=== PATIENT | male | born 1975 | race Caucasian/White ===

== ENCOUNTER 2023-03-09 08:29 | Outpatient (OUT) | payer BC, SELFPAY ==
[2023-03-09 10:01] LABS: Estimated Average Glucose 123 mg/dL; Glycohemoglobin A1C 5.9 % (4.5-6.2)
== END 2023-03-09 08:30 | disposition home or self-care (01) ==
PROVIDERS: PCP Family Medicine; Visit Provider Family Medicine
DX: E11.65 Type 2 diabetes mellitus with hyperglycemia (principal)
CPT/HCPCS: 36415; 83036

== ENCOUNTER 2023-03-30 08:55 | Outpatient (OUT) | payer BC, SELFPAY ==
--- NOTE | 2023-03-30 08:58 | US_ITS ---
The [address] [address] Patient Name: SHAGUFTA RUIZ MRN: [id number] date: 1975 Sex: M Assigned Patient Location: [place] Current Patient Location: [place] Accession/Order Number: [id number] Exam Date: 03/30/2023 09:00 Report Date: 03/30/2023 09:48 At the request of: LOLITA EUGENE Procedure: US abdomen limited EXAM: US abdomen limited HISTORY: . Left upper quadrant pain R10.12 . COMPARISON: None. TECHNIQUE: Nogueira scale and color imaging was performed FINDINGS: The spleen appears normal in size measuring 10.5 x 9.8 x 4 cm. Color-flow is noted. No masses are noted. No subcapsular fluid collection is noted. The left kidney is grossly unremarkable. Scanning of the left upper quadrant soft tissues regional to the scar from the patient's previous chest 2V chest under the skin there is a 2 x 2 mm hypoechoic area. No color-flow is noted. There is a linear hypoechoic tract, also noted extending from the skin into the soft tissues. US/US abdomen limited IMPRESSION: 1. Normal-appearing spleen spleen and left kidney. 2. Within the soft tissues a left upper quadrant just under the skin in the region of the patient's previous chest tube there is a 2 x 2 mm hypoechoic area. There is a linear hypoechoic area extending into the soft tissues. Findings most likely represent a scar from the chest tube track. Clinical correlation is suggested. Electronically authenticated by: TEO AVELAR Date: 03/30/2023 09:48
== END 2023-03-30 08:56 | disposition home or self-care (01) ==
LOC: US 08:55
PROVIDERS: PCP Family Medicine; Visit Provider Family Medicine
DX: R10.12 Left upper quadrant pain (principal)
CPT/HCPCS: 76705

== ENCOUNTER 2024-08-07 11:03 | Outpatient (OUT) | payer BC, SELFPAY ==
[2024-08-07 11:30] LABS: Basophils Absolute Auto 0.1 10^3/uL (0.0-0.1); Basophils Percent Auto 1.1 % (0.2-2.0); Eosinophils Absolute Auto 0.8 10^3/uL (0.0-0.7); Eosinophils Percent Auto 11.1 % (0.9-7.0); Hematocrit 44.9 % (42.0-54.0); Hemoglobin 15.7 g/dL (14.0-18.0); Immature Granulocytes Abs Auto 0.01 10^3/uL (0.00-0.03); Immature Granulocytes Pct Auto 0.1 % (0.0-0.5); Lymphocytes Absolute Auto 2.6 10^3/uL (1.2-3.8); Lymphocytes Percent Auto 35.1 % (20.5-60.0); Mean Corpuscular Hemoglobin 29.6 pg (25.9-34.0); Mean Corpuscular Volume 84.7 fL (80.0-94.0); Mean Platelet Volume 8.7 fL (9.5-13.5); Monocytes Absolute Auto 0.7 10^3/uL (0.3-0.8); Monocytes Percent Auto 9.9 % (1.7-12.0); Neutrophils Absolute Auto 3.2 10^3/uL (1.4-6.5); Neutrophils Percent Auto 42.7 % (43.0-75.0); Platelet Count 272 10^3/uL (150-450); Red Cell Distribution Width 12.4 % (11.0-15.0); White Blood Count 7.4 10^3/uL (4.0-11.0)
[2024-08-07 11:46] LABS: Estimated Average Glucose 123 mg/dL; Glycohemoglobin A1C 5.9 % (4.5-6.2)
[2024-08-07 11:54] LABS: Alanine Aminotransferase 21 U/L (16-63); Albumin Level 3.8 g/dL (3.4-5.0); Alkaline Phosphatase 88 U/L (46-116); Aspartate Amino Transferase 12 U/L (15-37); BUN Creatinine Ratio 28.6; Calcium 9.2 mg/dL (8.5-10.1); Carbon Dioxide 28.1 mmol/L (21.0-32.0); Chloride 106 mmol/L (98-107); Chol HDL Ratio 3.1; Cholesterol 184 mg/dL (<=200); Estimated GFR (African America >60 (>=60 mL/min/1.73m^2); Estimated GFR (Non-African Ame >60 (>=60 mL/min/1.73m^2); Globulin 3.8 g/dL; Glucose 106 mg/dL (74-106); HDL Cholesterol 59 mg/dL (40-60); LDL Cholesterol Calculated 117.4 mg/dL; Potassium 4.1 mmol/L (3.5-5.1); Sodium 144 mmol/L (136-145); Total Protein 7.6 g/dL (6.4-8.2); Triglycerides 38 mg/dL (<=150); VLDL CHOLESTEROL 7.6 mg/dL
[2024-08-07 13:34] LABS: Microalbumin Urine Random 3.3 mg/dL (<=30.0)
== END 2024-08-07 11:04 | disposition home or self-care (01) ==
LOC: LAB 11:04
PROVIDERS: PCP Family Medicine; Visit Provider Family Medicine
DX: Z00.00 Encounter for general adult medical examination without abnormal findings (principal); E11.9 Type 2 diabetes mellitus without complications
CPT/HCPCS: 36415; 80053; 80061; 82043; 83036; 85025

== ENCOUNTER 2025-01-04 18:27 | Emergency (ER) | payer BC, SELFPAY ==
[2025-01-04] VITALS (12 sets, daily range): BP systolic 123–153; BP diastolic 77–86; PULSE 68–86; TEMP 37.1; O2SAT 92–98; BMI 36.9
--- OUTSIDE RECORDS SUMMARY | 2025-01-04 18:38 | XMS_ITS | CCD ---
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 that I do wonder if these may be seizure events. I would suggest that we cover him with an antiepileptic drug-Keppra. Discussed that people generally tolerate this well. Is taking twice per day. Does not require routine lab monitoring. He does note that he continues to have some pressure headaches as well. Having intermittent nausea and vomiting few times per week. Diplopia is marginally improved, though still present with far lateral gaze. Denies difficulty with his balance or falls. Not really having much dizziness as he was prior to the shunt revision. He would like a refill on his oxycodone as well. Reminded of appointment next week and then at end of month with CT same day to follow-up resolution of subdural hematoma. [facility] 36 Pt's PCP, Dr. Eugene, called reporting that pt was seen today and has left sided facial numbness/tingling, no drooping, and left arm numbness/tingling. Dr. Eugene wanted to make you aware. [facility] Telephoneon 12-31-2024 Telephone [phone] DarianMartinez cortez 1975 M Date Provider Department Center 12/31/2024 MELY ARRIAZA [facility] SURG Second Fl Family History Problem Relation Age of Onset COPD Mother Parkinsonism Father Hypertension Father Hypertension Brother Cancer Mother's Brother Cancer Maternal Grandmother Diabetes Maternal Grandmother Stroke Paternal Grandfather Family Status - Relation Status Age at Mother Alive Father Alive Brother Mother's Brother Maternal Grandmother Paternal Grandfather [facility] DSon 12-24-2024 DS Admission Admitted 12/22/2024 for Subdural hematoma, nontraumatic (C* Discharge Diagnosis Subdural hematoma, nontraumatic (CMS/HCC) Principal procedure: Evacuation of right side subdural hematoma (gabriela holes aborted for) craniotomy - frontal/parietal Discharge Disposition Home or Self Care () Discharge Medications Your medication list START taking these medications Instructions Last Dose Given Next Dose Due oxyCODONE 5 mg immediate release tablet Commonly known as: Roxicodone Take 1 tablet (5 mg) by mouth every 6 (six) hours if needed for moderate pain (4-7 pain score) (for post-op pain - can use tylenol or ibuprofen first and use this second if still having pain) for up to 5 days. CONTINUE taking these medications Instructions Last Dose Given Next Dose Due albuterol 90 mcg/actuation inhaler alcohol swabs pads, medicated amLODIPine 5 mg tablet Commonly known as: Norvasc Take 1 tablet (5 mg) by mouth in the morning. atorvastatin 20 mg tablet Commonly known as: Lipitor Dexcom G6 Sensor device Generic drug: blood-glucose sensor Dexcom G6 Transmitter device Generic drug: Dexcom G4 [place] transmitter losartan 50 mg tablet Commonly known as: Cozaar metFORMIN 500 mg tablet Commonly known as: Glucophage metoprolol succinate XL 50 mg 24 hr tablet Commonly known as: Toprol-XL ondansetron 4 mg tablet Commonly known as: Zofran pantoprazole 40 mg EC tablet Commonly known as: ProtoNix Prodigy Twist Top Lancet 28 gauge Generic drug: FreeStyle lancets SELECT IF UNABLE TO FIND MEDICATION WITH +ADD semaglutide 0.25 mg or 0.5 mg (2 mg/3 mL) pen injector Commonly known as: Ozempic sildenafil 100 mg tablet Commonly known as: Viagra tiZANidine 2 mg tablet Commonly known as: Zanaflex TAKE 1 TABLET BY MOUTH EVERY 8 HOURS NEEDED FOR MUSCLE SPASM UltiCare Pen Needle 31 gauge x 5/16 needle Generic drug: pen needle, diabetic STOP taking these medications aspirin 325 mg EC tablet chlorhexidine 4 % external liquid Commonly known as: Hibiclens Where to Get Your Medications These medications were sent to [facility]/pharmacy #[id number] [place] [address] oxyCODONE 5 mg immediate release tablet Activity You should be up and walking as tolerated, Avoid lifting more than about 10 pounds for 2-3 weeks, Walking is good, Showers are OK and you can wash your hair, Louann are usually removed at your next appointment - which is typically about 2-3 weeks post-op Diet Continue on the same type of diet and foods as you were eating before your admission. Drink plenty of water. Allergies Dilaudid [hydromorphone] Hospital Course Patient had gabriela holes - which was converted to craniotomy. He went to recovery and then ICU. His post-op CT looked good. His pain was controlled. His HV drain had high output the first day which slowed considerably. The drain was removed and he was deemed appropriate for discharge to home. Pertinent Physical Exam At Time of Discharge Physical Exam Sitting up in bed Awake, alert, oriented Drain removed Motor/sensory intact Wound c/d/i Lab Results Labs Reviewed POCT GLUCOSE METER UNSOLICITED RESULTS - Abnormal Result Value Glucose POC 137 (*) Narrative: Waived Testing in the ED is performed under the ED CLIA certificate #[id number]. POCT GLUCOSE METER UNSOLICITED RESULTS - Abnormal Glucose POC 159 (*) Narrative: Waived Testing in the ED is performed under the ED CLIA certificate #[id number]. CBC - Abnormal Auto WBC 13.49 (*) RBC 4.86 Hemoglobin 13.9 Hematocrit 41.4 MCV 85.2 MCH 28.6 MCHC 33.6 RDW 13.2 Platelets 293 BASIC METABOLIC PANEL - Abnormal Sodium 135 (*) Potassium 3.9 Chloride 104 CO2 25 BUN 17 Creatinine 0.70 Glucose 186 (*) Calcium 9.0 Anion Gap 10 eGFR 114.4 BUN/Creatinine Ratio 24.3 VENOUS BLOOD GAS WITH IONIZED CALCIUM - Abnormal pH, Guillermo 7.40 pCO2, Guillermo 41 pO2, Guillermo 70 (*) HCO3, Venous 25.4 Calcium, Ion 1.21 O2 Sat, Guillermo 95.3 (*) Base Excess, Guillermo 0.5 MAGNESIUM - Abnormal Magnesium 1.8 (*) POCT GLUCOSE METER UNSOLICITED RESULTS - Abnormal Glucose POC 177 (*) Narrative: Waived Testing in the ED is performed under the ED CLIA certificate #[id number]. POCT GLUCOSE METER UNSOLICITED RESULTS - Abnormal Glucose POC 209 (*) Narrative: Waived Testing in the ED is performed under the ED CLIA certificate #[id number]. BASIC METABOLIC PANEL - Abnormal Sodium 134 (*) Potassium 3.9 Chloride 101 CO2 26 BUN 17 Creatinine 0.66 (*) Glucose 152 (*) Calcium 8.7 Anion Gap 11 eGFR 116.4 BUN/Creatinine Ratio 25.8 CBC - Abnormal Auto WBC 14.35 (*) RBC 4.77 Hemoglobin 13.7 Hematocrit 40.0 MCV 83.9 MCH 28.7 MCHC 34.3 RDW 13.0 Platelets 315 MAGNESIUM - Abnormal Magnesium 1.8 (*) POCT GLUCOSE METER UNSOLICITED RESULTS - Abnorm (more content not included)... Normal [facility] MAGNESIUMon 12-24-2024 Magnesium [Mass/Vol] 1.8 mg/dL Low 1.9-2.7 [facility] Comment on above: Performed By: #### L [id number] #### [facility] ([facility]) [address] [place] [address] NURSNOTEon 12-24-2024 NURSNOTE Patient Name: Sadie Ruiz : 1975 Primary Care Physician: Lolita Eugene MD Admission Date: 12/22/2024 RAPID RESPONSE TEAM ICU TRANSFER FOLLOW-UP NOTE SUBJECTIVE / OBJECTIVE: Follow-up for previous transfer out of the ICU notification for 12/23 at 1147. ASSESSMENT / INTERVENTIONS: Recent Vital Signs: Vitals: 12/24/24 0303 12/24/24 0455 12/24/24 0904 12/24/24 0939 BP: 149/82 (!) 152/97 (!) 146/91 BP Location: Left arm Left arm Patient Position: Lying Lying Pulse: 79 78 75 Resp: 23 (!) 30 Temp: 36.7 ???C (98.1 ???F) 36.8 ???C (98.2 ???F) TempSrc: Oral Oral SpO2: 98% 97% Weight: 120 kg (263 lb 14.3 oz) Height: Latest Labs: Lab Results Component Value Date WBC 14.35 (H) 12/23/2024 WBC 13.49 (H) 12/22/2024 HGB 13.7 12/23/2024 HGB 13.9 12/22/2024 HCT 40.0 12/23/2024 HCT 41.4 12/22/2024 MCV 83.9 12/23/2024 MCV 85.2 12/22/2024 PLT 315 12/23/2024 PLT 293 12/22/2024 NEUTROABS 3.85 12/17/2024 NEUTROABS 8.33 (H) 09/29/2024 Lab Results Component Value Date GLUCOSE 152 (H) 12/23/2024 GLUCOSE 186 (H) 12/22/2024 CALCIUM 8.7 12/23/2024 CALCIUM 9.0 12/22/2024 NA 134 (L) 12/23/2024 NA 135 (L) 12/22/2024 K 3.9 12/23/2024 K 3.9 12/22/2024 CO2 26 12/23/2024 CO2 25 12/22/2024 CL 101 12/23/2024 CL 104 12/22/2024 BUN 17 12/23/2024 BUN 17 12/22/2024 CREATININE 0.66 (L) 12/23/2024 CREATININE 0.70 12/22/2024 EGFR 116.4 12/23/2024 EGFR 114.4 12/22/2024 BCR 25.8 12/23/2024 BCR 24.3 12/22/2024 Lab Results Component Value Date MG 1.8 (L) 12/24/2024 MG 1.8 (L) 12/23/2024 Lab Results Component Value Date PHOS 3.0 12/22/2024 No results found for: ALT , AST , GGT , ALKPHOS , BILITOT Lab Results Component Value Date INR 0.99 12/17/2024 INR 1.03 09/16/2024 Follow-up: Patient is doing well at this time. Sitting up in bed talking with family. Vitals are stable. If emergent concerns arise call rapid response team. Janel Guadalupe RN Rapid Response Team Nurse [phone] 12/24/2024 11:10 AM Normal [facility] NURSNOTE Patient Name: Sadie Ruiz : 1975 Primary Care Physician: Lolita Eugene MD Admission Date: 12/22/2024 RAPID RESPONSE TEAM ICU TRANSFER FOLLOW-UP NOTE SUBJECTIVE / OBJECTIVE: Follow-up for previous transfer out of the ICU notification for 12/23 at 1147. ASSESSMENT / INTERVENTIONS: Recent Vital Signs: Vitals: 12/23/24 1700 12/23/24 1800 12/23/24 2000 12/24/24 0303 BP: 130/82 144/82 127/74 BP Location: Left arm Left arm Patient Position: Sitting Lying Pulse: 63 70 70 Resp: 14 10 19 Temp: 36 ???C (96.8 ???F) 36.7 ???C (98.1 ???F) TempSrc: Oral Oral SpO2: 100% 100% Weight: 120 kg (263 lb 14.3 oz) Height: Latest Labs: Lab Results Component Value Date WBC 14.35 (H) 12/23/2024 WBC 13.49 (H) 12/22/2024 HGB 13.7 12/23/2024 HGB 13.9 12/22/2024 HCT 40.0 12/23/2024 HCT 41.4 12/22/2024 MCV 83.9 12/23/2024 MCV 85.2 12/22/2024 PLT 315 12/23/2024 PLT 293 12/22/2024 NEUTROABS 3.85 12/17/2024 NEUTROABS 8.33 (H) 09/29/2024 Lab Results Component Value Date GLUCOSE 152 (H) 12/23/2024 GLUCOSE 186 (H) 12/22/2024 CALCIUM 8.7 12/23/2024 CALCIUM 9.0 12/22/2024 NA 134 (L) 12/23/2024 NA 135 (L) 12/22/2024 K 3.9 12/23/2024 K 3.9 12/22/2024 CO2 26 12/23/2024 CO2 25 12/22/2024 CL 101 12/23/2024 CL 104 12/22/2024 BUN 17 12/23/2024 BUN 17 12/22/2024 CREATININE 0.66 (L) 12/23/2024 CREATININE 0.70 12/22/2024 EGFR 116.4 12/23/2024 EGFR 114.4 12/22/2024 BCR 25.8 12/23/2024 BCR 24.3 12/22/2024 Lab Results Component Value Date MG 1.8 (L) 12/23/2024 MG 1.8 (L) 12/22/2024 Lab Results Component Value Date PHOS 3.0 12/22/2024 No results found for: ALT , AST , GGT , ALKPHOS , BILITOT Lab Results Component Value Date INR 0.99 12/17/2024 INR 1.03 09/16/2024 Follow-up: Vital signs have remained stable since transfer out of ICU yesterday morning. Most recent lab work is largely unchanged. Bedside nurse reported that he is alert and oriented, and has no questions or concerns at this time. Encouraged to reach out to [facility] if anything changes. Sarath Blount, RN Rapid Response Team Nurse [phone] 12/24/2024 3:32 AM Normal [facility] POCT GLUCOSE METER UNSOLICIT ED RESULTSon 12-24-2024 Glucose [Mass/Vol] 211 mg/dL High 70-105 [facility] Comment on above: Order Comment: Waive d Testing in the ED is performed under the ED CLIA certificate #[id number]. Result Comment: [email or web address] Performed By: #### L [id number] ####[facility] ([facility])[address] [place] [address] Glucose [Mass/Vol] 174 mg/dL High 70-105 [facility] Comment on above: Order Comment: Waive d Testing in the ED is performed under the ED CLIA certificate #[id number]. Result Comment: [email or web address] Performed By: #### L [id number] #### [facility] ([facility]) [address] [place] [address] Glucose [Mass/Vol] 136 mg/dL High 70-105 [facility] Comment on above: Order Comment: Waive d Testing in the ED is performed under the ED CLIA certificate #[id number]. Result Comment: [email or web address] Performed By: #### L [id number] ####[facility] ([facility])[address] [place] [address] BASIC METABOLIC PANELon 04-3 Anion gap [Moles/Vol] 11 mmol/L Normal 7-20 [facility] Comment on above: Performed By: #### L [id number] ####[facility] ([facility])[address] [place] [address] Calcium [Mass/Vol] 8.7 mg/dL Normal 8.6-10.3 [facility] Comment on above: Performed By: #### L [id number] ####[facility] ([facility])[address] [place] [address] Chloride [Moles/Vol] 101 mmol/L Normal 98-107 [facility] Comment on above: Performed By: #### L [id number] ####[facility] ([facility])[address] [place] [address] CO2 [Moles/Vol] 26 mmol/L Normal 21-31 [facility] Comment on above: Performed By: #### L [id number] ####[facility] ([facility])[address] [place] [address] Creatinine [Mass/Vol] 0.66 mg/dL Low 0.70-1.30 [facility] Comment on above: Performed By: #### L [id number] ####[facility] ([facility])[address] [place] [address] GLOMERULAR FILTRATION RATE ML/MIN/1.73 SQ M.PREDICTED 116.4 mL/min/1.73m*2 Normal >60.0 [facility] Comment on above: Result Comment: The [facility]???s estimated glomerular filtration rate (eGFR) will no longer include consideration of race in its calculation. The National Kidney Foundation???s eGFR Task Force developed new recommendations for the estimation of the glomerular filtration rate in the [place] They recommend immediate implementation of the new equation refit without the race variable in all laboratories because the calculation does not include race. In addition to not including race in the calculation and reporting, it included diversity in its development, and has acceptable performance characteristics and potential consequences that do not disproportionately affect any one group of individuals. Performed By: #### L [id number] ####[facility] ([facility])[address] [place] [address] Glucose [Mass/Vol] 152 mg/dL High 70-100 [facility] Comment on above: Performed By: #### L [id number] ####[facility] ([facility])[address] [place] [address] Potassium [Moles/Vol] 3.9 mmol/L Normal 3.5-5.1 [facility] Comment on above: Performed By: #### L [id number] ####[facility] ([facility])[address] [place] [address] Sodium [Moles/Vol] 134 mmol/L Low 136-145 [facility] Comment on above: Performed By: #### L [id number] ####[facility] ([facility])[address] [place] [address] Urea nitrogen [Mass/Vol] 17 mg/dL Normal 7-25 [facility] Comment on above: Performed By: #### L [id number] ####[facility] ([facility])[address] [facility] [address] UREA NITROGEN/CREATININE (MASS RATIO) IN SER/PLAS 25.8 Normal [facility] Comment on above: Performed By: #### L [id number] ####[facility] ([facility])[address] [place] [address] CBCon 12-23-2024 Erythrocyte distribution width (RBC) [Ratio] 13.0 % Normal 11.5-15.0 [facility] Comment on above: Performed By: #### L [id number] ####[facility] ([facility])[address] [place] [address] ERYTHROCYTE MEAN CORPUSCULAR HEMOGLOBIN CONCENTRATION (G/DL) BY AUTOMATED 34.3 g/dL Normal 32.0-35.0 [facility] Comment on above: Performed By: #### L [id number] ####[facility] ([facility])[address] [place] [address] Hematocrit (Bld) [Volume fraction] 40.0 % Normal 39.0-50.0 [facility] Comment on above: Performed By: #### L [id number] ####[facility] ([facility])[address] [place] [address] Hemoglobin (Bld) [Mass/Vol] 13.7 g/dL Normal 13.0-17.0 [facility] Comment on above: Performed By: #### L [id number] ####[facility] ([facility])[address] [place] [address] MCH (RBC) [Entitic mass] 28.7 pg Normal 27.0-33.0 [facility] Comment on above: Performed By: #### L [id number] ####[facility] ([facility])[address] [place] [address] MCV (RBC) [Entitic vol] 83.9 fL Normal 82.0-98.0 [facility] Comment on above: Performed By: #### L [id number] ####[facility] ([facility])[address] [place] [address] PLATELETS (10*3/UL) IN BLOOD AUTOMATED COUNT 315 10*3/uL Normal 150-400 [facility] Comment on above: Performed By: #### L [id number] ####[facility] ([facility])[address] [place] [address] RBC (Bld) [#/Vol] 4.77 10*6/uL Normal 4.20-5.70 [facility] Comment on above: Performed By: #### L [id number] ####[facility] ([facility])[address] [place] [address] WBC (Bld) [#/Vol] 14.35 10*3/uL High 4.00-10.60 [facility] Comment on above: Performed By: #### L [id number] ####[facility] ([facility])[address] [place] [address] CT HEAD WO IV CONTRASTon CT HEAD WO IV CONTRAST CT HEAD WO IV CON TRAST: 12/23/2024 PROVIDED HISTORY: * 49 years old Male * Craniotomy, post-op * Postprocedure COMPARISON: CT head 12/03/2024 TECHNIQUE: 1. CT of the Head without intravenous contrast. Sagittal and coronal reformats created and reviewed in brain, bone, and soft tissue windows. 2. All CT scans at this facility use dose modulation, iterative reconstruction, and/or weight based dosing when appropriate to reduce radiation dose to as low as reasonably achievable. ? FINDINGS: Right-sided craniotomy changes for evacuation of subdural collection with mixed attenuation debris measuring up to 6 mm in maximal thickness (previous measuring up to 17 mm) overlying the right lateral convexity as well as small volume pneumocephalus, without evidence of tension morphology. Collection exerts mild mass effect on the subjacent brain parenchyma, though no evidence of significant shift of midline structures. Right parietal approach ventriculostomy catheters with tips in similar position to prior. Asymmetric dilation of the left greater than right supratentorial ventricular system with bifrontal diameter measuring up to 4.2 cm, previously 4.1 cm. Third ventricular caliber, sylvian aqueduct aqueduct and fourth ventricular caliber are relatively well-maintained. Near-complete resolution of left cerebral convexity extra-axial collection. No territorial loss of nogueira-white differentiation. Basal cisterns remain patent. Post surgical changes overlying the craniotomy site with subcutaneous changes emphysematous and surgical staple line as well as mild soft tissue swelling. No acute process of the orbits, paranasal sinuses, or mastoid air cells. IMPRESSION: 1. Right lateral convexity subdural evacuation changes with residual small volume mixed attenuation debris measuring up to 6 mm in thickness and trace pneumocephalus (no tension morphology). Minimal mass effect. No significant midline shift. 2. Asymmetric dilation of the left greater than right supratentorial ventricular system, which is similar to minimally increased in caliber from prior. Indwelling ventriculostomy catheters, in similar position. 3. Near-complete resolution of left cerebral convexity extra-axial collection. Electronically signed: Zac Diaz. Not Jessy Invalid Interpretation Code [facility] Comment on above: Order Comment: Waive d Testing in the ED is performed under the ED CLIA certificate #[id number]. MAGNESIUMon 12-23-2024 Magnesium [Mass/Vol] 1.8 mg/dL Low 1.9-2.7 [facility] Comment on above: Performed By: #### L [id number] #### [facility] ([employer]) [address] [place] [address] POCT GLUCOSE METER UNSOLICIT ED RESULTSon 12-23-2024 Glucose [Mass/Vol] 155 mg/dL High 70-105 [facility] Comment on above: Order Comment: Waive d Testing in the ED is performed under the ED CLIA certificate #[id number]. Result Comment: [email or web address] [email or web address] Performed By: #### L [id number] ####[facility] ([employer])[address] [place] [address] Glucose [Mass/Vol] 167 mg/dL High 70-105 [facility] Comment on above: Order Comment: Waive d Testing in the ED is performed under the ED CLIA certificate #[id number]. Result Comment: [email or web address] Performed By: #### L [id number] ####[facility] ([facility])[address] [place] [address] Glucose [Mass/Vol] 244 mg/dL High 70-105 [facility] Comment on above: Order Comment: Waive d Testing in the ED is performed under the ED CLIA certificate #[id number]. Result Comment: [email or web address] [email or web address] Performed By: #### L [id number] ####[facility] ([facility])[address] [place] [address] Glucose [Mass/Vol] 141 mg/dL High 70-105 [facility] Comment on above: Order Comment: Waive d Testing in the ED is performed under the ED CLIA certificate #[id number]. Result Comment: [email or web address] Performed By: #### L [id number] #### [facility] ([facility]) [address] [place] [address] BASIC METABOLIC PANELon - Anion gap [Moles/Vol] 10 mmol/L Normal 7-20 [facility] Comment on above: Performed By: #### L [id number] ####[facility] ([facility])[address] [place] [address] Calcium [Mass/Vol] 9.0 mg/dL Normal 8.6-10.3 [facility] Comment on above: Performed By: #### L [id number] ####[facility] ([facility])[address] [place] [address] Chloride [Moles/Vol] 104 mmol/L Normal 98-107 [facility] Comment on above: Performed By: #### L [id number] ####[facility] ([facility])[address] [place] [address] CO2 [Moles/Vol] 25 mmol/L Normal 21-31 [facility] Comment on above: Performed By: #### L [id number] ####[facility] ([facility])[address] [place] [address] Creatinine [Mass/Vol] 0.70 mg/dL Normal 0.70-1.30 [facility] Comment on above: Performed By: #### L [id number] ####[facility] ([facility])[address] [place] [address] GLOMERULAR FILTRATION RATE ML/MIN/1.73 SQ M.PREDICTED 114.4 mL/min/1.73m*2 Normal >60.0 [facility] Comment on above: Result Comment: The [facility]???s estimated glomerular filtration rate (eGFR) will no longer include consideration of race in its calculation. The National Kidney Foundation???s eGFR Task Force developed new recommendations for the estimation of the glomerular filtration rate in the [place] They recommend immediate implementation of the new equation refit without the race variable in all laboratories because the calculation does not include race. In addition to not including race in the calculation and reporting, it included diversity in its development, and has acceptable performance characteristics and potential consequences that do not disproportionately affect any one group of individuals. Performed By: #### L [id number] ####[facility] ([facility])[address] [place] [address] Glucose [Mass/Vol] 186 mg/dL High 70-100 [facility] Comment on above: Performed By: #### L [id number] ####[facility] ([facility])[address] [place] [address] Potassium [Moles/Vol] 3.9 mmol/L Normal 3.5-5.[address] [facility] Comment on above: Performed By: #### L [id number] ####[facility] ([facility])[address] [place] [address] Sodium [Moles/Vol] 135 mmol/L Low 136-145 [facility] Comment on above: Performed By: #### L [id number] ####[facility] ([facility])[address] [place] [address] Urea nitrogen [Mass/Vol] 17 mg/dL Normal 7-25 [facility] Comment on above: Performed By: #### L [id number] ####[facility] ([facility])[address] [place] [address] UREA NITROGEN/CREATININE (MASS RATIO) IN SER/PLAS 24.3 Normal [facility] [facility] Comment on above: Performed By: #### L [id number] ####[facility] ([facility])[address] [place] [address] CBCon 12-22-2024 Erythrocyte distribution width (RBC) [Ratio] 13.2 % Normal 11.5-15.0 [facility] Comment on above: Performed By: #### L [id number] ####[facility] ([facility])[address] [place] [address] ERYTHROCYTE MEAN CORPUSCULAR HEMOGLOBIN CONCENTRATION (G/DL) BY AUTOMATED 33.6 g/dL Normal 32.0-35.0 [facility] Comment on above: Performed By: #### L [id number] ####[facility] ([facility])[address] [place] [address] Hematocrit (Bld) [Volume fraction] 41.4 % Normal 39.0-50.0 [facility] Comment on above: Performed By: #### L [id number] ####[facility] ([facility])[address] [place] [address] Hemoglobin (Bld) [Mass/Vol] 13.9 g/dL Normal 13.0-17.0 [facility] Comment on above: Performed By: #### L [id number] ####[facility] ([facility])[address] [place] [address] MCH (RBC) [Entitic mass] 28.6 pg Normal 27.0-33.0 [facility] Comment on above: Performed By: #### L [id number] ####[facility] ([facility])[address] [place] [address] MCV (RBC) [Entitic vol] 85.2 fL Normal 82.0-98.0 [facility] Comment on above: Performed By: #### L [id number] ####[facility] ([facility])[address] [place] [address] PLATELETS (10*3/UL) IN BLOOD AUTOMATED COUNT 293 10*3/uL Normal 150-400 [facility] Comment on above: Performed By: #### L [id number] ####[facility] (BEAKER)[address] [place] [address] RBC (Bld) [#/Vol] 4.86 10*6/uL Normal 4.20-5.70 [facility] Comment on above: Performed By: #### L [id number] ####[facility] ([facility])[address] [place] [address] WBC (Bld) [#/Vol] 13.49 10*3/uL High 4.00-10.60 [facility] Comment on above: Performed By: #### L [id number] ####[facility] ([facility])[address] [place] [address] CONSULTon 12-22-2024 CONSULT ------- Attestation signed by Yared Ventura MD at 12/22/2024 5:05 PM I personally saw and examined the patient on the same date of service as resident Dr. Jiménez. I discussed the findings and therapeutic plan with the resident. Yared Ventura MD [facility] Surgical Intensive Care Unit Consult Note Reason For Consult Post-Operative Critical Care Management Referring Physician: Dr. Tal Linares Chief Complaint: Critical Care Management HPI: 49 y.o. year old male who presented for a planned neurosurgical procedure and underwent a right side gabriela hole craniotomy for a chronic non-traumatic subdural hematoma evacuation. Post-operatively the patient was recovered in the PACU and transported to the Surgical ICU for a planned admission on 12/22/24 for further post-operative Critical Care management. Review of Systems: Review of Systems Constitutional: Negative. Eyes: Diplopia, described to be at baseline Respiratory: Negative. Cardiovascular: Negative. Gastrointestinal: Negative. Last BM this morning Endocrine: Negative. Genitourinary: Negative. Musculoskeletal: Negative. Allergic/Immunologic: Negative. Neurological: Positive for headaches (R sided, described as mild-moderate in intensity). Negative for tremors, speech difficulty and weakness. Psychiatric/Behavioral: Negative. All other systems reviewed and are negative. History: The following information was obtained through chart review as the patient was unable to provide information due to emergency nature and/or medical condition Past Medical History: has a past medical history of Diabetes mellitus (CMS/HCC), Erectile dysfunction, Hydrocephalus (CMS/HCC), Hyperlipidemia, Obesity, Pleural effusion, Pneumonia, Sleep apnea, Subdural hematoma (CMS/HCC), and Tachycardia. Past Surgical History: has a past surgical history that includes Ventriculoperitoneal shunt (Right); Chest tube insertion (10/2022); Shunt revision (09/22/2024); and Craniotomy (12/22/2024). Allergies: is allergic to dilaudid [hydromorphone]. Home Medications: Medications Prior to Admission Medication Sig Dispense Refill Last Dose amLODIPine (Norvasc) 5 mg tablet Take 1 tablet (5 mg) by mouth in the morning. 30 tablet 0 12/21/2024 aspirin 325 mg EC tablet Take 325 mg by mouth if needed. Past Week atorvastatin (Lipitor) 20 mg tablet 12/21/2024 chlorhexidine (Hibiclens) 4 % external liquid Use wash daily starting 5 days prior to surgery as directed. 473 mL 1 12/21/2024 losartan (Cozaar) 50 mg tablet Take 1 tablet by mouth in the morning. 12/21/2024 metFORMIN (Glucophage) 500 mg tablet Take 500 mg by mouth with breakfast and with evening meal. 12/21/2024 at 0800 metoprolol succinate XL (Toprol-XL) 50 mg 24 hr tablet 12/22/2024 ondansetron (Zofran) 4 mg tablet Take 4 mg by mouth every 8 (eight) hours if needed for nausea or vomiting. 12/22/2024 pantoprazole (ProtoNix) 40 mg EC tablet Take 40 mg by mouth in the morning. 12/22/2024 Prodigy Twist Top Lancet 28 gauge USE DIRECTED TO TEST SUGARS TWICE DAILY 12/21/2024 semaglutide (Ozempic) 0.25 mg or 0.5 mg (2 mg/3 mL) pen injector Inject 0.5 mg under the skin every 7 (seven) days. Saturday Past Month sildenafil (Viagra) 100 mg tablet Take 100 mg by mouth if needed for erectile dysfunction. Past Month tiZANidine (Zanaflex) 2 mg tablet TAKE 1 TABLET BY MOUTH EVERY 8 HOURS NEEDED FOR MUSCLE SPASM 270 tablet 1 Past Week albuterol 90 mcg/actuation inhaler INHALE 1 PUFF BY MOUTH EVERY 6 HOURS NEEDED FOR SHORTNESS OF BREATH/ WHEEZING More than a month alcohol swabs pads, medicated in the morning and at bedtime. as directed Dexcom G6 Sensor device APPLY NEW SENSOR EVERY 10 DAYS Dexcom G6 Transmitter device USE DIRECTED TO TEST BLOOD SUGAR SELECT IF UNABLE TO FIND MEDICATION WITH +ADD Take 1 tablet by mouth in the morning. Med Name: testosterone pill--OTC from [facility] UltiCare Pen Needle 31 gauge x 5/16 needle USE DIRECTED TO TEST SUGARS TWICE DAILY Social History: reports that he has never smoked. He has never used smokeless tobacco. He reports current alcohol use. He reports that he does not use drugs. Family History: family history includes COPD in his mother; Cancer in his maternal grandmother and mother's brother; Diabetes in his maternal grandmother; Hypertension in his brother and father; Parkinsonism in his father; Stroke in his paternal grandfather. Objective Vitals: BP: (137-172)/(79-96) 144/91 (12/22 1442) Systolic BP Percentile: -- Diastolic BP Percentile: -- Temp: [36.1 ???C (97 ???F)-36.4 ???C (97.5 ???F)] 36.1 ???C (97 ???F) (12/22 1358) Temp Source: Temporal (12/22 1358) Heart Rate: [69-82] 71 (12/22 1442) Resp: [15-24] 17 (12/22 1442) SpO2: [91 %-99 %] 93 % (04/29 1442) Height: (more content not included)... Normal [facility] HISTOLOGY - TISSUE EXAMon LAB AP CASE REPORT Normal [facility] Comment on above: Order Comment: Pre-o p diagnosis:Subdural hematoma, nontraumatic (CMS/HCC) [I62.00] Result Comment: Surg ical Pathology Case: [id number] Authorizing Provider: Tal Linares MD Collected: 12/22/2024 1236 Ordering Location: [facility] Main Operating Room Received: 12/22/2024 1328 Pathologist: Noy White MD Specimen: Hematoma, HEMATOMA Performed By: #### L [id number] ####[facility] ([facility])[address] [place] [address] LAB AP CLINICAL INFORMATION Normal [facility] Comment on above: Order Comment: Pre-o p diagnosis:Subdural hematoma, nontraumatic (CMS/HCC) [I62.00] Result Comment: Post -Op Diagnoses I62.00 - Subdural hematoma, nontraumatic (CMS/HCC) [ICD-10-CM] Performed By: #### L [id number] ####[facility] ([facility])[address] [place] [address] LAB AP GROSS DESCRIPTION A. Hematoma. Normal [facility] Comment on above: Order Comment: Pre-o p diagnosis:Subdural hematoma, nontraumatic (CMS/HCC) [I62.00] Result Comment: Rece ived in formalin labeled Aba Ruiz, HEMATOMA is a 8 x 4.5 x 1.3 cm aggregate of red-brown, friable, hemorrhagic material. Sectioning reveals homogenous red-brown friable cut surfaces. Protective Signal Superintendent sections are submitted in 2 cassettes. Yajaira Esparza M.D., PGY-1 Performed By: #### L [id number] ####[facility] ([facility])[address] [place] [address] LAB AP MICROSCOPIC DESCRIPTION Microscopic examination performed. [facility] Comment on above: Order Comment: Pre-o p diagnosis:Subdural hematoma, nontraumatic (CMS/HCC) [I62.00] Performed By: #### L [id number] ####[facility] ([facility])[address] [place] [address] LAB AP REPORT FINAL DIAGNOSIS NARRATIVE [facility] Comment on above: Order Comment: Pre-o p diagnosis:Subdural hematoma, nontraumatic (CMS/HCC) [I62.00] Result Comment: A. S oft tissue, hematoma , evacuation: - Organizing hematoma. Performed By: #### L [id number] ####[facility] ([facility])[address] [place] [address] HPon 12-22-2024 HP H&P reviewed. The pa tient was examined and there are no changes to the H&P. Plan for right side gabriela holes for chronic subdural hematoma - this is the same side as his shunt. I completed the consent process and form with him this morning. He voiced understanding of the proposed surgery and wishes to proceed. Questions answered. Tal Linares MD [facility] MAGNESIUMon 12-22-2024 Magnesium [Mass/Vol] 1.8 mg/dL Low 1.9-2.7 [facility] Comment on above: Performed By: #### L [id number] ####[facility] ([facility])[address] [place] [address] NURSNOTEon 12-22-2024 NURSNOTE Patient transferred to SICU via hospital bed with all personal belongings. [facility] NURSNOTE Call Center Support Representative gave report t o Nasir VEGA at [phone]. Patient updated r/t pending transfer to SICU. [facility] OPNOTEon 12-22-2024 OPNOTE RIGHT SIDED CRANIOTO MY FOR SUBDURAL HEMATOMA EVACUATION (R) Operative Note Date: 12/22/2024 Location: [facility] OR Name: Aba Ruiz, : 1975, Diagnosis Pre-op Diagnosis * Subdural hematoma, nontraumatic (CMS/HCC) [I62.00] Post-op Diagnosis * Subdural hematoma, nontraumatic (CMS/HCC) [I62.00] Procedures RIGHT SIDED CRANIOTOMY FOR SUBDURAL HEMATOMA EVACUATION 88345 - NM GABRIELA HOLE W/EVAC&/DRG HEMATOMA EXTRADURAL/SDRL Right side gabriela holes for subdural hematoma - gabriela holes aborted and converted to (frontal-parietal) craniotomy for evacuation of subdural hematoma - due to the blood still being clotted Surgeons Primary: Tal Linares MD Procedure Summary Anesthesia: General ASA: III Estimated Blood Loss: 100 mL Total IV Fluids: 1000 mL Drains: [REMOVED] Closed/Suction Drain Accordion 10 Fr. (Removed) Site Description Unable to view 12/24/24 0502 Dressing Status Clean;Dry;Intact 12/24/24 0502 Drainage Appearance Bloody 12/23/24 141 Status To bulb suction 12/23/24 1417 Output (mL) 40 mL 12/23/24 1417 Specimens ID Source Type Tests Collected By Collected At Frozen? Priority Lab ID A Hematoma Other HISTOLOGY - TISSUE EXAM Tal Linraes MD 12/22/24 1236 No [id number] Description: HEMATOMA Comment: IN FORMALIN @ 1237 Implants Type Name Action Serial No. Plate HOLE COVER,TI M-N,GABRIELA,15MM - [id number] Implanted Plate PLATE,TI M-N,STRAIGHT,2-H/9MM - [id number] Implanted Plate PLATE,TI M-N,STRAIGHT,4-H - [id number] Implanted Screw SCREW,TI M-N,SELF-DRILL,4MM - [id number] Implanted Staff: Aquacultural Worker Supervisor: Delonte Frey RN; Rafael Buckner RN Scrub Person: Brunilda Brown CST; Reanna Alegria CST Manager Of Customer Billing: Loli Nguyen RN; Yong Vega CSA Indications: Aba Ruiz is an 49 y.o. male who is having surgery for Subdural hematoma, nontraumatic (CMS/HCC) [I62.00]. Procedure Details: The patient was seen in the preoperative area. The risks, benefits, complications, treatment options, non-operative alternatives, expected recovery and outcomes were discussed with the patient. The possibilities of reaction to medication, pulmonary aspiration, injury to surrounding structures, bleeding, recurrent infection, the need for additional procedures, failure to diagnose a condition, and creating a complication requiring transfusion or operation were discussed with the patient. The patient concurred with the proposed plan, giving informed consent. The site of surgery was properly noted/marked if necessary per policy. The patient has been actively warmed in preoperative area. Preoperative antibiotics have been ordered and given within 1 hours of incision. Venous thrombosis prophylaxis are not indicated. Findings: the subdural blood was still clotted and could not be effectively evacuated via gabriela holes which necessitated the need to convert to frontal-parietal craniotomy for evacuation. Complications: None; patient tolerated the procedure well. Disposition: PACU - hemodynamically stable. Condition: stable Tal Linares Service: Neurosurgery Attending: Tal Linares Date: 12/22/2024 Pre-op Diagnosis: Right subdural hematoma, chronic Post-op Diagnosis: Right side subdural hematoma - acute to subacute (still clotted) Procedure: Right side gabriela holes for subdural hematoma - gabriela holes aborted and converted to (frontal-parietal) craniotomy for evacuation of subdural hematoma - due to the blood still being clotted Anesthesia: GET EBL: 50 ml Complications: none Post-op disposition: Recovery Room Condition: good Indication for procedure: Patient presents with symptomatic subdural hematoma - which appeared on the pre-op CT to be appropriate for drainage with gabriela holes. I reviewed the potential risks and benefits of surgery and the patient wishes to proceed. Operative report in detail: After obtaining written informed consent for the procedure the patient was brought to the operating room and kept on their bed for induction of anesthesia. After induction of anesthesia and intubation SCDs were placed onto their legs for DVT prophylaxis. The patient's head was placed on a gel donut to expose the right side. All bone prominences were padded and there was no pressure on the eyes/face or chin. Hair was shaved as needed and the frontal and parietal incisions were marked out. The operative site was prepped and draped in the usual sterile fashion and the pre-op time out was completed. Local anesthetic was instilled at the proposed operative site. Perioperative IV antibiotic prophylaxis was given. The skin incisions were created with a 10 blade scalpel. The subcutaneous tissues were dissected to the muscle fascia with bovie cautery. Weitlaner retractors were placed to maintain retraction at each of the planned gabriela hole sites. The bone was drilled with the high speed drill with a 5-fluted cutting bit to create (more content not included)... Normal [facility] OPNOTE Date: 12/22/2024 Loca tion: [facility] OR Name: Aba Ruiz : 1975, Diagnosis Pre-op Diagnosis * Subdural hematoma, nontraumatic (CMS/HCC) [I62.00] Post-op Diagnosis * Subdural hematoma, nontraumatic (CMS/HCC) [I62.00] Procedures RIGHT SIDED CRANIOTOMY FOR SUBDURAL HEMATOMA EVACUATION 54824 - NM GABRIELA HOLE W/EVAC&/DRG HEMATOMA EXTRADURAL/SDRL Right side gabriela holes for subdural hematoma - gabriela holes aborted and converted to (frontal-parietal) craniotomy for evacuation of subdural hematoma - due to the blood still being clotted Surgeons Primary: Tal Linares MD Procedure Summary Anesthesia: General ASA: III Estimated Blood Loss: 100 mL Total IV Fluids: 1000 mL Drains: [REMOVED] Closed/Suction Drain Accordion 10 Fr. (Removed) Site Description Unable to view 12/24/24 0502 Dressing Status Clean;Dry;Intact 12/24/24 0502 Drainage Appearance Bloody 12/23/24 1417 Status To bulb suction 12/23/24 1417 Output (mL) 40 mL 12/23/24 1417 Specimens ID Source Type Tests Collected By Collected At Frozen? Priority Lab ID A Hematoma Other HISTOLOGY - TISSUE EXAM Tal Linares MD 12/22/24 1236 No [id number] Description: HEMATOMA Comment: IN FORMALIN @ 1237 Implants Type Name Action Serial No. Plate HOLE COVER,TI M-N,GABRIELA,15MM - [id number] Implanted Plate PLATE,TI M-N,STRAIGHT,2-H/9MM - [id number] Implanted Plate PLATE,TI M-N,STRAIGHT,4-H - [id number] Implanted Screw SCREW,TI M-N,SELF-DRILL,4MM - [id number] Implanted Staff: Aquacultural Worker Supervisor: Delonte Frey RN; Rafael Buckner RN Scrub Person: Brunilda Brown CST; Reanna Alegria CST Manager Of Customer Billing: Loli Nguyen RN; Yong Vega CSA Indications: Aba Ruiz is an 49 y.o. male who is having surgery for Subdural hematoma, nontraumatic (CMS/HCC) [I62.00]. Findings: blood in the subdural space was still clotted - necessitating craniotomy instead of gabriela holes for removal Complications: None; patient tolerated the procedure well. Disposition: PACU - hemodynamically stable. Condition: stable Specimens Collected: Order Name Source Comment Collection Info Order Time BASIC METABOLIC PANEL Blood, Venous Collected By: Clau Dumont 12/23/2024 3:00 AM Release to Patient Immediately CBC Blood, Venous Collected By: Clau Dumont 12/23/2024 3:00 AM Release to Patient Immediately HISTOLOGY - TISSUE EXAM Hematoma Pre-op diagnosis: Subdural hematoma, nontraumatic (CMS/HCC) [I62.00] Collected By: Tal Linares MD 12/22/2024 12:37 PM Release to Patient Immediately Attending Attestation: I was present and scrubbed for the entire procedure. Tal Linares [facility] PHOSPHORUSon 12-22-2024 Magnesium [Mass/Vol] 3.0 mg/dL Normal 2.5-5.0 [facility] Comment on above: Performed By: #### L [id number] ####[facility] ([employer])[address] [place] [address] POCT GLUCOSE METER UNSOLICIT ED RESULTSon 12-22-2024 Glucose [Mass/Vol] 209 mg/dL High 70-105 [facility] Comment on above: Order Comment: Waive d Testing in the ED is performed under the ED CLIA certificate #[id number]. Result Comment: tlin [email or web address] Performed By: #### L [id number] ####[facility] ([employer])[address] [place] [address] Glucose [Mass/Vol] 177 mg/dL High 70-105 [facility] Comment on above: Order Comment: Waive d Testing in the ED is performed under the ED CLIA certificate #[id number]. Result Comment: ebol tz Performed By: #### L [id number] ####[facility] ([employer])[address] [place] [address] Glucose [Mass/Vol] 159 mg/dL High 70-105 [facility] Comment on above: Order Comment: Waive d Testing in the ED is performed under the ED CLIA certificate #[id number]. Result Comment: cgif [email or web address] Performed By: #### L [id number] #### [facility] (BEAKER) [address] [place] [address] Glucose [Mass/Vol] 137 mg/dL High 70-105 [facility] Comment on above: Order Comment: Waive d Testing in the ED is performed under the ED CLIA certificate #[id number]. Result Comment: [facility] [place] Performed By: #### L [id number] #### [facility] ([facility]ER) [address] [place] [address] VENOUS BLOOD GAS WITH IONIZE D CALCIUMon 12-22-2024 Base excess Calc (BldV) [Moles/Vol] 0.5 mmol/L Normal [facility] Comment on above: Performed By: #### L [id number] ####[facility] RESPIRAT[facility] [id number] [place] [address] [place] CALCIUM IONIZED (MMOL/L) IN BLOOD 1.21 mmol/L Normal 1.15-1.33 [facility] Comment on above: Performed By: #### L [id number] ####[facility] [id number] [place] [address] [place] CO2 (BldV) [Partial pressure] 41 mm[Hg] Normal 40-50 [facility] Comment on above: Performed By: #### L [id number] ####[facility] RESPIRAT[facility] [id number] [place] [address] [place] HCO3 (Bld) [Moles/Vol] 25.4 mmol/L Normal [facility] Comment on above: Performed By: #### L [id number] ####[facility] RESPIRAT[facility] [id number] [place] [address] [place] Oxygen (BldV) [Partial pressure] 70 mm[Hg] High 35-45 [facility] Comment on above: Performed By: #### L [id number] ####[facility] RESPIRAT[facility] [id number] [place] [address] [facility] OXYGEN SATURATION (%) IN VENOUS BLOOD 95.3 % High 65.0-75.0 [facility] Comment on above: Performed By: #### L [id number] ####[facility] RESPIRATORY [id number] [place] [address] [facility] PH OF VENOUS BLOOD 7.40 Normal 7.31-7.41 [facility] Comment on above: Performed By: #### L [id number] ####[facility] RESPIRAT[facility] [id number] [place] [address] [place] APTTon 12-17-2024 ACTIVATED PARTIAL THROMBOPLASTIN TIME IN PPP BY COAGULATION ASSAY 29.9 Seconds Normal 25.0-35.0 [facility] Comment on above: Result Comment: Clin ical significance of the APTT is questionable in the presence of heparin. Performed By: #### L [id number] #### [facility] (BEAKER) [address] [place] [address] BASIC METABOLIC PANELon 11-25 Anion gap [Moles/Vol] 11 mmol/L Normal 7-20 [facility] Comment on above: Performed By: #### L [id number] ####[facility] ([facility]ER)[address] [place] [address] Calcium [Mass/Vol] 9.1 mg/dL Normal 8.6-10.3 [facility] Comment on above: Performed By: #### L [id number] ####[facility] (BEAKER)[address] [place] [address] Chloride [Moles/Vol] 102 mmol/L Normal 98-107 [facility] Comment on above: Performed By: #### L [id number] ####[facility] (BEAKER)[address] [place] [address] CO2 [Moles/Vol] 28 mmol/L Normal 21-31 [facility] Comment on above: Performed By: #### L [id number] ####[facility] (BEAKER)[address] [place] [address] Creatinine [Mass/Vol] 0.65 mg/dL Low 0.70-1.30 [facility] Comment on above: Performed By: #### L [id number] ####[facility] ([facility])[address] [place] [address] GLOMERULAR FILTRATION RATE ML/MIN/1.73 SQ M.PREDICTED 117.0 mL/min/1.73m*2 Normal >60.0 [facility] Comment on above: Result Comment: The [facility]???s estimated glomerular filtration rate (eGFR) will no longer include consideration of race in its calculation. The National Kid[employer] Foundation???s eGFR Task Force developed new recommendations for the estimation of the glomerular filtration rate in the [place] They recommend immediate implementation of the new equation refit without the race variable in all laboratories because the calculation does not include race. In addition to not including race in the calculation and reporting, it included diversity in its development, and has acceptable performance characteristics and potential consequences that do not disproportionately affect any one group of individuals. Performed By: #### L [id number] ####[facility] ([facility])[address] [place] [address] Glucose [Mass/Vol] 187 mg/dL High 70-100 [facility] Comment on above: Performed By: #### L [id number] ####[facility] ([facility])[address] [place] [address] Potassium [Moles/Vol] 3.8 mmol/L Normal 3.5-5.1 [facility] Comment on above: Performed By: #### L [id number] ####[facility] ([facility])[address] [facility] [place] [address] Sodium [Moles/Vol] 137 mmol/L Normal 136-145 [facility] Comment on above: Performed By: #### L [id number] ####[facility] ([facility])[address] [place] [address] Urea nitrogen [Mass/Vol] 16 mg/dL Normal 7-25 [facility] Comment on above: Performed By: #### L [id number] ####[facility] ([facility])[address] [place] [address] UREA NITROGEN/CREATININE (MASS RATIO) IN SER/PLAS 24.6 Normal [facility] Comment on above: Performed By: #### L [id number] ####[facility] ([facility])[address] [place] [address] CBC WITH AUTO DIFFERENTIALon 12-17-2024 Basophils (Bld) [#/Vol] 0.06 10*3/uL Normal 0.00-0.20 [facility] Comment on above: Performed By: #### L [id number] ####[facility] ([facility])[address] [place] [address] Basophils/100 WBC (Bld) 0.8 % Normal 0.0-1.0 [facility] Comment on above: Performed By: #### L [id number] ####[facility] ([facility])[address] [place] [address] Eosinophils (Bld) [#/Vol] 0.44 10*3/uL Normal 0.00-0.50 [facility] Comment on above: Performed By: #### L [id number] ####[facility] ([facility])[address] [place] [address] Eosinophils/100 WBC (Bld) 6.2 % High 0.0-6.0 [facility] Comment on above: Performed By: #### L [id number] ####[facility] ([facility])[address] [place] [address] Erythrocyte distribution width (RBC) [Ratio] 13.2 % Normal 11.5-15.0 [facility] Comment on above: Performed By: #### L [id number] ####[facility] ([facility])[address] [place] [address] ERYTHROCYTE MEAN CORPUSCULAR HEMOGLOBIN CONCENTRATION (G/DL) BY AUTOMATED 33.5 g/dL Normal 32.0-35.0 [facility] Comment on above: Performed By: #### L [id number] ####[facility] ([facility])[address] [place] [address] Hematocrit (Bld) [Volume fraction] 41.8 % Normal 39.0-50.0 [facility] Comment on above: Performed By: #### L [id number] ####[facility] ([facility])[address] [place] [address] Hemoglobin (Bld) [Mass/Vol] 14.0 g/dL Normal 13.0-17.0 [facility] Comment on above: Performed By: #### L [id number] ####[facility] ([facility])[address] [place] [address] Immature granulocytes (Bld) [#/Vol] 0.01 10*3/uL Normal 0.00-0.20 [facility] Comment on above: Performed By: #### L [id number] ####[facility] ([facility])[address] [place] [address] Immature granulocytes/100 WBC (Bld) 0.1 % Normal 0.0-1.0 [facility] Comment on above: Performed By: #### L [id number] ####[facility] ([facility])[address] [place] [address] Lymphocytes (Bld) [#/Vol] 2.07 10*3/uL Normal 1.20-4.00 [facility] Comment on above: Performed By: #### L [id number] ####[facility] ([facility])[address] [place] [address] Lymphocytes/100 WBC (Bld) 29.1 % Normal 20.0-45.0 [facility] Comment on above: Performed By: #### L [id number] ####[facility] ([facility])[address] [place] [address] MCH (RBC) [Entitic mass] 28.7 pg Normal 27.0-33.0 [facility] Comment on above: Performed By: #### L [id number] ####[facility] ([facility])[address] [place] [address] MCV (RBC) [Entitic vol] 85.8 fL Normal 82.0-98.0 [facility] Comment on above: Performed By: #### L [id number] ####[facility] ([facility])[address] [place] [address] Monocytes (Bld) [#/Vol] 0.69 10*3/uL Normal 0.10-1.00 [facility] Comment on above: Performed By: #### L [id number] ####[facility] ([facility])[address] [place] [address] Monocytes/100 WBC (Bld) 9.7 % Normal 5.0-12.0 [facility] Comment on above: Performed By: #### L [id number] ####[facility] ([facility])[address] [place] [address] Neutrophils (Bld) [#/Vol] 3.85 10*3/uL Normal 1.60-7.60 [facility] Comment on above: Performed By: #### L [id number] ####[facility] ([facility])[address] [place] [address] Neutrophils/100 WBC (Bld) 54.1 % Normal 40.0-72.0 [facility] Comment on above: Performed By: #### L [id number] ####[facility] ([facility])[address] [place] [address] NRBC (PER 100 WBCS) BY AUTOMATED COUNT 0.0 % Normal 0 [facility] Comment on above: Performed By: #### L [id number] ####[facility] ([facility])[address] [place] [address] PLATELETS (10*3/UL) IN BLOOD AUTOMATED COUNT 318 10*3/uL Normal 150-400 [facility] Comment on above: Performed By: #### L [id number] ####[facility] ([facility])[address] [place] [address] RBC (Bld) [#/Vol] 4.87 10*6/uL Normal 4.20-5.70 [facility] Comment on above: Performed By: #### L [id number] ####[facility] ([facility])[address] [place] [address] WBC (Bld) [#/Vol] 7.12 10*3/uL Normal 4.00-10.60 [facility] Comment on above: Performed By: #### L [id number] ####[facility] ([facility])[address] [place] [address] Labon 12-17-2024 Lab [id number] Martinez Ruiz 1975 M Date Provider Department Center 12/17/2024 2245-[facility] OPD LAB RESOURCE [facility] OPD [facility] Family History Problem Relation Age of Onset COPD Mother Parkinsonism Father Hypertension Father Hypertension Brother Cancer Mother's Brother Cancer Maternal Grandmother Diabetes Maternal Grandmother Stroke Paternal Grandfather Family Status - Relation Status Age at Mother Alive Father Alive Brother Mother's Brother Maternal Grandmother Paternal Grandfather Normal [facility] MRSA/MSSA DNA NASALon 2024 MRSA DNA Negative Normal Negative [facility] Comment on above: Order Comment: Testi ng methodology is an automated qualitative in vitro diagnostic test for the directdetection and differentiation of Staphylococcus aureus (SA) DNA and methicillin-resistant Staphylococcus aureus (MRSA) DNA from nasal swabs in patients at risk for nasal colonization. The test utilizes real-time polymerase chain reaction (PCR) for the amplification of MRSA/SA DNA and fluorogenic target-specific hybridization probes for the detection of the amplified DNA. A negative result does not preclude nasal colonization. Performed By: #### L [id number] ####[facility] ([facility])[address] [place] [address] MSSA DNA Negative Normal Negative [facility] Comment on above: Order Comment: Testi ng methodology is an automated qualitative in vitro diagnostic test for the directdetection and differentiation of Staphylococcus aureus (SA) DNA and methicillin-resistant Staphylococcus aureus (MRSA) DNA from nasal swabs in patients at risk for nasal colonization. The test utilizes real-time polymerase chain reaction (PCR) for the amplification of MRSA/SA DNA and fluorogenic target-specific hybridization probes for the detection of the amplified DNA. A negative result does not preclude nasal colonization. Performed By: #### L [id number] ####[facility] ([facility])[address] [place] [address] PROTIME-INRon 12-17-2024 INR IN PPP BY COAGULATION ASSAY 0.99 Normal 0.90-1.10 [facility] Comment on above: Result Comment: ACCC P RECOMMENDED INR FOR WARFARIN THERAPY CONDITION INR PROPHYLAXIS OF VENOUS THROMBOSIS 2-3 (HIGH-RISK SURGERY) TREATMENT OF VENOUS THROMBOSIS 2-3 TREATMENT OF PULMONARY EMBOLISM 2-3 PREVENTION OF SYSTEMIC EMBOLISM: 2-3 ACUTE MYOCARDIAL INFARCTION TISSUE HEART VALVES VALVULAR HEART DISEASE ATRIAL FIBRILLATION RECURRENT SYSTEMIC EMBOLISM MECHANICAL HEART VALVE 2.5-3.5 FROM: ORAL ANTICOAGULANTS. MECHANISM OF ACTION, CLINICAL EFFECTIVENESS, AND OPTIMAL THERAPEUTIC RANGE. CHEST 1995;108:231S-246S. Performed By: #### L [id number] ####[facility] ([employer])[address] [place] [address] PROTHROMBIN TIME (PT) IN PPP BY COAGULATION ASSAY 13.1 Seconds Normal 12.3-14.8 [facility] Comment on above: Performed By: #### L [id number] ####[facility] ([employer])[address] [place] [address] TYPE AND SCREENon 12-17-2024 AB SCREEN Negative Normal [facility] Comment on above: Performed By: #### L [id number] ####[facility], ABO group Nom (Bld) A Normal [facility] Comment on above: Performed By: #### L [id number] ####[facility], RH TYPE IN BLOOD Negative Normal [facility] Comment on above: Performed By: #### L [id number] ####[facility], Abstracton 12-15-2024 Abstract [id number] Martinez Ruiz 1975 M Date Provider Department Center 12/15/2024 Navi-TAL LINARES [facility] Family History Problem Relation Age of Onset COPD Mother Parkinsonism Father Hypertension Father Hypertension Brother Cancer Mother's Brother Cancer Maternal Grandmother Diabetes Maternal Grandmother Stroke Paternal Grandfather Family Status - Relation Status Age at Mother Alive Father Alive Brother Mother's Brother Maternal Grandmother Paternal Grandfather [facility] 36on 12-10-2024 36 Please fax labs to [facility]. Please send in [facility]. Will do consent day of surgery. Looks like he was maybe on aspirin in the past--please make sure he stops this if still taking. Thank you. [facility] 36 Discussed risks and benefits of surgery with patient. Explained that Dr. Linares does not have any availability first week in December. Options are 12/22 or end of December. He would like 12/22. Will send labs to [facility]. Will do consent day of surgery. [facility] 36 Patient called back and would like to proceed with surgical intervention as recommended. Patient asks about any openings for the first week of December? Advised currently in clinic but would ask that you call back later today when you are available. Reports he will be available all evening. Please call patient back to confirm/schedule at [phone]. [facility] 36 Patient called lashawn chambers called back. Advised him that I have reviewed his imaging again with Dr. Linares. Dr. Linares suggested may benefit from right sided bur holes to drain subdural fluid collection. This would be surgery with general anesthesia, about 1 hour, 2 small incisions on the right side of the head, likely 1-2 night hospital stay. Briefly discussed risks and benefits. He will discuss with his and will let us know if he would like to proceed. Advised that the soonest we could potentially do this would be 12/22/2024, though I would need to know soon to allow time for insurance approval. Verbalizes understanding. Normal [facility] 36 Left message for fartun chowdhury on identified voice mail asking that he call back regarding possibly draining fluid collection. Asked that he call back to clinic to discuss. Normal [facility] Prep for Procedureon 025 Prep for Procedure [id number] Martinez Ruiz 1975 M [facility] Provider Department [place] 12/10/2024 148-[facility], [facility] None Family History Problem Relation Age of Onset COPD Mother Parkinsonism Father Hypertension Father Hypertension Brother Cancer Mother's Brother Cancer Maternal Grandmother Diabetes Maternal Grandmother Stroke Paternal Grandfather Family Status - Relation Status Age at Mother Alive Father Alive Brother Mother's Brother Maternal Grandmother Paternal Grandfather [facility] Telephoneon 12-10-2024 Telephone [id number] Martinez Ruiz 1975 [facility] Care Department [place] 12/10/2024 148-[facility]ITT, [facility] NEURO SURG None Family History Problem Relation Age of Onset COPD Mother Parkinsonism Father Hypertension Father Hypertension Brother Cancer Mother's Brother Cancer Maternal Grandmother Diabetes Maternal Grandmother Stroke Paternal Grandfather Family Status - Relation Status Age at Mother Alive Father Alive Brother Mother's Brother Maternal Grandmother Paternal Grandfather Reason for Visit and Comments: SURGERY SCHEDULING [Other] [facility] Telephone [id number] Martinez Ruiz 1975 [facility] [place] 12/10/2024 148-[facility] None Family History Problem Relation Age of Onset COPD Mother Parkinsonism Father Hypertension Father Hypertension Brother Cancer Mother's Brother Cancer Maternal Grandmother Diabetes Maternal Grandmother Stroke Paternal Grandfather Family Status - Relation Status Age at Mother Alive Father Alive Brother Mother's Brother Maternal Grandmother Paternal Grandfather [facility] 12-08-2024 36 Patient notified. Normal [facility] 3612-07-2024 36 Patient called in [facility] that Renny is asking for updated paperwork on when he is expected to work. Call Center Support Representative voiced we haven't received any new paperwork to fill out and asked for them to fax a new copy to our office. Normal [facility] Telephoneon 12-07-2024 Telephone [id number] Martinez Ruiz [place] 1975 M Date Provider Department Center 12/07/2024 VIANNEY BRUCE [facility] SURG [address] Family History Problem Relation Age of Onset COPD Mother Parkinsonism Father Hypertension Father Hypertension Brother Cancer Mother's Brother Cancer Maternal Grandmother Diabetes Maternal Grandmother Stroke Paternal Grandfather Family Status - Relation Status Age at Mother Alive Father Alive Brother Mother's Brother Maternal Grandmother Paternal Grandfather Normal [facility] Refillon 12-06-2024 Refill [id number] Martinez Ruiz [place] 1975 M Date Provider Department Center 12/06/2024 CHANTALE ROBISON [facility] SURG [address] Family History Problem Relation Age of Onset COPD Mother Parkinsonism Father Hypertension Father Hypertension Brother Cancer Mother's Brother Cancer Maternal Grandmother Diabetes Maternal Grandmother Stroke Paternal Grandfather Family Status - Relation Status Age at Mother Alive Father Alive Brother Mother's Brother Maternal Grandmother Paternal Grandfather Reason for Visit and Comments: Med Refill [[id number]] Normal [facility] CT HEAD WO IV CONTRASTon CT HEAD WO IV CONTRAST EXAM:CT HEAD WO I V CONTRAST INDICATION: Hydrocephalus. Subdural hematomas COMPARISON: 10/27/2024 TECHNIQUE: Standard noncontrast axial CT sections through the head. All CT scans at this facility use dose modulation, iterative reconstruction, and/or weight based dosing when appropriate to reduce radiation dose to as low as reasonably achievable. FINDINGS: Redemonstration of right holohemispheric subdural hematoma has a maximal thickness of approximately 1.7 cm previously, not significantly changed when compared to prior from 10/27/2024. The left-sided subdural hematoma along the left parietal convexity nearly resolved previously measuring 1 cm. Persistent mass effect on the right hemisphere without significant midline shift. Redemonstration of right parietal approach ventriculostomy catheters in similar position to prior centered along the foramina Sunshine. The caliber of ventricular system is increased compared to prior. For example the short axis dimension of the bodies of the lateral ventricles is approximately 4.1 cm, previously 3.2 cm. No evidence of acute parenchymal hemorrhage. Orbits, paranasal sinuses, midface structures, mastoid air cells: No acute abnormalities Cranium and extracranial soft tissues: No acute abnormalities IMPRESSION: Near resolution of left parietal convexity subdural with trace residual subdural blood products visualized (maximal thickness of approximately 2 to 3 mm). Stable appearance of right holohemispheric subdural collection with a maximal thickness of approximately 1.7 cm. There is likely some degree of redistribution as portions appear increased in thickness while others are decreased. Persistent mild mass effect without significant midline shift. Ventricular caliber is increased compared to prior. Electronically signed: Zeus Gonzales MD. Not Vlpippa Invalid Interpretation Code [facility] Comment on above: Order Comment: In ab out a month, follow up bilateral subdural fluid collections, clinic appt same day. HPon 12-03-2024 HP Need to extend time off work, currently off through 12/04/24, cannot RTW yet, still with diplopia. Right eye does not adduct completely 2mm Squints left eye shunt 12/28 NEUROSURGERY NOTE SUBJECTIVE: Chief complaint: Return visit for placement of ventriculoperitoneal shunt on 09/22/[address] Linares. History of present illness: Reports has been feeling a little bit better over time. Headaches are improving, though still intermittent, mainly right side of head. Taking less Fioricet. Still with some nausea, mainly in the morning, though also improving. Occurs a few times per week. Continues to have diplopia, though the eyepatch helps. Diplopia is no better. He did see optometry at [facility] recently. States they instructed him to wear his glasses more often. He has appointment with neuro-ophthalmology on 02/10/2025 in [place]. Has been voiding and having bowel movements. Balance has been stable, though notes that he stumbles at times. Denies issues with the incision. Notes that he will not be able to go back to work in a few weeks as scheduled due to ongoing symptoms. 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 His blood pressure medications have been adjusted by his primary care provider. Had CT brain completed today. Review of systems: As in HPI. Past Medical History: Diagnosis Date Diabetes mellitus (CMS/HCC) Erectile dysfunction Hydrocephalus (CMS/HCC) Hyperlipidemia Obesity Pleural effusion empyema Pneumonia Sleep apnea Tachycardia Past Surgical History: Procedure Laterality Date CHEST TUBE INSERTION 10/2022 SHUNT REVISION 09/22/2024 Dr. Linares. VENTRICULOPERITONEAL SHUNT Right Social History Tobacco Use Smoking status: Never Smokeless tobacco: Never Vaping Use Vaping status: Never Used Substance Use Topics Alcohol use: Yes Comment: rarely Drug use: Never Family History Problem Relation Name Age of Onset COPD Mother Parkinsonism Father Hypertension Father Hypertension Brother Cancer Mother's Brother Cancer Maternal Grandmother Diabetes Maternal Grandmother Stroke Paternal Grandfather OBJECTIVE: Medications: albuterol alcohol swabs pads, medicated aspirin atorvastatin hninqvvoni-smerqoe-[id number] Dexcom G6 Sensor device Dexcom G6 Transmitter device losartan metFORMIN metoprolol succinate XL pantoprazole Prodigy Twist Top Lancet [facility] SELECT IF UNABLE TO FIND MEDICATION WITH +ADD semaglutide pen injector sildenafil tiZANidine UltiCare Pen Needle needle Current Outpatient Medications: albuterol 90 mcg/actuation inhaler, INHALE 1 PUFF BY MOUTH EVERY 6 HOURS NEEDED FOR SHORTNESS OF BREATH/ WHEEZING, Disp: , Rfl: alcohol swabs pads, medicated, in the morning and at bedtime. as directed, Disp: , Rfl: aspirin 325 mg EC tablet, Take 325 mg by mouth if needed., Disp: , Rfl: atorvastatin (Lipitor) 20 mg tablet, , Disp: , Rfl: Dexcom G6 Sensor device, APPLY NEW SENSOR EVERY 10 DAYS, Disp: , Rfl: Dexcom G6 Transmitter device, USE DIRECTED TO TEST BLOOD SUGAR, Disp: , Rfl: losartan (Cozaar) 50 mg tablet, Take 1 tablet by mouth in the morning., Disp: , Rfl: metFORMIN (Glucophage) 500 mg tablet, Take 500 mg by mouth with breakfast and with evening meal., Disp: , Rfl: metoprolol succinate XL (Toprol-XL) 50 mg 24 hr tablet, , Disp: , Rfl: pantoprazole (ProtoNix) 40 mg EC tablet, Take 40 mg by mouth in the morning., Disp: , Rfl: Prodigy Twist Top Lancet 28 gauge, USE DIRECTED TO TEST SUGARS TWICE DAILY, Disp: , Rfl: SELECT IF UNABLE TO FIND MEDICATION WITH +ADD, Take 1 tablet by mouth in the morning. Med Name: testosterone pill--[facility] from [facility], Disp: , Rfl: semaglutide (Ozempic) 0.25 mg or 0.5 mg (2 mg/3 mL) pen injector, Inject 0.5 mg under the skin every 7 (seven) days. Saturday, Disp: , Rfl: sildenafil (Viagra) 100 mg tablet, Take 100 mg by mouth if needed for erectile dysfunction., Disp: , Rfl: tiZANidine (Zanaflex) 2 mg tablet, TAKE 1 TABLET BY MOUTH EVERY 8 HOURS NEEDED FOR MUSCLE SPASM, Disp: 270 tablet, Rfl: 1 UltiCare Pen Needle 31 gauge x 5/16 needle, USE DIRECTED TO TEST SUGARS TWICE DAILY, Disp: , Rfl: xjminlgoxf-drjfopq-jnkjuqht (Fiorinal) 50-325-40 mg tablet, Take 1 tablet by mouth every 6 (six) hours if needed for migraine for up to 7 days., Disp: 28 tablet, Rfl: 0 Allergies: Allergies Allergen Reactions Dilaudid [Hydromorphone] Other When combined with fentanyl, becomes violent Fentanyl Other When combined with Dilaudid, becomes violent Exam: Exam performed and reviewed, changes as below. Vitals reviewed: No intake/output data recorded. No intake/output data recorded. Exam reviewed and updated. Accompanied by today. Constitutional: In no apparent distress. Chest: Chest expansion symmetrical. Respirations regular and nonlabored. Right scalp incision well-approximated without edema, erythema, drainage. Distal right scalp incision well- (more content not included)... Normal [facility] Office Visiton 12-03-2024 Follow-up visit [id number] Martinez Ruiz 1975 M Date Provider Department Center 12/03/2024 CHANTALE ROBISON [facility] SURG [place] Family History Problem Relation Age of Onset COPD Mother Parkinsonism Father Hypertension Father Hypertension Brother Cancer Mother's Brother Cancer Maternal Grandmother Diabetes Maternal Grandmother Stroke Paternal Grandfather Family Status - Relation Status Age at Mother Alive Father Alive Brother Mother's Brother Maternal Grandmother Paternal Grandfather Level of Service:94468 NM POSTOP FOLLOW UP VISIT RELATED TO ORIGINAL PX Reason for Visit and Comments: Post-op [483] Normal [facility] FUNDUS PHOTOS OU (BOTH EYES) on 11-25-2024 [facility] Radiology Study observation (narrative) [facility] VISUAL FIELD 24-2 OU (BOTH E YES)on 11-25-2024 [facility] Radiology Study observation (narrative) [facility] Refillon 03-18-2025 Refill [id number] DarianMartinez cortez 1975 M Date Provider Department Center 11/10/2024 CHANTALE ROBISON [facility] SURG [address] Family History Problem Relation Age of Onset COPD Mother Parkinsonism Father Hypertension Father Hypertension Brother Cancer Mother's Brother Cancer Maternal Grandmother Diabetes Maternal Grandmother Stroke Paternal Grandfather Family Status - Relation Status Age at Mother Alive Father Alive Brother Mother's Brother Maternal Grandmother Paternal Grandfather Reason for Visit and Comments: Med Change Request [411] Normal [facility] Telephoneon 11-10-2024 Telephone [id number] BobkellyMartinez 1975 M Date Provider Department Center 11/10/2024 DAVID FRAIRE [facility] SURG [address] Family History Problem Relation Age of Onset COPD Mother Parkinsonism Father Hypertension Father Hypertension Brother Cancer Mother's Brother Cancer Maternal Grandmother Diabetes Maternal Grandmother Stroke Paternal Grandfather Family Status - Relation Status Age at Mother Alive Father Alive Brother Mother's Brother Maternal Grandmother Paternal Grandfather Reason for Visit and Comments: REFERRAL [Other] Normal [facility] CT HEAD WO IV CONTRASTon CT HEAD WO IV CONTRAST CT HEAD WO IV CON TRAST 10/27/2024 8:54 AM INDICATION: Hydrocephalus COMPARISON: 09/29/2024 TECHNIQUE: Noncontrast CT images of the head were obtained. All CT scans at this facility use dose modulation, iterative reconstruction, and/or weight based dosing when appropriate to reduce radiation dose to as low as reasonably achievable. FINDINGS: Redemonstration of subdural collections over the cerebral convexities, increased in size compared to prior, with heterogeneous increased density of the right collection likely indicative of hemorrhage. Right-sided subdural collection measures approximately 17 mm in thickness, left-sided subdural collection measures approximately 11 mm in thickness. Left-sided collection is also slightly more dense compared to prior. There is associated mass effect on adjacent parenchyma, greater on the right, with likely mild leftward midline shift. Illustration of intraventricular catheters traversing from right parietal region to the region of the septum pellucidum, positioning similar compared to prior. The ventricular size is slightly increased compared to prior. Soft tissue thickening along the ventricular catheter within right upper neck. Suggestion of ill-defined edema of posterior upper neck and cutaneous thickening, similar in appearance compared to prior. Orbits are grossly unremarkable. There is moderate paranasal sinus post thickening, with polypoid lesions, largest within left sphenoid sinus. Nonspecific sclerotic focus of left lateral calvarium, similar appearance compared to prior. IMPRESSION: 1. Interval worsening of bilateral subdural collections, with likely hemorrhagic components, and worsening mass effect, as described. 2. Interval slight enlargement of ventricular system, similar position of ventricular catheters. Critical results were discussed with Chantale Garcia CNP by Nhan Hernandez DO 10/28/2024 at 1:12 PM Electronically signed: Nhan Hernandez MD. Not Vldtd Invalid Interpretation Code [facility] Comment on above: Order Comment: Waive d Testing in the ED is performed under the ED CLIA certificate #[id number]. Office Visiton 10-27-2024 Follow-up visit [id number] Martinez Ruiz 1975 M Date Provider Department Center 10/27/2024 CHANTALE ROBISON [facility] [place] Family History Problem Relation Age of Onset COPD Mother Parkinsonism Father Hypertension Father Hypertension Brother Cancer Mother's Brother Cancer Maternal Grandmother Diabetes Maternal Grandmother Stroke Paternal Grandfather Family Status - Relation Status Age at Mother Alive Father Alive Brother Mother's Brother Maternal Grandmother Paternal Grandfather Level of Service:79493 NM POSTOP FOLLOW UP VISIT RELATED TO ORIGINAL PX Reason for Visit and Comments: Post-op [483] - Patient is here today for a 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 *CT 9:10 Normal [facility] Office Visiton 10-16-2024 Follow-up visit [id number] Martinez Ruiz 1975 M Date Provider Department Center 10/16/2024 CHANTALE ROBISON [facility] [place] Family History Problem Relation Age of Onset COPD Mother Parkinsonism Father Hypertension Father Hypertension Brother Cancer Mother's Brother Cancer Maternal Grandmother Diabetes Maternal Grandmother Stroke Paternal Grandfather Family Status - Relation Status Age at Mother Alive Father Alive Brother Mother's Brother Maternal Grandmother Paternal Grandfather Level of Service:40433 NM POSTOP FOLLOW UP VISIT RELATED TO ORIGINAL PX Reason for Visit and Comments: Follow-up [414221] - Patient is here today for pump adjustment [facility] Refillon 10-13-2024 Refill [id number] Martinez Ruiz 1975 Date Provider Department Center 10/13/2024 CHANTALE ROBISON [facility] [place] Family History Problem Relation Age of Onset COPD Mother Parkinsonism Father Hypertension Father Hypertension Brother Cancer Mother's Brother Cancer Maternal Grandmother Diabetes Maternal Grandmother Stroke Paternal Grandfather Family Status - Relation Status Age at Mother Alive Father Alive Brother Mother's Brother Maternal Grandmother Paternal Grandfather Reason for Visit and Comments: Med Change Request [411] [facility] 36on 10-08-2024 36 Called and spoke angelo h for update on patient. She thinks that he is about the same since our last visit. Did not have any nausea or vomiting yesterday, though a few episodes today. Headache and vision are about the same. He did start taking the amlodipine. His blood pressures have been mildly better with systolic blood pressures in the 150s to 160s and diastolic blood pressures in the 90s. Offered appointment tomorrow for additional shunt adjustment, though they would like to see how things go over the weekend. Advised them to call me on Saturday if they think additional adjustment is needed. Verbalizes understanding. [facility] Telephoneon 10-08-2024 Telephone [id number] Martinez Ruiz 1975 Provider Department Center 10/08/2024 CHANTALE ROBISON [facility] None Family History Problem Relation Age of Onset COPD Mother Parkinsonism Father Hypertension Father Hypertension Brother Cancer Mother's Brother Cancer Maternal Grandmother Diabetes Maternal Grandmother Stroke Paternal Grandfather Family Status - Relation Status Age at Mother Alive Father Alive Brother Mother's Brother Maternal Grandmother Paternal Grandfather [facility] Office Visiton 10-06-2024 Follow-up visit [id number] Martinez Ruiz 1975 Date Provider Department Center 10/06/2024 CHANTALE ROBISON [facility] [place] Family History Problem Relation Age of Onset COPD Mother Parkinsonism Father Hypertension Father Hypertension Brother Cancer Mother's Brother Cancer Maternal Grandmother Diabetes Maternal Grandmother Stroke Paternal Grandfather Family Status - Relation Status Age at Mother Alive Father Alive Brother Mother's Brother Maternal Grandmother Paternal Grandfather Level of Service:13497 NM POSTOP FOLLOW UP VISIT RELATED TO ORIGINAL PX Reason for Visit and Comments: Post-op [483] - Patient is here for post op visit 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 [facility] Orders Onlyon 10-06-2024 Orders Only [id number] Martinez Ruiz 1975 M [facility] Provider Department Center 10/06/2024 CHANTALE ROBISON [facility] None Family History Problem Relation Age of Onset COPD Mother Parkinsonism Father Hypertension Father Hypertension Brother Cancer Mother's Brother Cancer Maternal Grandmother Diabetes Maternal Grandmother Stroke Paternal Grandfather Family Status - Relation Status Age at Mother Alive Father Alive Brother Mother's Brother Maternal Grandmother Paternal Grandfather [facility] 36on 09-30-2024 36 Spoke with patients . Patient to come in today [facility] 36 Vianney, Regard again... Please see if patient can come in to clinic today or tomorrow. I think we need to drain less from his shunt and that will help him feel better. I saw his CT scan done in ED last night and talked to Dr. Linares as well. Thank you. [facility] Office Visiton 09-30-2024 Follow-up visit [id number] Martinez Ruiz 1975 M [facility] Provider Department Center 09/30/2024 CHANTALE ROBISON [facility] [place] Family History Problem Relation Age of Onset COPD Mother Parkinsonism Father Hypertension Father Hypertension Brother Cancer Mother's Brother Cancer Maternal Grandmother Diabetes Maternal Grandmother Stroke Paternal Grandfather Family Status - Relation Status Age at Mother Alive Father Alive Brother Mother's Brother Maternal Grandmother Paternal Grandfather Level of Service:83450 NM POSTOP FOLLOW UP VISIT RELATED TO ORIGINAL PX Reason for Visit and Comments: Post-op [483] [facility] 36on 09-29-2024 36 Disregard, Vianney. Patient coming to ED. [facility] 36 Spoke with Wisam patino, who states they are en route to [facility] for a CT brain per recommendation of Dr. Linares. Reports Porfirio has been having diplopia past few days as well as headache, nausea, vomiting, dizziness, neck pain, not relieved by medications. Will follow up CT results. Normal [facility] 36 Patient calling back today regarding the same issue. Advised that you were informed and would discuss further at upcoming appt. However, patient wanted to let you know that he is still having significant amount of pain. Patient reports that pain medication is not helping much, reports some nausea/occasional vomiting from medication as well. He asks if there is anything else that you recommend or can try in the meantime until next appt? Please advise or call patient back at your earliest convenience. Normal [facility] BASIC METABOLIC PANELon Anion gap [Moles/Vol] 17 mmol/L Normal 7-20 [facility] Comment on above: Performed By: #### L [id number] #### [facility] ([facility]) [address] [place] [address] Calcium [Mass/Vol] 9.6 mg/dL Normal 8.6-10.3 [facility] Comment on above: Performed By: #### L [id number] #### [facility] ([facility]) [address] [place] [address] Chloride [Moles/Vol] 98 mmol/L Normal 98-107 [facility] Comment on above: Performed By: #### L [id number] #### [facility] ([facility]) [address] [place] [address] CO2 [Moles/Vol] 25 mmol/L Normal 21-31 [facility] Comment on above: Performed By: #### L [id number] #### [facility] ([facility]) [address] [place] [address] Creatinine [Mass/Vol] 0.56 mg/dL Low 0.70-1.30 [facility] Comment on above: Performed By: #### L [id number] #### [facility] ([facility]) [address] [place] [address] GLOMERULAR FILTRATION RATE ML/MIN/1.73 SQ M.PREDICTED 122.3 mL/min/1.73m*2 Normal >60.0 [facility] Comment on above: Result Comment: The [facility]???s estimated glomerular filtration rate (eGFR) will no longer include consideration of race in its calculation. The National Kidney Foundation???s eGFR Task Force developed new recommendations for the estimation of the glomerular filtration rate in the [place] They recommend immediate implementation of the new equation refit without the race variable in all laboratories because the calculation does not include race. In addition to not including race in the calculation and reporting, it included diversity in its development, and has acceptable performance characteristics and potential consequences that do not disproportionately affect any one group of individuals. Performed By: #### L [id number] #### [facility] ([facility]) [address] [place] [address] Glucose [Mass/Vol] 153 mg/dL High 70-100 [facility] Comment on above: Performed By: #### L [id number] #### [facility] ([facility]) [address] [place] [address] Potassium [Moles/Vol] 3.5 mmol/L Normal 3.5-5.[address] [facility] Comment on above: Performed By: #### L [id number] #### [facility] ([facility]) [address] [place] [address] Sodium [Moles/Vol] 136 mmol/L Normal 136-145 [facility] Comment on above: Performed By: #### L [id number] #### [facility] ([facility]) [address] [place] [address] Urea nitrogen [Mass/Vol] 16 mg/dL Normal 7-25 [facility] Comment on above: Performed By: #### L [id number] #### [facility] ([facility]) [address] [place] [address] UREA NITROGEN/CREATININE (MASS RATIO) IN SER/PLAS 28.6 Normal [facility] Comment on above: Performed By: #### L [id number] #### [facility] ([facility]) [address] [place] [address] CBC WITH AUTO DIFFERENTIALon 09-29-2024 Basophils (Bld) [#/Vol] 0.03 10*3/uL Normal 0.00-0.20 [facility] Comment on above: Performed By: #### L [id number] #### [facility] ([facility]) [address] [place] [address] Basophils/100 WBC (Bld) 0.3 % Normal 0.0-1.0 [facility] Comment on above: Performed By: #### L [id number] #### [facility] ([facility]) [address] [place] [address] Eosinophils (Bld) [#/Vol] 0.03 10*3/uL Normal 0.00-0.50 [facility] Comment on above: Performed By: #### L [id number] #### [facility] ([facility]) [address] [place] [address] Eosinophils/100 WBC (Bld) 0.3 % Normal 0.0-6.0 [facility] Comment on above: Performed By: #### L [id number] #### [facility] ([facility]) [address] [place] [address] Erythrocyte distribution width (RBC) [Ratio] 12.2 % Normal 11.5-15.0 [facility] Comment on above: Performed By: #### L [id number] #### [facility] ([facility]) [address] [place] [address] ERYTHROCYTE MEAN CORPUSCULAR HEMOGLOBIN CONCENTRATION (G/DL) BY AUTOMATED 35.2 g/dL High 32.0-35.0 [facility] Comment on above: Performed By: #### L [id number] #### [facility] ([facility]) [address] [place] [address] Hematocrit (Bld) [Volume fraction] 43.5 % Normal 39.0-55.0 [facility] Comment on above: Performed By: #### L [id number] #### [facility] ([facility]) [address] [place] [address] Hemoglobin (Bld) [Mass/Vol] 15.3 g/dL Normal 13.0-17.0 [facility] Comment on above: Performed By: #### L [id number] #### [facility] ([facility]) [address] [place] [address] Immature granulocytes (Bld) [#/Vol] 0.04 10*3/uL Normal 0.00-0.20 [facility] Comment on above: Performed By: #### L [id number] #### [facility] ([facility]) [address] [place] [address] Immature granulocytes/100 WBC (Bld) 0.4 % Normal 0.0-1.0 [facility] Comment on above: Performed By: #### L [id number] #### [facility] ([facility]) [address] [place] [address] Lymphocytes (Bld) [#/Vol] 1.29 10*3/uL Normal 1.20-4.00 [facility] Comment on above: Performed By: #### L [id number] #### [facility] ([facility]) [address] [place] [address] Lymphocytes/100 WBC (Bld) 12.7 % Low 20.0-45.0 [facility] Comment on above: Performed By: #### L [id number] #### [facility] ([facility]) [address] [place] [address] MCH (RBC) [Entitic mass] 28.7 pg Normal 27.0-33.0 [facility] Comment on above: Performed By: #### L [id number] #### [facility] ([facility]) [address] [place] [address] MCV (RBC) [Entitic vol] 81.6 fL Low 82.0-98.0 [facility] Comment on above: Performed By: #### L [id number] #### [facility] ([facility]) [address] [place] [address] Monocytes (Bld) [#/Vol] 0.47 10*3/uL Normal 0.10-1.00 [facility] Comment on above: Performed By: #### L [id number] #### [facility] ([facility]) [address] [place] [address] Monocytes/100 WBC (Bld) 4.6 % Low 5.0-12.0 [facility] Comment on above: Performed By: #### L [id number] #### [facility] ([facility]) [address] [place] [address] Neutrophils (Bld) [#/Vol] 8.33 10*3/uL High 1.60-7.60 [facility] Comment on above: Performed By: #### L [id number] #### [facility] ([facility]) [address] [place] [address] Neutrophils/100 WBC (Bld) 81.7 % High 40.0-72.0 [facility] Comment on above: Performed By: #### L [id number] #### [facility] ([facility]) [address] [place] [address] NRBC (PER 100 WBCS) BY AUTOMATED COUNT 0.0 % Normal 0 [facility] Comment on above: Performed By: #### L [id number] #### [facility] ([facility]) [address] [place] [address] PLATELETS (10*3/UL) IN BLOOD AUTOMATED COUNT 330 10*3/uL Normal 150-400 [facility] Comment on above: Performed By: #### L [id number] #### [facility] ([facility]) [address] [place] [address] RBC (Bld) [#/Vol] 5.33 10*6/uL Normal 4.20-5.70 [facility] Comment on above: Performed By: #### L [id number] #### [facility] ([facility]) [address] [place] [address] WBC (Bld) [#/Vol] 10.19 10*3/uL Normal 4.00-10.60 [facility] Comment on above: Performed By: #### L [id number] #### [facility] ([facility]) [address] [place] [address] CT HEAD WO IV CONTRASTon CT HEAD WO IV CONTRAST CT brain: HISTORY: Headache. Shunt revision. CT images of the brain were obtained and compared to prior exam dated 09/23/2024. Right parietal shunts in place, terminating within the lateral ventricles. The ventricles are decreased in size in comparison to prior exam. There is prominence of the right frontoparietal extravesical CSF space without acute hemorrhage. Nogueira-white differentiation appears intact. No new cortical infarct. Right parietal hypoattenuation is unchanged. Trace intracranial air. IMPRESSION: Decreasing ventricular size of post shunt revision. All CT scans at this facility use dose modulation, iterative reconstruction, and/or weight based dosing when appropriate to reduce radiation dose to as low as reasonably achievable. Electronically signed: Jarrett Martinez. Normal [facility] EDNURSon 09-29-2024 EDNURS Patient arrives from home with c/o HOFF, nausea/ vomiting, and double vision. Patient had a BAKERY MACHINE MECHANIC SUPERVISOR shunt placed on 09/22. Contacted doctors office two days in a row, was instructed to come in today with increasing symptoms. Normal [facility] EDPROVon 09-29-2024 EDPROV History of Present I llness Chief Complaint Patient presents with Headache Vomiting Initial evaluation completed by Dr. Brock Monge MD at 1935. Aba Ruiz is a 49 y.o. y/o male presenting to the ED with c/o headache. Pt states he had a new shunt replacement 7 days ago at [facility]. Pt states there is always pressure and soreness following stent placement however the last few days have been really bad. Pt states he has had double vision, motion sickness and 8 episodes of vomiting today. Pt denies fevers or diarrhea. Pt states he has some numbness to his right ear but denies numbness or tingling to his extremities. Pt states he was discharged with oxycodone and a muscle relaxer but states those have not provided any relief. Pt states he tried to take tylenol at 2 PM today but vomited it back up. History provided by: Patient [place] Coma Scale Score: 15 History Past Medical History: Diagnosis Date Diabetes mellitus (CMS/HCC) Erectile dysfunction Hydrocephalus (CMS/HCC) Hyperlipidemia Obesity Pleural effusion empyema Pneumonia Sleep apnea Tachycardia Past Surgical History: Procedure Laterality Date CHEST TUBE INSERTION 10/2022 SHUNT REVISION 09/22/2024 Dr. Linares. VENTRICULOPERITONEAL SHUNT Right Family History Problem Relation Name Age of Onset COPD Mother Parkinsonism Father Hypertension Father Hypertension Brother Cancer Mother's Brother Cancer Maternal Grandmother Diabetes Maternal Grandmother Stroke Paternal Grandfather Social History Tobacco Use Smoking status: Never Smokeless tobacco: Never Vaping Use Vaping status: Never Used Substance Use Topics Alcohol use: Yes Comment: rarely Drug use: Never Review of Systems Review of Systems Constitutional: Negative for fever. Negative other than stated in HPI, ten systems reviewed Eyes: Positive for visual disturbance. Gastrointestinal: Positive for nausea and vomiting. Negative for diarrhea. Neurological: Positive for headaches. Physical Exam ED Triage Vitals [09/29/241915] Temp Heart Rate Resp BP 36.6 ???C (97.9 ???F) 93 18 (!) 201/108 SpO2 Temp Source Heart Rate Source Patient Position 99 % Oral Monitor -- BP Location FiO2 (%) -- -- Physical Exam Vitals reviewed. HENT: Head: Comments: Right temporal occipital region post-op incision that appears well healing. Nose: Nose normal. Mouth/Throat: Mouth: Mucous membranes are moist. Eyes: General: Right eye: No discharge. Left eye: No discharge. Extraocular Movements: Extraocular movements intact. Conjunctiva/sclera: Conjunctivae normal. Comments: Pupils equal, no nystagmus. Cardiovascular: Rate and Rhythm: Normal rate and regular rhythm. Pulmonary: Effort: Pulmonary effort is normal. Breath sounds: Normal breath sounds. Abdominal: Palpations: Abdomen is soft. Tenderness: There is no abdominal tenderness. Comments: 2 post-op incision noted that appear well healing. Musculoskeletal: Cervical back: No rigidity or tenderness. Right lower leg: No edema. Left lower leg: No edema. Lymphadenopathy: Cervical: No cervical adenopathy. Skin: Capillary Refill: Capillary refill takes less than 2 seconds. Findings: No rash. Neurological: General: No focal deficit present. Mental Status: He is alert. Motor: No weakness. Psychiatric: Comments: anxious Procedures ED Course & MDM ED Course as of 09/30/24101Sep 29, [id number] Spoke with NS, reviewed improved ct head results/vitals/patient exam/labs, no indication for admission at this time, plan for dc with addition of zofran [AT] 222 Patient reports nausea resolved and headache improved but slightly present. Patient reports double vision that he has had for 3d is still present. No discordance of eye movement nor nystagmus noted. Case reviewed with NS with plan for discharge and they will recheck patient tomorrow on outpatient basis. Patient to continue previous oxy and muscle relaxant medication and will add new zofran rx from todays visit [AT] ED Course User Index [AT] Brock Monge MD Diagnoses as of 09/30/24101 Acute nonintractable headache, unspecified headache type Nausea and vomiting, unspecified vomiting type H/O BAKERY MACHINE MECH[employer]IC SUPERVISOR shunt revision Medical Decision Making Consideration was given for admission, but the patient was stable for outpatient management. All results were discussed with the patient and all questions were fully answered. Patient understands pertinent return precautions and are agreeable with plan after shared decision-making. Vitals were reviewed prior to discharge and patient will be discharged stable. More details of patient encounter can be found per ED course. Amount and/or Complexity of Data Reviewed Labs: ordered. Decision-making details documented in ED Course. Radiology: ordered. Decision-making details documented in ED Course. Risk Prescription drug management. I (more content not included)... Normal [facility] MAGNESIUMon 09-29-2024 Magnesium [Mass/Vol] 1.8 mg/dL Low 1.9-2.7 [facility] Comment on above: Performed By: #### L [id number] #### [facility] ([facility]) [address] [place] [address] POCT GLUCOSE METER UNSOLICIT ED RESULTSon 09-29-2024 Glucose [Mass/Vol] 155 mg/dL High 70-105 [facility] Comment on above: Order Comment: Waive d Testing in the ED is performed under the ED CLIA certificate #[id number]. Result Comment: bdes het Performed By: #### L [id number] #### [facility] ([facility]) [address] [place] [address] 36on 09-28-2024 36 Pt called in S/P doris nt surgery 09/22/24, Pt states he feels pressure when he moves his head, or stands up sometimes. Starts at back of neck and goes into head. Takes pain medications and seems to make better but not completely go away He is not sure if its normal. Please Advise, Phone number verified Normal [facility] Telephoneon 09-28-2024 Telephone [phone] BobkellyMartinez 1975 M Date Provider Department Center 09/28/2024 Keyla8-MIKE BABCOCK [facility] [place] Family History Problem Relation Age of Onset COPD Mother Parkinsonism Father Hypertension Father Hypertension Brother Cancer Mother's Brother Cancer Maternal Grandmother Diabetes Maternal Grandmother Stroke Paternal Grandfather Family Status - Relation Status Age at Mother Alive Father Alive Brother Mother's Brother Maternal Grandmother Paternal Grandfather Reason for Visit and Comments: HEAD PAIN POST OP PAIN [Other] Normal [facility] 30on 09-23-[address] brain co mpleted this morning with Dr. Linares. Shunt appears to be in good position. Ventricles appear slightly smaller. Note radiology report indicates possible presence of subacute subdural hematoma. Patient just had surgery yesterday, so this would not make sense for this to be subacute blood. This is more likely a subdural hygroma. We will plan to repeat the imaging-CT brain without contrast-in about 1 month. No changes to shunt opening pressure or other intervention at this time. Normal [facility] 30 The patient is Moder ately Stable - Low risk of patient condition declining or worsening The patient's goals for the shift include comfort The clinical goals for the shift include vss Normal [facility] CT HEAD WO IV CONTRASTon CT HEAD WO IV CONTRAST STUDY: CT HEAD WI THOUT CONTRAST CLINICAL HISTORY: Intracranial shunt placement, follow up Postprocedure COMPARISON: 07/15/2024. TECHNIQUE: CT head was performed without contrast using the standard protocol. Automated exposure control was utilized. All CT scans at this facility use dose modulation, iterative reconstruction, and/or weight based dosing when appropriate to reduce radiation dose to as low as reasonably achievable. FINDINGS: Since prior exam, there is a right holohemispheric subdural collection, higher than CSF in density, measuring up to 5 mm in maximum coronal thickness. Small volume of pneumocephalus along the right hemispheric convexity, likely related to interval placement of a second ventricular drain which terminates in the left lateral ventricular body. Previously seen ventricular drain tip terminates in the right lateral ventricle body, unchanged. Bifrontal diameter measures 4.3, previously measuring 4.5 which may reflect slight interval decrease in ventricular dilation. Third and fourth ventricles are decompressed. No significant mass effect or midline shift. Nogueira-white matter differentiation appears grossly preserved by technique. Probable gliosis at the right ventricular drain tracts. Bilateral globes, orbits are partially assess though appear unremarkable. No focal soft tissue abnormality visualized. Secretions in the left sphenoid sinus. Mastoid air cells are clear. Atherosclerosis in the carotid siphons and vertebral arteries. No acute osseous abnormality. IMPRESSION: * Interval placement of a second right posterior approach ventricular drain. There may be slight interval decrease in ventricular size with slight decrease in bifrontal diameter. * Original right posterior parietal BAKERY MACHINE MECHANIC SUPERVISOR shunt tip is in similar position. * New, 5 mm right holohemispheric subdural collection, slightly higher than fluid attenuation and may reflect postoperative changes or a small subacute subdural hematoma. * No significant mass effect or midline shift. * Small volume of intracranial pneumocephalus, presumably postoperative. The findings of the case were discussed with the covering charge nurse, Bisi Denny, over the phone , at 9:40 AM on 09/23/2024. Electronically signed: TORIBIO SABA MD. 8 Invalid Interpretation Code [facility] Comment on above: Order Comment: Waive d Testing in the ED is performed under the ED CLIA certificate #[id number]. DSon 09-23-2024 DS Admission Admitted 09/22/2024 for hydrocephalus with BAKERY MACHINE MECHANIC SUPERVISOR shunt malfunction. Discharge Diagnosis Hydrocephalus (CMS/HCC) with BAKERY MACHINE MECHANIC SUPERVISOR shunt malfunction. Discharge Disposition Home or Self Care (01) Discharge Medications Your medication list START taking these medications Instructions Last Dose Given Next Dose Due oxyCODONE 10 mg immediate release tablet Commonly known as: Roxicodone Take 1 tablet (10 mg) by mouth every 6 (six) hours if needed for severe pain (8-10 pain score) ((8-10)) for up to 7 days. polyethylene glycol 17 gram packet Commonly known as: Glycolax Take 17 g by mouth if needed each day (constipation) for up to 10 days. sennosides-docusate sodium 8.6-50 mg tablet Commonly known as: Carmel-Colace Start taking on: September 24, 2024 Take 2 tablets by mouth in the morning for 15 days. For constipation while on pain meds. Do not take if diarrhea. tiZANidine 2 mg tablet Commonly known as: Zanaflex Take 1 tablet (2 mg) by mouth every 8 (eight) hours if needed for muscle spasms for up to 7 days. CONTINUE taking these medications Instructions Last Dose Given Next Dose Due albuterol 90 mcg/actuation inhaler alcohol swabs pads, medicated aspirin 325 mg EC tablet Dexcom G6 Sensor device Generic drug: blood-glucose sensor Dexcom G6 Transmitter device Generic drug: Dexcom G4 [place] transmitter metFORMIN 500 mg tablet Commonly known as: Glucophage pantoprazole 40 mg EC tablet Commonly known as: ProtoNix Prodigy Twist Top Lancet 28 gauge Generic drug: FreeStyle lancets SELECT IF UNABLE TO FIND MEDICATION WITH +ADD semaglutide 0.25 mg or 0.5 mg (2 mg/3 mL) pen injector Commonly known as: Ozempic sildenafil 100 mg tablet Commonly known as: Viagra UltiCare Pen Needle 31 gauge x 5/16 needle Generic drug: pen needle, diabetic Where to Get Your Medications These medications were sent to [facility]/pharmacy #[id number] [place] [id number] oxyCODONE 10 mg immediate release tablet polyethylene glycol 17 gram packet sennosides-docusate sodium 8.6-50 mg tablet tiZANidine 2 mg tablet Activity No driving if taking medications that make you drowsy, including pain meds and muscle relaxers. No working until released by neurosurgery. Showering instructions: may shower and allow water to run over the incision but do not scrub, itch, soak or immerse incision in water. Diet Continue on the same type of diet and foods as you were eating before your admission. Drink plenty of water. Allergies Dilaudid [hydromorphone] and Fentanyl Hospital Course Electively admitted by Dr. Linares on 09/22/2024 for planned replacement of right occipital ventriculoperitoneal shunt due to malfunction. He tolerated the procedure well. Vital signs were stable postoperatively. Did have some retro-orbital headache/pressure as well as diplopia with far lateral gaze. Denies dizziness, weakness, numbness, tingling. BAKERY MACHINE MECHANIC SUPERVISOR shunt series x-ray imaging completed on POD 1 showed no evidence of kinking or discontinuity of shunt tubing. CT brain imaging completed on POD 1 showed slight decrease in ventricle size. Small amount of pneumocephalus. Small right convexity subdural fluid collection, likely hygroma due to pressure differential after shunt replacement. Radiology report indicated they felt that this was a subacute subdural hematoma, though clinically this would be difficult to explain given that patient just had surgery yesterday. Images were subsequently reviewed with Dr. Linares as well. We will plan to repeat his CT brain in 1 month or sooner if new or worsening problems. Pertinent Physical Exam At Time of Discharge Constitutional: In no apparent distress. Cardiovascular: Heart sounds regular rate and rhythm without appreciable murmur. Chest: Lung sounds clear to auscultation bilaterally. Respirations regular and nonlabored. Abdomen: Soft, nontender, nondistended. Extremities without edema. Skin warm and dry without pallor. Right scalp dressing clean, dry, intact. Right neck incision well-approximated without edema, erythema, drainage. Surgical glue intact. Abdominal puncture sites well-approximated without edema, erythema, drainage. Surgical glue intact. Neuro: GCS 15/15. Attention and memory intact. No dysarthria or aphasia. Cranial Nerves: Conjugate gaze. PERRLA 2 mm. EOMI. No nystagmus. Facial sensation intact V1, V2, V3 bilaterally. Facial expression symmetrical bilaterally. Hearing intact to conversation. Uvula midline and palate elevates symmetrically. Trapezii symmetrical bilaterally. Tongue midline. Coordination: Finger to nose testing without dysmetria bilaterally. Sensation: Intact to light touch C5-T1 on right, decreased same dermatomes on left. Intact to light touch L2-S1 dermatomes bilaterally. Musculoskeletal: Left handed. Deltoid 5/5 bilaterally. Tricep (more content not included)... Normal [facility] POCT GLUCOSE METER UNSOLICIT ED RESULTSon 09-23-2024 Glucose [Mass/Vol] 196 mg/dL High 70-105 [facility] Comment on above: Order Comment: Waive d Testing in the ED is performed under the ED CLIA certificate #[id number]. Result Comment: kanika ppu2 Performed By: #### L [id number] #### [facility] ([facility]) [address] [place] [address] Glucose [Mass/Vol] 203 mg/dL High 70-105 [facility] Comment on above: Order Comment: Waive d Testing in the ED is performed under the ED CLIA certificate #[id number]. Result Comment: juan ramon nya3 Performed By: #### L [id number] #### [facility] ([facility]) [address] [place] [address] Glucose [Mass/Vol] 125 mg/dL High 70-105 [facility] Comment on above: Order Comment: Waive d Testing in the ED is performed under the ED CLIA certificate #[id number]. Result Comment: juan ramon nya3 Performed By: #### L [id number] #### [facility] ([facility]) [address] [place] [address] 30on 09-22-2024 30 The patient is Moder ately Stable - Low risk of patient condition declining or worsening The patient's goals for the shift include comfort The clinical goals for the shift include vss [facility] HPon 09-22-2024 HP H&P reviewed. The samuel coffman was examined and there are no changes to the H&P. Plan for rigth side occipital approach new BAKERY MACHINE MECHANIC SUPERVISOR shunt. Tal Linares MD [facility] OPNOTEon 09-22-2024 OPNOTE Right Occipital Lapa roscopy Assisted BAKERY MACHINE MECHANIC SUPERVISOR Shunt Placement(Has Prior Shunt) (R) Operative Note Date: 09/22/2024 Location: [facility] Name: Aba Ruiz, : 1975, Diagnosis Pre-op Diagnosis * Communicating hydrocephalus (CMS/HCC) [G91.0] Post-op Diagnosis * Communicating hydrocephalus (CMS/HCC) [G91.0] Procedures Right Occipital Laparoscopy Assisted BAKERY MACHINE MECHANIC SUPERVISOR Shunt Placement(Has Prior Shunt) 32551 - NM CRTJ SHUNT [id number] L TERMINUS Surgeons Primary: Tal Linares MD Assisting: Abdulkadir Medina MD Resident - Assisting: Cielo Vanegas MD Procedure Summary Anesthesia: General ASA: II Estimated Blood Loss: Minimal Wound classification: Clean Drains: * None in log * Implants Type Name Action Serial No. Catheter CODMAN STRAIGHT VENTRICULAR CATHETER Implanted Catheter CODMAN PERITONEAL CATHETER Implanted Prosthetic Valve VALVE,W/SIPHON GUARD - [id number] Implanted Staff: Aquacultural Worker Supervisor: Delonte Frey RN Scrub Person: Lara Varner, SINGLE PASS SOIL STABILIZER OPERATOR Manager Of Customer Billing: Loli Nguyen RN Indications: Aba Ruiz is an 49 y.o. male who is having surgery for hydrocephalus. General surgery was consulted for minimally invasive abdominal entry and placement of BAKERY MACHINE MECHANIC SUPERVISOR shunt catheter from abdominal wall to intra-abdominal. Due to patient's history of multiple BAKERY MACHINE MECHANIC SUPERVISOR shunt placements in childhood his abdominal wall has bilateral large scars with unpredictable intra-abdominal adhesions. Higher risk for bowel injury and difficulty with intra-abdominal placement of BAKERY MACHINE MECHANIC SUPERVISOR catheter. Procedure Details: This operative note portion covers procedure involving laparoscopy abdominal portion of the procedure. At the time of my presentation patient had already undergone general anesthesia, neurosurgery have completed the intracranial portion of the procedure and ready for catheter tunneling. The abdominal skin was prepped with chlorhexidine with Ioban covering. Safety timeout was already performed. A 2 cm infraumbilical vertical skin incision was made sharply using 15 blade scalpel. Subcutaneous tissue was taken down using monopolar electrocautery to expose the midline fascia infraumbilical location. The fascia was grasped with Keith clamps bilaterally. The fascia was scored open using monopolar electrocautery. I attempted Optiview entry through the midline fascia however visualization was poor and thus open Degroot entry was deemed to be more safe. The fascial incision was extended using 11 blade scalpel. Using finger palpation I was able to feel entry through the fascial layer however there were additional scars intra-abdominal that were soft. Inspection of the entry site does not show any bleeding or bile. 10 mm balloon port was placed at the infraumbilical site. The abdomen was insufflated and the entry site was inspected using laparoscope. I was able to visualize omental adhesions in front of the laparoscopic port. I was able to traverse the omentum and most of the abdomen was insufflated posterior to the omentum. Omentum was mostly adhered to the anterior abdominal wall with all of hollow viscus posteriorly without much adhesion. The anterior abdominal wall was mostly covered by omentum and lateral abdominal wall does have exposed the peritoneum without adhesions. Since the BAKERY MACHINE MECHANIC SUPERVISOR shunt procedure was performed on patient's right side we chose the right lateral abdomen as the most optimal site for abdominal entry of BAKERY MACHINE MECHANIC SUPERVISOR shunt catheter. At this time neurosurgery presented to perform tunneling of the BAKERY MACHINE MECHANIC SUPERVISOR shunt catheter to the right lateral abdominal site. Once tunneling was completed a 5 mm port was placed at the right lateral abdominal site. Through the abdominal wall incision the BAKERY MACHINE MECHANIC SUPERVISOR shunt catheter was placed intra-abdominal using [place] grasper. The BAKERY MACHINE MECHANIC SUPERVISOR shunt catheter was placed into the pelvis were there were no intra-abdominal adhesions. The midline fascial incision was closed using simple erupted 0 Vicryl sutures. Skin incisions were closed using 4-0 Monocryl sutures. Sterile dressings were applied over the incision sites. Findings: Successful intra-abdominal placement of BAKERY MACHINE MECHANIC SUPERVISOR shunt catheter, catheter tip in the pelvis Complications: None; patient tolerated the procedure well. Disposition: PACU - hemodynamically stable. Condition: stable Tal Linares [facility] OPNOTE Date: 09/22/2024 Loca tion: [facility] Name: Aba Ruiz, : 1975, Diagnosis Pre-op Diagnosis * Communicating hydrocephalus (CMS/HCC) [G91.0] Post-op Diagnosis * Communicating hydrocephalus (CMS/HCC) [G91.0] Procedures Right Occipital Laparoscopy Assisted BAKERY MACHINE MECHANIC SUPERVISOR Shunt Placement(Has Prior Shunt) 43857 - NM CRTJ SHUNT [id number] L TERMINUS Right side new ventriculoperiteonal shunt (occipital approach) Removal of prior shunt valve and connector to old ventricular catheter (with flanges - which was left in place and tied off) New CODMAN Certas valve set to performance level 4 Surgeons Primary: Tal Linares MD Assisting: Abdulkadir Medina MD Resident - Assisting: Cielo Vanegas MD Procedure Summary Anesthesia: General ASA: II Estimated Blood Loss: Minimal Total IV Fluids: 1000 mL Drains: * None in log * Implants Type Name Action Serial No. Catheter CHICAMAN STRAIGHT VENTRICULAR CATHETER Implanted Catheter CODMAN PERITONEAL CATHETER Implanted Prosthetic Valve VALVE,W/SIPHON GUARD - [id number] Implanted Staff: Aquacultural Worker Supervisor: Delotne Frey RN Scrub Person: Lara Varner CST Manager Of Customer Billing: Loli Nguyen RN Indications: Aba Ruiz is an 49 y.o. male who is having surgery for hydrocephalus. Findings: clear CSF under pressure Complications: None; patient tolerated the procedure well. Disposition: PACU - hemodynamically stable. Condition: stable Specimens Collected: No specimens collected during this procedure. Attending Attestation: I was present and scrubbed for the entire procedure. Tal Linares [facility] OPNOTE Right Occipital Lapa roscopy Assisted BAKERY MACHINE MECHANIC SUPERVISOR Shunt Placement(Has Prior Shunt) (R) Operative Note Date: 09/22/2024 Location: [facility] Name: Aba Ruiz, : 1975, Diagnosis Pre-op Diagnosis * Communicating hydrocephalus (CMS/HCC) [G91.0] Post-op Diagnosis * Communicating hydrocephalus (CMS/HCC) [G91.0] Procedures Right Occipital Laparoscopy Assisted BAKERY MACHINE MECHANIC SUPERVISOR Shunt Placement(Has Prior Shunt) 29201 - [place] CRTJ SHUNT [id number] L TERMINUS Right side new ventriculoperiteonal shunt (occipital approach) Removal of prior shunt valve and connector to old ventricular catheter (with flanges - which was left in place and tied off) New CODMAN Certas valve set to performance level 4 Surgeons Primary: Tal Linares MD Assisting: Abdulkadir Medina MD Resident - Assisting: Cielo Vanegas MD Procedure Summary Anesthesia: General ASA: II Estimated Blood Loss: Minimal Total IV Fluids: 1000 mL Drains: * None in log * Implants Type Name Action Serial No. Catheter CODMAN STRAIGHT VENTRICULAR CATHETER Implanted Catheter CODMAN PERITONEAL CATHETER Implanted Prosthetic Valve VALVE,W/SIPHON GUARD - [id number] Implanted Staff: Aquacultural Worker Supervisor: Delonte Frey RN Scrub Person: Lara Varner CST Manager Of Customer Billing: Loli Nguyen RN Indications: Aba Ruiz is an 49 y.o. male who is having surgery for hydrocephalus. Procedure Details: The patient was seen in the preoperative area. The risks, benefits, complications, treatment options, non-operative alternatives, expected recovery and outcomes were discussed with the patient. The possibilities of reaction to medication, pulmonary aspiration, injury to surrounding structures, bleeding, recurrent infection, the need for additional procedures, failure to diagnose a condition, and creating a complication requiring transfusion or operation were discussed with the patient. The patient concurred with the proposed plan, giving informed consent. The site of surgery was properly noted/marked if necessary per policy. The patient has been actively warmed in preoperative area. Preoperative antibiotics have been ordered and given within 1 hours of incision. Venous thrombosis prophylaxis are not indicated. Findings: clear CSF under pressure The old valve had become disconnected from the catheter Complications: None; patient tolerated the procedure well. Disposition: PACU - hemodynamically stable. Condition: stable Tal Martina Service: Neurosurgery Attending: Tal Linares MD General surgery attending: Mason Medina MD Date: 09/22/24 Pre-op diagnosis: Hydrocephalus - prior shunt had become disconnected, progressively worsening headaches Post-op diagnosis: Same Procedure: Right side new ventriculoperiteonal shunt (occipital approach) Removal of prior shunt valve and connector to old ventricular catheter (with flanges - which was left in place and tied off) New CODMAN Certas valve set to performance level 4 Anesthesia: GETA EBL: minimal - 10 ml Specimen: none Post-op disposition: Recovery room Condition: good Indication for procedure: 49 y/o patient has hydrocephalus - has had multiple distal shunt revisions in the past - he has shunt disconnection (for several years) and has progressively worsening headaches with enlarged ventricles. He and his both voiced understanding of the potential risks and benefits of surgery and wished to proceed. Operative report in detail: After obtaining written informed consent for the procedure the patient was brought to the operating room and placed on the operating table in the supine position. The patient was induced with anesthesia and intubated without difficulty. The patient was kept in the supine position with the right side away from anesthesia and the right armed tucked.. Pre-op lines were placed by anesthesia and SCDs were placed on the patient's legs for DVT prophylaxis. The patient's head was placed on a gel donut. The right side of the head was shaved and marked for the occipital approach shunt. The sites of his prior abdominal incisions were marked out as well. The patient's head, neck, chest and abdomin were all prepped and draped in the usual sterile fashion. The pre-op timeout was completed, carmel-operative antibiotics were administered and the operative site was infiltrated with local anesthetic. The frontal skin incision was created with a 10 blade scalpel. The periosteum was divided. The prior connector for the shunt was identified - it looked like a metal funnel - this seems to have come disconnected from the remaining portion of the old valve. There was CSF coming through the old ventricular catehter. The metal funnel shaped connector was removed and then the old ventricular catehter was tied off securely with a #2 silk. The new bur hole was created with a high speed drill just in front of the old bur hole. The dura was (more content not included)... Normal [facility] POCT GLUCOSE METER UNSOLICIT ED RESULTSon 09-22-2024 Glucose [Mass/Vol] 173 mg/dL High 70-105 [facility] Comment on above: Order Comment: Waive d Testing in the ED is performed under the ED CLIA certificate #[id number]. Result Comment: seymour perla Performed By: #### L [id number] #### [facility] ([facility]) [address] [place] [address] Glucose [Mass/Vol] 155 mg/dL High 70-105 [facility] Comment on above: Order Comment: Waive d Testing in the ED is performed under the ED CLIA certificate #[id number]. Result Comment: [email or web address] ppu2 Performed By: #### L [id number] #### [facility] ([facility]) [address] [place] [address] Glucose [Mass/Vol] 182 mg/dL High 70-105 [facility] Comment on above: Order Comment: Waive d Testing in the ED is performed under the ED CLIA certificate #[id number]. Result Comment: rtat e Performed By: #### L [id number] ####[facility] ([facility])[address] [place] [address] Glucose [Mass/Vol] 153 mg/dL High 70-105 [facility] Comment on above: Order Comment: Waive d Testing in the ED is performed under the ED CLIA certificate #[id number]. Result Comment: pbar retcorson Performed By: #### L [id number] #### [facility] ([facility]) [address] [place] [address] APTTon 09-16-2024 ACTIVATED PARTIAL THROMBOPLASTIN TIME IN PPP BY COAGULATION ASSAY 27.8 Seconds Normal 25.0-35.0 [facility] Comment on above: Result Comment: Clin ical significance of the APTT is questionable in the presence of heparin. Performed By: #### L [id number] #### [facility] ([facility]) [address] [place] [address] BASIC METABOLIC PANELon 08-27 Anion gap [Moles/Vol] 10 mmol/L Normal 7-20 [facility] Comment on above: Performed By: #### L [id number] #### [facility] ([facility]) [address] [place] [address] Calcium [Mass/Vol] 9.5 mg/dL Normal 8.6-10.3 [facility] Comment on above: Performed By: #### L [id number] #### [facility] ([facility]) [address] [place] [address] Chloride [Moles/Vol] 104 mmol/L Normal 98-107 [facility] Comment on above: Performed By: #### L [id number] #### [facility] ([facility]) [address] [place] [address] CO2 [Moles/Vol] 27 mmol/L Normal 21-31 [facility] Comment on above: Performed By: #### L [id number] #### [facility] ([facility]) [address] [place] [address] Creatinine [Mass/Vol] 0.70 mg/dL Normal 0.70-1.30 [facility] Comment on above: Performed By: #### L [id number] #### [facility] ([facility]) [address] [place] [address] GLOMERULAR FILTRATION RATE ML/MIN/1.73 SQ M.PREDICTED 114.4 mL/min/1.73m*2 Normal >60.0 [facility] Comment on above: Result Comment: The [facility]???s estimated glomerular filtration rate (eGFR) will no longer include consideration of race in its calculation. The National Kidney Foundation???s eGFR Task Force developed new recommendations for the estimation of the glomerular filtration rate in the [place] They recommend immediate implementation of the new equation refit without the race variable in all laboratories because the calculation does not include race. In addition to not including race in the calculation and reporting, it included diversity in its development, and has acceptable performance characteristics and potential consequences that do not disproportionately affect any one group of individuals. Performed By: #### L [id number] #### [facility] ([facility]) [address] [place] [address] Glucose [Mass/Vol] 116 mg/dL High 70-100 [facility] Comment on above: Performed By: #### L [id number] #### [facility] ([facility]) [address] [place] [address] Potassium [Moles/Vol] 4.2 mmol/L Normal 3.5-5.[address] [facility] Comment on above: Performed By: #### L [id number] #### [facility] ([facility]) [address] [place] [address] Sodium [Moles/Vol] 137 mmol/L Normal 136-145 [facility] Comment on above: Performed By: #### L [id number] #### [facility] ([facility]) [address] [place] [address] Urea nitrogen [Mass/Vol] 23 mg/dL Normal 7-25 [facility] Comment on above: Performed By: #### L [id number] #### [facility] ([facility]) [address] [place] [address] UREA NITROGEN/CREATININE (MASS RATIO) IN SER/PLAS 32.9 Normal [facility] Comment on above: Performed By: #### L [id number] #### [facility] ([facility]) [address] [place] [address] CBC WITH AUTO DIFFERENTIALon 09-16-2024 Basophils (Bld) [#/Vol] 0.06 10*3/uL Normal 0.00-0.20 [facility] Comment on above: Performed By: #### L [id number] #### [facility] ([facility]) [address] [place] [place] [address] Basophils/100 WBC (Bld) 0.9 % Normal 0.0-1.0 [facility] Comment on above: Performed By: #### L [id number] #### [facility] ([facility]) [address] [place] [address] Eosinophils (Bld) [#/Vol] 0.34 10*3/uL Normal 0.00-0.50 [facility] Comment on above: Performed By: #### L [id number] #### [facility] ([facility]) [address] [place] [address] Eosinophils/100 WBC (Bld) 5.2 % Normal 0.0-6.0 [facility] Comment on above: Performed By: #### L [id number] #### [facility] ([facility]) [address] [place] [address] Erythrocyte distribution width (RBC) [Ratio] 12.6 % Normal 11.5-15.0 [facility] Comment on above: Performed By: #### L [id number] #### [facility] ([facility]) [address] [place] [address] ERYTHROCYTE MEAN CORPUSCULAR HEMOGLOBIN CONCENTRATION (G/DL) BY AUTOMATED 34.4 g/dL Normal 32.0-35.0 [facility] Comment on above: Performed By: #### L [id number] #### [facility] ([facility]) [address] [place] [address] Hematocrit (Bld) [Volume fraction] 45.3 % Normal 39.0-55.0 [facility] Comment on above: Performed By: #### L [id number] #### [facility] ([facility]) [address] [place] [address] Hemoglobin (Bld) [Mass/Vol] 15.6 g/dL Normal 13.0-17.0 [facility] Comment on above: Performed By: #### L [id number] #### [facility] ([facility]) [address] [place] [address] Immature granulocytes (Bld) [#/Vol] 0.01 10*3/uL Normal 0.00-0.20 [facility] Comment on above: Performed By: #### L [id number] #### [facility] ([facility]) [address] [place] [address] Immature granulocytes/100 WBC (Bld) 0.2 % Normal 0.0-1.0 [facility] Comment on above: Performed By: #### L [id number] #### [facility] ([facility]) [address] [place] [address] Lymphocytes (Bld) [#/Vol] 2.28 10*3/uL Normal 1.20-4.00 [facility] Comment on above: Performed By: #### L [id number] #### [facility] ([facility]) [address] [place] [address] Lymphocytes/100 WBC (Bld) 34.5 % Normal 20.0-45.0 [facility] Comment on above: Performed By: #### L [id number] #### [facility] ([facility]) [address] [place] [address] MCH (RBC) [Entitic mass] 28.8 pg Normal 27.0-33.0 [facility] Comment on above: Performed By: #### L [id number] #### [facility] ([facility]) [address] [place] [address] MCV (RBC) [Entitic vol] 83.6 fL Normal 82.0-98.0 [facility] Comment on above: Performed By: #### L [id number] #### [facility] ([facility]) [address] [place] [address] Monocytes (Bld) [#/Vol] 0.56 10*3/uL Normal 0.10-1.00 [facility] Comment on above: Performed By: #### L [id number] #### [facility] ([facility]) [address] [place] [address] Monocytes/100 WBC (Bld) 8.5 % Normal 5.0-12.0 [facility] Comment on above: Performed By: #### L [id number] #### [facility] ([facility]) [address] [place] [address] Neutrophils (Bld) [#/Vol] 3.35 10*3/uL Normal 1.60-7.60 [facility] Comment on above: Performed By: #### L [id number] #### [facility] ([facility]) [address] [place] [address] Neutrophils/100 WBC (Bld) 50.7 % Normal 40.0-72.0 [facility] Comment on above: Performed By: #### L [id number] #### [facility] ([facility]) [address] [place] [address] NRBC (PER 100 WBCS) BY AUTOMATED COUNT 0.0 % Normal 0 [facility] Comment on above: Performed By: #### L [id number] #### [facility] ([facility]) [address] [place] [address] PLATELETS (10*3/UL) IN BLOOD AUTOMATED COUNT 315 10*3/uL Normal 150-400 [facility] Comment on above: Performed By: #### L [id number] #### [facility] ([facility]) [address] [place] [address] RBC (Bld) [#/Vol] 5.42 10*6/uL Normal 4.20-5.70 [facility] Comment on above: Performed By: #### L [id number] #### [facility] ([facility]) [address] [place] [address] WBC (Bld) [#/Vol] 6.60 10*3/uL Normal 4.00-10.60 [facility] Comment on above: Performed By: #### L [id number] #### [facility] ([facility]) [address] [place] [address] Consulton 09-16-2024 Consult [id number] BobkellyMartinez 1975 M Date Provider Department Center 09/16/2024 CHANTALE ROBISON [facility] [place] Family History Problem Relation Age of Onset COPD Mother Parkinsonism Father Hypertension Father Hypertension Brother Cancer Mother's Brother Cancer Maternal Grandmother Diabetes Maternal Grandmother Stroke Paternal Grandfather Family Status - Relation Status Age at Mother Alive Father Alive Brother Mother's Brother Maternal Grandmother Paternal Grandfather Level of Service:99629 NM OFFICE/OUTPATIENT ESTABLISHED MOD MDM 30 MIN Reason for Visit and Comments: Pre-op Exam [[id number]] Normal [facility] HPon 09-16-2024 HP NEUROSURGERY NOTE SUBJECTIVE: Chief complaint: Preoperative visit for placement of ventriculoperitoneal shunt on 09/22/[address] Linares. History of present illness: Patient reports he had a [employer] shunt placed at , last revised at about 10 years old. He does note that over the past 1.5 years, he has had progressively worsening intermittent right parietal headaches as well as episodes of dizziness and blurred vision in addition to paresthesia of the arms and hands that seem to be associated with the headaches. Sometimes when he gets these headaches, he finds himself listing to 1 side. Otherwise, he denies falls or imbalance. Denies bowel or bladder changes. Review of systems: As in HPI. Denies cough, shortness of breath, chest pain. Denies rashes, wounds, open sores. Past Medical History: Diagnosis Date Diabetes mellitus (CMS/HCC) Erectile dysfunction Hydrocephalus (CMS/HCC) Hyperlipidemia Obesity Pleural effusion empyema Pneumonia Sleep apnea Tachycardia Past Surgical History: Procedure Laterality Date CHEST TUBE INSERTION 10/2022 VENTRICULOPERITONEAL SHUNT Right Social History Tobacco Use Smoking status: Never Smokeless tobacco: Never Vaping Use Vaping status: Never Used Substance Use Topics Alcohol use: Yes Comment: rarely Drug use: Never Family History Problem Relation Name Age of Onset COPD Mother Parkinsonism Father Hypertension Father Hypertension Brother Cancer Mother's Brother Cancer Maternal Grandmother Diabetes Maternal Grandmother Stroke Paternal Grandfather OBJECTIVE: Medications: albuterol alcohol swabs pads, medicated aspirin Dexcom G6 Sensor device Dexcom G6 Transmitter device metFORMIN pantoprazole Prodigy Twist Top Lancet [facility] SELECT IF UNABLE TO FIND MEDICATION WITH +ADD semaglutide pen injector sildenafil UltiCare Pen Needle needle Current Outpatient Medications: albuterol 90 mcg/actuation inhaler, INHALE 1 PUFF BY MOUTH EVERY 6 HOURS NEEDED FOR SHORTNESS OF BREATH/ WHEEZING, Disp: , Rfl: alcohol swabs pads, medicated, in the morning and at bedtime. as directed, Disp: , Rfl: aspirin 325 mg EC tablet, Take 325 mg by mouth if needed., Disp: , Rfl: Dexcom G6 Sensor device, APPLY NEW SENSOR EVERY 10 DAYS, Disp: , Rfl: Dexcom G6 Transmitter device, USE DIRECTED TO TEST BLOOD SUGAR, Disp: , Rfl: metFORMIN (Glucophage) 500 mg tablet, TAKE 1 TABLET BY MOUTH TWICE A DAY WITH A MEAL FOR 90 DAYS, Disp: , Rfl: pantoprazole (ProtoNix) 40 mg EC tablet, Take 40 mg by mouth in the morning., Disp: , Rfl: Prodigy Twist Top Lancet 28 gauge, USE DIRECTED TO TEST SUGARS TWICE DAILY, Disp: , Rfl: SELECT IF UNABLE TO FIND MEDICATION WITH +ADD, Take 1 tablet by mouth in the morning. Med Name: testosterone pill--[facility] from [facility], Disp: , Rfl: semaglutide (Ozempic) 0.25 mg or 0.5 mg (2 mg/3 mL) pen injector, Inject 0.5 mg under the skin every 7 (seven) days. Saturday, Disp: , Rfl: sildenafil (Viagra) 100 mg tablet, TAKE 1 TABLET BY MOUTH EVERY DAY NEEDED FOR 30 DAYS, Disp: , Rfl: UltiCare Pen Needle 31 gauge x 5/16 needle, USE DIRECTED TO TEST SUGARS TWICE DAILY, Disp: , Rfl: Allergies: Allergies Allergen Reactions Dilaudid [Hydromorphone] Other When combined with fentanyl, becomes violent Fentanyl Other When combined with Dilaudid, becomes violent Exam: Exam performed and reviewed, changes as below. Vitals reviewed: No intake/output data recorded. No intake/output data recorded. Accompanied by today. Constitutional: In no apparent distress. Cardiovascular: Heart sounds regular rate and rhythm without appreciable murmur. Chest: Lung sounds clear to auscultation bilaterally. Respirations regular and nonlabored. Abdomen: Soft, nontender, nondistended. Multiple healed abdominal incisions. Healed right parieto-occipital scalp incision. Extremities without edema. Skin warm and dry without pallor. Neuro: GCS 15/15. Attention and memory intact. No dysarthria or aphasia. Cranial Nerves: Conjugate gaze. PERRLA 2 mm. EOMI. No nystagmus. Facial sensation intact V1, V2, V3 bilaterally. Facial expression symmetrical bilaterally. Hearing intact to conversation. Uvula and palate elevates symmetrically. Trapezii symmetrical bilaterally. Tongue midline. Coordination: Finger to nose testing without dysmetria bilaterally. Sensation: Intact to light touch C5-T1 on right, decreased same dermatomes on left. Intact to light touch L2-S1 dermatomes bilaterally. Musculoskeletal: Left handed. Deltoid 5/5 bilaterally. Triceps 5/5 bilaterally. Biceps 5/5 bilaterally. Finger flexors 5/5 bilaterally. Finger extensors 5/5 bilaterally. Hip flexors 5/5 bilaterally. Knee flexors and extensors 5/5 bilaterally. Ankle dorsal flexors 5/5 bilaterally. Ankle plantar flexors 5/5 bilaterally. Muscle tone without hyper or hypotonicity. Muscle bulk appropriate for age. Independently am (more content not included)... Normal [facility] Labon 09-16-2024 Lab [id number] Martinez Ruiz 1975 M Date Provider Department [place] 09/16/2024 9838-[facility] LAB RESOURCE [facility] Family History Problem Relation Age of Onset COPD Mother Parkinsonism Father Hypertension Father Hypertension Brother Cancer Mother's Brother Cancer Maternal Grandmother Diabetes Maternal Grandmother Stroke Paternal Grandfather Family Status - Relation Status Age at Mother Alive Father Alive Brother Mother's Brother Maternal Grandmother Paternal Grandfather Normal [facility] MRSA/MSSA DNA NASALon 2024 MRSA DNA Negative Normal Negative [facility] Comment on above: Order Comment: Testi ng methodology is an automated qualitative in vitro diagnostic test for the directdetection and differentiation of Staphylococcus aureus (SA) DNA and methicillin-resistant Staphylococcus aureus (MRSA) DNA from nasal swabs in patients at risk for nasal colonization. The test utilizes real-time polymerase chain reaction (PCR) for the amplification of MRSA/SA DNA and fluorogenic target-specific hybridization probes for the detection of the amplified DNA. A negative result does not preclude nasal colonization. Performed By: #### L [id number] #### [facility] ([facility]) [address] [place] [address] MSSA DNA Negative Normal Negative [facility] Comment on above: Order Comment: Testi ng methodology is an automated qualitative in vitro diagnostic test for the directdetection and differentiation of Staphylococcus aureus (SA) DNA and methicillin-resistant Staphylococcus aureus (MRSA) DNA from nasal swabs in patients at risk for nasal colonization. The test utilizes real-time polymerase chain reaction (PCR) for the amplification of MRSA/SA DNA and fluorogenic target-specific hybridization probes for the detection of the amplified DNA. A negative result does not preclude nasal colonization. Performed By: #### L [id number] #### [facility] ([facility]) [address] [place] [address] PROTIME-INRon 09-16-2024 INR IN PPP BY COAGULATION ASSAY 1.03 Normal 0.90-1.10 [facility] Comment on above: Result Comment: ACCC P RECOMMENDED INR FOR WARFARIN THERAPY CONDITION INR PROPHYLAXIS OF VENOUS THROMBOSIS 2-3 (HIGH-RISK SURGERY) TREATMENT OF VENOUS THROMBOSIS 2-3 TREATMENT OF PULMONARY EMBOLISM 2-3 PREVENTION OF SYSTEMIC EMBOLISM: 2-3 ACUTE MYOCARDIAL INFARCTION TISSUE HEART VALVES VALVULAR HEART DISEASE ATRIAL FIBRILLATION RECURRENT SYSTEMIC EMBOLISM MECHANICAL HEART VALVE 2.5-3.5 FROM: ORAL ANTICOAGULANTS. MECHANISM OF ACTION, CLINICAL EFFECTIVENESS, AND OPTIMAL THERAPEUTIC RANGE. CHEST 1995;108:231S-246S. Performed By: #### L [id number] #### [facility] ([facility]) [address] [place] [address] PROTHROMBIN TIME (PT) IN PPP BY COAGULATION ASSAY 13.5 Seconds Normal 12.3-14.8 [facility] Comment on above: Performed By: #### L [id number] #### [facility] ([facility]) [address] [place] [address] Prep for Procedureon 025 Prep for Procedure [id number] Martinez Ruiz 1975 M Date Provider Department Center 09/16/2024 148-JASS GARCIAISON [facility] [place] Family History Problem Relation Age of Onset COPD Mother Parkinsonism Father Hypertension Father Hypertension Brother Cancer Mother's Brother Cancer Maternal Grandmother Diabetes Maternal Grandmother Stroke Paternal Grandfather Family Status - Relation Status Age at Mother Alive Father Alive Brother Mother's Brother Maternal Grandmother Paternal Grandfather Normal [facility] TYPE AND SCREENon 09-16-2024 AB SCREEN Negative Normal [facility] Comment on above: Performed By: #### L [id number] #### [facility] ([facility]) [address] [place] [address] ABO group Nom (Bld) A Normal [facility] Comment on above: Performed By: #### L [id number] #### [facility] ([facility]) [address] [place] [address] RH TYPE IN BLOOD Negative Normal [facility] Comment on above: Performed By: #### L [id number] #### [facility] ([facility]) [address] [place] [address] Orders Onlyon 09-01-2024 Orders Only [id number] Martinez Ruiz 1975 M Date Provider Department Center 09/01/2024 PRADIP CORONADO ONC DCC Family History Problem Relation Age of Onset COPD Mother Parkinsonism Father Family Status - Relation Status Age at Mother Alive Father Alive Normal [facility] Basophils Auto (Bld) [#/Vol] on 08-07-2024 Basophils (Bld) [#/Vol] Automated basophil count 0.0-0.1 [facility] Basophils/100 WBC Auto (Bld) on 08-07-2024 Basophils/100 WBC (Bld) Automated basophil % 0.2-2.0 [facility] Cholesterol in LDL Calc [Mas s/Vol]on 08-07-2024 Cholesterol in LDL [Mass/Vol] Cholesterol in LDL [Mass/volume] in Serum or Plasma by calculation [facility] Comment on above: <100 mg/dl [id number] 0-129 mg/dl NEAR OR ABOVE [id number] mg/dl BORDERLINE [id number] mg/dl HIGH>190 mg/dl VERY HIGH Cholesterol in VLDL Calc [Ma ss/Vol]on 08-07-2024 Cholesterol in VLDL [Mass/Vol] Cholesterol in VLDL [Mass/volume] in Serum or Plasma by calculation [facility] Eosinophils/100 WBC Auto (Bl d)on 08-07-2024 Eosinophils/100 WBC (Bld) Automated eosinophil % High 0.9-7.0 [facility] Erythrocyte distribution wid th Auto (RBC) [Ratio]on 08-07-2024 Erythrocyte distribution width (RBC) [Ratio] Erythrocyte distribution width [Ratio] by Automated count 11.0-15.0 [facility] Estimated glomerular filtrat ion rate (GFR) non- Americanon 08-07-2024 GFR/1.73 sq M.predicted among non-blacks MDRD (S/P/Bld) [Vol rate/Area] Estimated glomerular filtration rate (GFR) non- >=60 mL/min/1.7 3m 2 [facility] Globulin Calc (S) [Mass/Vol] on 08-07-2024 Globulin (S) [Mass/Vol] Serum globulin measurement by calculation (mass/volume) [facility] Glucose mean value [Mass/vol ume] in Blood Estimated from glycated hemoglobinon 08-07-2024 Average glucose Estimated from glycated hemoglobin (Bld) [Mass/Vol] Glucose mean value [Mass/volume] in Blood Estimated from glycated hemoglobin [facility] Hematocrit Auto (Bld) [Volum e fraction]on 08-07-2024 Hematocrit (Bld) [Volume fraction] Hematocrit [Volume Fraction] of Blood by Automated count 42.0-54.0 [facility] Hemoglobin [Mass/volume] in Bloodon 08-07-2024 Hemoglobin (Bld) [Mass/Vol] Hemoglobin [Mass/volume] in Blood 14.0-18.0 [facility] Laboratory - Chemistry and C hemistry - challengeon 08-07-2024 Albumin [Mass/Vol] 3.8 g/dL 3.4-5.0 [facility] ALP [Catalytic activity/Vol] 88 U/L 46-116 [facility] ALT [Catalytic activity/Vol] 21 U/L 16-63 [facility] AST [Catalytic activity/Vol] 12 U/L Low 15-37 [facility] Bilirubin [Mass/Vol] 1.0 mg/dL 0.2-1.0 [facility] Calcium [Mass/Vol] 9.2 mg/dL 8.5-10.1 [facility] Chloride [Moles/Vol] 106 mmol/L 98-107 [facility] Cholesterol [Mass/Vol] 184 mg/dL <=200 [facility] Cholesterol in HDL [Mass/Vol] 59 mg/dL 40-60 [facility] Comment on above: > or =60 mg/dl - LOW CARDIOVASCULAR RISK<40 mg/dl - HIGH CARDIOVASCULAR RISK CO2 [Moles/Vol] 28.1 mmol/L 21.0-32.0 [facility] Creatinine [Mass/Vol] 0.77 mg/dL 0.70-1.30 [facility] GFR/1.73 sq M.predicted MDRD (S/P/Bld) [Vol rate/Area] mL/min/{1.73_m2} >=60 mL/min/1.7 3m 2 [facility] Glucose [Mass/Vol] 106 mg/dL 74-106 [facility] Potassium [Moles/Vol] 4.1 mmol/L 3.5-5.1 [facility] Protein [Mass/Vol] 7.6 g/dL 6.4-8.2 [facility] Sodium [Moles/Vol] 144 mmol/L 136-145 [facility] Triglyceride [Mass/Vol] 38 mg/dL <=150 [facility] Urea nitrogen [Mass/Vol] 22.0 mg/dL High 7.0-18.0 [facility] Urea nitrogen/Creatinine [Mass ratio] 28.6 mg/mg [facility] Laboratory - Hematology and Cell countson 08-07-2024 HbA1c (Bld) [Mass fraction] 5.9 % 4.5-6.2 [facility] Comment on above: ADA RECOMMENDED LIMI T 4.0 - 6.0ADA THERAPEUTIC TARGET < 7.0ACTION SUGGESTED> 7.0 Immature granulocytes/100 WBC (Bld) 0.1 % 0.0-0.5 [facility] Leukocytes [#/volume] correc opal for nucleated erythrocytes in Blood by Automated counon 08-07-2024 WBC corrected for nucl RBC Auto (Bld) [#/Vol] Leukocytes [#/volume] corrected for nucleated erythrocytes in Blood by Automated coun 4.0-11.0 [facility] Lymphocytes Auto (Bld) [#/Vo l]on 08-07-2024 Lymphocytes (Bld) [#/Vol] Lymphocytes [#/volume] in Blood by Automated count 1.2-3.8 [facility] Lymphocytes/100 WBC Auto (Bl d)on 08-07-2024 Lymphocytes/100 WBC (Bld) Lymphocytes/100 leukocytes in Blood by Automated count 20.5-60.0 [facility] MCH Auto (RBC) [Entitic mass ]on 08-07-2024 MCH (RBC) [Entitic mass] MCH [Entitic mass] by Automated count 25.9-34.0 [facility] MCHC Auto (RBC) [Mass/Vol]on 08-07-2024 MCHC (RBC) [Mass/Vol] MCHC [Mass/volume] by Automated count 29.9-35.2 [facility] MCV Auto (RBC) [Entitic vol] on 08-07-2024 MCV (RBC) [Entitic vol] MCV [Entitic volume] by Automated count 80.0-94.0 [facility] Microalbumin [Mass/volume] i n Urineon 08-07-2024 Albumin DL <= 20 mg/L (U) [Mass/Vol] Microalbumin [Mass/volume] in Urine <=30.0 [facility] Monocytes Auto (Bld) [#/Vol] on 08-07-2024 Monocytes (Bld) [#/Vol] Automated blood monocyte count 0.3-0.8 [facility] Monocytes/100 WBC Auto (Bld) on 08-07-2024 Monocytes/100 WBC (Bld) Automated monocyte % 1.7-12.0 [facility] Neutrophils Auto (Bld) [#/Vo l]on 08-07-2024 Neutrophils (Bld) [#/Vol] Neutrophils [#/volume] in Blood by Automated count 1.4-6.5 [facility] Neutrophils/100 WBC Auto (Bl d)on 08-07-2024 Neutrophils/100 WBC (Bld) Automated neutrophil % Low 43.0-75.0 [facility] No Panel Informationon 08-07 Eosinophils # (Auto) 0.8 10 3/uL High 0.0-0.7 [facility] Immature Granulocyte # (Auto) 0.01 10 3/uL 0.00-0.03 [facility] Platelet mean volume Auto (B ld) [Entitic vol]on 08-07-2024 Platelet mean volume (Bld) [Entitic vol] Platelet mean volume [Entitic volume] in Blood by Automated count Low 9.5-13.5 [facility] Platelets Auto (Bld) [#/Vol] on 08-07-2024 Platelets (Bld) [#/Vol] Platelets [#/volume] in Blood by Automated count 150-450 [facility] RBC Auto (Bld) [#/Vol]on RBC (Bld) [#/Vol] Erythrocytes [#/volu me] in Blood by Automated count 4.70-6.10 [facility] Serum or plasma albumin/glob ulin mass ratioon 08-07-2024 Albumin/Globulin [Mass ratio] Serum or plasma albumin/globulin mass ratio [facility] Serum or plasma anion gap de terminationon 08-07-2024 Anion gap [Moles/Vol] Serum or plasma an ion gap determination [facility] Serum or plasma total choles terol/high density lipoprotein (HDL) cholesterol mass bailey 12-13-2024 Cholesterol.total/Chol esterol in HDL [Mass ratio] Serum or plasma total cholesterol/high density lipoprotein (HDL) cholesterol mass rat [facility] Comment on above: 3.3 - 4.4 LOW RISK4. 4 - 7.1 AVERAGE RISK7.1 - 11.0 MODERATE RISK>11.[address] HEAD WO IV CONTRASTon CT HEAD WO IV CONTRAST EXAM:CT HEAD WO I V CONTRAST INDICATION: Headache. Hydrocephalus. COMPARISON: 07/03/2023 TECHNIQUE: Standard noncontrast axial CT sections through the head. All CT scans at this facility use dose modulation, iterative reconstruction, and/or weight based dosing when appropriate to reduce radiation dose to as low as reasonably achievable. FINDINGS: Right parietal approach ventriculostomy catheter tip is similarly positioned with the tip terminating at the right foramen of [place]. Discontinuities in the catheters are seen just proximal and distal to the craniotomy site best appreciated on the sagittal reconstructions. Caliber and configuration of the ventricular system is unchanged. Persistent dilatation of the lateral ventricles. Normal caliber of the third and fourth ventricles. No acute hemorrhage, cerebral edema, or large territorial infarction. No mass effect, or midline shift. Extra-Axial Spaces: No extra-axial fluid collection. Orbits, paranasal sinuses, midface structures, mastoid air cells: Normal Cranium and extracranial soft tissues: Right parietal gabriela hole IMPRESSION: Overall stable CT of the head with similar caliber and configuration of the ventricular system. Persistent dilatation of the lateral ventricles. Similar discontinuity of the ventriculostomy catheter both proximal and distal to the craniotomy site. Electronically signed: Zeus Gonzales MD. Not Vldtd Invalid Interpretation Code [facility] Office Visiton 07-15-2024 Follow-up visit [id number] Martinez Ruiz 1975 M Date Provider Department Center 07/15/2024 Navi-TAL LINARES ONC DCC Family History Problem Relation Age of Onset COPD Mother Parkinsonism Father Family Status - Relation Status Age at Mother Alive Father Alive Level of Service:23175 NM OFFICE/OUTPATIENT ESTABLISHED MOD MDM 30 MIN Normal [facility] Basophils Auto (Bld) [#/Vol] Ordered By: Anh Sepulveda on 01-02-2023 Basophils (Bld) [#/Vol] 0.0 10*3/uL 0.0-0.2 [facility] Basophils/100 WBC Auto (Bld) Ordered By: Anh Sepulveda on 01-02-2023 Basophils/100 WBC (Bld) 0.6 % . [facility] C reactive protein [Mass/vol ume] in Serum or PlasmaOrdered By: Anh Sepulveda on 01-02-2023 CRP [Mass/Vol] < 0.5 mg/dL 0.0-0.5 [facility] C-Reactive Proteinon 023 CRP [Mass/Vol] mg/L Normal 0.0-0.5 [facility] Comment on above: Result Comment: PERF ORMED BY: [facility] [address] [place] [place] [address] PATHOLOGIST DOPER CASSANDRA RAMOS M.D. Performed By: #### G LULS #### Point of Care testing , Complete Blood Count Auto Di ffon 01-02-2023 Basophils (Bld) [#/Vol] 0.0 10*3/uL Normal 0.0-0.2 [facility] Comment on above: Performed By: #### G LULS #### Point of Care testing , Basophils/100 WBC (Bld) 0.6 % Normal . [facility] Comment on above: Performed By: #### G LULS #### Point of Care testing , Eosinophils (Bld) [#/Vol] 0.3 10*3/uL Normal 0.0-0.45 [facility] Comment on above: Performed By: #### G LULS #### Point of Care testing , Eosinophils/100 WBC (Bld) 4.3 % Normal . [facility] Comment on above: Performed By: #### G LULS #### Point of Care testing , Erythrocyte distribution width (RBC) [Ratio] 14.1 % Normal 12.0-14.8 [facility] Comment on above: Performed By: #### G LULS #### Point of Care testing , Hematocrit (Bld) [Volume fraction] 42.1 % Normal 38.8-50.0 [facility] Comment on above: Performed By: #### G LULS #### Point of Care testing , Hemoglobin (Bld) [Mass/Vol] 14.2 g/dL Normal 13.0-17.0 [facility] Comment on above: Performed By: #### G JANETLS #### Point of Care testing , Lymphocytes (Bld) [#/Vol] 2.4 10*3/uL Normal 1.00-4.8 [facility] Comment on above: Performed By: #### G JANETLS #### Point of Care testing , Lymphocytes/100 WBC (Bld) 37.1 % Normal . [facility] Comment on above: Performed By: #### G JANETLS #### Point of Care testing , MCH (RBC) [Entitic mass] 27.4 pg Low 27.5-35.2 [facility] Comment on above: Performed By: #### G JANETLS #### Point of Care testing , MCV (RBC) [Entitic vol] 81.4 fL Low 83.5-101 [facility] Comment on above: Performed By: #### Eber GONZALESLS #### Point of Care testing , Mean Corpuscular HGB Conc 33.7 g/dL Normal 32.5-35.6 [facility] Comment on above: Performed By: #### Eber RENDON #### Point of Care testing , Monocytes (Bld) [#/Vol] 0.6 10*3/uL Normal 0.0-0.8 [facility] Comment on above: Performed By: #### Eber GONZALESLS #### Point of Care testing , Monocytes/100 WBC (Bld) 9.0 % Normal . [facility] Comment on above: Performed By: #### G JANETLS #### Point of Care testing , Neutrophils (Bld) [#/Vol] 3.2 10*3/uL Normal 1.8-7.7 [facility] Comment on above: Performed By: #### G JANETLS #### Point of Care testing , Neutrophils/100 WBC (Bld) 49.0 % Normal . [facility] Comment on above: Performed By: #### Eber GONZALESLS #### Point of Care testing , NRBC% 0.3 /100{WBC} Normal 0-0.5 [facility] Comment on above: Performed By: #### G LULS #### Point of Care testing , Platelet mean volume (Bld) [Entitic vol] 7.1 fL Normal 6.6-10.1 [facility] Comment on above: Performed By: #### G LULS #### Point of Care testing , Platelets (Bld) [#/Vol] 325 10*3/uL Normal 150-450 [facility] Comment on above: Performed By: #### G LULS #### Point of Care testing , RBC (Bld) [#/Vol] 5.17 10*6/uL Normal 3.90-5.60 [facility] Comment on above: Performed By: #### G LULS #### Point of Care testing , WBC (Bld) [#/Vol] 6.6 10*3/uL Normal 4.1-10.5 [facility] Comment on above: Performed By: #### G LULS #### Point of Care testing , Eosinophils Auto (Bld) [#/Vo l]Ordered By: Anh Kelli on 01-02-2023 Eosinophils (Bld) [#/Vol] 0.3 10*3/uL 0.0-0.45 [facility] Eosinophils/100 WBC Auto (Bl d)Ordered By: Anh Kelli on 01-02-2023 Eosinophils/100 WBC (Bld) 4.3 % . [facility] Erythrocyte Sedimentation Ra elizabeth 01-02-2023 ESR (Bld) [Velocity] 21 mm/h High 0-14 [facility] Comment on above: Result Comment: PERF ORMED BY: [facility] [address] [place] [address] PATHOLOGIST DOPER CASSANDRA RAMOS M.D. Performed By: #### G LULS #### Point of Care testing , Erythrocyte distribution wid th Auto (RBC) [Ratio]Ordered By: Anh Kelli on 01-02-2023 Erythrocyte distribution width (RBC) [Ratio] 14.1 % 12.0-14.8 [facility] Erythrocyte sedimentation ra te by Photometric methodOrdered By: Anh Sepulveda on 01-02-2023 ESR Photometric method (Bld) [Velocity] 21 mm/hr 0-14 [facility] Hematocrit Auto (Bld) [Volum e fraction]Ordered By: Anh Sepulveda on 01-02-2023 Hematocrit (Bld) [Volume fraction] 42.1 % 38.8-50.0 [facility] Hemoglobin [Mass/volume] in BloodOrdered By: Anh Sepulveda on 01-02-2023 Hemoglobin (Bld) [Mass/Vol] 14.2 g/dL 13.0-17.0 [facility] Leukocytes [#/volume] correc opal for nucleated erythrocytes in Blood by Automated counOrdered By: Anh Sepulveda on 01-02-2023 WBC corrected for nucl RBC Auto (Bld) [#/Vol] 6.6 10*3/uL 4.1-10.5 [facility] Lymphocytes Auto (Bld) [#/Vo l]Ordered By: Anh Sepulveda on 01-02-2023 Lymphocytes (Bld) [#/Vol] 2.4 10*3/uL 1.00-4.8 [facility] Lymphocytes/100 WBC Auto (Bl d)Ordered By: Anh Sepulveda on 01-02-2023 Lymphocytes/100 WBC (Bld) 37.1 % . [facility] MCH Auto (RBC) [Entitic mass ]Ordered By: Anh Sepulveda on 01-02-2023 MCH (RBC) [Entitic mass] 27.4 pg 27.5-35.2 [facility] MCHC Auto (RBC) [Mass/Vol]Or dered By: Anh Sepulveda on 01-02-2023 MCHC (RBC) [Mass/Vol] 33.7 g/dL 32.5-35.6 [facility] MCV Auto (RBC) [Entitic vol] Ordered By: Anh Sepulveda on 01-02-2023 MCV (RBC) [Entitic vol] 81.4 fL 83.5-101 [facility] Monocytes Auto (Bld) [#/Vol] Ordered By: Anh Sepulveda on 01-02-2023 Monocytes (Bld) [#/Vol] 0.6 10*3/uL 0.0-0.8 [facility] Monocytes/100 WBC Auto (Bld) Ordered By: Anh Kelli on 01-02-2023 Monocytes/100 WBC (Bld) 9.0 % . [facility] Neutrophils Auto (Bld) [#/Vo l]Ordered By: Anh Kelli on 01-02-2023 Neutrophils (Bld) [#/Vol] 3.2 10*3/uL 1.8-7.7 [facility] Neutrophils/100 WBC Auto (Bl d)Ordered By: Anh Kelli on 01-02-2023 Neutrophils/100 WBC (Bld) 49.0 % . [facility] Nucleated erythrocytes [Pres ence] in Blood by Automated countOrdered By: Anh Kelli on 01-02-2023 Nucleated RBC Auto Ql (Bld) 0.3 /100{WBC} 0-0.5 [facility] Platelet mean volume Auto (B ld) [Entitic vol]Ordered By: Anh Kelli on 01-02-2023 Platelet mean volume (Bld) [Entitic vol] 7.1 fL 6.6-10.1 [facility] Platelets Auto (Bld) [#/Vol] Ordered By: Anh Kelli on 01-02-2023 Platelets (Bld) [#/Vol] 325 10*3/uL 150-450 [facility] RBC Auto (Bld) [#/Vol]Ordere d By: Anh Kelli on 01-02-2023 RBC (Bld) [#/Vol] 5.17 10*6/uL 3.90-5.60 [facility] WBC Auto (Bld) [#/Vol]Ordere d By: Anh Kelli on 01-02-2023 WBC (Bld) [#/Vol] 6.6 10*3/uL 4.1-10.5 [facility] XR chest 2V*on 01-02-2023 XR chest 2V* [facility] Main [address] [address] XRay Report Signed Patient: Aba Ruiz MR#: [id number] : 1975 Acct:[id number] Age/Sex: 47 / M ADM Date: 01/02/23 Loc: XD Room: Type: [facility] Attending Dr: BILLIE Cornejo APRN Copies to: Anh Sepulveda APRN, ACNP-BC Ordering Provider: Anh Sepulveda APRN, ACNP-BC Date of Service: 01/02/23 XR/XR chest 2V*: lung abcess Chest 2 views CLINICAL HISTORY: Follow-up lung abscess. COMPARISON: Chest 11/05/2022 FINDINGS: Heart appears normal in size. There has been improved aeration of the left lung since the prior study with residual atelectasis/scarring noted. Questionable trace right apical pneumothorax. Right lung is clear. No free air. XR/XR chest 2V* IMPRESSION: IMPROVED AERATION OF THE LEFT LUNG SINCE THE PRIOR STUDY WITH RESIDUAL ATELECTASIS/SCARRING NOTED. FOLLOW-UP IS RECOMMENDED TO ENSURE RESOLUTION. QUESTIONABLE TINY LEFT APICAL PNEUMOTHORAX. NO EVIDENCE OF TENSION IS SEEN. SHORT-TERM FOLLOW-UP IS RECOMMENDED TO ASSESS FOR PROGRESSION. FINDINGS OF THIS REPORT WERE GIVEN TO THE RADIOLOGY OFFICE STAFF FOR EXPEDITED RELAY OF RESULTS TO THE REFERRING CLINICIAN. Impression dictated by: Kiran Metcalf Jr., D.O.01/02/2023 11:53 AM Dictation Location: [place] [address] Transcribed By: [facility] 01/02/23 1153 Dictated By: Kiran Metcalf Jr, DO 01/02/23 1149 Signed By: 01/02/23 1153 [facility] Basic Metabolic Panelon 03- Anion gap [Moles/Vol] 10.1 mmol/L Normal 6.0-15.0 [facility] Comment on above: Performed By: #### G LULS #### Point of Care testing , Calcium [Mass/Vol] 8.9 mg/dL Normal 8.6-10.3 [facility] Comment on above: Performed By: #### G LULS #### Point of Care testing , Chloride [Moles/Vol] 97 mmol/L Low 98-107 [facility] Comment on above: Performed By: #### G LULS #### Point of Care testing , CO2 [Moles/Vol] 32.1 mmol/L High 21.0-31.0 [facility] Comment on above: Performed By: #### G JANETLS #### Point of Care testing , Creatinine [Mass/Vol] 0.63 mg/dL Low 0.70-1.30 [facility] Comment on above: Performed By: #### G LULS #### Point of Care testing , Creatinine Clr Calc Pharmacy 178.15 [facility] Comment on above: Result Comment: PERF ORMED BY: [facility] [address] [place] [address] PATHOLOGIST DOPER CASSANDRA ARMOS M.D. Performed By: #### G JANETLS #### Point of Care testing , GFR/1.73 sq M.predicted MDRD (S/P/Bld) [Vol rate/Area] mL/min/{1.73_m2} [facility] Comment on above: Performed By: #### G LULS #### Point of Care testing , Glucose [Mass/Vol] 74 mg/dL Normal 74-109 [facility] Comment on above: Result Comment: [place] Glucose Reference Range is dependent on time and content of last meal. Glucose of more than 200 mg/dL in a nonstressed, ambulatory subject supports the diagnosis of Diabetes Mellitus. ADA recommended reference range Performed By: #### G LULS #### Point of Care testing , Potassium [Moles/Vol] 4.2 mmol/L Normal 3.5-5.1 [facility] Comment on above: Performed By: #### G JANETLS #### Point of Care testing , Sodium [Moles/Vol] 135 mmol/L Low 136-145 [facility] Comment on above: Performed By: #### G LULS #### Point of Care testing , Urea nitrogen [Mass/Vol] 14 mg/dL Normal 7-25 [facility] Comment on above: Performed By: #### G LULS #### Point of Care testing , Basophils Auto (Bld) [#/Vol] Ordered By: Chung Garcia on 11-08-2022 Basophils (Bld) [#/Vol] 0.0 10*3/uL 0.0-0.2 [facility] Basophils/100 WBC Auto (Bld) Ordered By: Chung Garcia on 11-08-2022 Basophils/100 WBC (Bld) 0.3 % . [facility] Calcium [Mass/volume] in Ser um or PlasmaOrdered By: Chung Garcia on 11-08-2022 Calcium [Mass/Vol] 8.9 mg/dL 8.6-10.3 [facility] Carbon dioxide, total [Moles /volume] in Serum or PlasmaOrdered By: Chung Garcia on 11-08-2022 CO2 [Moles/Vol] 32.1 mmol/L 21.0-31.0 [facility] Chloride [Moles/volume] in S joseph or PlasmaOrdered By: Chung Garcia on 11-08-2022 Chloride [Moles/Vol] 97 mmol/L 98-107 [facility] Complete Blood Count Auto Di ffon 11-08-2022 Basophils (Bld) [#/Vol] 0.0 10*3/uL Normal 0.0-0.2 [facility] Comment on above: Result Comment: PERF ORMED BY: [facility] [address] [place] [address] PATHOLOGIST DOPER CASSANDRA RAMOS M.D. Performed By: #### G LULS #### Point of Care testing , Basophils/100 WBC (Bld) 0.3 % Normal . [facility] Comment on above: Performed By: #### G LULS #### Point of Care testing , Eosinophils (Bld) [#/Vol] 0.2 10*3/uL Normal 0.0-0.45 [facility] Comment on above: Performed By: #### G LULS #### Point of Care testing , Eosinophils/100 WBC (Bld) 1.4 % Normal . [facility] Comment on above: Performed By: #### G LULS #### Point of Care testing , Erythrocyte distribution width (RBC) [Ratio] 13.3 % Normal 12.0-14.8 [facility] Comment on above: Performed By: #### G JUSTICE #### Point of Care testing , Hematocrit (Bld) [Volume fraction] 30.1 % Low 38.8-50.0 [facility] Comment on above: Performed By: #### G JANETLS #### Point of Care testing , Hemoglobin (Bld) [Mass/Vol] 10.0 g/dL Low 13.0-17.0 [facility] Comment on above: Performed By: #### G JANETLS #### Point of Care testing , Lymphocytes (Bld) [#/Vol] 1.7 10*3/uL Normal 1.00-4.8 [facility] Comment on above: Performed By: #### G JANETLS #### Point of Care testing , Lymphocytes/100 WBC (Bld) 13.5 % Normal . [facility] Comment on above: Performed By: #### G JANETLS #### Point of Care testing , MCH (RBC) [Entitic mass] 27.9 pg Normal 27.5-35.2 [facility] Comment on above: Performed By: #### G JANETLS #### Point of Care testing , MCV (RBC) [Entitic vol] 84.0 fL Normal 83.5-101 [facility] Comment on above: Performed By: #### G JANETLS #### Point of Care testing , Mean Corpuscular HGB Conc 33.2 g/dL Normal 32.5-35.6 [facility] Comment on above: Performed By: #### G JUSTICE #### Point of Care testing , Monocytes (Bld) [#/Vol] 1.1 10*3/uL High 0.0-0.8 [facility] Comment on above: Performed By: #### G JANETLS #### Point of Care testing , Monocytes/100 WBC (Bld) 8.8 % Normal . [facility] Comment on above: Performed By: #### G JANETLS #### Point of Care testing , Neutrophils (Bld) [#/Vol] 9.6 10*3/uL High 1.8-7.7 [facility] Comment on above: Performed By: #### G JUSTICE #### Point of Care testing , Neutrophils/100 WBC (Bld) 76.0 % Normal . [facility] Comment on above: Performed By: #### G JANETLS #### Point of Care testing , NRBC% 0.1 /100{WBC} Normal 0-0.5 [facility] Comment on above: Performed By: #### G JANETLS #### Point of Care testing , Platelet mean volume (Bld) [Entitic vol] 6.8 fL Normal 6.6-10.1 [facility] Comment on above: Performed By: #### G JUSTICE #### Point of Care testing , Platelets (Bld) [#/Vol] 756 10*3/uL High 150-450 [facility] Comment on above: Performed By: #### G JUSTICE #### Point of Care testing , RBC (Bld) [#/Vol] 3.58 10*6/uL Low 3.90-5.60 [facility] Comment on above: Performed By: #### G JUSTICE #### Point of Care testing , WBC (Bld) [#/Vol] 12.6 10*3/uL High 4.1-10.5 [facility] Comment on above: Performed By: #### G JUSTICE #### Point of Care testing , Creatinine [Mass/volume] in Serum or PlasmaOrdered By: Chung Garcia on 11-08-2022 Creatinine [Mass/Vol] 0.63 mg/dL 0.70-1.30 [facility] Eosinophils Auto (Bld) [#/Vo l]Ordered By: Chung Garcia on 11-08-2022 Eosinophils (Bld) [#/Vol] 0.2 10*3/uL 0.0-0.45 [facility] Eosinophils/100 WBC Auto (Bl d)Ordered By: Chung Garcia on 11-08-2022 Eosinophils/100 WBC (Bld) 1.4 % . [facility] Erythrocyte distribution wid th Auto (RBC) [Ratio]Ordered By: Chung Garcia on 11-08-2022 Erythrocyte distribution width (RBC) [Ratio] 13.3 % 12.0-14.8 [facility] Glucose Glucometer (BldC) [M ass/Vol]Ordered By: Ángel Carter on 11-08-2022 Glucose [Mass/Vol] 148 mg/dL [facility] Comment on above: Random Glucose Refer ence Range is dependent on time and content of last meal. Glucose of more than 200 mg/dL in a nonstressed, ambulatory subject supports the diagnosis of Diabetes Mellitus. Glucose Poct Glucometerson 0 11-08-2022 Glucose [Mass/Vol] 148 mg/dL Normal [facility] Comment on above: Result Comment: [place] Glucose Reference Range is dependent on time and content of last meal. Glucose of more than 200 mg/dL in a nonstressed, ambulatory subject supports the diagnosis of Diabetes Mellitus. PERFORMED BY: [place] [address] PATHOLOGIST DOPER CASSANDRA RAMOS M.D. Performed By: #### G LULS #### Point of Care testing , Glucose [Mass/Vol] 112 mg/dL Normal [facility] Comment on above: Result Comment: [place] om Glucose Reference Range is dependent on time and content of last meal. Glucose of more than 200 mg/dL in a nonstressed, ambulatory subject supports the diagnosis of Diabetes Mellitus. PERFORMED BY: [place] [id number] PATHOLOGIST DOPER CASSANDRA RAMOS M.D. Performed By: #### C , [facility] #### [address] Glucose [Mass/Vol] 83 mg/dL Normal [facility] Comment on above: Result Comment: [place] om Glucose Reference Range is dependent on time and content of last meal. Glucose of more than 200 mg/dL in a nonstressed, ambulatory subject supports the diagnosis of Diabetes Mellitus. PERFORMED BY: [place] [id number] PATHOLOGIST DOPER CASSANDRA RAMOS M.D. Performed By: #### G JUSTICE #### Point of Care testing , Glucose [Mass/volume] in Ser um or PlasmaOrdered By: Chung Garcia on 11-08-2022 Glucose [Mass/Vol] 74 mg/dL 74-109 [facility] Comment on above: ADA recommended refe rence rangeRandom Glucose Reference Range is dependent on time and content of last meal. Glucose of more than 200 mg/dL in a nonstressed, ambulatory subject supports the diagnosis of Diabetes Mellitus. Hematocrit Auto (Bld) [Volum e fraction]Ordered By: Chung Garcia on 11-08-2022 Hematocrit (Bld) [Volume fraction] 30.1 % 38.8-50.0 [facility] Hemoglobin [Mass/volume] in BloodOrdered By: Chung Garcia on 11-08-2022 Hemoglobin (Bld) [Mass/Vol] 10.0 g/dL 13.0-17.0 [facility] Laboratory - Chemistry and C hemistry - challengeOrdered By: Chung Garcia on 11-08-2022 GFR/1.73 sq M.predicted MDRD (S/P/Bld) [Vol rate/Area] mL/min/{1.73_m2} [facility] Leukocytes [#/volume] correc opal for nucleated erythrocytes in Blood by Automated counOrdered By: Chung Garcia on 11-08-2022 WBC corrected for nucl RBC Auto (Bld) [#/Vol] 12.6 10*3/uL 4.1-10.5 [facility] Lymphocytes Auto (Bld) [#/Vo l]Ordered By: Chung Garcia on 11-08-2022 Lymphocytes (Bld) [#/Vol] 1.7 10*3/uL 1.00-4.8 [facility] Lymphocytes/100 WBC Auto (Bl d)Ordered By: Chung Garcia on 11-08-2022 Lymphocytes/100 WBC (Bld) 13.5 % . [facility] MCH Auto (RBC) [Entitic mass ]Ordered By: Chung Garcia on 11-08-2022 MCH (RBC) [Entitic mass] 27.9 pg 27.5-35.2 [facility] MCHC Auto (RBC) [Mass/Vol]Or dered By: Chung Garcia on 11-08-2022 MCHC (RBC) [Mass/Vol] 33.2 g/dL 32.5-35.6 [facility] MCV Auto (RBC) [Entitic vol] Ordered By: Chung Garcia on 11-08-2022 MCV (RBC) [Entitic vol] 84.0 fL 83.5-101 [facility] Monocytes Auto (Bld) [#/Vol] Ordered By: Chung Garcia on 11-08-2022 Monocytes (Bld) [#/Vol] 1.1 10*3/uL 0.0-0.8 [facility] Monocytes/100 WBC Auto (Bld) Ordered By: Chung Garcia on 11-08-2022 Monocytes/100 WBC (Bld) 8.8 % . [facility] Neutrophils Auto (Bld) [#/Vo l]Ordered By: Chung Garcia on 11-08-2022 Neutrophils (Bld) [#/Vol] 9.6 10*3/uL 1.8-7.7 [facility] Neutrophils/100 WBC Auto (Bl d)Ordered By: Chung Garcia on 11-08-2022 Neutrophils/100 WBC (Bld) 76.0 % . [facility] No Panel InformationOrdered By: Chung Garcia on 11-08-2022 Pharmacy Creatinine Clearance (Chem 178.15 [facility] Nucleated erythrocytes [Pres ence] in Blood by Automated countOrdered By: Chung Garcia on 11-08-2022 Nucleated RBC Auto Ql (Bld) 0.1 /100{WBC} 0-0.5 [facility] Platelet mean volume Auto (B ld) [Entitic vol]Ordered By: Chung Garcia on 11-08-2022 Platelet mean volume (Bld) [Entitic vol] 6.8 fL 6.6-10.1 [facility] Platelets Auto (Bld) [#/Vol] Ordered By: Chung Garcia on 11-08-2022 Platelets (Bld) [#/Vol] 756 10*3/uL 150-450 [facility] Potassium [Moles/volume] in Serum or PlasmaOrdered By: Chung Garcia on 11-08-2022 Potassium [Moles/Vol] 4.2 mmol/L 3.5-5.1 [facility] RBC Auto (Bld) [#/Vol]Ordere d By: Chung Garcia on 11-08-2022 RBC (Bld) [#/Vol] 3.58 10*6/uL 3.90-5.60 [facility] Serum or plasma anion gap de terminationOrdered By: Chung Garcia on 11-08-2022 Anion gap [Moles/Vol] 10.1 mmol/L 6.0-15.0 [facility] Sodium [Moles/volume] in Ser um or PlasmaOrdered By: Chung Garcia on 11-08-2022 Sodium [Moles/Vol] 135 mmol/L 136-145 [facility] Urea nitrogen [Mass/volume] in Serum or PlasmaOrdered By: Chung Garcia on 11-08-2022 Urea nitrogen [Mass/Vol] 14 mg/dL 7-25 [facility] WBC Auto (Bld) [#/Vol]Ordere d By: Chung Garcia on 11-08-2022 WBC (Bld) [#/Vol] 12.6 10*3/uL 4.1-10.5 [facility] Basic Metabolic Panelon 10-24 Anion gap [Moles/Vol] 8.9 mmol/L Normal 6.0-15.0 [facility] Comment on above: Performed By: #### G LULS #### Point of Care testing , Calcium [Mass/Vol] 8.5 mg/dL Low 8.6-10.3 [facility] Comment on above: Performed By: #### G LULS #### Point of Care testing , Chloride [Moles/Vol] 92 mmol/L Low 98-107 [facility] Comment on above: Performed By: #### G LULS #### Point of Care testing , CO2 [Moles/Vol] 34.2 mmol/L High 21.0-31.0 [facility] Comment on above: Performed By: #### G LULS #### Point of Care testing , Creatinine [Mass/Vol] 0.58 mg/dL Low 0.70-1.30 [facility] Comment on above: Performed By: #### G LULS #### Point of Care testing , Creatinine Clr Calc Pharmacy 195.78 [facility] Comment on above: Result Comment: PERF ORMED BY: [facility] [address] [place] [address] PATHOLOGIST DOPER CASSANDRA RAMOS M.D. Performed By: #### G LULS #### Point of Care testing , GFR/1.73 sq M.predicted MDRD (S/P/Bld) [Vol rate/Area] mL/min/{1.73_m2} [facility] Comment on above: Performed By: #### G LULS #### Point of Care testing , Glucose [Mass/Vol] 80 mg/dL Normal 74-109 [facility] Comment on above: Result Comment: [place] Glucose Reference Range is dependent on time and content of last meal. Glucose of more than 200 mg/dL in a nonstressed, ambulatory subject supports the diagnosis of Diabetes Mellitus. ADA recommended reference range Performed By: #### G LULS #### Point of Care testing , Potassium [Moles/Vol] 4.1 mmol/L Normal 3.5-5.1 [facility] Comment on above: Performed By: #### G LULS #### Point of Care testing , Sodium [Moles/Vol] 131 mmol/L Low 136-145 [facility] Comment on above: Performed By: #### G LULS #### Point of Care testing , Urea nitrogen [Mass/Vol] 14 mg/dL Normal 7-25 [facility] Comment on above: Performed By: #### G JUSTICE #### Point of Care testing , Complete Blood Count Auto Di ffon 11-07-2022 Basophils (Bld) [#/Vol] 0.0 10*3/uL Normal 0.0-0.2 [facility] Comment on above: Result Comment: PERF ORMED BY: [place] [address] PATHOLOGIST DOPER CASSANDRA RAMOS M.D. Performed By: #### C ILENE, BMP #### [address] Basophils/100 WBC (Bld) 0.2 % Normal . [facility] Comment on above: Performed By: #### C ILENE, BMP #### [address] Eosinophils (Bld) [#/Vol] 0.1 10*3/uL Normal 0.0-0.45 [facility] Comment on above: Performed By: #### C ILENE, BMP #### [place] [address] [place] Eosinophils/100 WBC (Bld) 0.7 % Normal . [facility] Comment on above: Performed By: #### C BC, BMP #### [address] Erythrocyte distribution width (RBC) [Ratio] 13.3 % Normal 12.0-14.8 [facility] Comment on above: Performed By: #### C BC, BMP #### [address] Hematocrit (Bld) [Volume fraction] 29.9 % Low 38.8-50.0 [facility] Comment on above: Performed By: #### C BC, BMP #### [address] Hemoglobin (Bld) [Mass/Vol] 9.9 g/dL Low 13.0-17.0 [facility] Comment on above: Performed By: #### C BC, BMP #### [place] [address] [place] Lymphocytes (Bld) [#/Vol] 1.7 10*3/uL Normal 1.00-4.8 [facility] Comment on above: Performed By: #### C BC, BMP #### [address] Lymphocytes/100 WBC (Bld) 10.4 % Normal . [facility] Comment on above: Performed By: #### C BC, BMP #### [address] MCH (RBC) [Entitic mass] 27.8 pg Normal 27.5-35.2 [facility] Comment on above: Performed By: #### C BC, BMP #### [address] MCV (RBC) [Entitic vol] 83.6 fL Normal 83.5-101 [facility] Comment on above: Performed By: #### C BC, BMP #### [address] Mean Corpuscular HGB Conc 33.2 g/dL Normal 32.5-35.6 [facility] Comment on above: Performed By: #### C BC, BMP #### [address] Monocytes (Bld) [#/Vol] 1.3 10*3/uL High 0.0-0.8 [facility] Comment on above: Performed By: #### C BC, BMP #### [address] Monocytes/100 WBC (Bld) 8.0 % Normal . [facility] Comment on above: Performed By: #### C BC, BMP #### [address] Neutrophils (Bld) [#/Vol] 13.2 10*3/uL High 1.8-7.7 [facility] Comment on above: Performed By: #### C BC, BMP #### [place] [address] [place] Neutrophils/100 WBC (Bld) 80.7 % Normal . [facility] Comment on above: Performed By: #### C ILENE, BMP #### [address] NRBC% 0.0 /100{WBC} Normal 0-0.5 [facility] Comment on above: Performed By: #### C ILENE, BMP #### [address] Platelet mean volume (Bld) [Entitic vol] 6.9 fL Normal 6.6-10.1 [facility] Comment on above: Performed By: #### C ILENE, BMP #### [address] Platelets (Bld) [#/Vol] 774 10*3/uL High 150-450 [facility] Comment on above: Performed By: #### C ILENE, BMP #### [address] RBC (Bld) [#/Vol] 3.58 10*6/uL Low 3.90-5.60 [facility] Comment on above: Performed By: #### C ILENE, BMP #### [address] WBC (Bld) [#/Vol] 16.4 10*3/uL High 4.1-10.5 [facility] Comment on above: Performed By: #### C ILENE, BMP #### [address] Glucose Poct Glucometerson 0 11-07-2022 Commemt1 Glu2: Cleaned Meter Normal [facility] Comment on above: Result Comment: PERF ORMED BY: [place] [address] PATHOLOGIST DOPER CASSANDRA RAMOS M.D. Performed By: #### G LUSTEPHANIE #### Point of Care testing , Glucose [Mass/Vol] 159 mg/dL Normal [facility] Comment on above: Result Comment: [facility] Glucose Reference Range is dependent on time and content of last meal. Glucose of more than 200 mg/dL in a nonstressed, ambulatory subject supports the diagnosis of Diabetes Mellitus. Performed By: #### G LULS #### Point of Care testing , Glucose [Mass/Vol] 115 mg/dL Normal [facility] Comment on above: Result Comment: [place] Glucose Reference Range is dependent on time and content of last meal. Glucose of more than 200 mg/dL in a nonstressed, ambulatory subject supports the diagnosis of Diabetes Mellitus. PERFORMED BY: [facility] [address] [address] [facility] [place] [address] PATHOLOGIST DOPER CASSANDRA RAMOS M.D. Performed By: #### G LULS #### Point of Care testing , Glucose [Mass/Vol] 127 mg/dL Normal [facility] Comment on above: Result Comment: [place] Glucose Reference Range is dependent on time and content of last meal. Glucose of more than 200 mg/dL in a nonstressed, ambulatory subject supports the diagnosis of Diabetes Mellitus. PERFORMED BY: [facility] [address] [place] [address] PATHOLOGIST DOPER CASSANDRA RAMOS M.D. Performed By: #### G LULS #### Point of Care testing , Glucose [Mass/Vol] 85 mg/dL Normal [facility] Comment on above: Result Comment: [facility] Glucose Reference Range is dependent on time and content of last meal. Glucose of more than 200 mg/dL in a nonstressed, ambulatory subject supports the diagnosis of Diabetes Mellitus. PERFORMED BY: [facility] [address] [address] PATHOLOGIST DOPER CASSANDRA RAMOS M.D. Performed By: #### G LULS #### Point of Care testing , No Panel InformationOrdered By: Ángel Carter on 11-07-2022 Bedside Glucose Comment Glu2: cleaned meter [facility] Basic Metabolic Panelon 10-24 Anion gap [Moles/Vol] 8.8 mmol/L Normal 6.0-15.0 [facility] Comment on above: Performed By: #### C BC, BMP #### [facility] [address] [place] [address] [place] Calcium [Mass/Vol] 7.9 mg/dL Low 8.6-10.3 [facility] Comment on above: Performed By: #### C BC, BMP #### [facility] [address] [place] [address] [place] Chloride [Moles/Vol] 92 mmol/L Low 98-107 [facility] Comment on above: Performed By: #### C BC, BMP #### [facility] [address] [place] [address] [place] CO2 [Moles/Vol] 37.9 mmol/L High 21.0-31.0 [facility] Comment on above: Performed By: #### C BC, BMP #### [facility] [address] [place] [address] [place] Creatinine [Mass/Vol] 0.56 mg/dL Low 0.70-1.30 [facility] Comment on above: Performed By: #### C BC, BMP #### [facility] [address] [place] [address] [place] Creatinine Clr Calc Pharmacy 202.77 [facility] Comment on above: Result Comment: PERF ORMED BY: [place] [address] PATHOLOGIST DOPER CASSANDRA RAMOS M.D. Performed By: #### C BC, BMP #### [facility] [address] [place] [address] [place] GFR/1.73 sq M.predicted MDRD (S/P/Bld) [Vol rate/Area] mL/min/{1.73_m2} [facility] Comment on above: Performed By: #### C BC, BMP #### [facility] [address] [place] [address] [place] Glucose [Mass/Vol] 67 mg/dL Low 74-109 [facility] Comment on above: Result Comment: [place] Glucose Reference Range is dependent on time and content of last meal. Glucose of more than 200 mg/dL in a nonstressed, ambulatory subject supports the diagnosis of Diabetes Mellitus. ADA recommended reference range Performed By: #### C BC, BMP #### [address] Potassium [Moles/Vol] 3.7 mmol/L Normal 3.5-5.1 [facility] Comment on above: Performed By: #### C BC, BMP #### [address] Sodium [Moles/Vol] 135 mmol/L Low 136-145 [facility] Comment on above: Performed By: #### C BC, BMP #### [address] Urea nitrogen [Mass/Vol] 14 mg/dL Normal 7-25 [facility] Comment on above: Performed By: #### C BC, BMP #### [address] Complete Blood Count Auto Di ffon 11-06-2022 Basophils (Bld) [#/Vol] 0.0 10*3/uL Normal 0.0-0.2 [facility] Comment on above: Result Comment: PERF ORMED BY: [place] [address] PATHOLOGIST DOPER CASSANDRA RAMOS M.D. Performed By: #### C BC, BMP #### [place] [address] [place] Basophils/100 WBC (Bld) 0.2 % Normal . [facility] Comment on above: Performed By: #### C BC, BMP #### [place] [address] [place] Eosinophils (Bld) [#/Vol] 0.1 10*3/uL Normal 0.0-0.45 [facility] Comment on above: Performed By: #### C BC, BMP #### [address] Eosinophils/100 WBC (Bld) 0.8 % Normal . [facility] Comment on above: Performed By: #### C BC, BMP #### [facility] [address] Erythrocyte distribution width (RBC) [Ratio] 13.7 % Normal 12.0-14.8 [facility] Comment on above: Performed By: #### C BC, BMP #### [facility] [address] Hematocrit (Bld) [Volume fraction] 29.3 % Low 38.8-50.0 [facility] Comment on above: Performed By: #### C BC, BMP #### [facility] [address] Hemoglobin (Bld) [Mass/Vol] 9.6 g/dL Low 13.0-17.0 [facility] Comment on above: Performed By: #### C BC, BMP #### [address] Lymphocytes (Bld) [#/Vol] 2.0 10*3/uL Normal 1.00-4.8 [facility] Comment on above: Performed By: #### C BC, BMP #### [place] [address] [place] Lymphocytes/100 WBC (Bld) 11.6 % Normal . [facility] Comment on above: Performed By: #### C BC, BMP #### [facility] [address] MCH (RBC) [Entitic mass] 27.6 pg Normal 27.5-35.2 [facility] Comment on above: Performed By: #### C BC, BMP #### [facility] [address] MCV (RBC) [Entitic vol] 84.3 fL Normal 83.5-101 [facility] Comment on above: Performed By: #### C BC, BMP #### [address] Mean Corpuscular HGB Conc 32.7 g/dL Normal 32.5-35.6 [facility] Comment on above: Performed By: #### C BC, BMP #### [facility] [address] [place] [address] [place] Monocytes (Bld) [#/Vol] 1.5 10*3/uL High 0.0-0.8 [facility] Comment on above: Performed By: #### C BC, BMP #### [facility] [address] [place] [address] [place] Monocytes/100 WBC (Bld) 8.9 % Normal . [facility] Comment on above: Performed By: #### C BC, BMP #### [facility] [address] [place] [address] [place] Neutrophils (Bld) [#/Vol] 13.4 10*3/uL High 1.8-7.7 [facility] Comment on above: Performed By: #### C BC, BMP #### [facility] [address] Neutrophils/100 WBC (Bld) 78.5 % Normal . [facility] Comment on above: Performed By: #### C BC, BMP #### [facility] [address] [place] [address] [place] NRBC% 0.1 /100{WBC} Normal 0-0.5 [facility] Comment on above: Performed By: #### C BC, BMP #### [facility] [address] [place] [address] [place] Platelet mean volume (Bld) [Entitic vol] 7.1 fL Normal 6.6-10.1 [facility] Comment on above: Performed By: #### C BC, BMP #### [facility] [address] [place] [id number] [place] Platelets (Bld) [#/Vol] 597 10*3/uL High 150-450 [facility] Comment on above: Performed By: #### C BC, BMP #### [facility] [address] [place] [address] [place] RBC (Bld) [#/Vol] 3.48 10*6/uL Low 3.90-5.60 [facility] Comment on above: Performed By: #### C BC, BMP #### [facility] [address] WBC (Bld) [#/Vol] 17.1 10*3/uL High 4.1-10.5 [facility] Comment on above: Performed By: #### C BC, BMP #### [facility] [address] Glucose Poct Glucometerson 0 11-06-2022 Glucose [Mass/Vol] 206 mg/dL Normal [facility] Comment on above: Result Comment: [place] om Glucose Reference Range is dependent on time and content of last meal. Glucose of more than 200 mg/dL in a nonstressed, ambulatory subject supports the diagnosis of Diabetes Mellitus. PERFORMED BY: [place] [address] PATHOLOGIST DOPER CASSANDRA RAMOS M.D. Performed By: #### G LULS #### Point of Care testing , Glucose [Mass/Vol] 120 mg/dL Normal [facility] Comment on above: Result Comment: [place] om Glucose Reference Range is dependent on time and content of last meal. Glucose of more than 200 mg/dL in a nonstressed, ambulatory subject supports the diagnosis of Diabetes Mellitus. PERFORMED BY: [place] [address] PATHOLOGIST DOPER CASSANDRA RAMOS M.D. Performed By: #### G LULS #### Point of Care testing , Commemt1 Glu2: Cleaned Meter Normal [facility] Comment on above: Result Comment: PERF ORMED BY: [place] [address] PATHOLOGIST DOPER CASSANDRA RAMOS M.D. Performed By: #### G LULS #### Point of Care testing , Glucose [Mass/Vol] 160 mg/dL Normal [facility] Comment on above: Result Comment: [place] om Glucose Reference Range is dependent on time and content of last meal. Glucose of more than 200 mg/dL in a nonstressed, ambulatory subject supports the diagnosis of Diabetes Mellitus. Performed By: #### G LULS #### Point of Care testing , Glucose [Mass/Vol] 143 mg/dL Normal [facility] Comment on above: Result Comment: [facility] Glucose Reference Range is dependent on time and content of last meal. Glucose of more than 200 mg/dL in a nonstressed, ambulatory subject supports the diagnosis of Diabetes Mellitus. PERFORMED BY: [facility] [place] [address] PATHOLOGIST DOPER CASSANDRA RAMOS M.D. Performed By: #### G LULS #### Point of Care testing , Basic Metabolic Panelon 10-24 Anion gap [Moles/Vol] 9.3 mmol/L Normal 6.0-15.0 [facility] Comment on above: Performed By: #### G JANETLS #### Point of Care testing , Calcium [Mass/Vol] 8.0 mg/dL Low 8.6-10.3 [facility] Comment on above: Performed By: #### G JANETLS #### Point of Care testing , Chloride [Moles/Vol] 89 mmol/L Low 98-107 [facility] Comment on above: Performed By: #### G JANETLS #### Point of Care testing , CO2 [Moles/Vol] 38.6 mmol/L High 21.0-31.0 [facility] Comment on above: Performed By: #### G LULS #### Point of Care testing , Creatinine [Mass/Vol] 0.68 mg/dL Low 0.70-1.30 [facility] Comment on above: Performed By: #### G LULS #### Point of Care testing , Creatinine Clr Calc Pharmacy 165.20 [facility] Comment on above: Performed By: #### G LULS #### Point of Care testing , GFR/1.73 sq M.predicted MDRD (S/P/Bld) [Vol rate/Area] mL/min/{1.73_m2} [facility] Comment on above: Performed By: #### G LULS #### Point of Care testing , Glucose [Mass/Vol] 111 mg/dL High 74-109 [facility] Comment on above: Result Comment: [place] Glucose Reference Range is dependent on time and content of last meal. Glucose of more than 200 mg/dL in a nonstressed, ambulatory subject supports the diagnosis of Diabetes Mellitus. ADA recommended reference range Performed By: #### G LULS #### Point of Care testing , Potassium [Moles/Vol] 3.9 mmol/L Normal 3.5-5.1 [facility] Comment on above: Performed By: #### G LULS #### Point of Care testing , Sodium [Moles/Vol] 133 mmol/L Low 136-145 [facility] Comment on above: Performed By: #### G LULS #### Point of Care testing , Urea nitrogen [Mass/Vol] 15 mg/dL Normal 7-25 [facility] Comment on above: Performed By: #### G LULS #### Point of Care testing , C reactive protein [Mass/vol ume] in Serum or PlasmaOrdered By: Michael Wells on 11-05-2022 CRP [Mass/Vol] 17.8 mg/dL 0.0-4.9 [facility] C-Reactive Proteinon 023 C-Reactive Protein 17.8 mg/dL High 0.0-4.9 [facility] Comment on above: Result Comment: PERF ORMED BY: [facility] [address] [place] [address] PATHOLOGIST DOPER CASSANDRA RAMOS M.D. Performed By: #### G LULS #### Point of Care testing , Complete Blood Count Auto Di ffon 11-05-2022 Basophils (Bld) [#/Vol] 0.0 10*3/uL Normal 0.0-0.2 [facility] Comment on above: Performed By: #### G LULS #### Point of Care testing , Basophils/100 WBC (Bld) 0.2 % Normal . [facility] Comment on above: Performed By: #### G LULS #### Point of Care testing , Eosinophils (Bld) [#/Vol] 0.1 10*3/uL Normal 0.0-0.45 [facility] Comment on above: Performed By: #### Eber RENDON #### Point of Care testing , Eosinophils/100 WBC (Bld) 0.8 % Normal . [facility] Comment on above: Performed By: #### G JUSTICE #### Point of Care testing , Erythrocyte distribution width (RBC) [Ratio] 13.2 % Normal 12.0-14.8 [facility] Comment on above: Performed By: #### G JANETLS #### Point of Care testing , Hematocrit (Bld) [Volume fraction] 30.2 % Low 38.8-50.0 [facility] Comment on above: Performed By: #### Eber GONZALESLS #### Point of Care testing , Hemoglobin (Bld) [Mass/Vol] 10.0 g/dL Low 13.0-17.0 [facility] Comment on above: Performed By: #### Eber GONZALESLS #### Point of Care testing , Lymphocytes (Bld) [#/Vol] 1.6 10*3/uL Normal 1.00-4.8 [facility] Comment on above: Performed By: #### Eber RENDON #### Point of Care testing , Lymphocytes/100 WBC (Bld) 8.2 % Normal . [facility] Comment on above: Performed By: #### Eber GONZALESLS #### Point of Care testing , MCH (RBC) [Entitic mass] 27.8 pg Normal 27.5-35.2 [facility] Comment on above: Performed By: #### Eber GONZALESLS #### Point of Care testing , MCV (RBC) [Entitic vol] 83.7 fL Normal 83.5-101 [facility] Comment on above: Performed By: #### Eber RENDON #### Point of Care testing , Mean Corpuscular HGB Conc 33.2 g/dL Normal 32.5-35.6 [facility] Comment on above: Performed By: #### Eber RENDON #### Point of Care testing , Monocytes (Bld) [#/Vol] 1.5 10*3/uL High 0.0-0.8 [facility] Comment on above: Performed By: #### G JNAETLS #### Point of Care testing , Monocytes/100 WBC (Bld) 8.0 % Normal . [facility] Comment on above: Performed By: #### G JANETLS #### Point of Care testing , Neutrophils (Bld) [#/Vol] 15.9 10*3/uL High 1.8-7.7 [facility] Comment on above: Performed By: #### G JANETLS #### Point of Care testing , Neutrophils/100 WBC (Bld) 82.8 % Normal . [facility] Comment on above: Performed By: #### G JANETLS #### Point of Care testing , NRBC% 0.0 /100{WBC} Normal 0-0.5 [facility] Comment on above: Performed By: #### G JANETLS #### Point of Care testing , Platelet mean volume (Bld) [Entitic vol] 7.1 fL Normal 6.6-10.1 [facility] Comment on above: Performed By: #### G JANETLS #### Point of Care testing , Platelets (Bld) [#/Vol] 507 10*3/uL High 150-450 [facility] Comment on above: Performed By: #### G JANETLS #### Point of Care testing , RBC (Bld) [#/Vol] 3.60 10*6/uL Low 3.90-5.60 [facility] Comment on above: Performed By: #### G JANETLS #### Point of Care testing , WBC (Bld) [#/Vol] 19.2 10*3/uL High 4.1-10.5 [facility] Comment on above: Performed By: #### G JANETLS #### Point of Care testing , Erythrocyte Sedimentation Ra elizabeth 11-05-2022 ESR (Bld) [Velocity] 117 mm/h High 0-14 [facility] Comment on above: Result Comment: PERF ORMED BY: [facility] [address] [place] [id number] PATHOLOGIST DOPER CASSANDRA RAMOS M.D. Performed By: #### G LULS #### Point of Care testing , Erythrocyte sedimentation ra te by Photometric methodOrdered By: Michael Wells on 11-05-2022 ESR Photometric method (Bld) [Velocity] 117 mm/hr 0-14 [facility] Glucose Poct Glucometerson 0 11-05-2022 Commemt1 Glu2: Cleaned Meter [facility] Comment on above: Result Comment: PERF ORMED BY: [facility] [address] [facility] [place] [address] PATHOLOGIST DOPER CASSANDRA RAMOS M.D. Performed By: #### G LULS #### Point of Care testing , Glucose [Mass/Vol] 172 mg/dL Normal [facility] Comment on above: Result Comment: [place] Glucose Reference Range is dependent on time and content of last meal. Glucose of more than 200 mg/dL in a nonstressed, ambulatory subject supports the diagnosis of Diabetes Mellitus. Performed By: #### G LULS #### Point of Care testing , Glucose [Mass/Vol] 197 mg/dL Normal [facility] Comment on above: Result Comment: [place] om Glucose Reference Range is dependent on time and content of last meal. Glucose of more than 200 mg/dL in a nonstressed, ambulatory subject supports the diagnosis of Diabetes Mellitus. PERFORMED BY: [address] [place] [address] PATHOLOGIST DOPER CASSANDRA RAMOS M.D. Performed By: #### G LULS #### Point of Care testing , Commemt1 Glu2: Cleaned Meter [facility] Comment on above: Result Comment: PERF ORMED BY: [facility] [address] [facility] [place] [address] PATHOLOGIST DOPER CASSANDRA RAMOS M.D. Performed By: #### G LULS #### Point of Care testing , Glucose [Mass/Vol] 189 mg/dL Normal [facility] Comment on above: Result Comment: [place] om Glucose Reference Range is dependent on time and content of last meal. Glucose of more than 200 mg/dL in a nonstressed, ambulatory subject supports the diagnosis of Diabetes Mellitus. Performed By: #### G LULS #### Point of Care testing , Commemt1 Glu2: Cleaned Meter Normal [facility] Comment on above: Result Comment: PERF ORMED BY: [place] [address] PATHOLOGIST DOPER CASSANDRA RAMOS M.D. Performed By: #### G LULS #### Point of Care testing , Glucose [Mass/Vol] 141 mg/dL Normal [facility] Comment on above: Result Comment: [facility] Glucose Reference Range is dependent on time and content of last meal. Glucose of more than 200 mg/dL in a nonstressed, ambulatory subject supports the diagnosis of Diabetes Mellitus. Performed By: #### G LULS #### Point of Care testing , XR chest 1V portableon 11-05 XR chest 1V portable [facility] Main [place] [address] [place], [place] [id number] XRay Report Signed Patient: Aba Ruiz MR#: [id number] : 1975 Acct:[id number] Age/Sex: 47 / M ADM Date: 10/30/22 Loc: Room: [address] [place] [address] Type: ADM IN Attending Dr: Chung Garcia DO Copies to: MD Chung Russell DO Ordering Provider: Michael Wells MD Date of Service: 11/05/22 XR/XR chest 1V portable: chest tube; necrotizing pneumonia Plain film chestsingle view HISTORY:Necrotizing pneumonia follow-up assessment COMPARISON:11/04/2022 FINDINGS: SUPPORT DEVICES: None POSTSURGICAL CHANGES:None HEART: Within normal limits PULMONARY DIANNE:Within normal limits MEDIASTINUM:Unremarkable LUNGS AND PLEURA: Continued left pleural-parenchymal changes. Continued right basilar linear scarring. BONY STRUCTURES: Intact ADDITIONAL FINDINGS None XR/XR chest 1V portable IMPRESSION: Stable findings Impression dictated by: Aba Gutierres M.D.11/05/2022 7:48 AM Dictation Location: [place] [address] Transcribed By: [facility] 11/05/2248 Dictated By: Aba Gutierres DO 11/05/2247 Signed By: 11/05/2248 [facility] Basic Metabolic Panelon 10-24 Anion gap [Moles/Vol] 9.1 mmol/L Normal 6.0-15.0 [facility] Comment on above: Performed By: #### G LULS #### Point of Care testing , Calcium [Mass/Vol] 7.9 mg/dL Low 8.6-10.3 [facility] Comment on above: Performed By: #### G LULS #### Point of Care testing , Chloride [Moles/Vol] 88 mmol/L Low 98-107 [facility] Comment on above: Performed By: #### G LULS #### Point of Care testing , CO2 [Moles/Vol] 39.2 mmol/L High 21.0-31.0 [facility] Comment on above: Performed By: #### G LULS #### Point of Care testing , Creatinine [Mass/Vol] 0.47 mg/dL Low 0.70-1.30 [facility] Comment on above: Performed By: #### G LULS #### Point of Care testing , Creatinine Clr Calc Pharmacy 239.80 [facility] Comment on above: Result Comment: PERF ORMED BY: [facility] [address] [place] [address] PATHOLOGIST DOPER CASSANDRA RAMOS M.D. Performed By: #### G LULS #### Point of Care testing , GFR/1.73 sq M.predicted MDRD (S/P/Bld) [Vol rate/Area] mL/min/{1.73_m2} [facility] Comment on above: Performed By: #### G LULS #### Point of Care testing , Glucose [Mass/Vol] 126 mg/dL High 74-109 [facility] Comment on above: Result Comment: [place] Glucose Reference Range is dependent on time and content of last meal. Glucose of more than 200 mg/dL in a nonstressed, ambulatory subject supports the diagnosis of Diabetes Mellitus. ADA recommended reference range Performed By: #### G LULS #### Point of Care testing , Potassium [Moles/Vol] 3.3 mmol/L Low 3.5-5.1 [facility] Comment on above: Performed By: #### G LULS #### Point of Care testing , Sodium [Moles/Vol] 133 mmol/L Low 136-145 [facility] Comment on above: Performed By: #### G LULS #### Point of Care testing , Urea nitrogen [Mass/Vol] 12 mg/dL Normal 7-25 [facility] Comment on above: Performed By: #### G LULS #### Point of Care testing , Complete Blood Count Auto Di ffon 11-04-2022 Basophils (Bld) [#/Vol] 0.1 10*3/uL Normal 0.0-0.2 [facility] Comment on above: Result Comment: PERF ORMED BY: [facility] [address] [place] [address] PATHOLOGIST DOPER CASSANDRA RAMOS M.D. Performed By: #### G LULS #### Point of Care testing , Basophils/100 WBC (Bld) 0.2 % Normal . [facility] Comment on above: Performed By: #### G LULS #### Point of Care testing , Eosinophils (Bld) [#/Vol] 0.1 10*3/uL Normal 0.0-0.45 [facility] Comment on above: Performed By: #### G LULS #### Point of Care testing , Eosinophils/100 WBC (Bld) 0.2 % Normal . [facility] Comment on above: Performed By: #### G LULS #### Point of Care testing , Erythrocyte distribution width (RBC) [Ratio] 13.8 % Normal 12.0-14.8 [facility] Comment on above: Performed By: #### G LULS #### Point of Care testing , Hematocrit (Bld) [Volume fraction] 31.7 % Low 38.8-50.0 [facility] Comment on above: Performed By: #### G LULS #### Point of Care testing , Hemoglobin (Bld) [Mass/Vol] 10.6 g/dL Low 13.0-17.0 [facility] Comment on above: Performed By: #### G LULS #### Point of Care testing , Lymphocytes (Bld) [#/Vol] 1.9 10*3/uL Normal 1.00-4.8 [facility] Comment on above: Performed By: #### G LULS #### Point of Care testing , Lymphocytes/100 WBC (Bld) 8.1 % Normal . [facility] Comment on above: Performed By: #### G LULS #### Point of Care testing , MCH (RBC) [Entitic mass] 27.9 pg Normal 27.5-35.2 [facility] Comment on above: Performed By: #### G LULS #### Point of Care testing , MCV (RBC) [Entitic vol] 83.2 fL Low 83.5-101 [facility] Comment on above: Performed By: #### G LULS #### Point of Care testing , Mean Corpuscular HGB Conc 33.6 g/dL Normal 32.5-35.6 [facility] Comment on above: Performed By: #### G JANETLS #### Point of Care testing , Monocytes (Bld) [#/Vol] 1.8 10*3/uL High 0.0-0.8 [facility] Comment on above: Performed By: #### G LULS #### Point of Care testing , Monocytes/100 WBC (Bld) 7.7 % Normal . [facility] Comment on above: Performed By: #### G LULS #### Point of Care testing , Neutrophils (Bld) [#/Vol] 19.3 10*3/uL High 1.8-7.7 [facility] Comment on above: Performed By: #### G LULS #### Point of Care testing , Neutrophils/100 WBC (Bld) 83.8 % Normal . [facility] Comment on above: Performed By: #### G LULS #### Point of Care testing , NRBC% 0.0 /100{WBC} Normal 0-0.5 [facility] Comment on above: Performed By: #### G LULS #### Point of Care testing , Platelet mean volume (Bld) [Entitic vol] 7.3 fL Normal 6.6-10.1 [facility] Comment on above: Performed By: #### G LULS #### Point of Care testing , Platelets (Bld) [#/Vol] 431 10*3/uL Normal 150-450 [facility] Comment on above: Performed By: #### G LULS #### Point of Care testing , RBC (Bld) [#/Vol] 3.81 10*6/uL Low 3.90-5.60 [facility] Comment on above: Performed By: #### G LULS #### Point of Care testing , WBC (Bld) [#/Vol] 23.1 10*3/uL High 4.1-10.5 [facility] Comment on above: Performed By: #### G LULS #### Point of Care testing , Glucose Poct Glucometerson 0 11-04-2022 Commemt1 Glu2: Cleaned Meter [facility] Comment on above: Result Comment: PERF ORMED BY: [address] [place] [address] PATHOLOGIST DOPER CASSANDRA RAMOS M.D. Performed By: #### G LULS #### Point of Care testing , Glucose [Mass/Vol] 182 mg/dL Normal [facility] Comment on above: Result Comment: [place] Glucose Reference Range is dependent on time and content of last meal. Glucose of more than 200 mg/dL in a nonstressed, ambulatory subject supports the diagnosis of Diabetes Mellitus. Performed By: #### G LULS #### Point of Care testing , Commemt1 Glu2: Cleaned Meter Normal [facility] Comment on above: Result Comment: PERF ORMED BY: [facility] [address] [address] [place] [address] PATHOLOGIST DOPER CASSANDRA RAMOS M.D. Performed By: #### G LULS #### Point of Care testing , Glucose [Mass/Vol] 110 mg/dL Normal [facility] Comment on above: Result Comment: [place] om Glucose Reference Range is dependent on time and content of last meal. Glucose of more than 200 mg/dL in a nonstressed, ambulatory subject supports the diagnosis of Diabetes Mellitus. Performed By: #### G LULS #### Point of Care testing , Commemt1 Glu2: Cleaned Meter [facility] Comment on above: Result Comment: PERF ORMED BY: [place] [address] PATHOLOGIST DOPER CASSANDRA RAMOS M.D. Performed By: #### C BC, BMP #### [address] Glucose [Mass/Vol] 155 mg/dL Normal [facility] Comment on above: Result Comment: [place] om Glucose Reference Range is dependent on time and content of last meal. Glucose of more than 200 mg/dL in a nonstressed, ambulatory subject supports the diagnosis of Diabetes Mellitus. Performed By: #### C BC, BMP #### [address] Commemt1 Glu2: Cleaned Meter [facility] Comment on above: Result Comment: PERF ORMED BY: [place] [address] PATHOLOGIST DOPER CASSANDRA RAMOS M.D. Performed By: #### C BC, BMP #### [address] Glucose [Mass/Vol] 160 mg/dL Normal [facility] Comment on above: Result Comment: [place] om Glucose Reference Range is dependent on time and content of last meal. Glucose of more than 200 mg/dL in a nonstressed, ambulatory subject supports the diagnosis of Diabetes Mellitus. Performed By: #### C BC, BMP #### [address] XR chest 1V portableon 11-04 XR chest 1V portable [facility] Main [place] [address] [place] [address] XRay Report Signed Patient: Aba Ruiz MR#: [id number] : 1975 Acct:[id number] Age/Sex: 47 / M ADM Date: 10/30/22 Loc: Room: [address] [place] [address] Type: ADM IN Attending Dr: Chung Garcia DO Copies to: MD Chung Russell DO Ordering Provider: Michael Wells MD Date of Service: 11/04/22 XR/XR chest 1V portable: chest tube; necrotizing pneumonia Plain film chestsingle view HISTORY:Necrotizing pneumonia COMPARISON:11/03/2022 FINDINGS: SUPPORT DEVICES: Left chest tube removed. POSTSURGICAL CHANGES:None HEART: Obscured PULMONARY DIANNE:Obscured MEDIASTINUM:Unremarkable LUNGS AND PLEURA: Continued left pleural-parenchymal changes are stable. Right basilar linear atelectasis/scarring. No pneumothorax. BONY STRUCTURES: Intact ADDITIONAL FINDINGS None XR/XR chest 1V portable IMPRESSION: Stable left lung findings. No pneumothorax. Impression dictated by: Aba Gutierres M.D.11/04/2022 7:40 AM Dictation Location: [place] [address] Transcribed By: [facility] 11/04/22 0740 Dictated By: Aba Gutierres DO 11/04/22 0738 Signed By: 11/04/22 0740 Normal [facility] Basic Metabolic Panelon 10-24 Anion gap [Moles/Vol] 12.1 mmol/L Normal 6.0-15.0 [facility] Comment on above: Performed By: #### C OSVALDO ODOM #### [facility] [address] [place] [address] Calcium [Mass/Vol] 7.9 mg/dL Low 8.6-10.3 [facility] Comment on above: Performed By: #### C ILENE BMP #### [facility] [address] Chloride [Moles/Vol] 90 mmol/L Low 98-107 [facility] Comment on above: Performed By: #### C BC, BMP #### [facility] [address] CO2 [Moles/Vol] 34.2 mmol/L High 21.0-31.0 [facility] Comment on above: Performed By: #### C BC, BMP #### [facility] [address] Creatinine [Mass/Vol] 0.44 mg/dL Low 0.70-1.30 [facility] Comment on above: Performed By: #### C BC, BMP #### [facility] [address] [place] [address] [place] Creatinine Clr Calc Pharmacy 256.15 [facility] Comment on above: Result Comment: PERF ORMED BY: [place] [address] PATHOLOGIST DOPER CASSANDRA RAMOS M.D. Performed By: #### C BC, BMP #### [facility] [address] [place] [address] [place] GFR/1.73 sq M.predicted MDRD (S/P/Bld) [Vol rate/Area] mL/min/{1.73_m2} [facility] Comment on above: Performed By: #### C BC, BMP #### [facility] [address] Glucose [Mass/Vol] 176 mg/dL High 74-109 [facility] Comment on above: Result Comment: [place] Glucose Reference Range is dependent on time and content of last meal. Glucose of more than 200 mg/dL in a nonstressed, ambulatory subject supports the diagnosis of Diabetes Mellitus. ADA recommended reference range Performed By: #### C BC, BMP #### [facility] [address] Potassium [Moles/Vol] 3.3 mmol/L Low 3.5-5.1 [facility] Comment on above: Performed By: #### C BC, BMP #### [address] Sodium [Moles/Vol] 133 mmol/L Low 136-145 [facility] Comment on above: Performed By: #### C BC, BMP #### [address] Urea nitrogen [Mass/Vol] 11 mg/dL Normal 7-25 [facility] Comment on above: Performed By: #### C BC, BMP #### [address] Complete Blood Count Auto Di ffon 11-03-2022 Basophils (Bld) [#/Vol] 0.0 10*3/uL Normal 0.0-0.2 [facility] Comment on above: Result Comment: PERF ORMED BY: [place] [address] PATHOLOGIST DOPER CASSANDRA RAMOS M.D. Performed By: #### C BC, BMP #### [address] Basophils/100 WBC (Bld) 0.1 % Normal . [facility] Comment on above: Performed By: #### C ILENE, BMP #### [address] Eosinophils (Bld) [#/Vol] 0.1 10*3/uL Normal 0.0-0.45 [facility] Comment on above: Performed By: #### C BC, BMP #### [address] Eosinophils/100 WBC (Bld) 0.7 % Normal . [facility] Comment on above: Performed By: #### C BC, BMP #### [address] Erythrocyte distribution width (RBC) [Ratio] 13.8 % Normal 12.0-14.8 [facility] Comment on above: Performed By: #### C BC, BMP #### [address] Hematocrit (Bld) [Volume fraction] 33.3 % Low 38.8-50.0 [facility] Comment on above: Performed By: #### C BC, BMP #### [address] Hemoglobin (Bld) [Mass/Vol] 11.1 g/dL Low 13.0-17.0 [facility] Comment on above: Performed By: #### C BC, BMP #### [address] Lymphocytes (Bld) [#/Vol] 1.7 10*3/uL Normal 1.00-4.8 [facility] Comment on above: Performed By: #### C BC, BMP #### [address] Lymphocytes/100 WBC (Bld) 7.8 % Normal . [facility] Comment on above: Performed By: #### C BC, BMP #### [address] MCH (RBC) [Entitic mass] 27.9 pg Normal 27.5-35.2 [facility] Comment on above: Performed By: #### C BC, BMP #### [address] MCV (RBC) [Entitic vol] 83.7 fL Normal 83.5-101 [facility] Comment on above: Performed By: #### C BC, BMP #### [address] Mean Corpuscular HGB Conc 33.3 g/dL Normal 32.5-35.6 [facility] Comment on above: Performed By: #### C BC, BMP #### [address] Monocytes (Bld) [#/Vol] 1.5 10*3/uL High 0.0-0.8 [facility] Comment on above: Performed By: #### C BC, BMP #### [place] [address] [place] Monocytes/100 WBC (Bld) 7.1 % Normal . [facility] Comment on above: Performed By: #### C BC, BMP #### [facility] [address] Neutrophils (Bld) [#/Vol] 18.2 10*3/uL High 1.8-7.7 [facility] Comment on above: Performed By: #### C BC, BMP #### [facility] [address] Neutrophils/100 WBC (Bld) 84.3 % Normal . [facility] Comment on above: Performed By: #### C ILENE, BMP #### [facility] [address] NRBC% 0.0 /100{WBC} Normal 0-0.5 [facility] Comment on above: Performed By: #### C ILENE, BMP #### [facility] [address] Platelet mean volume (Bld) [Entitic vol] 7.3 fL Normal 6.6-10.1 [facility] Comment on above: Performed By: #### C ILENE, BMP #### [facility] [address] [place] [address] [place] Platelets (Bld) [#/Vol] 376 10*3/uL Normal 150-450 [facility] Comment on above: Performed By: #### C ILENE, BMP #### [facility] [address] [place] [address] [place] RBC (Bld) [#/Vol] 3.98 10*6/uL Normal 3.90-5.60 [facility] Comment on above: Performed By: #### C BC, BMP #### [facility] [address] [place] [address] [place] WBC (Bld) [#/Vol] 21.6 10*3/uL High 4.1-10.5 [facility] Comment on above: Performed By: #### C BC, BMP #### [facility] [address] Glucose Poct Glucometerson 0 11-03-2022 Commemt1 Glu2: Cleaned Meter Normal [facility] Comment on above: Result Comment: PERF ORMED BY: [address] [place] [address] PATHOLOGIST DOPER CASSANDRA RAMOS M.D. Performed By: #### G LULS #### Point of Care testing , Glucose [Mass/Vol] 223 mg/dL Normal [facility] Comment on above: Result Comment: [place] Glucose Reference Range is dependent on time and content of last meal. Glucose of more than 200 mg/dL in a nonstressed, ambulatory subject supports the diagnosis of Diabetes Mellitus. Performed By: #### G LULS #### Point of Care testing , Glucose [Mass/Vol] 144 mg/dL Normal [facility] Comment on above: Result Comment: [place] om Glucose Reference Range is dependent on time and content of last meal. Glucose of more than 200 mg/dL in a nonstressed, ambulatory subject supports the diagnosis of Diabetes Mellitus. PERFORMED BY: [address] [place] [address] PATHOLOGIST DOPER CASSANDRA RAMOS M.D. Performed By: #### G LULS #### Point of Care testing , Glucose [Mass/Vol] 230 mg/dL Normal [facility] Comment on above: Result Comment: [place] Glucose Reference Range is dependent on time and content of last meal. Glucose of more than 200 mg/dL in a nonstressed, ambulatory subject supports the diagnosis of Diabetes Mellitus. PERFORMED BY: [address] [address] PATHOLOGIST DOPER CASSANDRA RAMOS M.D. Performed By: #### G LULS #### Point of Care testing , Commemt1 Glu2: Cleaned Meter [facility] Comment on above: Result Comment: PERF ORMED BY: [address] [place] [address] PATHOLOGIST DOPER CASSANDRA RAMOS M.D. Performed By: #### C BC, BMP #### [facility] [address] [place] [id number] [facility] Glucose [Mass/Vol] 178 mg/dL Normal [facility] Comment on above: Result Comment: [facility] Glucose Reference Range is dependent on time and content of last meal. Glucose of more than 200 mg/dL in a nonstressed, ambulatory subject supports the diagnosis of Diabetes Mellitus. Performed By: #### C BC, BMP #### [facility] [address] [place] [id number] [facility] XR chest 1V portableon 11-03 XR chest 1V portable [facility] Main [place] [address] [place] [address] XRay Report Signed Patient: Aba Ruiz MR#: [id number] : 1975 Acct:[id number] Age/Sex: 47 / M ADM Date: 10/30/22 Loc: Room: [address] [place] [address] Type: ADM IN Attending Dr: Chung Garcia DO Copies to: MD Chung Russell DO Ordering Provider: Michael Wells MD Date of Service: 11/03/22 XR/XR chest 1V portable: chest tube; necrotizing pneumonia Plain film chestsingle view HISTORY:Necrotizing pneumonia. COMPARISON:11/02/2022 FINDINGS: SUPPORT DEVICES: Left chest tube unchanged POSTSURGICAL CHANGES:None HEART: Stable PULMONARY DIANNE:Stable MEDIASTINUM:Unremarkable LUNGS AND PLEURA: Slightly improved left basilar pleural-parenchymal changes. Continued right basilar atelectasis/scarring. No pneumothorax. BONY STRUCTURES: Intact ADDITIONAL FINDINGS None XR/XR chest 1V portable IMPRESSION: Slight improvement of left basilar pleural-parenchymal changes. Impression dictated by: Aba Gutierres M.D.11/03/2022 7:10 AM Dictation Location: [place] [address] Transcribed By: [facility] 11/03/22709 Dictated By: Aba Gutierres DO 11/03/22 0708 Signed By: 11/03/22709 [facility] Basic Metabolic Panelon 10-24 Calcium [Mass/Vol] 7.8 mg/dL Low 8.6-10.3 [facility] Comment on above: Performed By: #### G LULS #### Point of Care testing , Chloride [Moles/Vol] 94 mmol/L Low 98-107 [facility] Comment on above: Performed By: #### G LULS #### Point of Care testing , CO2 [Moles/Vol] 29.1 mmol/L Normal 21.0-31.0 [facility] Comment on above: Performed By: #### G LULS #### Point of Care testing , Creatinine [Mass/Vol] 0.46 mg/dL Low 0.70-1.30 [facility] Comment on above: Performed By: #### G LULS #### Point of Care testing , Creatinine Clr Calc Pharmacy 245.02 [facility] Comment on above: Result Comment: PERF ORMED BY: [facility] [address] [place] [address] PATHOLOGIST DOPER CASSANDRA RAMOS M.D. Performed By: #### G LULS #### Point of Care testing , GFR/1.73 sq M.predicted MDRD (S/P/Bld) [Vol rate/Area] mL/min/{1.73_m2} [facility] Comment on above: Performed By: #### G LULS #### Point of Care testing , Glucose [Mass/Vol] 205 mg/dL High 74-109 [facility] Comment on above: Result Comment: [place] Glucose Reference Range is dependent on time and content of last meal. Glucose of more than 200 mg/dL in a nonstressed, ambulatory subject supports the diagnosis of Diabetes Mellitus. ADA recommended reference range Performed By: #### G LULS #### Point of Care testing , Potassium Normal 3.5-5.1 [facility] Comment on above: Result Comment: Unac ceptable specimen due to HEMOLYSIS. Redraw reordered. Performed By: #### G LULS #### Point of Care testing , Sodium [Moles/Vol] 130 mmol/L Low 136-145 [facility] Comment on above: Performed By: #### G LULS #### Point of Care testing , Urea nitrogen [Mass/Vol] 14 mg/dL Normal 7-25 [facility] Comment on above: Performed By: #### G LULS #### Point of Care testing , Glucose Poct Glucometerson 0 11-02-2022 Commemt1 Glu2: Cleaned Meter [facility] Comment on above: Result Comment: PERF ORMED BY: [place] [address] PATHOLOGIST DOPER CASSANDRA RAMOS M.D. Performed By: #### G LULS #### Point of Care testing , Glucose [Mass/Vol] 242 mg/dL Normal [facility] Comment on above: Result Comment: [place] om Glucose Reference Range is dependent on time and content of last meal. Glucose of more than 200 mg/dL in a nonstressed, ambulatory subject supports the diagnosis of Diabetes Mellitus. Performed By: #### G LULS #### Point of Care testing , Commemt1 Glu2: Cleaned Meter [facility] Comment on above: Result Comment: PERF ORMED BY: [place] [address] PATHOLOGIST DOPER CASSANDRA RAMOS M.D. Performed By: #### C BC, BMP #### [facility] [address] [place] [address] Glucose [Mass/Vol] 273 mg/dL Normal [facility] Comment on above: Result Comment: [place] om Glucose Reference Range is dependent on time and content of last meal. Glucose of more than 200 mg/dL in a nonstressed, ambulatory subject supports the diagnosis of Diabetes Mellitus. Performed By: #### C BC, BMP #### [facility] [address] [place] [address] Commemt1 Glu2: Cleaned Meter [facility] Comment on above: Result Comment: PERF ORMED BY: [place] [address] PATHOLOGIST DOPER JIANLAN SUN M.D. Performed By: #### G LULS #### Point of Care testing , Glucose [Mass/Vol] 227 mg/dL Normal [facility] Comment on above: Result Comment: [place] om Glucose Reference Range is dependent on time and content of last meal. Glucose of more than 200 mg/dL in a nonstressed, ambulatory subject supports the diagnosis of Diabetes Mellitus. Performed By: #### G LULS #### Point of Care testing , Glucose [Mass/Vol] 222 mg/dL Normal [facility] Comment on above: Result Comment: [place] om Glucose Reference Range is dependent on time and content of last meal. Glucose of more than 200 mg/dL in a nonstressed, ambulatory subject supports the diagnosis of Diabetes Mellitus. PERFORMED BY: [place] [address] PATHOLOGIST DOPER CASSANDRA RAMOS M.D. Performed By: #### G LULS #### Point of Care testing , Platelet adequacy [Presence] in Blood by Light microscopyOrdered By: Chung Garcia on 11-02-2022 Platelets LM Ql (Bld) Normal Normal [facility] Platelet morphology finding [Identifier] in BloodOrdered By: Chung Garcia on 11-02-2022 Platelet morphology finding Nom (Bld) Normal Normal [facility] Potassiumon 11-02-2022 Potassium [Moles/Vol] 3.6 mmol/L Normal 3.5-5.1 [facility] Comment on above: Result Comment: PERF ORMED BY: [place] [address] PATHOLOGIST DOPER CASSANDRA RAMOS M.D. Performed By: #### C BC, BMP #### [facility] [address] [place] [address] RBC morphologyOrdered By: Ike Garcia on 11-02-2022 RBC morphology finding Nom (Bld) Normal Normal [facility] Scan and CBCon 11-02-2022 Basophils (Bld) [#/Vol] 0.0 10*3/uL Normal 0.0-0.2 [facility] Comment on above: Performed By: #### G JANETLS #### Point of Care testing , Basophils/100 WBC (Bld) 0.2 % Normal . [facility] Comment on above: Performed By: #### G JANETLS #### Point of Care testing , Eosinophils (Bld) [#/Vol] 0.1 10*3/uL Normal 0.0-0.45 [facility] Comment on above: Performed By: #### G JANETLS #### Point of Care testing , Eosinophils/100 WBC (Bld) 0.4 % Normal . [facility] Comment on above: Performed By: #### G JANETLS #### Point of Care testing , Erythrocyte distribution width (RBC) [Ratio] 13.9 % Normal 12.0-14.8 [facility] Comment on above: Performed By: #### G JANETLS #### Point of Care testing , Hematocrit (Bld) [Volume fraction] 34.2 % Low 38.8-50.0 [facility] Comment on above: Performed By: #### G JANETLS #### Point of Care testing , Hemoglobin (Bld) [Mass/Vol] 11.4 g/dL Low 13.0-17.0 [facility] Comment on above: Performed By: #### G JANETLS #### Point of Care testing , Lymphocytes (Bld) [#/Vol] 1.8 10*3/uL Normal 1.00-4.8 [facility] Comment on above: Performed By: #### G JANETLS #### Point of Care testing , Lymphocytes/100 WBC (Bld) 8.1 % Normal . [facility] Comment on above: Performed By: #### G JANETLS #### Point of Care testing , MCH (RBC) [Entitic mass] 27.8 pg Normal 27.5-35.2 [facility] Comment on above: Performed By: #### G JANETLS #### Point of Care testing , MCV (RBC) [Entitic vol] 83.7 fL Normal 83.5-101 [facility] Comment on above: Performed By: #### G JANETLS #### Point of Care testing , Mean Corpuscular HGB Conc 33.2 g/dL Normal 32.5-35.6 [facility] Comment on above: Performed By: #### G JANETLS #### Point of Care testing , Monocytes (Bld) [#/Vol] 1.8 10*3/uL High 0.0-0.8 [facility] Comment on above: Performed By: #### G LULS #### Point of Care testing , Monocytes/100 WBC (Bld) 8.2 % Normal . [facility] Comment on above: Performed By: #### G LULS #### Point of Care testing , Neutrophils (Bld) [#/Vol] 18.6 10*3/uL High 1.8-7.7 [facility] Comment on above: Performed By: #### G LULS #### Point of Care testing , Neutrophils/100 WBC (Bld) 83.1 % Normal . [facility] Comment on above: Performed By: #### G LULS #### Point of Care testing , NRBC% 0.1 /100{WBC} Normal 0-0.5 [facility] Comment on above: Performed By: #### G JANETLS #### Point of Care testing , Platelet Estimate Normal Normal Normal [facility] Comment on above: Performed By: #### G LULS #### Point of Care testing , Platelet mean volume (Bld) [Entitic vol] 7.7 fL Normal 6.6-10.1 [facility] Comment on above: Performed By: #### G LULS #### Point of Care testing , Platelet Morphology Normal Normal Normal [facility] Comment on above: Result Comment: PERF ORMED BY: [facility] [address] [place] [address] PATHOLOGIST DOPER CASSANDRA RAMOS M.D. Performed By: #### G LULS #### Point of Care testing , Platelets (Bld) [#/Vol] 344 10*3/uL Normal 150-450 [facility] Comment on above: Performed By: #### G LULS #### Point of Care testing , RBC (Bld) [#/Vol] 4.09 10*6/uL Normal 3.90-5.60 [facility] Comment on above: Performed By: #### G LULS #### Point of Care testing , RBC morphology finding Nom (Bld) Normal Normal Normal [facility] Comment on above: Performed By: #### G LULS #### Point of Care testing , WBC (Bld) [#/Vol] 22.4 10*3/uL High 4.1-10.5 [facility] Comment on above: Performed By: #### G LULS #### Point of Care testing , XR chest 1V portableon 11-02 XR chest 1V portable [facility] Main [place] [address] [place] [address] XRay Report Signed Patient: Aba Ruiz MR#: [id number] : 1975 Acct:[id number] Age/Sex: 47 / M ADM Date: 10/30/22 Loc: Room: [address] [place] [address] Type: ADM IN Attending Dr: Chung Garcia DO Copies to: MD Chung Russell DO Ordering Provider: Michael Wells MD Date of Service: 11/02/22 XR/XR chest 1V portable: chest tube; necrotizing pneumonia SINGLE VIEW CHEST CLINICAL HISTORY: Necrotizing pneumonia. Left-sided chest tube. COMPARISON: Chest 10/31/2022 FINDINGS: Left-sided chest tube is in place. Degree of left-sided airspace disease and pleural effusion is unchanged. Degree of right-sided airspace disease is grossly unchanged. No pneumothorax or free air. XR/XR chest 1V portable IMPRESSION: NO SIGNIFICANT CHANGE IN CHEST FINDINGS. Impression dictated by: Kiran Metcalf Jr., D.OIsi11/02/2022 2:28 PM Dictation Location: [place] [address] Transcribed By: [facility] 11/02/22 1428 Dictated By: Kiran Metcalf Jr, DO 11/02/22 1427 Signed By: 11/02/22 142 [facility] Aerobic Cultureon 11-01-2022 Aerobic Culture ORGANISM: Diann al bicans (O:CANALB) Quantity of Growth Light Growth Gram Stain Result 1+ Yeast Like Elements 2+ White Blood Cells Rare Gram Positive Cocci Rare Gram Positive Bacilli 1+ Epithelial Cells PERFORMED BY: [facility] [address] [place] [address] PATHOLOGIST DOPER CASSANDRA RAMOS M.D. [facility] Comment on above: Performed By: #### G LULS #### Point of Care testing , Bacteria identified Aer cx N om (Unsp spec)Ordered By: Chung Garcia on 11-01-2022 Aerobic Culture Diann albicans [facility] Basic Metabolic Panelon Anion gap [Moles/Vol] 11.7 mmol/L Normal 6.0-15.0 [facility] Comment on above: Performed By: #### G LULS #### Point of Care testing , Calcium [Mass/Vol] 8.6 mg/dL Normal 8.6-10.3 [facility] Comment on above: Performed By: #### G LULS #### Point of Care testing , Chloride [Moles/Vol] 94 mmol/L Low 98-107 [facility] Comment on above: Performed By: #### G LULS #### Point of Care testing , CO2 [Moles/Vol] 31.2 mmol/L High 21.0-31.0 [facility] Comment on above: Performed By: #### G LULS #### Point of Care testing , Creatinine [Mass/Vol] 0.52 mg/dL Low 0.70-1.30 [facility] Comment on above: Performed By: #### G LULS #### Point of Care testing , Creatinine Clr Calc Pharmacy 216.74 [facility] Comment on above: Result Comment: PERF ORMED BY: [facility] [address] [place] [address] PATHOLOGIST DOPER CASSANDRA RAMOS M.D. Performed By: #### G LULS #### Point of Care testing , GFR/1.73 sq M.predicted MDRD (S/P/Bld) [Vol rate/Area] mL/min/{1.73_m2} Normal [facility] Comment on above: Performed By: #### G LULS #### Point of Care testing , Glucose [Mass/Vol] 151 mg/dL Significant change up 74-109 [facility] Comment on above: Result Comment: [place] Glucose Reference Range is dependent on time and content of last meal. Glucose of more than 200 mg/dL in a nonstressed, ambulatory subject supports the diagnosis of Diabetes Mellitus. ADA recommended reference range Performed By: #### G LULS #### Point of Care testing , Potassium [Moles/Vol] 2.9 mmol/L Off scale low 3.5-5.1 [facility] Comment on above: Result Comment: Yasir ical Result S_K:2.9 Called to and read back by: NASIR SEPULVEDA at: 11/01/2022 06:08:52 by:[id number] Performed By: #### G LULS #### Point of Care testing , Sodium [Moles/Vol] 134 mmol/L Low 136-145 [facility] Comment on above: Performed By: #### G LULS #### Point of Care testing , Urea nitrogen [Mass/Vol] 14 mg/dL Normal 7-25 [facility] Comment on above: Performed By: #### G LULS #### Point of Care testing , CT chest rosemary dumont 11-01-2022 CT chest [facility] [address] CT Scan Report Signed Patient: Aba Ruiz MR#: [id number] : 1975 Acct:[id number] Age/Sex: 47 / M ADM Date: 10/30/22 Loc: Room: [address] [place] [address] Type: ADM IN Attending Dr: Chung Garcia DO Copies to: MD Chung Russell DO Ordering Provider: Michael Wells MD Date of Service: 03/09/23 CT/CT chest wo con: reevaluate parapneumonic effusion; lung abscess CT CHEST WITHOUT IV CONTRAST: CLINICAL HISTORY: Pleural effusion, pneumonia, possible left lung abscess. COMPARISON: Chest x-ray 10/31/2022 TECHNIQUE: Spiral images were obtained through the chest without IV contrast. This CT exam was performed using one or more following dose reduction techniques: Automated exposure control, adjustment of the mA and/or kV according to patient size, or use of iterative reconstruction technique. FINDINGS: Mediastinum:Thoracic aorta appears normal in caliber. Pulmonary trunk appears nondilated. No pleural effusion. Cardiomegaly. Multiple prominent mediastinal lymph nodes. The esophagus is grossly unremarkable. Lungs:Left-sided chest tube is in place. There is near complete consolidation involving the left lung with relative sparing involving the left lung apex with what appears to be necrotic components. A somewhat masslike consolidation is seen in the expected region of the left major fissure on series 4 image 20 measuring approximately 6.8 x 4.4 cm in greatest axial dimensions. Right lung demonstrates ill-defined areas of groundglass predominantly seen within the right lower lobe. No pneumothorax is seen. Trace left-sided pleural effusion. Abd:No acute findings. Soft tissues/Bones: Visualized soft tissue surrounding the chest wall demonstrate no acute findings. Implanted linear device is seen involving the right chest wall. Osseous structures demonstrate degenerative change. CT/CT chest wo con IMPRESSION: Left-sided chest tube is in place. There is near complete consolidation involving the left lung with relative sparing involving the left lung apex with what appears to be necrotic components. A somewhat masslike consolidation is seen in the expected region of the left major fissure on series 4 image 20 measuring 6.8 x 4.4 cm in greatest axial dimensions. An infectious process is suspected. Repeat CT after therapy is recommended to ensure resolution/response to therapy. Ill-defined areas of groundglass are seen within the right lung, predominantly within the right lower lobe. Findings also likely infectious in etiology. This can also be followed by CT. Trace left-sided pleural effusion. Cardiomegaly. Impression dictated by: Kiran Metcalf Jr., D.OIsi11/01/2022 3:07 PM Dictation Location: [place] [address] Transcribed By: [facility] 11/01/22 1281 Dictated By: Kiran Metcalf Jr, DO 11/01/22 1502 Signed By: 11/01/22 1507 Normal [facility] Glucose Poct Glucometerson 0 11-01-2022 Glucose [Mass/Vol] 274 mg/dL Normal [facility] Comment on above: Result Comment: [place] Glucose Reference Range is dependent on time and content of last meal. Glucose of more than 200 mg/dL in a nonstressed, ambulatory subject supports the diagnosis of Diabetes Mellitus. PERFORMED BY: [address] [place] [address] PATHOLOGIST DOPER CASSANDRA RAMOS M.D. Performed By: #### G LULS #### Point of Care testing , Glucose [Mass/Vol] 302 mg/dL Normal [facility] Comment on above: Result Comment: [facility] Glucose Reference Range is dependent on time and content of last meal. Glucose of more than 200 mg/dL in a nonstressed, ambulatory subject supports the diagnosis of Diabetes Mellitus. PERFORMED BY: [address] [place] [address] PATHOLOGIST DOPER CASSANDRA RAMOS M.D. Performed By: #### G LULS #### Point of Care testing , Commemt1 Glu2: Cleaned Meter Normal [facility] Comment on above: Result Comment: PERF ORMED BY: [address] [place] [address] PATHOLOGIST DOPER CASSANDRA RAMOS M.D. Performed By: #### G LULS #### Point of Care testing , Glucose [Mass/Vol] 192 mg/dL Normal [facility] Comment on above: Result Comment: [place] Glucose Reference Range is dependent on time and content of last meal. Glucose of more than 200 mg/dL in a nonstressed, ambulatory subject supports the diagnosis of Diabetes Mellitus. Performed By: #### G LULS #### Point of Care testing , Gram Stainon 11-01-2022 Microscopic observation Gram stain Nom (Unsp spec) Gram Stain Result 1+ Yeast Like Elements 2+ White Blood Cells Rare Gram Positive Cocci Rare Gram Positive Bacilli 1+ Epithelial Cells PERFORMED BY: [facility] [place] [address] PATHOLOGIST DOPER CASSANDRA RAMOS M.D. Normal [facility] Comment on above: Performed By: #### G JANETLS #### Point of Care testing , Gram stain for investigation of transfusion reactionOrdered By: Chung Garcia on 11-01-2022 Microscopic observation Gram stain Nom (Unsp spec) [facility] Scan and CBCon 11-01-2022 Basophils (Bld) [#/Vol] 0.0 10*3/uL Normal 0.0-0.2 [facility] Comment on above: Performed By: #### G JANETLS #### Point of Care testing , Basophils/100 WBC (Bld) 0.2 % Normal . [facility] Comment on above: Performed By: #### G LULS #### Point of Care testing , Eosinophils (Bld) [#/Vol] 0.0 10*3/uL Normal 0.0-0.45 [facility] Comment on above: Performed By: #### G LULS #### Point of Care testing , Eosinophils/100 WBC (Bld) 0.2 % Normal . [facility] Comment on above: Performed By: #### G JANETLS #### Point of Care testing , Erythrocyte distribution width (RBC) [Ratio] 13.9 % Normal 12.0-14.8 [facility] Comment on above: Performed By: #### G JANETLS #### Point of Care testing , Hematocrit (Bld) [Volume fraction] 34.0 % Low 38.8-50.0 [facility] Comment on above: Performed By: #### G LULS #### Point of Care testing , Hemoglobin (Bld) [Mass/Vol] 11.3 g/dL Low 13.0-17.0 [facility] Comment on above: Performed By: #### G LULS #### Point of Care testing , Lymphocytes (Bld) [#/Vol] 1.8 10*3/uL Normal 1.00-4.8 [facility] Comment on above: Performed By: #### G LULS #### Point of Care testing , Lymphocytes/100 WBC (Bld) 8.2 % Normal . [facility] Comment on above: Performed By: #### G LULS #### Point of Care testing , MCH (RBC) [Entitic mass] 27.7 pg Normal 27.5-35.2 [facility] Comment on above: Performed By: #### G LULS #### Point of Care testing , MCV (RBC) [Entitic vol] 83.7 fL Normal 83.5-101 [facility] Comment on above: Performed By: #### G LULS #### Point of Care testing , Mean Corpuscular HGB Conc 33.1 g/dL Normal 32.5-35.6 [facility] Comment on above: Performed By: #### G LULS #### Point of Care testing , Monocytes (Bld) [#/Vol] 1.6 10*3/uL High 0.0-0.8 [facility] Comment on above: Performed By: #### G LULS #### Point of Care testing , Monocytes/100 WBC (Bld) 7.3 % Normal . [facility] Comment on above: Performed By: #### G LULS #### Point of Care testing , Neutrophils (Bld) [#/Vol] 18.8 10*3/uL High 1.8-7.7 [facility] Comment on above: Performed By: #### G LULS #### Point of Care testing , Neutrophils/100 WBC (Bld) 84.1 % Normal . [facility] Comment on above: Performed By: #### G LULS #### Point of Care testing , NRBC% 0.0 /100{WBC} Normal 0-0.5 [facility] Comment on above: Performed By: #### G LULS #### Point of Care testing , Platelet Estimate Normal Normal Normal [facility] Comment on above: Performed By: #### G LULS #### Point of Care testing , Platelet mean volume (Bld) [Entitic vol] 7.4 fL Normal 6.6-10.1 [facility] Comment on above: Performed By: #### G LULS #### Point of Care testing , Platelet Morphology Normal Normal Normal [facility] Comment on above: Result Comment: PERF ORMED BY: [facility] [address] PATHOLOGIST DOPER CASSANDRA RAMOS M.D. Performed By: #### G LULS #### Point of Care testing , Platelets (Bld) [#/Vol] 351 10*3/uL Normal 150-450 [facility] Comment on above: Performed By: #### G LULS #### Point of Care testing , RBC (Bld) [#/Vol] 4.07 10*6/uL Normal 3.90-5.60 [facility] Comment on above: Performed By: #### G LULS #### Point of Care testing , RBC morphology finding Nom (Bld) Normal Normal Normal [facility] Comment on above: Performed By: #### G LULS #### Point of Care testing , WBC (Bld) [#/Vol] 22.3 10*3/uL High 4.1-10.5 [facility] Comment on above: Performed By: #### G LULS #### Point of Care testing , Anisocytosis LM Ql (Bld)Orde red By: Chung Garcia on 10-31-2022 Anisocytosis Ql (Bld) Slight [facility] Basic Metabolic Panelon 03-0 Anion gap [Moles/Vol] 15.9 mmol/L High 6.0-15.0 [facility] Comment on above: Performed By: #### G LULS #### Point of Care testing , Calcium [Mass/Vol] 8.7 mg/dL Normal 8.6-10.3 [facility] Comment on above: Performed By: #### G LULS #### Point of Care testing , Chloride [Moles/Vol] 96 mmol/L Low 98-107 [facility] Comment on above: Performed By: #### G LULS #### Point of Care testing , CO2 [Moles/Vol] 23.8 mmol/L Normal 21.0-31.0 [facility] Comment on above: Performed By: #### G JANETLS #### Point of Care testing , Creatinine [Mass/Vol] 0.64 mg/dL Low 0.70-1.30 [facility] Comment on above: Performed By: #### G LULS #### Point of Care testing , Creatinine Clr Calc Pharmacy 175.53 [facility] Comment on above: Result Comment: PERF ORMED BY: [facility] [address] [place] [address] PATHOLOGIST DOPER CASSANDRA RAMOS M.D. Performed By: #### G LULS #### Point of Care testing , GFR/1.73 sq M.predicted MDRD (S/P/Bld) [Vol rate/Area] mL/min/{1.73_m2} [facility] Comment on above: Performed By: #### G LULS #### Point of Care testing , Glucose [Mass/Vol] 260 mg/dL High 74-109 [facility] Comment on above: Result Comment: [place] Glucose Reference Range is dependent on time and content of last meal. Glucose of more than 200 mg/dL in a nonstressed, ambulatory subject supports the diagnosis of Diabetes Mellitus. ADA recommended reference range Performed By: #### G LULS #### Point of Care testing , Potassium [Moles/Vol] 3.7 mmol/L Normal 3.5-5.1 [facility] Comment on above: Performed By: #### G LULS #### Point of Care testing , Sodium [Moles/Vol] 132 mmol/L Low 136-145 [facility] Comment on above: Performed By: #### G LULS #### Point of Care testing , Urea nitrogen [Mass/Vol] 16 mg/dL Normal 7-25 [facility] Comment on above: Performed By: #### G LULS #### Point of Care testing , CULTURE SPUTUMon 10-31-2022 CULTURE SPUTUM Isolate 1 Diann albicans Moderate growth of Isolate 2 Streptococcus pyogenes Light growth of ORGANISM 2 Streptococcus pyogenes ANTIBIOTIC M.I.C RX STATUS Benzylpenicillin <=0.06 S F Ampicillin <=0.25 S F Cefotaxime <=0.12 S F Ceftriaxone <=0.12 S F Levofloxacin <=0.25 S F Inducible Clindamycin Resistance Neg NEG F Erythromycin <=0.12 S F Clindamycin <=0.25 S F Linezolid <=2 S F Vancomycin <=0.12 S F Tetracycline <=0.25 S F Normal [facility] Comment on above: Performed By: #### S PUTCX ####[facility] Xvwmbfkrte2447 [place], [place] [address]Pk. Martine Blood [facility] echo transthoracicon [facility] echo transthoracic [facility] [place] [address] Echocardiogram Signed Patient: Aba Ruiz MR#: [id number] : 1975 Acct:[id number] Age/Sex: 47 / M ADM Date: 10/30/22 Loc: Room: [address] [place] [address] Type: ADM IN Attending Dr: Bigg Vee MD Ordering Provider: Chung Garcia DO Date of Service: 10/30/2203/17/1752 [facility] echo transthoracic: tachycardia Copies to: Mikayla White MD, [facility] Chung Garcia DO Height: 69 in Weight: 235 lb Performed By: LANIE Allan BSA: 2.2 m2 BP: 146/86 mmHg HR: 112 Reason For Study: tachycardia History: HLD, pre-DM, pleural effusion s/p thoracentesis Interpretation Summary The left ventricular size, thickness and function are normal The left ventricular wall motion is normal. Ejection Fraction = 60-65%. The patient was tachycardic through out the study. There is no prior echocardiogram noted for this patient. Procedure/Quality: A two-dimensional transthoracic echocardiogram with color flow, Doppler and injection of contrast agent Definity was performed. A two- dimensional transthoracic echocardiogram with color flow and Doppler was performed. The study was technically good in quality. There is no prior echocardiogram noted for this patient. Left Ventricle: The left ventricular size, thickness and function are normal. Ejection Fraction = 60-65%. The left ventricular wall motion is normal. Left Atrium: The left atrium appears normal in size. The atrial septum appears normal. Right Atrium: The right atrium appears normal in size. Right Ventricle: The right ventricular size, thickness and function are normal. Aortic Valve: The aortic valve is normal in structure and function. No aortic regurgitation is present. Mitral Valve: The mitral valve is normal in structure and function. There is no mitral regurgitation noted. Tricuspid Valve: The tricuspid valve is normal in structure and function. No tricuspid regurgitation. Pulmonic Valve: The pulmonic valve is normal in structure and function. Arteries: The aortic root is normal size. Pericardium/Pleura: No pericardial effusion seen. There is no pleural effusion. IVC/Hepatic Viens: The inferior vena cava is normal in size, with a normal collapsibility index. Miscellaneous: The patient was tachycardic through out the study. Measurements with Normals IVSd: 1.3 cm (0.7-1.1 cm)LVIDd: 5.2 cm (3.7-5.4 cm) LVPWd: 1.2 cm (0.7-1.1 cm)LVIDs: 3.0 cm (2.3-3.6 cm) LA dimension: 3.6 cm (2.3-4.0 cm)Ao root diam: 2.7 cm(2.0-3.6 cm) asc Aorta Diam: 3.5 cm(2.1-3.4cm) Doppler with Normals MV E max korina: 110.0 cm/sec(0.8-1.3m/s) MV A max korina: 107.7 cm/sec(0.0-0.0m/s) MV E/A: 1.0 (<1.5) MMode/2D Measurements Calculations RVDd: 2.9 cm FS: 42.0 % Ao root area: LVLd ap4: 7.8 cm TAPSE: 2.7 cm EDV(Teich): 5.7 cm2 EDV(MOD-sp4): RV S Korina: 129.3 ml 93.4 ml 27.7 cm/sec ESV(Teich): LVLs ap4: 6.8 cm 35.3 ml ESV(MOD-sp4): EF(Teich): 72.7 % 31.1 ml EF(MOD-sp4): 66.7 % __ SV(MOD-sp4): 62.3 ml Doppler Measurements Calculations MV dec time: 0.22 sec E/E' lat: 7.8 MV dec slope: 490.5 cm/sec2 E/E' med: 8.9 Transcribed By: JAYDE Performed At: 10/31/22 1050 Signed By: Mikayla White MD, [facility] 10/31/22 1753 Normal [facility] Glucose Poct Glucometerson 0 10-31-2022 Glucose [Mass/Vol] 317 mg/dL [facility] Comment on above: Result Comment: [facility] Glucose Reference Range is dependent on time and content of last meal. Glucose of more than 200 mg/dL in a nonstressed, ambulatory subject supports the diagnosis of Diabetes Mellitus. PERFORMED BY: [address] [place] [address] PATHOLOGIST DOPER CASSANDRA RAMOS M.D. Performed By: #### G LULS #### Point of Care testing , Glucose [Mass/Vol] 209 mg/dL [facility] Comment on above: Result Comment: [facility] Glucose Reference Range is dependent on time and content of last meal. Glucose of more than 200 mg/dL in a nonstressed, ambulatory subject supports the diagnosis of Diabetes Mellitus. PERFORMED BY: [address] [place] [address] PATHOLOGIST DOPER CASSANDRA RAMOS M.D. Performed By: #### G LULS #### Point of Care testing , Glucose [Mass/Vol] 257 mg/dL Normal [facility] Comment on above: Result Comment: [facility] Glucose Reference Range is dependent on time and content of last meal. Glucose of more than 200 mg/dL in a nonstressed, ambulatory subject supports the diagnosis of Diabetes Mellitus. PERFORMED BY: [facility] [address] [place] [id number] PATHOLOGIST DOPER CASSANDRA RAMOS M.D. Performed By: #### G LULS #### Point of Care testing , Glucose [Mass/Vol] 256 mg/dL Normal [facility] Comment on above: Result Comment: [facility] Glucose Reference Range is dependent on time and content of last meal. Glucose of more than 200 mg/dL in a nonstressed, ambulatory subject supports the diagnosis of Diabetes Mellitus. PERFORMED BY: [address] [address] PATHOLOGIST DOPER CASSANDRA RAMOS M.D. Performed By: #### G LULS #### Point of Care testing , Hypochromia LM Ql (Bld)Order ed By: Chung Garcia on 10-31-2022 Hypochromia Ql (Bld) [facility] Poikilocytosis [Presence] in Blood by Light microscopyOrdered By: Chung Garcia on 10-31-2022 Poikilocytosis LM Ql (Bld) [facility] Polychromasia [Presence] in Blood by Light microscopyOrdered By: Chung Garcia on 10-31-2022 Polychromasia LM Ql (Bld) [facility] Red blood cell stomatocyte d etectionOrdered By: Chung Garcia on 10-31-2022 Stomatocytes LM Ql (Bld) [facility] Scan and CBCon 10-31-2022 Anisocytosis Ql (Bld) Slight Normal [facility] Comment on above: Performed By: #### C BC, BMP #### [place] [address] [place] Basophils (Bld) [#/Vol] 0.1 10*3/uL Normal 0.0-0.2 [facility] Comment on above: Performed By: #### C BC, BMP #### [address] Basophils/100 WBC (Bld) 0.2 % Normal . [facility] Comment on above: Performed By: #### C BC, BMP #### [address] Eosinophils (Bld) [#/Vol] 0.0 10*3/uL Normal 0.0-0.45 [facility] Comment on above: Performed By: #### C BC, BMP #### [address] Eosinophils/100 WBC (Bld) 0.0 % Normal . [facility] Comment on above: Performed By: #### C BC, BMP #### [address] Erythrocyte distribution width (RBC) [Ratio] 13.7 % Normal 12.0-14.8 [facility] Comment on above: Performed By: #### C BC, BMP #### [address] Hematocrit (Bld) [Volume fraction] 34.4 % Low 38.8-50.0 [facility] Comment on above: Performed By: #### C BC, BMP #### [address] Hemoglobin (Bld) [Mass/Vol] 11.6 g/dL Low 13.0-17.0 [facility] Comment on above: Performed By: #### C BC, BMP #### [address] Hypochromasia Slight Normal [facility] Comment on above: Performed By: #### C BC, BMP #### [address] Lymphocytes (Bld) [#/Vol] 1.7 10*3/uL Normal 1.00-4.8 [facility] Comment on above: Performed By: #### C BC, BMP #### [address] Lymphocytes/100 WBC (Bld) 5.7 % Normal . [facility] Comment on above: Performed By: #### C BC, BMP #### [address] MCH (RBC) [Entitic mass] 28.0 pg Normal 27.5-35.2 [facility] Comment on above: Performed By: #### C BC, BMP #### [address] MCV (RBC) [Entitic vol] 83.4 fL Low 83.5-101 [facility] Comment on above: Performed By: #### C BC, BMP #### [address] Mean Corpuscular HGB Conc 33.6 g/dL Normal 32.5-35.6 [facility] Comment on above: Performed By: #### C BC, BMP #### [address] Monocytes (Bld) [#/Vol] 1.7 10*3/uL High 0.0-0.8 [facility] Comment on above: Performed By: #### C BC, BMP #### [address] Monocytes/100 WBC (Bld) 5.8 % Normal . [facility] Comment on above: Performed By: #### C BC, BMP #### [address] Neutrophils (Bld) [#/Vol] 26.1 10*3/uL High 1.8-7.7 [facility] Comment on above: Performed By: #### C BC, BMP #### [address] Neutrophils/100 WBC (Bld) 88.3 % Normal . [facility] Comment on above: Performed By: #### C BC, BMP #### [address] NRBC% 0.0 /100{WBC} Normal 0-0.5 [facility] Comment on above: Performed By: #### C BC, BMP #### [address] Platelet Estimate Normal Normal Normal [facility] Comment on above: Performed By: #### C BC, BMP #### [address] Platelet mean volume (Bld) [Entitic vol] 7.6 fL Normal 6.6-10.1 [facility] Comment on above: Performed By: #### C BC, BMP #### [address] Platelet Morphology Normal Normal Normal [facility] Comment on above: Result Comment: PERF ORMED BY: [place] [address] PATHOLOGIST DOPER CASSANDRA RAMOS M.D. Performed By: #### C BC, BMP #### [address] Platelets (Bld) [#/Vol] 352 10*3/uL Normal 150-450 [facility] Comment on above: Performed By: #### C BC, BMP #### [address] Poikilocytosis Slight Normal [facility] Comment on above: Performed By: #### C BC, BMP #### [address] Polychromasia Slight Normal [facility] Comment on above: Performed By: #### C BC, BMP #### [address] RBC (Bld) [#/Vol] 4.12 10*6/uL Normal 3.90-5.60 [facility] Comment on above: Performed By: #### C BC, BMP #### [address] Stomatocytes Slight Normal [facility] Comment on above: Performed By: #### C ILENE, BMP #### [facility] [address] Target Cells Slight Normal [facility] Comment on above: Performed By: #### C ILENE, BMP #### [facility] [address] WBC (Bld) [#/Vol] 29.6 10*3/uL High 4.1-10.5 [facility] Comment on above: Performed By: #### C ILENE, BMP #### [facility] [address] [place] [address] Target cellsOrdered By: Mitchel Garcia on 10-31-2022 Target cells LM Ql (Bld) Slight [facility] XR chest 1V portableon 10-31 XR chest 1V portable [facility] Main [place] [address] [place] [address] XRay Report Signed Patient: Aba Ruiz MR#: [id number] : 1975 Acct:[id number] Age/Sex: 47 / M ADM Date: 10/30/22 Loc: Room: [address] [place] [address] Type: ADM IN Attending Dr: Chung Garcia DO Copies to: Chung Garcia DO Ordering Provider: Chung Garcia DO Date of Service: 10/31/22 XR/XR chest 1V portable: dyspnea PORTABLE AP ERECT CHEST 0539 hours CLINICAL HISTORY: Follow-up left chest tube COMPARISON: 10/30/2022 A left-sided chest tube is again visualized. There is shallow inspiration. There is mild developing patchy atelectatic and/or infiltrative change on the right. There is continued diffuse opacity on the left with relative sparing at the apex. This is probably a combination of pleural effusion and parenchymal disease. No pneumothorax is visualized. The left heart border is partially obscured however cardiomegaly is still suspected. XR/XR chest 1V portable IMPRESSION: CONTINUED PLEURAL PARENCHYMAL CHANGES ON THE LEFT. MILD DEVELOPING PARENCHYMAL CHANGES ON THE RIGHT. SUSPECTED CARDIOMEGALY. Impression dictated by: Kaela Choudhary M.D.10/31/2022 7:11 AM Dictation Location: [place] [address] Transcribed By: [facility] 10/31/22710 Dictated By: Kaela Choudhary MD 10/31/22707 Signed By: 10/31/22710 [facility] A1C with Estimated Average G oli 10-30-2022 Glucose [Mass/Vol] 295 mg/dL [facility] Comment on above: Result Comment: PERF ORMED BY: [facility] [address] [place] [address] PATHOLOGIST DOPER CASSANDRA RAMOS M.D. Performed By: #### G LULS #### Point of Care testing , HbA1c (Bld) [Mass fraction] 11.9 % High 4.3-5.6 [facility] Comment on above: Result Comment: Incr eased risk for diabetes: 5.7 - 6.4 diabetes: >6.4 glycemic control for adults with diabetes: <7.0 Performed By: #### G LULS #### Point of Care testing , Activated partial thrombopla stin time (aPTT) in platelet poor plasma by coagulation aOrdered By: Chung Garcia on 10-30-2022 aPTT Coag (PPP) [Time] 31.0 s 25.1-36.5 [facility] Aerobic Cultureon 10-30-2022 Aerobic Culture Result Tab Codes No Growth 2 Days Anaerobic Culture Results No Anaerobes Isolated 3 Days Gram Stain Result 2+ White Blood Cells Rare Gram Positive Cocci PERFORMED BY: [facility] [address] [place] [address] PATHOLOGIST DOPER CASSANDRA RAMOS M.D. [facility] Comment on above: Performed By: #### G LULS #### Point of Care testing , Aerobic cultureOrdered By: Randy Garcia on 10-30-2022 Bacteria identified Aer cx Nom (Unsp spec) [facility] Alanine aminotransferase [En zymatic activity/volume] in Serum or PlasmaOrdered By: Chung Garcia on 10-30-2022 ALT [Catalytic activity/Vol] 16 U/L 7-52 [facility] Albumin [Mass/volume] in Ser um or Plasma by Bromocresol green (BCG) dye binding methoOrdered By: Chung Garcia on 10-30-2022 Albumin BCG dye [Mass/Vol] 2.7 g/dL 3.5-5.7 [facility] Alkaline phosphatase [Enzyma tic activity/volume] in Serum or PlasmaOrdered By: Chung Garcia on 10-30-2022 ALP [Catalytic activity/Vol] 219 U/L 34-104 [facility] Anaerobic cultureOrdered By: Chung Garcia on 10-30-2022 Bacteria identified Anaer cx Nom (Unsp spec) [facility] Aspartate aminotransferase [ Enzymatic activity/volume] in Serum or PlasmaOrdered By: Chung Garcia on 10-30-2022 AST [Catalytic activity/Vol] 20 U/L 13-39 [facility] BLOOD GASES BTYon 10-30-2022 02 MODE NASAL CANNULA Normal [facility] Comment on above: Performed By: #### A BG ####[facility] [address] [place] [address]Dr. Martine Blood ALLENS TEST Positive Normal [facility] Comment on above: Performed By: #### A BG ####[facility] [address] [place] [address]Dr. Martine Blood Base excess Calc (Bld) [Moles/Vol] 1.3 mmol/L Normal -2.0-2.0 [facility] Comment on above: Performed By: #### A BG ####[facility] [address] [place] [address]Dr. Martine Blood BIPAP PRESSURE Normal [facility] Comment on above: Performed By: #### A BG ####[facility] [address] [place] [address]Dr. Martine Blood CPAP Normal [facility] Comment on above: Performed By: #### A BG ####[facility] [address] [place] [address]Dr. Martine Blood FIO2 Normal [facility] Comment on above: Performed By: #### A BG ####[facility] [address] [place] [address]Dr. Martine Blood HCO3 (Bld) [Moles/Vol] 26.2 mmol/L Critically high 22.0-26 .0 [facility] Comment on above: Performed By: #### A BG ####[facility] [address] [place], [place] [address]Dr. Martine Blood LPM 4 Normal [facility] Comment on above: Performed By: #### A BG ####[facility] [address] [place], [place] [address]Dr. Martine Blood MINUTE VOLUME Normal [facility] Comment on above: Performed By: #### A BG ####[facility] [address] [place], [place] [address]Dr. Martine Blood Oxygen (Bld) [Partial pressure] 68.3 mm[Hg] Critically low 80.0-100.0 [facility] Comment on above: Performed By: #### A BG ####[facility] [address] [place], [place] [address]Dr. Martine Blood Oxygen saturation in Blood 93.8 % Critically low 95.0-100.0 [facility] Comment on above: Performed By: #### A BG ####[facility] [address] [place], [place] [address]Dr. Martine Blood PCO2 43.3 mmHg Normal 35.0-45.0 [facility] Comment on above: Performed By: #### A BG ####[facility] [address] [place], [place] [address]Dr. Martine Blood PEEP Normal [facility] Comment on above: Performed By: #### A BG ####[facility] [address] [place], [place] [address]Dr. Matrine Blood pH (Bld) 7.390 [pH] Normal 7.350-7.45 0 [facility] Comment on above: Performed By: #### A BG ####[facility] [address] [place], [place] [address]Dr. Martine Blood PIP Normal [facility] Comment on above: Performed By: #### A BG ####[facility] [address] [place] [address]Dr. Martine Blood PS Normal [facility] Comment on above: Performed By: #### A BG ####[facility] [address]sa[address] [place] [address]Dr. Martine Blood PUNCTURE SITE LR Normal [facility] Comment on above: Performed By: #### A BG ####[facility] [address] [place] [address]Dr. Martine Blood RATE Normal [facility] Comment on above: Performed By: #### A BG ####[facility] [address] [place] [address]Dr. Martine Blood VENT MODE [facility] Comment on above: Performed By: #### A BG ####[facility] [address] [place] [address]Dr. Martine Blood [place] [facility] Comment on above: Performed By: #### A BG ####[facility] [address] [place] [address]Dr. Martine Blood Bacterial blood cultureOrder ed By: Chung Garcia on 10-30-2022 Bacteria identified Cx Nom (Bld) NO GROWTH 5 DAYS [facility] Basic Metabolic Panelon 03-0 Anion gap [Moles/Vol] 19.6 mmol/L High 6.0-15.0 [facility] Comment on above: Performed By: #### C BC, BMP #### [facility] [address] [place] [id number] [place] Calcium [Mass/Vol] 9.2 mg/dL Normal 8.6-10.3 [facility] Comment on above: Performed By: #### C BC, BMP #### [facility] [address] [place] [id number] [place] Chloride [Moles/Vol] 93 mmol/L Low 98-107 [facility] Comment on above: Performed By: #### C BC, BMP #### [facility] [address] CO2 [Moles/Vol] 22.6 mmol/L Normal 21.0-31.0 [facility] Comment on above: Performed By: #### C BC, BMP #### [facility] [address] [place] [address] [place] Creatinine [Mass/Vol] 0.61 mg/dL Low 0.70-1.30 [facility] Comment on above: Performed By: #### C BC, BMP #### [facility] [address] [place] [address] [place] Creatinine Clr Calc Pharmacy 184.16 [facility] Comment on above: Result Comment: PERF ORMED BY: [place] [address] PATHOLOGIST DOPER CASSANDRA RAMOS M.D. Performed By: #### C BC, BMP #### [facility] [address] GFR/1.73 sq M.predicted MDRD (S/P/Bld) [Vol rate/Area] mL/min/{1.73_m2} [facility] Comment on above: Performed By: #### C BC, BMP #### [facility] [address] [place] [address] [place] Glucose [Mass/Vol] 238 mg/dL High 74-109 [facility] Comment on above: Result Comment: [place] Glucose Reference Range is dependent on time and content of last meal. Glucose of more than 200 mg/dL in a nonstressed, ambulatory subject supports the diagnosis of Diabetes Mellitus. ADA recommended reference range Performed By: #### C BC, BMP #### [facility] [address] [place] [address] [place] Potassium [Moles/Vol] 3.2 mmol/L Low 3.5-5.1 [facility] Comment on above: Performed By: #### C BC, BMP #### [facility] [address] [place] [address] [place] Sodium [Moles/Vol] 132 mmol/L Low 136-145 [facility] Comment on above: Performed By: #### C ILENE, OSVALDO #### [facility] [address] Urea nitrogen [Mass/Vol] 15 mg/dL Normal 7-25 [facility] Comment on above: Performed By: #### C BC, BMP #### [facility] [address] Basophils/100 WBC Manual cnt (Bld)Ordered By: Chung Garcia on 10-30-2022 Basophils/100 WBC (Bld) 0 % 0-2 [facility] Bilirubin.direct [Mass/volum e] in Serum or PlasmaOrdered By: Chung Garcia on 10-30-2022 Bilirubin.direct [Mass/Vol] 0.10 mg/dL 0.03-0.18 [facility] Bilirubin.total [Mass/volume ] in Serum or PlasmaOrdered By: Chung Garcia on 10-30-2022 Bilirubin [Mass/Vol] 0.6 mg/dL 0.3-1.0 [facility] Blood Cultureon 10-30-2022 Bacteria identified Cx Nom (Bld) NO GROWTH 5 DAYS PERFORMED BY: [place] [address] PATHOLOGIST DOPER CASSANDRA RAMOS M.D. [facility] Comment on above: Performed By: #### G LULS #### Point of Care testing , Bacteria identified Cx Nom (Bld) NO GROWTH 5 DAYS PERFORMED BY: [place] [address] PATHOLOGIST DOPER CASSANDRA RAMOS M.D. [facility] Comment on above: Performed By: #### G LULS #### Point of Care testing , Blood thiamine measurement ( moles/volume)Ordered By: Chung Garcia on 10-30-2022 Thiamine (Bld) [Moles/Vol] 123.1 nmol/L 66.5-200.0 [facility] Comment on above: This test was develo ped and its performance characteristicsdetermined by [employer]. It has not been cleared orapproved by the Food and Drug Administration.Performed at: - [facility] [id number] Director: Chirag Gutierres MD, Phone: [phone] C-Peptideon 10-30-2022 C-Peptide 2.1 ng/mL Normal 1.1-4.4 [facility] Comment on above: Result Comment: C-Pe ptide reference interval is for fasting patients. Performed at: - [facility] [id number] [employer] Head: Jarrett Nobles PhD, Phone: [phone] Performed By: #### G LULS #### Point of Care testing , C-Reactive Proteinon 023 C-Reactive Protein 35.4 mg/dL High 0.0-0.4 [facility] Comment on above: Performed By: #### G LULS #### Point of Care testing , CBC AUTO DIFFon 10-30-2022 BASO # 0.0 103/ul Normal 0.0-0.1 [facility] Comment on above: Performed By: #### B MP #### [facility] [address] [place] [address] Dr. Martine Blood Basophils/100 WBC (Bld) 0.1 % Critically low 0.2-2.0 [facility] Comment on above: Performed By: #### B MP #### [facility] [address] [place] [address] [address] Martine Blood EO # 0.0 103/ul Normal 0.0-0.7 [facility] Comment on above: Performed By: #### B MP #### [facility] [address] [place] [address] [address] Martine Blood Eosinophils/100 WBC (Bld) 0.1 % Critically low 0.9-7.0 [facility] Comment on above: Performed By: #### B MP #### [facility] [address] [place] [address] Dr. Martine Blood Erythrocyte distribution width (RBC) [Ratio] 13.2 % Normal 11.0-15.0 [facility] Comment on above: Performed By: #### B MP #### [facility] [address] [place] [address] Dr. Martine Blood Hematocrit (Bld) [Volume fraction] 37.2 % Critically low 42.0-54.0 [facility] Comment on above: Performed By: #### B MP #### [facility] [address] [place] [address] Dr. Martine Blood Hemoglobin (Bld) [Mass/Vol] 12.4 g/dL Critically low 14.0-18.0 [facility] Comment on above: Performed By: #### B MP #### [facility] [address] [place] [address] Dr. Martine Blood IG # 0.54 10e3/ul Critically high 0.00-0.03 [facility] Comment on above: Performed By: #### B MP #### [facility] [address] [place] [address] Dr. Martine Blood IG % 1.9 % Critically high 0.0-0.5 [facility] Comment on above: Performed By: #### B MP #### [facility] [address] [place] [address] Dr. Martine Blood LYMPH # 1.8 103/ul Normal 1.2-3.8 [facility] Comment on above: Performed By: #### B MP #### [facility] [address] [place] [address] Dr. Martine Blood Lymphocytes/100 WBC (Bld) 6.5 % Critically low 20.5-60.0 [facility] Comment on above: Performed By: #### B MP #### [facility] [address] [place] [address] Dr. Martine Blood MANUAL DIFF REQ NO Normal [facility] Comment on above: Performed By: #### B MP #### [facility] [address] [place] [address] Dr. Martine Blood MCH (RBC) [Entitic mass] 27.9 pg Normal 25.9-34.0 [facility] Comment on above: Performed By: #### B MP #### [facility] [address] [address] [address] Martine Blood MCHC (RBC) [Mass/Vol] 33.3 g/dL Normal 29.9-35.2 [facility] Comment on above: Performed By: #### B MP #### [facility] [address] [address] [address] Martine Blood MCV (RBC) [Entitic vol] 83.6 fL Normal 80.0-94.0 [facility] Comment on above: Performed By: #### B MP #### [facility] [address] [address] [address] Martine Blood MONO # 1.9 103/ul Critically high 0.3-0.8 [facility] Comment on above: Performed By: #### B MP #### [facility] [address] [address] [address] Martine Blood Monocytes/100 WBC (Bld) 6.6 % Normal 1.7-12.0 [facility] Comment on above: Performed By: #### B MP #### [facility] [address] [address] [address] Martine Blood NEUT # 23.6 103/ul Critically high 1.4-6.5 [facility] Comment on above: Performed By: #### B MP #### [facility] [address] [address] [address] Martine Blood Neutrophils/100 WBC (Bld) 84.8 % Critically high 43.0-75.0 [facility] Comment on above: Performed By: #### B MP #### [facility] [address] [address] [address] Martine Blood Platelet mean volume (Bld) [Entitic vol] 9.4 fL Critically low 9.5-13.5 [facility] Comment on above: Performed By: #### B MP #### [facility] [address] [address] [address] Martine Blood PLT 332 103/ul Normal 150-450 [facility] Comment on above: Performed By: #### B MP #### [facility] [address] [place] [address] Dr. Martine Blood RBC 4.45 106/ul Critically low 4.70-6.10 [facility] Comment on above: Performed By: #### B MP #### [facility] [address] [place] [address] Dr. Martine Blood WBC 27.8 103/ul Critically high 4.0-11.0 [facility] Comment on above: Performed By: #### B MP #### [facility] [address] [place] [address] Dr. Martine Blood CBC W MANUAL DIFFon 10-31-19 23 ATYPICAL LYMPH # Normal [facility] Comment on above: Performed By: #### B MP #### [facility] [address] [place] [address] Dr. Martine Blood ATYPICAL LYMPH % Normal [facility] Comment on above: Performed By: #### B MP #### [facility] [address] [place] [address] Dr. Martine Blood BAND # Normal 0.0-0.3 [facility] Comment on above: Performed By: #### B MP #### [facility] [address] [place] [address] Dr. Martine Blood BAND % Normal 0-5 [facility] Comment on above: Performed By: #### B MP #### [facility] [address] [place] [address] Dr. Martine Blood BASOM # 0.00 103/ul Normal 0.00-0.10 [facility] Comment on above: Performed By: #### B MP #### [facility] [address] [place] [address] Dr. Martine Blood BASOM % 0.0 % Critically low 0.2-2.0 [facility] Comment on above: Performed By: #### B MP #### [facility] [address] [place] [address] Dr. Martine Blood BLAST # Normal [facility] Comment on above: Performed By: #### B MP #### [facility] [address] [place] [address] Dr. Martine Blood BLAST % Normal [facility] Comment on above: Performed By: #### B MP #### [facility] [address] [place] [address] Dr. Martine Blood CORRECTED WBC Normal 4.0-11.0 [facility] Comment on above: Performed By: #### B MP #### [facility] [address] [place] [address] Dr. Martine Blood EOS # 0.28 103/ul Normal 0.00-0.70 [facility] Comment on above: Performed By: #### B MP #### [facility] [address] [place] [address] Dr. Martine Blood EOS% 1.0 % Normal 0.9-7.0 [facility] Comment on above: Performed By: #### B MP #### [facility] [address] [place] [address] Dr. Martine Blood HCT 38.4 % Critically low 42.0-54.0 [facility] Comment on above: Performed By: #### B MP #### [facility] [address] [place] [address] Dr. Martine Blood HGB 12.9 g/dl Critically low 14.0-18.0 [facility] Comment on above: Performed By: #### B MP #### [facility] [address] [place] [address] Dr. Martine Blood LYMPHM # 1.96 103/ul Normal 1.20-3.80 [facility] Comment on above: Performed By: #### B MP #### [facility] [address] [place] [address] Dr. Martine Blood LYMPHM% 7.0 % Critically low 20.5-60.0 [facility] Comment on above: Performed By: #### B MP #### [facility] [address] [place] [address] Dr. Martine Blood MCH 28.0 pg Normal 25.9-34.0 [facility] Comment on above: Performed By: #### B MP #### [facility] [address] [place] [address] Dr. Martine Blood MCHC 33.6 g/dl Normal 29.9-35.2 [facility] Comment on above: Performed By: #### B MP #### [facility] [address] [place] [address] Dr. Martine Blood MCV 83.5 fL Normal 80.0-94.0 [facility] Comment on above: Performed By: #### B MP #### [facility] [address] [place] [address] Dr. Martine Blood METAMYELOCYTE # Normal [facility] Comment on above: Performed By: #### B MP #### [facility] [address] [place] [address] Dr. Martine Blood METAMYELOCYTE % Normal [facility] Comment on above: Performed By: #### B MP #### [facility] [address] [place] [address] Dr. Martine Blood MONOM# 1.12 103/ul Critically high 0.30-0.80 [facility] Comment on above: Performed By: #### B MP #### [facility] [address] [place] [address] Dr. Martine Blood MONOM% 4.0 % Normal 1.7-12.0 [facility] Comment on above: Performed By: #### B MP #### [facility] [address] [place] [address] Dr. Martine Blood MPV 9.3 fL Critically low 9.5-13.5 [facility] Comment on above: Performed By: #### B MP #### [facility] [address] [place] [address] Dr. Martine Blood MYELOCYTE # Normal [facility] Comment on above: Performed By: #### B MP #### [facility] [address] [place] [address] Dr. Martine Blood MYELOCYTE % Normal [facility] Comment on above: Performed By: #### B MP #### [facility] [address] [address] [address] Martine Blood NRBC Normal [facility] Comment on above: Performed By: #### B MP #### [facility] [address] [address] [address] Martine Blood PLT 385 103/ul Normal 150-450 [facility] Comment on above: Performed By: #### B MP #### [facility] [address] [address] [address] Martine Blood RBC 4.60 106/ul Critically low 4.70-6.10 [facility] Comment on above: Performed By: #### B MP #### [facility] [address] [address] [address] Martine Blood RDW 13.3 % Normal 11.0-15.0 [facility] Comment on above: Performed By: #### B MP #### [facility] [address] [address] [address] Martine Blood SEG # 24.64 103/ul Critically high 1.40-6.50 [facility] Comment on above: Performed By: #### B MP #### [facility] [address] [address] [address] Martine Blood SEG % 88.0 % Critically high 43.0-75.0 [facility] Comment on above: Performed By: #### B MP #### [facility] [address] [address] [address] Martine Blood WBC 28.0 103/ul Critically high 4.0-11.0 [facility] Comment on above: Performed By: #### B MP #### [facility] [address] [address] [address] Martine Blood ATYPICAL LYMPH # Normal [facility] Comment on above: Performed By: #### C BCMAN ####[facility] [address] [address]Dr. Martine Blood ATYPICAL LYMPH % Normal [facility] Comment on above: Performed By: #### C BCMAN ####[facility] [address] [address]Dr. Yilan Blood BAND # 0.0 103/ul Normal 0.0-0.3 [facility] Comment on above: Performed By: #### C BCMAN ####[facility] [address] [address]Dr. Yilan Blood BAND % 0 % Normal 0-5 [facility] Comment on above: Performed By: #### C BCMAN ####[facility] [address] [address]Dr. Yilan Blood BASOM # 0.00 103/ul Normal 0.00-0.10 [facility] Comment on above: Performed By: #### C BCKELLY ####[facility] [address] [place], [place] [address]Dr. Yiedmundo Blood BASOM % 0.0 % Critically low 0.2-2.0 [facility] Comment on above: Performed By: #### C BCKELLY ####[facility] [address] [place], [place] [address]Dr. Yilan Blood BLAST # Normal [facility] Comment on above: Performed By: #### C BCKELLY ####[facility] [address] [place], [place] [address]Dr. Yilan Bolod BLAST % Normal [facility] Comment on above: Performed By: #### C BCKELLY ####[facility] [address] [place], [place] [address]Dr. Martine Blood CORRECTED WBC Normal 4.0-11.0 [facility] Comment on above: Performed By: #### C BCKELLY ####[facility] [address] [place], [place] [address]Dr. Yiedmundo Blood EOS # 0.00 103/ul Normal 0.00-0.70 [facility] Comment on above: Performed By: #### C BCKELLY ####[facility] [address] [place], [place] [address]Dr. Yiedmundo Blood EOS% 0.0 % Critically low 0.9-7.0 [facility] Comment on above: Performed By: #### C BCKELLY ####[facility] [address] [address]Dr. Martine Blood HCT 37.5 % Critically low 42.0-54.0 [facility] Comment on above: Performed By: #### C LUCAS ####[facility] [address] [address]Dr. Martine Blood HGB 12.5 g/dl Critically low 14.0-18.0 [facility] Comment on above: Performed By: #### C LUCAS ####[facility] [address] [address]Dr. Martine Blood LYMPHM # 3.71 103/ul Normal 1.20-3.80 [facility] Comment on above: Performed By: #### C LUCAS ####[facility] [address] [address]Dr. Martine Blood LYMPHM% 12.0 % Critically low 20.5-60.0 [facility] Comment on above: Performed By: #### C LUCAS ####[facility] [address] [address]Dr. Martine Blood MCH 27.5 pg Normal 25.9-34.0 [facility] Comment on above: Performed By: #### C LUCAS ####[facility] [address] [address]Dr. Martine Blood MCHC 33.3 g/dl Normal 29.9-35.2 [facility] Comment on above: Performed By: #### Valerie ZAVALA ####[facility] [address] [address]Dr. Martine Blood MCV 82.6 fL Normal 80.0-94.0 [facility] Comment on above: Performed By: #### C LUCAS ####[facility] [address] [address]Dr. Martine Blood METAMYELOCYTE # Normal [facility] Comment on above: Performed By: #### C LUCAS ####[facility] [address] [address]Dr. Martine Blood METAMYELOCYTE % Normal [facility] Comment on above: Performed By: #### C LUCAS ####[facility] [address] [place], [place] [address]Xu. Martine Blood MONOM# 2.47 103/ul Critically high 0.30-0.80 [facility] Comment on above: Performed By: #### C LUCAS ####[facility] [address] [address]Dr. Martine Blood MONOM% 8.0 % Normal 1.7-12.0 [facility] Comment on above: Performed By: #### C LUCAS ####[facility] [address] [address]Dr. Martine Blood MPV 9.3 fL Critically low 9.5-13.5 [facility] Comment on above: Performed By: #### C LUCAS ####[facility] [address] [address]Dr. Martine Blood MYELOCYTE # Normal [facility] Comment on above: Performed By: #### C LUCAS ####[facility] [address] [address]Dr. Martine Blood MYELOCYTE % Normal [facility] Comment on above: Performed By: #### C LUCAS ####[facility] [address] [address]Dr. Martine Blood NRBC Normal [facility] Comment on above: Performed By: #### C LUCAS ####[facility] [address] [address]Dr. Martine Blood PLT 360 103/ul Normal 150-450 [facility] Comment on above: Performed By: #### C LUCAS ####[facility] [address] [address]Dr. Martine Blood RBC 4.54 106/ul Critically low 4.70-6.10 [facility] Comment on above: Performed By: #### C LUCAS ####[facility] [address] [address]Dr. Martine Blood RDW 13.2 % Normal 11.0-15.0 [facility] Comment on above: Performed By: #### C LUCAS ####[facility] [address] [place], [place] [address]Eg. Martine Blood SEG # 24.72 103/ul Critically high 1.40-6.50 [facility] Comment on above: Performed By: #### Valerie ZAVALA ####[facility] [address] [place], [place] [address]Zm. Martine Blood SEG % 80.0 % Critically high 43.0-75.0 [facility] Comment on above: Performed By: #### C LUCAS ####[facility] [address] [place], [place] [address]Dv. Martine Blood WBC 30.9 103/ul Critically high 4.0-11.0 [facility] Comment on above: Performed By: #### C LUCAS ####[facility] [address] [place], [place] [address]Rr. Martine Blood CT CHEST W CONon 10-30-2022 CT CHEST W CON EXAMINATION: CT CHES T W CON HISTORY: SHORTNESS OF BREATH COMPARISON: No relevant comparison available. TECHNIQUE: Multi-planar CT images were created with IV contrast. Axial, Coronal, and Sagittal images. Dose reduction techniques were achieved by using automated exposure control and/or adjustment of mA and/or kV according to patient size and/or use of iterative reconstruction technique. FINDINGS: LUNGS: Near-complete collapse of left lung with patent bronchi extending into the regions. Scattered mild infiltrate versus atelectasis within right lung. PLEURA: Large left pleural effusion 5.2 cm in thickness extending to the lung apex. VASCULATURE: No abnormality. DIANNE: No mass or adenopathy. MEDIASTINUM: Multiple small lymph nodes within the mediastinum. CARDIAC: No enlargement, pericardial thickening, or significant calcification. AORTA: No aneurysm or dissection. CHEST WALL: No mass or axillary adenopathy. BONES: No bone lesion or fracture. LIMITED ABDOMEN: No suspicious findings Limited images of the upper abdomen. OTHER: Negative. IMPRESSION: 1. Large left pleural effusion with associated near complete collapse of left lung. Patent bronchi; no evidence of mucous plugging. 2. Mild atelectasis or infiltrates scattered throughout right lung. 3. Mild mediastinal lymphadenopathy. Electronically authenticated by: MEREDITH OLVERA Date: 2022-10-30 10:39 Normal [facility] Complete Blood Count Auto Di ffon 10-30-2022 Erythrocyte distribution width (RBC) [Ratio] 13.6 % Normal 12.0-14.8 [facility] Comment on above: Performed By: #### C BC, BMP #### [facility] [address] Hematocrit (Bld) [Volume fraction] 39.5 % Normal 38.8-50.0 [facility] Comment on above: Performed By: #### C BC, BMP #### [facility] [address] Hemoglobin (Bld) [Mass/Vol] 12.6 g/dL Low 13.0-17.0 [facility] Comment on above: Performed By: #### C BC, BMP #### [facility] [address] MCH (RBC) [Entitic mass] 26.6 pg Low 27.5-35.2 [facility] Comment on above: Performed By: #### C BC, BMP #### [address] MCV (RBC) [Entitic vol] 83.4 fL Low 83.5-101 [facility] Comment on above: Performed By: #### C BC, BMP #### [address] Mean Corpuscular HGB Conc 31.9 g/dL Low 32.5-35.6 [facility] Comment on above: Performed By: #### C BC, BMP #### [facility] [address] Platelet mean volume (Bld) [Entitic vol] 7.7 fL Normal 6.6-10.1 [facility] Comment on above: Result Comment: PERF ORMED BY: [place] [address] PATHOLOGIST DOPER CASSANDRA RAMOS M.D. Performed By: #### C BC, BMP #### [address] [place] [address] [place] Platelets (Bld) [#/Vol] 412 10*3/uL Normal 150-450 [facility] Comment on above: Performed By: #### C BC, BMP #### [address] RBC (Bld) [#/Vol] 4.74 10*6/uL Normal 3.90-5.60 [facility] Comment on above: Performed By: #### C BC, BMP #### [place] [address] [place] WBC (Bld) [#/Vol] 26.8 10*3/uL High 4.1-10.5 [facility] Comment on above: Performed By: #### C BC, BMP #### [place] [address] [place] Diff and CBCon 10-30-2022 Anisocytosis Ql (Bld) Slight Normal [facility] Comment on above: Performed By: #### C BC, BMP #### [place] [address] [place] Basophils/100 WBC (Bld) 0 % Normal 0-2 [facility] Comment on above: Performed By: #### C BC, BMP #### [place] [address] [place] Eosinophils/100 WBC (Bld) 0 % Low 1-3 [facility] Comment on above: Performed By: #### C BC, BMP #### [facility] [address] [place] [address] [place] Hypochromasia Slight Normal [facility] Comment on above: Performed By: #### C BC, BMP #### [facility] [address] [place] [address] [place] Lymphocytes/100 WBC (Bld) 8 % Low 18-42 [facility] Comment on above: Performed By: #### C BC, BMP #### [facility] [address] [place] [address] [place] Microcytosis Slight Normal [facility] Comment on above: Performed By: #### C BC, BMP #### [facility] [address] [place] [address] [place] Monocytes/100 WBC (Bld) 7 % Normal 2-11 [facility] Comment on above: Performed By: #### C BC, BMP #### [facility] [address] Platelet Estimate Normal Normal Normal [facility] Comment on above: Performed By: #### C BC, BMP #### [address] Platelet Morphology Normal Normal Normal [facility] Comment on above: Result Comment: PERF ORMED BY: [place] [address] PATHOLOGIST DOPER CASSANDRA RAMOS M.D. Performed By: #### C BC, BMP #### [address] Segmented neutrophils/100 WBC (Bld) 85 % High 50-70 [facility] Comment on above: Performed By: #### C BC, BMP #### [address] ECG 12 lead ECGon 10-30-2022 ECG 12 lead ECG [facility] [place] [address] [place] [address] Electrocardiograph Report Signed Patient: Aba Ruiz MR#: [id number] : 1975 Acct:[id number] Age/Sex: 47 / M ADM Date: 10/30/22 Loc: Room: [address] [place] [address] Type: ADM IN Attending Dr: Bigg Vee MD Ordering Provider: Chung Garcia DO Date of Service: 10/30/2203/17/1752 ECG/ECG 12 lead ECG: dyspnea Copies to: Test Reason : Blood Pressure : / mmHG Vent. Rate : 122 BPM Atrial Rate : 122 BPM P-R Int : 174 ms QRS Dur : 086 ms QT Int : 302 ms P-R-T Axes : 042 004 037 degrees QTc Int : 430 ms Sinus tachycardia Possible Left atrial enlargement RSR' or QR pattern in V1 suggests right ventricular conduction delay Anteroseptal infarct , age undetermined Abnormal ECG No previous ECGs available Confirmed by LAYLA WEINBERG MD ([id number]) on 10/31/2022 3:02:26 PM Referred By: HOSPITALIST Electronically Signed By:LAYLA WEINBERG MD Transcribed By: MUS Signed By Layla Weinberg MD 0 10/31/22 1502 Normal [facility] Eosinophils/100 WBC Manual c nt (Bld)Ordered By: Chung Garcia on 10-30-2022 Eosinophils/100 WBC (Bld) 0 % 1-3 [facility] Erythrocyte Sedimentation Ra elizabeth 10-30-2022 ESR (Bld) [Velocity] mm/h High 0-14 [facility] Comment on above: Result Comment: PERF ORMED BY: [facility] [address] [place] [address] PATHOLOGIST DOPER CASSANDRA RAMOS M.D. Performed By: #### G LULS #### Point of Care testing , Folate [Mass/volume] in Seru m or PlasmaOrdered By: Chung Garcia on 10-30-2022 Folate [Mass/Vol] 5.6 ng/mL >5.9 [facility] Comment on above: Folate reference ran ge: >5.9 ng/mlThe WHO technical consultation on folate and vitamin [id number] has determined that folate concentrations lessthan 4 ng/ml are considered deficient. Globulin Calc (S) [Mass/Vol] Ordered By: Chung Garcia on 10-30-2022 Globulin (S) [Mass/Vol] 5.3 g/dL [facility] Glucose Poct Glucometerson 0 10-30-2022 Commemt1 Glu2: Cleaned Meter Normal [facility] Comment on above: Result Comment: PERF ORMED BY: [facility] [address] [place] [address] PATHOLOGIST DOPER CASSANDRA RAMOS M.D. Performed By: #### G LULS #### Point of Care testing , Glucose [Mass/Vol] 252 mg/dL Normal [facility] Comment on above: Result Comment: [place] Glucose Reference Range is dependent on time and content of last meal. Glucose of more than 200 mg/dL in a nonstressed, ambulatory subject supports the diagnosis of Diabetes Mellitus. Performed By: #### G LULS #### Point of Care testing , Glucose mean value [Mass/vol ume] in Blood Estimated from glycated hemoglobinOrdered By: Chung Garcia on 10-30-2022 Average glucose Estimated from glycated hemoglobin (Bld) [Mass/Vol] 295 mg/dL [facility] Gram Stainon 10-30-2022 Microscopic observation Gram stain Nom (Unsp spec) Gram Stain Result 2+ White Blood Cells Rare Gram Positive Cocci PERFORMED BY: [facility] [place] [place] [address] PATHOLOGIST DOPER CASSANDRA RAMOS M.D. [facility] Comment on above: Performed By: #### G LULS #### Point of Care testing , Gram stain for investigation of transfusion reactionOrdered By: Chung Garcia on 10-30-2022 Microscopic observation Gram stain Nom (Unsp spec) [facility] Hemoglobin A1c percentageOrd ered By: Chung Garcia on 10-30-2022 HbA1c (Bld) [Mass fraction] 11.9 % 4.3-5.6 [facility] Comment on above: Increased risk for d iabetes: 5.7 - 6.4diabetes: >6.4glycemic control for adults with diabetes: <7.0 Hepatic Panelon 10-30-2022 Albumin [Mass/Vol] 2.7 g/dL Low 3.5-5.7 [facility] Comment on above: Performed By: #### G LULS #### Point of Care testing , Albumin/Globulin [Mass ratio] 0.5 {ratio} [facility] Comment on above: Performed By: #### G LULS #### Point of Care testing , ALP [Catalytic activity/Vol] 219 U/L High 34-104 [facility] Comment on above: Performed By: #### G LULS #### Point of Care testing , ALT [Catalytic activity/Vol] 16 U/L Normal 7-52 [facility] Comment on above: Performed By: #### G JANETLS #### Point of Care testing , AST [Catalytic activity/Vol] 20 U/L Normal 13-39 [facility] Comment on above: Performed By: #### G JANETLS #### Point of Care testing , Bilirubin [Mass/Vol] 0.6 mg/dL Normal 0.3-1.0 [facility] Comment on above: Performed By: #### G JANETLS #### Point of Care testing , Bilirubin,Indirect 0.5 mg/dL Normal [facility] Comment on above: Performed By: #### G LULS #### Point of Care testing , Bilirubin.indirect [Mass/Vol] 0.10 mg/dL Normal 0.03-0.18 [facility] Comment on above: Performed By: #### G JANETLS #### Point of Care testing , Globulin (S) [Mass/Vol] 5.3 g/dL Normal [facility] Comment on above: Performed By: #### G JANETLS #### Point of Care testing , Protein [Mass/Vol] 8.0 g/dL Normal 6.4-8.9 [facility] Comment on above: Performed By: #### G JANETLS #### Point of Care testing , Insulin Antibodieson 023 Insulin Antibodies <5.0 Normal . [facility] Comment on above: Result Comment: This test is also known as insulin autoantibody or IAA. This test was developed and its performance characteristics determined by [facility]. It has not been cleared or approved by the Food and Drug Administration. Reference Range: <5.0 Negative > or = 5.0 Positive Performed at: [facility] [employer] [address] [place] [id number] [employer] Head: Eugene Hernandez MD, Phone: [phone] PERFORMED BY: [address] [place] [address] PATHOLOGIST DOPER JIANLAN SUN M.D. Performed By: #### G LULS #### Point of Care testing , Laboratory - CoagulationOrde red By: Chnug Garcia on 10-30-2022 PT Coag (PPP) [Time] 13.8 s 9.0-12.9 [facility] Lymphocytes/100 WBC Manual c nt (Bld)Ordered By: Chung Garcia on 10-30-2022 Lymphocytes/100 WBC (Bld) 8 % 18-42 [facility] Magnesiumon 10-30-2022 Magnesium [Mass/Vol] 1.9 mg/dL Normal 1.9-2.7 [facility] Comment on above: Performed By: #### G LULS #### Point of Care testing , Magnesium [Mass/volume] in S joseph or PlasmaOrdered By: Chung Garcia on 10-30-2022 Magnesium [Mass/Vol] 1.9 mg/dL 1.9-2.7 [facility] Microcytes LM Ql (Bld)Ordere d By: Chung Garcia on 10-30-2022 Microcytes Ql (Bld) Slight [facility] Monocytes/100 WBC Manual cnt (Bld)Ordered By: Chung Garcia on 10-30-2022 Monocytes/100 WBC (Bld) 7 % 2-11 [facility] No Panel InformationOrdered By: Chung Garcia on 10-30-2022 C-Peptide 2.1 ng/mL 1.1-4.4 [facility] Comment on above: C-Peptide reference interval is for fasting patients.Performed at: - [facility] [address] [id number] Director: Jarrett Nobles PhD, Phone: [phone] PROF CHEM 8 (BAS METB)on Anion gap [Moles/Vol] 12.5 mmol/L Normal [facility] Comment on above: Performed By: #### B MP ####[facility] [address] [place] [address]DrIsi Blood Calcium [Mass/Vol] 9.3 mg/dL Normal 8.5-10.1 [facility] Comment on above: Performed By: #### B MP ####[facility] [address] [place] [address]Dr. Martine Blood Chloride [Moles/Vol] 96 mmol/L Critically low 98-107 [facility] Comment on above: Performed By: #### B MP ####[facility] [address] [place] [address]Dr. Martine Blood CO2 [Moles/Vol] 28.7 mmol/L Normal 21.0-32.0 [facility] Comment on above: Performed By: #### B MP ####[facility] [address] [place], [place] [address]Dr. Hyacinthedmundo Blood Creatinine [Mass/Vol] 0.66 mg/dL Critically low 0.70-1.30 [facility] Comment on above: Performed By: #### B MP ####[facility] Mpl[address] [place], [place] [address]Dr. Hyacinthedmundo Jeremi EGFR-AF MOZAMBICAN >60 Normal >=60 [facility] Comment on above: Performed By: #### B MP ####[facility] Rqmis[address] [place], [place] [address]Dr. Hyacinthedmundo Jeremi EGFR-NON AF MOZAMBICAN >60 Normal >=60 [facility] Comment on above: Performed By: #### B MP ####[facility] [address] [place], [place] [address]Dr. Hyacinthedmundo Jeremi Glucose [Mass/Vol] 240 mg/dL Critically high 74-106 [facility] Comment on above: Performed By: #### B MP ####[facility] Hglcsyegqr[address] [place], [place] [address]Dr. Martine Blood Potassium [Moles/Vol] 3.2 mmol/L Critically low 3.5-5.1 [facility] Comment on above: Performed By: #### B MP ####[facility] Gcpzxxaukw[address] [place], [place] [address]Dr. Martine Blood Sodium [Moles/Vol] 134 mmol/L Critically low 136-145 [facility] Comment on above: Performed By: #### B MP ####[facility] [address] [place] [address]Dr. Hyacinthedmundo Blood Urea nitrogen [Mass/Vol] 15.0 mg/dL Normal 7.0-18.0 [facility] Comment on above: Performed By: #### B MP ####[facility] [address] [place] [id number]. Martine Blood Urea nitrogen/Creatinine [Mass ratio] 22.7 mg/mg Normal [facility] Comment on above: Performed By: #### B MP ####[facility] Brt[address] [place], [place] [address]Dr. Martine Blood Anion gap [Moles/Vol] 11.7 mmol/L Normal [facility] Comment on above: Performed By: #### B MP ####[facility] Vxqkas[address] [place], [place] [address]Dr. Martine Blood Calcium [Mass/Vol] 8.9 mg/dL Normal 8.5-10.1 [facility] Comment on above: Performed By: #### B MP ####[facility] Cxepjfxpx[address] [place], [place] [address]Dr. Martine Blood Chloride [Moles/Vol] 97 mmol/L Critically low 98-107 [facility] Comment on above: Performed By: #### B MP ####[facility] E[address]ib[address] [place], [place] [address]Dr. Martine Blood CO2 [Moles/Vol] 29.4 mmol/L Normal 21.0-32.0 [facility] Comment on above: Performed By: #### B MP ####[facility] Fmxe[address]zoio[address] [place], [place] [address]Dr. Martine Blood Creatinine [Mass/Vol] 0.63 mg/dL Critically low 0.70-1.30 [facility] Comment on above: Performed By: #### B MP ####[facility] Nln[address] [place], [place] [address]Dr. Martine Blood EGFR-AF MOZAMBICAN >60 Normal >=60 [facility] Comment on above: Performed By: #### B MP ####[facility] [address] [place] [id number]. Martine Blood EGFR-NON AF MOZAMBICAN >60 Normal >=60 [facility] Comment on above: Performed By: #### B MP ####[facility] [address] [place] [id number]. Martine Blood Glucose [Mass/Vol] 249 mg/dL Critically high 74-106 [facility] Comment on above: Performed By: #### B MP ####[facility] [address] [place] [id number]. Martine Blood Potassium [Moles/Vol] 3.1 mmol/L Critically low 3.5-5.1 [facility] Comment on above: Performed By: #### B MP ####[facility] [address] [place] [address]Dr. Martine Blood Sodium [Moles/Vol] 135 mmol/L Critically low 136-145 [facility] Comment on above: Performed By: #### B MP ####[facility] [address] [place] [id number] Blood Urea nitrogen [Mass/Vol] 15.0 mg/dL Normal 7.0-18.0 [facility] Comment on above: Performed By: #### B MP ####[facility] [address] [place] [address]Dr. Martine Blood Urea nitrogen/Creatinine [Mass ratio] 23.8 mg/mg Normal [facility] Comment on above: Performed By: #### B MP ####[facility] [address] [place] [address]Dr. Martine Blood Anion gap [Moles/Vol] 10.6 mmol/L Normal [facility] Comment on above: Performed By: #### B MP #### [facility] [address] [place] [address] [address] Martine Blood Calcium [Mass/Vol] 9.0 mg/dL Normal 8.5-10.1 [facility] Comment on above: Performed By: #### B MP #### [facility] [address] [place] [address] [address] Martine Blood Chloride [Moles/Vol] 95 mmol/L Critically low 98-107 [facility] Comment on above: Performed By: #### B MP #### [facility] [address] [place] [address] Dr. Martine Blood CO2 [Moles/Vol] 30.4 mmol/L Normal 21.0-32.0 [facility] Comment on above: Performed By: #### B MP #### [facility] [address] [place] [address] Dr. Martine Blood Creatinine [Mass/Vol] 0.70 mg/dL Normal 0.70-1.30 [facility] Comment on above: Performed By: #### B MP #### [facility] [address] [place] [address] Dr. Martine Blood EGFR-AF MOZAMBICAN >60 Normal >=60 [facility] Comment on above: Performed By: #### B MP #### [facility] [address] [place] [address] Dr. Martine Blood EGFR-NON AF MOZAMBICAN >60 Normal >=60 [facility] Comment on above: Performed By: #### B MP #### [facility] [address] [place] [address] Dr. Martine Blood Glucose [Mass/Vol] 236 mg/dL Critically high 74-106 [facility] Comment on above: Performed By: #### B MP #### [facility] [address] [place] [address] Dr. Martine Blood Potassium [Moles/Vol] 2.9 mmol/L Critically low 3.5-5.1 [facility] Comment on above: Performed By: #### B MP #### [facility] [address] [place] [address] Dr. Martine Blood Sodium [Moles/Vol] 134 mmol/L Critically low 136-145 [facility] Comment on above: Performed By: #### B MP #### [facility] [address] [place] [address] Dr. Martine Blood Urea nitrogen [Mass/Vol] 17.0 mg/dL Normal 7.0-18.0 [facility] Comment on above: Performed By: #### B MP #### [facility] [address] [place] [address] [address] Martine Blood Urea nitrogen/Creatinine [Mass ratio] 24.3 mg/mg Normal [facility] Comment on above: Performed By: #### B MP #### [facility] [address] [place] [address] [address] Martine Blood Partial Thromboplastin Timeo n 10-30-2022 aPTT Coag (Bld) [Time] 31.0 s Normal 25.1-36.5 [facility] Comment on above: Result Comment: PERF ORMED BY: [place] [address] PATHOLOGIST DOPER CASSANDRA RAMOS M.D. Performed By: #### C BC, BMP #### [address] Platelet poor plasma interna tional normalized ratio (INR) by coagulation assay (relatOrdered By: Chung Garcia on 10-30-2022 INR Coag (PPP) [Relative time] 1.2 {INR} [facility] Comment on above: INR Therapeutic Rang e A) Pre- and Peroperative OAT started two weeks before surgery. NOT HIP SURGERY: 1.5 - 2.5 HIP SURGERY: 2 - 3B) Primary and secondary prevention of venous THROMBOSIS: 2 - 3C) Active venous thrombosis, pulmonary embolismand prevention of recurrent venous thrombosis: 2 - 3D) Prevention of arterial thromboembolismincluding patients with mechanical heart valves: 3 - 4.5 Prealbuminon 10-30-2022 Prealbumin [Mass/Vol] mg/dL Low 17.0-34.0 [facility] Comment on above: Performed By: #### G LUSTEPHANIE #### Point of Care testing , Prealbumin [Mass/volume] in Serum or PlasmaOrdered By: Chung Garcia on 10-30-2022 Prealbumin [Mass/Vol] mg/dL 17.0-34.0 [facility] Protein [Mass/volume] in Ser um or PlasmaOrdered By: Chung Garcia on 10-30-2022 Protein [Mass/Vol] 8.0 g/dL 6.4-8.9 [facility] Prothrombin Time INRon 10-30 INR Coag (PPP) [Relative time] 1.2 {INR} Normal [facility] Comment on above: Result Comment: INR Therapeutic Range A) Pre- and Peroperative OAT started two weeks before surgery. NOT HIP SURGERY: 1.5 - 2.5 HIP SURGERY: 2 - 3 B) Primary and secondary prevention of venous THROMBOSIS: 2 - 3 C) Active venous thrombosis, pulmonary embolism and prevention of recurrent venous thrombosis: 2 - 3 D) Prevention of arterial thromboembolism including patients with mechanical heart valves: 3 - 4.5 Performed By: #### C ILENE, OSVALDO #### [facility] [address] PT Coag (PPP) [Time] 13.8 s High 9.0-12.9 [facility] Comment on above: Performed By: #### C ILENE, OSVALDO #### [facility] [address] [place] [address] [place] Segmented neutrophils/100 WB C Manual cnt (Bld)Ordered By: Chung Garcia on 10-30-2022 Segmented neutrophils/100 WBC (Bld) 85 % 50-70 [facility] Serum insulin antibody assay (units/volume)Ordered By: Chung Garcia on 10-30-2022 Insulin Ab Qn (S) <5.0 uU/mL . [facility] Comment on above: This test is also kn own as insulin autoantibody or IAA.This test was developed and its performance characteristicsdetermined by [employer]. It has not been cleared or approvedby the Food and Drug Administration.Reference Range:<5.0 Negative> or = 5.0 PositivePerformed at: [facility] [address] [id number] Director: Eugene Hernandez MD, Phone: [phone] Serum or plasma albumin/glob ulin mass ratioOrdered By: Chung Garcia on 10-30-2022 Albumin/Globulin [Mass ratio] 0.5 {ratio} [facility] Serum or plasma non-glucuron idated bilirubin measurement (mass/volume)Ordered By: Chung Garcia on 10-30-2022 Bilirubin.indirect [Mass/Vol] 0.5 mg/dL [facility] Vit. B12/Folate Profileon Cobalamin (Vitamin B12) [Mass/Vol] 2309 pg/mL High 180-914 [facility] Comment on above: Performed By: #### G LULS #### Point of Care testing , Folate 5.6 ng/mL Low >5.9 [facility] Comment on above: Result Comment: Tiffanie te reference range: >5.9 ng/ml The WHO technical consultation on folate and vitamin b12 deficiencies has determined that folate concentrations less than 4 ng/ml are considered deficient. Performed By: #### G LULS #### Point of Care testing , Vitamin B1 (Thiamine) Bloodo n 10-30-2022 Vitamin B1 (Thiamine) Blood 123.1 Normal 66.5-200.0 [facility] Comment on above: Result Comment: This test was developed and its performance characteristics determined by [employer]. It has not been cleared or approved by the Food and Drug Administration. Performed at: [address] [id number] [employer] Head: Chirag Gutierres MD, Phone: [phone] PERFORMED BY: [facility] [address] [place] [address] PATHOLOGIST DOPER CASSANDRA RAMOS M.D. Performed By: #### G LULS #### Point of Care testing , Vitamin B12 ser/plasOrdered By: Chung Garcia on 10-30-2022 Cobalamin (Vitamin B12) [Mass/Vol] 2309 pg/mL 180-914 [facility] Vitamin D 25 Hydroxy Totalon 10-30-2022 Vitamin D 25 Hydroxy Total 24.0 ng/mL Low 30-100 [facility] Comment on above: Result Comment: GABINO MIN D STATUS 25([place])VITAMIN D RANGE (ng/mL) Deficient <20 Insufficient 20 to <30 Sufficient 30 to 100 Reference: Mikayla Gina MAGUIRE, Acacia HOFF, et al. Evaluation,treatment, and prevention of vitamin D deficiency; an Endocrine Society clinical practice guideline. JCEM. 2010; 96(7):191-. PERFORMED BY: [address] [place] [address] PATHOLOGIST DOPER CASSANDRA RAMOS M.D. Performed By: #### G LULS #### Point of Care testing , Vitamin D+Metabolites [Mass/ volume] in Serum or PlasmaOrdered By: Chung Garcia on 10-30-2022 Vitamin D+Metabolites [Mass/Vol] 24.0 ng/mL 30-100 [facility] Comment on above: VITAMIN D STATUS 25( [place])VITAMIN D RANGE (ng/mL) Deficient <20 Insufficient 20 to <30Sufficient 30 to 100Reference: Gina Yousif, Acacia HOFF, et al. Evaluation,treatment, and prevention of vitamin D deficiency; an Endocrine Society clinical practice guideline. JCEM. 2010; 96(7):1911-30. XR CHEST 1 Von 10-30-2022 XR CHEST 1 V EXAMINATION: XR CHES T 1 V HISTORY: SHORTNESS OF BREATH COMPARISON: XR chest 10/28/2022 FINDINGS: LUNGS: Near-complete opacification of left hemithorax with small amount of partially aerated left upper lung. Right lung is well-expanded and grossly clear. VASCULATURE: No increased pulmonary vasculature. PLEURA: Large left pleural effusion extending to apex. CARDIAC: No cardiomegaly or cardiac silhouette abnormality. MEDIASTINUM: No visible mass or adenopathy. BONES: No fracture or visible bone lesion. OTHER: Negative. IMPRESSION: 1. Large left pleural effusion with near complete collapse of left lung; worse than seen on prior study. Findings discussed with Dr. Plummer via telephone earlier this morning. Electronically authenticated by: MEREDITH OLVERA Date: 2022-10-30 10:41 Normal [facility] XR chest 1V portableon 10-30 XR chest 1V portable [facility] Main [place] [address] [place] [id number] XRay Report Signed Patient: Aba Ruiz MR#: [id number] : 1975 Acct:[id number] Age/Sex: 47 / M ADM Date: 10/30/22 Loc: Room: [address] [place] [address] Type: ADM IN Attending Dr: Chung Garcia DO Copies to: Chung Garcia DO Ordering Provider: Chung Garcia DO Date of Service: 10/30/22 XR/XR chest 1V portable: dyspnea PORTABLE AP ERECT CHEST 2026 hours CLINICAL HISTORY: Shortness of breath and cough COMPARISON: Outside CT 10/30/2022 A chest tube is present on the left. Interstitial changes are visualized on both sides. There is groundglass density at the left mid and lower lung that could be residual pleural effusion and/or airspace opacities. This has improved following chest tube placement. No consolidation is noted on the right. No obvious pneumothorax is identified. The heart is mildly prominent. Endplate spurring is seen at the spine. XR/XR chest 1V portable IMPRESSION: MILD CARDIOMEGALY. INTERSTITIAL CHANGES. RESIDUAL PLEURAL-PARENCHYMAL OPACITY ON THE LEFT THOUGH INTERVAL IMPROVEMENT OF THE EFFUSION COMPONENT FOLLOWING CHEST TUBE PLACEMENT. Impression dictated by: Kaela Choudhary M.D.10/30/2022 8:40 PM Dictation Location: [place] [address] Transcribed By: [facility] 10/30/222039 Dictated By: Kaela Choudhary MD 10/30/222034 Signed By: 10/30/222039 [facility] CBC AUTO DIFFon 10-29-2022 BASO # 0.0 103/ul Normal 0.0-0.1 [facility] Comment on above: Performed By: #### C BC ####[facility] [address] [place], [place] [address]UeIsi Blood Basophils/100 WBC (Bld) 0.0 % Critically low 0.2-2.0 [facility] Comment on above: Performed By: #### C BC ####[facility] [address] [place], [place] [address]BfIsi Blood EO # 0.1 103/ul Normal 0.0-0.7 [facility] Comment on above: Performed By: #### C BC ####[facility] [address] [place] [address]Dr. Martine Blood Eosinophils/100 WBC (Bld) 0.2 % Critically low 0.9-7.0 [facility] Comment on above: Performed By: #### C BC ####[facility] J[address]ys[address] [place], [place] [address]Dr. Martine Blood Erythrocyte distribution width (RBC) [Ratio] 13.1 % Normal 11.0-15.0 [facility] Comment on above: Performed By: #### C BC ####[facility] [address] [place], [place] [address]Dr. Martine Blood Hematocrit (Bld) [Volume fraction] 36.1 % Critically low 42.0-54.0 [facility] Comment on above: Performed By: #### C BC ####[facility] [address]aw[address] [place], [place] [address]Dr. Martine Blood Hemoglobin (Bld) [Mass/Vol] 12.2 g/dL Critically low 14.0-18.0 [facility] Comment on above: Performed By: #### C BC ####[facility] [address] [place], [place] [address]DrIsi Martine Blood IG # 0.42 10e3/ul Critically high 0.00-0.03 [facility] Comment on above: Performed By: #### C BC ####[facility] [address] [place], [place] [address]Dr. Martine Blood IG % 1.5 % Critically high 0.0-0.5 [facility] Comment on above: Performed By: #### C BC ####[facility] [address] [place], [place] [address]DrIsi Blood LYMPH # 1.8 103/ul Normal 1.2-3.8 [facility] Comment on above: Performed By: #### C BC ####[facility] [address] [place], [place] [address]Dr. Martine Jeremi Lymphocytes/100 WBC (Bld) 6.5 % Critically low 20.5-60.0 [facility] Comment on above: Performed By: #### C BC ####[facility] [address] [place] [address]DrIsi Blood MANUAL DIFF REQ NO Normal [facility] Comment on above: Performed By: #### C BC ####[facility] [address] [place] [address]Dr. Martine Blood MCH (RBC) [Entitic mass] 27.9 pg Normal 25.9-34.0 [facility] Comment on above: Performed By: #### C BC ####[facility] [address] [place] [address]Dr. Martine Blood MCHC (RBC) [Mass/Vol] 33.8 g/dL Normal 29.9-35.2 [facility] Comment on above: Performed By: #### C BC ####[facility] [address] [place], [place] [address]DrIsi Blood MCV (RBC) [Entitic vol] 82.4 fL Normal 80.0-94.0 [facility] Comment on above: Performed By: #### C BC ####[facility] [address] [place], [place] [address]DrIsi Blood MONO # 1.9 103/ul Critically high 0.3-0.8 [facility] Comment on above: Performed By: #### C BC ####[facility] Ix[address] [place], [place] [address]DrIsi Blood Monocytes/100 WBC (Bld) 6.7 % Normal 1.7-12.0 [facility] Comment on above: Performed By: #### C BC ####[facility] [address] [place], [place] [address]DrIsi Blood NEUT # 24.3 103/ul Critically high 1.4-6.5 [facility] Comment on above: Performed By: #### C BC ####[facility] [address] [place], [place] [address]DrIsi Blood Neutrophils/100 WBC (Bld) 85.1 % Critically high 43.0-75.0 [facility] Comment on above: Performed By: #### C BC ####[facility] [address] [place] [address]DrIsi Blood Platelet mean volume (Bld) [Entitic vol] 9.2 fL Critically low 9.5-13.5 [facility] Comment on above: Performed By: #### C BC ####[facility] [address] [place] [address]DrIsi Blood PLT 354 103/ul Normal 150-450 [facility] Comment on above: Performed By: #### C BC ####[facility] [address] [place] [address]DrIsi Blood RBC 4.38 106/ul Critically low 4.70-6.10 [facility] Comment on above: Performed By: #### C BC ####[facility] [address] [place] [address]Dr. Martine Blood WBC 28.5 103/ul Critically high 4.0-11.0 [facility] Comment on above: Performed By: #### C BC ####[facility] [address] [place], [place] [address]Dr. Martine Blood BASO # 0.0 103/ul Normal 0.0-0.1 [facility] Comment on above: Performed By: #### B MP #### [facility] [address] [place] [address] [address] Martine Blood Basophils/100 WBC (Bld) 0.1 % Critically low 0.2-2.0 [facility] Comment on above: Performed By: #### B MP #### [facility] [address] [place] [address] [address] Martine Blood EO # 0.0 103/ul Normal 0.0-0.7 [facility] Comment on above: Performed By: #### B MP #### [facility] [address] [place] [address] Dr. Martine Blood Eosinophils/100 WBC (Bld) 0.1 % Critically low 0.9-7.0 [facility] Comment on above: Performed By: #### B MP #### [facility] [address] [place] [address] Dr. Martine Blood Erythrocyte distribution width (RBC) [Ratio] 12.9 % Normal 11.0-15.0 [facility] Comment on above: Performed By: #### B MP #### [facility] [address] [place] [address] Dr. Martine Blood Hematocrit (Bld) [Volume fraction] 35.8 % Critically low 42.0-54.0 [facility] Comment on above: Performed By: #### B MP #### [facility] [address] [place] [address] Dr. Martine Blood Hemoglobin (Bld) [Mass/Vol] 12.3 g/dL Critically low 14.0-18.0 [facility] Comment on above: Performed By: #### B MP #### [facility] [address] [place] [address] Dr. Martine Blood IG # 0.26 10e3/ul Critically high 0.00-0.03 [facility] Comment on above: Performed By: #### B MP #### [facility] [address] [place] [address] Dr. Martine Blood IG % 0.9 % Critically high 0.0-0.5 [facility] Comment on above: Performed By: #### B MP #### [facility] [address] [place] [address] Dr. Martine Blood LYMPH # 1.9 103/ul Normal 1.2-3.8 [facility] Comment on above: Performed By: #### B MP #### [facility] [address] [place] [address] Dr. Martine Blood Lymphocytes/100 WBC (Bld) 7.1 % Critically low 20.5-60.0 [facility] Comment on above: Performed By: #### B MP #### [facility] [address] [place] [address] Dr. Martine Blood MANUAL DIFF REQ NO Normal [facility] Comment on above: Performed By: #### B MP #### [facility] [address] [address] [address] Martine Blood MCH (RBC) [Entitic mass] 28.1 pg Normal 25.9-34.0 [facility] Comment on above: Performed By: #### B MP #### [facility] [address] [address] [address] Martine Blood MCHC (RBC) [Mass/Vol] 34.4 g/dL Normal 29.9-35.2 [facility] Comment on above: Performed By: #### B MP #### [facility] [address] [address] [address] Martine Blood MCV (RBC) [Entitic vol] 81.9 fL Normal 80.0-94.0 [facility] Comment on above: Performed By: #### B MP #### [facility] [address] [place] [address] Dr. Martine Blood MONO # 1.7 103/ul Critically high 0.3-0.8 [facility] Comment on above: Performed By: #### B MP #### [facility] [address] [address] [address] Martine Blood Monocytes/100 WBC (Bld) 6.2 % Normal 1.7-12.0 [facility] Comment on above: Performed By: #### B MP #### [facility] [address] [place] [address] Dr. Martine Blood NEUT # 23.5 103/ul Critically high 1.4-6.5 [facility] Comment on above: Performed By: #### B MP #### [facility] [address] [place] [address] Dr. Martine Blood Neutrophils/100 WBC (Bld) 85.6 % Critically high 43.0-75.0 [facility] Comment on above: Performed By: #### B MP #### [facility] [address] [place] [address] Dr. Martine Blood Platelet mean volume (Bld) [Entitic vol] 9.6 fL Normal 9.5-13.5 [facility] Comment on above: Performed By: #### B MP #### [facility] [address] [address] [address] Martine Blood PLT 355 103/ul Normal 150-450 [facility] Comment on above: Performed By: #### B MP #### [facility] [address] [address] [address] Martine Blood RBC 4.37 106/ul Critically low 4.70-6.10 [facility] Comment on above: Performed By: #### B MP #### [facility] [address] [address] [address] Martine Blood WBC 27.5 103/ul Critically high 4.0-11.0 [facility] Comment on above: Performed By: #### B MP #### [facility] [address] [place] [address] Dr. Martine Blood BASO # 0.0 103/ul Normal 0.0-0.1 [facility] Comment on above: Performed By: #### C BC #### [facility] [address] [place] [address] Dr. Martine Blood Basophils/100 WBC (Bld) 0.1 % Critically low 0.2-2.0 [facility] Comment on above: Performed By: #### C BC #### [facility] [address] [place] [address] Dr. Martine Blood EO # 0.0 103/ul Normal 0.0-0.7 [facility] Comment on above: Performed By: #### C BC #### [facility] [address] [place] [address] Dr. Martine Blood Eosinophils/100 WBC (Bld) 0.1 % Critically low 0.9-7.0 [facility] Comment on above: Performed By: #### C BC #### [facility] [address] [place] [address] Dr. Martine Blood Erythrocyte distribution width (RBC) [Ratio] 13.0 % Normal 11.0-15.0 [facility] Comment on above: Performed By: #### C BC #### [facility] [address] [place] [address] Dr. Martine Blood Hematocrit (Bld) [Volume fraction] 37.3 % Critically low 42.0-54.0 [facility] Comment on above: Performed By: #### C BC #### [facility] [address] [place] [address] Dr. Martine Blood Hemoglobin (Bld) [Mass/Vol] 12.7 g/dL Critically low 14.0-18.0 [facility] Comment on above: Performed By: #### C BC #### [facility] [address] [place] [address] Dr. Martine Blood IG # 0.25 10e3/ul Critically high 0.00-0.03 [facility] Comment on above: Performed By: #### C BC #### [facility] [address] [place] [address] Dr. Martine Blood IG % 0.9 % Critically high 0.0-0.5 [facility] Comment on above: Performed By: #### C BC #### [facility] [address] [place] [address] Dr. Martine Blood LYMPH # 1.6 103/ul Normal 1.2-3.8 [facility] Comment on above: Performed By: #### C BC #### [facility] [address] [place] [address] Dr. Martine Blood Lymphocytes/100 WBC (Bld) 6.0 % Critically low 20.5-60.0 [facility] Comment on above: Performed By: #### C BC #### [facility] [address] [place] [address] Dr. Martine Blood MANUAL DIFF REQ NO Normal [facility] Comment on above: Performed By: #### C BC #### [facility] [address] [place] [address] Dr. Martine Blood MCH (RBC) [Entitic mass] 27.9 pg Normal 25.9-34.0 [facility] Comment on above: Performed By: #### C BC #### [facility] [address] [place] [address] Dr. Martine Blood MCHC (RBC) [Mass/Vol] 34.0 g/dL Normal 29.9-35.2 [facility] Comment on above: Performed By: #### C BC #### [facility] [address] [address] [address] Martine Blood MCV (RBC) [Entitic vol] 82.0 fL Normal 80.0-94.0 [facility] Comment on above: Performed By: #### C BC #### [facility] [address] [address] [address] Martine Blood MONO # 2.1 103/ul Critically high 0.3-0.8 [facility] Comment on above: Performed By: #### C BC #### [facility] [address] [address] [address] Martine Blood Monocytes/100 WBC (Bld) 7.8 % Normal 1.7-12.0 [facility] Comment on above: Performed By: #### C BC #### [facility] [address] [place] [address] Dr. Martine Blood NEUT # 23.0 103/ul Critically high 1.4-6.5 [facility] Comment on above: Performed By: #### C BC #### [facility] [address] [place] [address] Dr. Martine Blood Neutrophils/100 WBC (Bld) 85.1 % Critically high 43.0-75.0 [facility] Comment on above: Performed By: #### C BC #### [facility] [address] [address] [address] Martine Blood Platelet mean volume (Bld) [Entitic vol] 9.3 fL Critically low 9.5-13.5 [facility] Comment on above: Performed By: #### C BC #### [facility] [address] [place] [address] Dr. Martine Blood PLT 342 103/ul Normal 150-450 [facility] Comment on above: Performed By: #### C BC #### [facility] [address] [address] [address] Martine Blood RBC 4.55 106/ul Critically low 4.70-6.10 [facility] Comment on above: Performed By: #### C BC #### [facility] [address] [place] [address] Dr. Martine Blood WBC 27.0 103/ul Critically high 4.0-11.0 [facility] Comment on above: Performed By: #### C BC #### [facility] [address] [place] [address] Dr. Martine Blood CBC W MANUAL DIFFon 10-30-19 23 ATYPICAL LYMPH # Normal [facility] Comment on above: Performed By: #### B MP #### [facility] [address] [place] [address] Dr. Martine Blood ATYPICAL LYMPH % Normal [facility] Comment on above: Performed By: #### B MP #### [facility] [address] [place] [address] Dr. Martine Blood BAND # 0.0 103/ul Normal 0.0-0.3 [facility] Comment on above: Performed By: #### B MP #### [facility] [address] [place] [address] Dr. Martine Blood BAND % 0 % Normal 0-5 [facility] Comment on above: Performed By: #### B MP #### [facility] [address] [place] [address] Dr. Martine Blood BASOM # 0.00 103/ul Normal 0.00-0.10 [facility] Comment on above: Performed By: #### B MP #### [facility] [address] [place] [address] Dr. Martine Blood BASOM % 0.0 % Critically low 0.2-2.0 [facility] Comment on above: Performed By: #### B MP #### [facility] [address] [place] [address] Dr. Martine Blood BLAST # Normal [facility] Comment on above: Performed By: #### B MP #### [facility] [address] [place] [address] Dr. Martine Blood BLAST % Normal [facility] Comment on above: Performed By: #### B MP #### [facility] [address] [place] [address] Dr. Martine Blood CORRECTED WBC Normal 4.0-11.0 [facility] Comment on above: Performed By: #### B MP #### [facility] [address] [address] [address] Martine Blood EOS # 0.00 103/ul Normal 0.00-0.70 [facility] Comment on above: Performed By: #### B MP #### [facility] [address] [place] [address] Dr. Martine Blood EOS% 0.0 % Critically low 0.9-7.0 [facility] Comment on above: Performed By: #### B MP #### [facility] [address] [place] [address] Dr. Martine Blood HCT 37.2 % Critically low 42.0-54.0 [facility] Comment on above: Performed By: #### B MP #### [facility] [address] [place] [address] Dr. Martine Blood HGB 12.5 g/dl Critically low 14.0-18.0 [facility] Comment on above: Performed By: #### B MP #### [facility] [address] [place] [address] Dr. Martine Blood LYMPHM # 2.64 103/ul Normal 1.20-3.80 [facility] Comment on above: Performed By: #### B MP #### [facility] [address] [place] [address] Dr. Martine Blood LYMPHM% 9.0 % Critically low 20.5-60.0 [facility] Comment on above: Performed By: #### B MP #### [facility] [address] [place] [address] Dr. Martine Blood MCH 27.6 pg Normal 25.9-34.0 [facility] Comment on above: Performed By: #### B MP #### [facility] [address] [place] [address] Dr. Martine Blood MCHC 33.6 g/dl Normal 29.9-35.2 [facility] Comment on above: Performed By: #### B MP #### [facility] [address] [place] [address] Dr. Martine Blood MCV 82.1 fL Normal 80.0-94.0 [facility] Comment on above: Performed By: #### B MP #### [facility] [address] [place] [address] Dr. Martine Blood METAMYELOCYTE # Normal [facility] Comment on above: Performed By: #### B MP #### [facility] [address] [place] [address] Dr. Martine Blood METAMYELOCYTE % Normal [facility] Comment on above: Performed By: #### B MP #### [facility] [address] [place] [address] Dr. Martine Blood MONOM# 2.34 103/ul Critically high 0.30-0.80 [facility] Comment on above: Performed By: #### B MP #### [facility] [address] [place] [address] Dr. Martine Blood MONOM% 8.0 % Normal 1.7-12.0 [facility] Comment on above: Performed By: #### B MP #### [facility] [address] [place] [address] Dr. Martine Blood MPV 9.7 fL Normal 9.5-13.5 [facility] Comment on above: Performed By: #### B MP #### [facility] [address] [place] [address] Dr. Martine Blood MYELOCYTE # Normal [facility] Comment on above: Performed By: #### B MP #### [facility] [address] [place] [address] Dr. Martine Blood MYELOCYTE % Normal [facility] Comment on above: Performed By: #### B MP #### [facility] [address] [place] [address] Dr. Martine Blood NRBC Normal [facility] Comment on above: Performed By: #### B MP #### [facility] [address] [address] [address] Martine Blood PLT 351 103/ul Normal 150-450 [facility] Comment on above: Performed By: #### B MP #### [facility] [address] [id number] Martine Blood RBC 4.53 106/ul Critically low 4.70-6.10 [facility] Comment on above: Performed By: #### B MP #### [facility] [address] [address] [address] Martine Blood RDW 12.9 % Normal 11.0-15.0 [facility] Comment on above: Performed By: #### B MP #### [facility] [address] [address] [address] Martine Blood SEG # 24.32 103/ul Critically high 1.40-6.50 [facility] Comment on above: Performed By: #### B MP #### [facility] [address] [address] [address] Martine Blood SEG % 83.0 % Critically high 43.0-75.0 [facility] Comment on above: Performed By: #### B MP #### [facility] [address] [address] [address] Martine Blood WBC 29.3 103/ul Critically high 4.0-11.0 [facility] Comment on above: Performed By: #### B MP #### [facility] [address] [address] [address] Martine Blood MAGNESIUMon 10-29-2022 Magnesium [Mass/Vol] 2.2 mg/dL Normal 1.8-2.4 [facility] Comment on above: Performed By: #### M G ####[facility] [address] [address]Dr. Martine Blood PROF CHEM 8 (BAS METB)on Anion gap [Moles/Vol] 10.0 mmol/L Normal [facility] Comment on above: Performed By: #### B MP #### [facility] [address] [address] [address] Martine Blood Calcium [Mass/Vol] 8.8 mg/dL Normal 8.5-10.1 [facility] Comment on above: Performed By: #### B MP #### [facility] [address] [address] [address] Martine Blood Chloride [Moles/Vol] 96 mmol/L Critically low 98-107 [facility] Comment on above: Performed By: #### B MP #### [facility] [address] [address] [address] Martine Blood CO2 [Moles/Vol] 30.9 mmol/L Normal 21.0-32.0 [facility] Comment on above: Performed By: #### B MP #### [facility] [address] [place] [address] Dr. Martine Blood Creatinine [Mass/Vol] 0.63 mg/dL Critically low 0.70-1.30 [facility] Comment on above: Performed By: #### B MP #### [facility] [address] [place] [address] Dr. Martine Blood EGFR-AF MOZAMBICAN >60 Normal >=60 [facility] Comment on above: Performed By: #### B MP #### [facility] [address] [place] [address] Dr. Martine Blood EGFR-NON AF MOZAMBICAN >60 Normal >=60 [facility] Comment on above: Performed By: #### B MP #### [facility] [address] [place] [address] Dr. Martine Blood Glucose [Mass/Vol] 231 mg/dL Critically high 74-106 [facility] Comment on above: Performed By: #### B MP #### [facility] [address] [address] [address] Martine Blood Potassium [Moles/Vol] 2.9 mmol/L Critically low 3.5-5.1 [facility] Comment on above: Performed By: #### B MP #### [facility] [address] [address] [address] Martine Blood Sodium [Moles/Vol] 134 mmol/L Critically low 136-145 [facility] Comment on above: Performed By: #### B MP #### [facility] [address] [address] [address] Martine Blood Urea nitrogen [Mass/Vol] 17.0 mg/dL Normal 7.0-18.0 [facility] Comment on above: Performed By: #### B MP #### [facility] [address] [address] [address] Martine Blood Urea nitrogen/Creatinine [Mass ratio] 27.0 mg/mg Normal [facility] Comment on above: Performed By: #### B MP #### [facility] [address] [address] [address] Martine Blood Anion gap [Moles/Vol] 12.1 mmol/L Normal [facility] Comment on above: Performed By: #### B MP ####[facility] [address] [address]DrIsi Blood Calcium [Mass/Vol] 8.9 mg/dL Normal 8.5-10.1 [facility] Comment on above: Performed By: #### B MP ####[facility] [address] [address]DrIsi Blood Chloride [Moles/Vol] 96 mmol/L Critically low 98-107 [facility] Comment on above: Performed By: #### B MP ####[facility] [address] [address]Dr. Martine Blood CO2 [Moles/Vol] 29.5 mmol/L Normal 21.0-32.0 [facility] Comment on above: Performed By: #### B MP ####[facility] [address] [address]DrIsi Blood Creatinine [Mass/Vol] 0.68 mg/dL Critically low 0.70-1.30 [facility] Comment on above: Performed By: #### B MP ####[facility] [address] [address]Dr. Martine Jeremi EGFR-AF MOZAMBICAN >60 Normal >=60 [facility] Comment on above: Performed By: #### B MP ####[facility] [address] [address]Dr. Martine Jeremi EGFR-NON AF MOZAMBICAN >60 Normal >=60 [facility] Comment on above: Performed By: #### B MP ####[facility] [address] [address]Dr. Hyacinthedmundo Jeremi Glucose [Mass/Vol] 288 mg/dL Critically high 74-106 [facility] Comment on above: Performed By: #### B MP ####[facility] [address] [place], [place] [address]Dr. Martine Blood Potassium [Moles/Vol] 2.6 mmol/L Critically low 3.5-5.1 [facility] Comment on above: Performed By: #### B MP ####[facility] [address] [place], [place] [address]Dr. Martine Blood Sodium [Moles/Vol] 134 mmol/L Critically low 136-145 [facility] Comment on above: Performed By: #### B MP ####[facility] [address] [place], [place] [address]Dr. Martine Jeremi Urea nitrogen [Mass/Vol] 15.0 mg/dL Normal 7.0-18.0 [facility] Comment on above: Performed By: #### B MP ####[facility] [address] [place], [place] [address]Dr. Martine Blood Urea nitrogen/Creatinine [Mass ratio] 22.1 mg/mg Normal [facility] Comment on above: Performed By: #### B MP ####[facility] [address] [place], [place] [address]Dr. Martine Blood Anion gap [Moles/Vol] 10.7 mmol/L Normal [facility] Comment on above: Performed By: #### B MP ####[facility] [address] [place], [place] [address]Dr. Martine Blood Calcium [Mass/Vol] 9.4 mg/dL Normal 8.5-10.1 [facility] Comment on above: Performed By: #### B MP ####[facility] [address] [address]Dr. Hyacinthedmundo Jeremi Chloride [Moles/Vol] 96 mmol/L Critically low 98-107 [facility] Comment on above: Performed By: #### B MP ####[facility] [address] [place], [place] [address]Dr. Hyacinthedmundo Jeremi CO2 [Moles/Vol] 32.0 mmol/L Normal 21.0-32.0 [facility] Comment on above: Performed By: #### B MP ####[facility] [address] [place], [place] [address]Dr. Hyacinthedmundo Jeremi Creatinine [Mass/Vol] 0.76 mg/dL Normal 0.70-1.30 [facility] Comment on above: Performed By: #### B MP ####[facility] [address] [place], [place] [address]Dr. Hyacinthedmundo Jeremi EGFR-AF MOZAMBICAN >60 Normal >=60 [facility] Comment on above: Performed By: #### B MP ####[facility] [address] [place], [place] [address]Dr. Hyacinthedmundo Jeremi EGFR-NON AF MOZAMBICAN >60 Normal >=60 [facility] Comment on above: Performed By: #### B MP ####[facility] [address] [place], [place] [address]Dr. Martine Blood Glucose [Mass/Vol] 308 mg/dL Critically high 74-106 [facility] Comment on above: Performed By: #### B MP ####[facility] [address] [place], [place] [address]Dr. Martine Blood Potassium [Moles/Vol] 2.7 mmol/L Critically low 3.5-5.1 [facility] Comment on above: Performed By: #### B MP ####[facility] [address] [place], [place] [address]Dr. Martine Blood Sodium [Moles/Vol] 136 mmol/L Normal 136-145 [facility] Comment on above: Performed By: #### B MP ####[facility] [address] [address]Dr. Hyacinthedmundo Blood Urea nitrogen [Mass/Vol] 17.0 mg/dL Normal 7.0-18.0 [facility] Comment on above: Performed By: #### B MP ####[facility] [address] [address]Dr. Hyacinthedmundo Jeremi Urea nitrogen/Creatinine [Mass ratio] 22.4 mg/mg Normal [facility] Comment on above: Performed By: #### B MP ####[facility] [address] [address]Dr. Martine Blood Anion gap [Moles/Vol] 10.0 mmol/L Normal [facility] Comment on above: Performed By: #### B MP ####[facility] [address] [place], [place] [address]Dr. Martine Blood Calcium [Mass/Vol] 9.1 mg/dL Normal 8.5-10.1 [facility] Comment on above: Performed By: #### B MP ####[facility] [address] [place], [place] [address]Dr. Martine Blood Chloride [Moles/Vol] 96 mmol/L Critically low 98-107 [facility] Comment on above: Performed By: #### B MP ####[facility] [address] [place], [place] [address]Dr. Martine Blood CO2 [Moles/Vol] 31.5 mmol/L Normal 21.0-32.0 [facility] Comment on above: Performed By: #### B MP ####[facility] [address] [place], [place] [address]Dr. Martine Blood Creatinine [Mass/Vol] 0.81 mg/dL Normal 0.70-1.30 [facility] Comment on above: Performed By: #### B MP ####[facility] [address] [address]Dr. Martine Blood EGFR-AF MOZAMBICAN >60 Normal >=60 [facility] Comment on above: Performed By: #### B MP ####[facility] [address] [place], [place] [address]Os. Martine Jeremi EGFR-NON AF MOZAMBICAN >60 Normal >=60 [facility] Comment on above: Performed By: #### B MP ####[facility] [address] [place], [place] [address]Wi. Hyacinthedmundo Jeremi Glucose [Mass/Vol] 333 mg/dL Critically high 74-106 [facility] Comment on above: Performed By: #### B MP ####[facility] [address] [id number]. Martine Blood Potassium [Moles/Vol] 2.5 mmol/L Critically low 3.5-5.1 [facility] Comment on above: Performed By: #### B MP ####[facility] [address] [id number]. Martine Blood Sodium [Moles/Vol] 135 mmol/L Critically low 136-145 [facility] Comment on above: Performed By: #### B MP ####[facility] [address] [id number]. Martine Blood Urea nitrogen [Mass/Vol] 15.0 mg/dL Normal 7.0-18.0 [facility] Comment on above: Performed By: #### B MP ####[facility] [address] [id number]. Martine Blood Urea nitrogen/Creatinine [Mass ratio] 18.5 mg/mg Normal [facility] Comment on above: Performed By: #### B MP ####[facility] [address] [id number]. Martine Blood VANCOMYCIN TROUGHon 10-30-19 VANCOMYCIN TROUGH 4.8 ug/ml Critically low 5.0-20.0 [facility] Comment on above: Performed By: #### V ANCT ####[facility] [address] [id number]. Martine Blood ACETONE SERUMon 10-28-2022 ACETONE SMALL Abnormal NEGATIVE [facility] Comment on above: Performed By: #### B MP #### [facility] [address] [place], [place] [address] Dr. Martine Blood CBC AUTO DIFFon 10-28-2022 BASO # 0.0 103/ul Normal 0.0-0.1 [facility] Comment on above: Performed By: #### C BC ####[facility] [address] [id number] Blood Basophils/100 WBC (Bld) 0.1 % Critically low 0.2-2.0 [facility] Comment on above: Performed By: #### C BC ####[facility] [address] [address]DrIsi Blood EO # 0.0 103/ul Normal 0.0-0.7 [facility] Comment on above: Performed By: #### C BC ####[facility] [address] [address]DrIsi Blood Eosinophils/100 WBC (Bld) 0.0 % Critically low 0.9-7.0 [facility] Comment on above: Performed By: #### C BC ####[facility] [address] [address]DrIsi Blood Erythrocyte distribution width (RBC) [Ratio] 12.5 % Normal 11.0-15.0 [facility] Comment on above: Performed By: #### C BC ####[facility] [address] [address]DrIsi Blood Hematocrit (Bld) [Volume fraction] 37.8 % Critically low 42.0-54.0 [facility] Comment on above: Performed By: #### C BC ####[facility] I[address]zpxq[address] [place], [place] [address]DrIsi Blood Hemoglobin (Bld) [Mass/Vol] 13.1 g/dL Critically low 14.0-18.0 [facility] Comment on above: Performed By: #### C BC ####[facility] Udyhgvhzft[address] [place], [place] [address]DrIsi Blood IG # 1.78 10e3/ul Critically high 0.00-0.03 [facility] Comment on above: Performed By: #### C BC ####[facility] [address] [place] [address]Dr. Hyacinthedmundo Blood IG % 5.5 % Critically high 0.0-0.5 [facility] Comment on above: Performed By: #### C BC ####[facility] [address] [place] [address]Dr. Hyacinthedmundo Blood LYMPH # 1.7 103/ul Normal 1.2-3.8 [facility] Comment on above: Performed By: #### C BC ####[facility] [address]prqjqeh[address] [place] [address]Dr. Hyacinthedmundo Blood Lymphocytes/100 WBC (Bld) 5.2 % Critically low 20.5-60.0 [facility] Comment on above: Performed By: #### C BC ####[facility] Tup[address]eg[address] [place], [place] [address]Dr. Martine Blood MANUAL DIFF REQ NO Normal [facility] Comment on above: Performed By: #### C BC ####[facility] [address] [place] [address]Dr. Martine Jeremi MCH (RBC) [Entitic mass] 27.9 pg Normal 25.9-34.0 [facility] Comment on above: Performed By: #### C BC ####[facility] [address]vlxxmlv[address] [place] [address]Dr. Hyacinthedmundo Blood MCHC (RBC) [Mass/Vol] 34.7 g/dL Normal 29.9-35.2 [facility] Comment on above: Performed By: #### C BC ####[facility] [address]wrf[address] [place] [address]Dr. Hyacinthedmundo Blood MCV (RBC) [Entitic vol] 80.4 fL Normal 80.0-94.0 [facility] Comment on above: Performed By: #### C BC ####[facility] N[address]qql[address] [place], [place] [address]Dr. Martine Blood MONO # 2.6 103/ul Critically high 0.3-0.8 [facility] Comment on above: Performed By: #### C BC ####[facility] [address] [place] [id number]. Martine Blood Monocytes/100 WBC (Bld) 8.0 % Normal 1.7-12.0 [facility] Comment on above: Performed By: #### C BC ####[facility] [address]hou[address]re[address] [place] [id number]. Martine Blood NEUT # 26.4 103/ul Critically high 1.4-6.5 [facility] Comment on above: Performed By: #### C BC ####[facility] [address]pi[address] [place] [id number]. Martine Blood Neutrophils/100 WBC (Bld) 81.2 % Critically high 43.0-75.0 [facility] Comment on above: Performed By: #### C BC ####[facility] [address]csda[address] [place] [address]Dr. Martine Blood Platelet mean volume (Bld) [Entitic vol] 9.5 fL Normal 9.5-13.5 [facility] Comment on above: Performed By: #### C BC ####[facility] Vy[address]ss[address] [place], [place] [address]Dr. Martine Blood PLT 338 103/ul Normal 150-450 [facility] Comment on above: Performed By: #### C BC ####[facility] [address]coxg[address] [place] [address]Dr. Martine Blood RBC 4.70 106/ul Normal 4.70-6.10 [facility] Comment on above: Performed By: #### C BC ####[facility] [address]icksy[address] [place] [id number]. Martine Blood WBC 32.5 103/ul Critically high 4.0-11.0 [facility] Comment on above: Performed By: #### C BC ####[facility] [address]fwjlbx[address] [place] [id number]. Martine Blood CBC W MANUAL DIFFon 10-29-19 23 ATYPICAL LYMPH # Normal [facility] Comment on above: Performed By: #### C BCMAN #### [facility] [address] [place] [address] Dr. Martine Blood ATYPICAL LYMPH % Normal [facility] Comment on above: Performed By: #### C LUCAS #### [facility] [address] [place] [address] Dr. Martine Blood BAND # 0.0 103/ul Normal 0.0-0.3 [facility] Comment on above: Performed By: #### C LUCAS #### [facility] [address] [place] [address] Dr. Martine Blood BAND % 0 % Normal 0-5 [facility] Comment on above: Performed By: #### C LUCAS #### [facility] [address] [place] [address] Dr. Martine Blood BASOM # 0.00 103/ul Normal 0.00-0.10 [facility] Comment on above: Performed By: #### C LUCAS #### [facility] [address] [place] [address] Dr. Martine Blood BASOM % 0.0 % Critically low 0.2-2.0 [facility] Comment on above: Performed By: #### C LUCAS #### [facility] [address] [place] [address] Dr. Martine Blood BLAST # Normal [facility] Comment on above: Performed By: #### C LUCAS #### [facility] [address] [place] [address] Dr. Martine Blood BLAST % Normal [facility] Comment on above: Performed By: #### C LUCAS #### [facility] [address] [place] [address] Dr. Martine Blood CORRECTED WBC Normal 4.0-11.0 [facility] Comment on above: Performed By: #### C LUCAS #### [facility] [address] [place] [address] Dr. Martine Blood EOS # 0.00 103/ul Normal 0.00-0.70 [facility] Comment on above: Performed By: #### C LUCAS #### [facility] [address] [place] [address] [address] Martine Blood EOS% 0.0 % Critically low 0.9-7.0 [facility] Comment on above: Performed By: #### C LUCAS #### [facility] [address] [place] [address] Dr. Martine Bolod HCT 37.8 % Critically low 42.0-54.0 [facility] Comment on above: Performed By: #### C LUCAS #### [facility] [address] [place] [address] Dr. Martine Blood HGB 13.2 g/dl Critically low 14.0-18.0 [facility] Comment on above: Performed By: #### C LUCAS #### [facility] [address] [place] [address] Dr. Martine Blood LYMPHM # 0.85 103/ul Critically low 1.20-3.80 [facility] Comment on above: Performed By: #### C LUCAS #### [facility] [address] [place] [address] Dr. Martine Blood LYMPHM% 3.0 % Critically low 20.5-60.0 [facility] Comment on above: Performed By: #### C LUCAS #### [facility] [address] [place] [address] Dr. Martine Blood MCH 27.9 pg Normal 25.9-34.0 [facility] Comment on above: Performed By: #### C LUCAS #### [facility] [address] [place] [address] Dr. Martine Blood MCHC 34.9 g/dl Normal 29.9-35.2 [facility] Comment on above: Performed By: #### C LUCAS #### [facility] [address] [place] [address] Dr. Martine Blood MCV 79.9 fL Critically low 80.0-94.0 [facility] Comment on above: Performed By: #### C LUCAS #### [facility] [address] [place] [address] Dr. Martine Blood METAMYELOCYTE # Normal [facility] Comment on above: Performed By: #### C LUCAS #### [facility] [address] [place] [address] [address] Martine Blood METAMYELOCYTE % Normal [facility] Comment on above: Performed By: #### C LUCAS #### [facility] [address] [place] [address] [address] Martine Blood MONOM# 2.56 103/ul Critically high 0.30-0.80 [facility] Comment on above: Performed By: #### C LUCAS #### [facility] [address] [place] [address] [address] Martine Blood MONOM% 9.0 % Normal 1.7-12.0 [facility] Comment on above: Performed By: #### C LUCAS #### [facility] [address] [place] [address] Dr. Martine Blood MPV 9.5 fL Normal 9.5-13.5 [facility] Comment on above: Performed By: #### C LUCAS #### [facility] [address] [place] [address] Dr. Martine Blood MYELOCYTE # Normal [facility] Comment on above: Performed By: #### C LUCAS #### [facility] [address] [place] [address] Dr. Martine Blood MYELOCYTE % Normal [facility] Comment on above: Performed By: #### C LUCAS #### [facility] [address] [place] [address] Dr. Martine Blood NRBC Normal [facility] Comment on above: Performed By: #### C LUCAS #### [facility] [address] [place] [address] Dr. Martine Blood PLT 339 103/ul Normal 150-450 [facility] Comment on above: Performed By: #### C LUCAS #### [facility] [address] [place] [address] Dr. Martine Blood RBC 4.73 106/ul Normal 4.70-6.10 [facility] Comment on above: Performed By: #### C LUCAS #### [facility] [address] [place] [address] [address] Martine Blood RDW 12.7 % Normal 11.0-15.0 [facility] Comment on above: Performed By: #### C LUCAS #### [facility] [address] [place] [address] [address] Martine Blood SEG # 25.08 103/ul Critically high 1.40-6.50 [facility] Comment on above: Performed By: #### C LUCAS #### [facility] [address] [place] [address] [address] Martine Blood SEG % 88.0 % Critically high 43.0-75.0 [facility] Comment on above: Performed By: #### C LUCAS #### [facility] [address] [place] [address] [address] Martine Blood TOXIC GRANULATION 3+ Normal [facility] Comment on above: Performed By: #### C LUCAS #### [facility] [address] [place] [address] [address] Martine Blood WBC 28.5 103/ul Critically high 4.0-11.0 [facility] Comment on above: Performed By: #### C LUCAS #### [facility] [address] [place] [address] [address] Martine Blood ATYPICAL LYMPH # Normal [facility] Comment on above: Performed By: #### C LUCAS ####[facility] [address] [place] [address]DrIsi Blood ATYPICAL LYMPH % Normal [facility] Comment on above: Performed By: #### C LUCAS ####[facility] [address] [place] [id number]. Martine Blood BAND # 1.5 103/ul Critically high 0.0-0.3 [facility] Comment on above: Performed By: #### C LUCAS ####[facility] [address] [place] [id number] Blood BAND % 4 % Normal 0-5 [facility] Comment on above: Performed By: #### C LUCAS ####[facility] [address] [place] [id number]. Martine Blood BASOM # 0.00 103/ul Normal 0.00-0.10 [facility] Comment on above: Performed By: #### C BCMAN ####[facility] [address] [place] [address]Dr. Martine Blood BASOM % 0.0 % Critically low 0.2-2.0 [facility] Comment on above: Performed By: #### C BCMAN ####[facility] [address] [place] [address]Dr. Martine Blood BLAST # Normal [facility] Comment on above: Performed By: #### C BCMAN ####[facility] [address]ks[address] [place], [place] [address]Dr. Martine Blood BLAST % Normal [facility] Comment on above: Performed By: #### C BCKELLY ####[facility] Pvn[address]qiwt[address] [place], [place] [address]Dr. Martine Blood CORRECTED WBC Normal 4.0-11.0 [facility] Comment on above: Performed By: #### C BCMAN ####[facility] [address] [place], [place] [address]Dr. Martine Blood EOS # 0.00 103/ul Normal 0.00-0.70 [facility] Comment on above: Performed By: #### C BCMAN ####[facility] [address] [place], [place] [address]Dr. Martine Blood EOS% 0.0 % Critically low 0.9-7.0 [facility] Comment on above: Performed By: #### C BCMAN ####[facility] [address]cy[address] [place] [address]Dr. Martine Blood HCT 41.3 % Critically low 42.0-54.0 [facility] Comment on above: Performed By: #### C BCMAN ####[facility] [address]fov[address] [place], [place] [address]Dr. Martine Blood HGB 14.4 g/dl Normal 14.0-18.0 [facility] Comment on above: Performed By: #### Valerie ZAVALA ####[facility] [address]of[address] [place] [id number]. Martine Blood LYMPHM # 1.86 103/ul Normal 1.20-3.80 [facility] Comment on above: Performed By: #### Valerie ZAVALA ####[facility] A[address]emmp[address] [place] [id number]. Martine Blood LYMPHM% 5.0 % Critically low 20.5-60.0 [facility] Comment on above: Performed By: #### Valerie ZAVALA ####[facility] [address] [place] [address]Dr. Martine Blood MCH 28.1 pg Normal 25.9-34.0 [facility] Comment on above: Performed By: #### aVlerie ZAVALA ####[facility] [address]uny[address] [place] [id number]. Martine Blood MCHC 34.9 g/dl Normal 29.9-35.2 [facility] Comment on above: Performed By: #### Valerie ZAVALA ####[facility] [address]zfp[address] [place] [address]Dr. Martine Blood MCV 80.7 fL Normal 80.0-94.0 [facility] Comment on above: Performed By: #### Valerie ZAVALA ####[facility] [address] [place], [place] [address]Dr. Martine Blood METAMYELOCYTE # Normal [facility] Comment on above: Performed By: #### Valerie ZAVALA ####[facility] [address]fu[address] [place] [id number]. Martine Blood METAMYELOCYTE % Normal [facility] Comment on above: Performed By: #### Valerie ZAVALA ####[facility] [address]ysfaizs[address] [place] [id number]. Martine Blood MONOM# 1.86 103/ul Critically high 0.30-0.80 [facility] Comment on above: Performed By: #### Valerie ZAVALA ####[facility] [address]qaobtm[address] [place] [address]Dr. Martine Blood MONOM% 5.0 % Normal 1.7-12.0 [facility] Comment on above: Performed By: #### C LUCAS ####[facility] [address]wu[address] [place] [id number]. Martine Blood MPV 9.7 fL Normal 9.5-13.5 [facility] Comment on above: Performed By: #### C LUCAS ####[facility] Fi[address]fjtejg[address] [place] [id number]. Martine Blood MYELOCYTE # Normal [facility] Comment on above: Performed By: #### C LUCAS ####[facility] [address]ktuflulp[address] [place] [id number]. Martine Blood MYELOCYTE % Normal [facility] Comment on above: Performed By: #### C LUCAS ####[facility] [address]ied[address] [place] [address]Dr. Martine Blood NRBC Normal [facility] Comment on above: Performed By: #### C LUCAS ####[facility] Mnlibmc[address] [place], [place] [address]Dr. Martine Blood PLT 381 103/ul Normal 150-450 [facility] Comment on above: Performed By: #### C LUCAS ####[facility] Evxqgsnquq[address] [place], [place] [address]Dr. Martine Blood RBC 5.12 106/ul Normal 4.70-6.10 [facility] Comment on above: Performed By: #### C LUCAS ####[facility] [address]jvmnrds[address] [place] [id number]. Martine Blood RDW 12.4 % Normal 11.0-15.0 [facility] Comment on above: Performed By: #### C LUCAS ####[facility] [address]lusp[address] [place], [place] [address]Dr. Martine Blood SEG # 32.08 103/ul Critically high 1.40-6.50 [facility] Comment on above: Performed By: #### C LUCAS ####[facility] Ywexoutsw[address] [place], [place] [address]Dr. Martine Blood SEG % 86.0 % Critically high 43.0-75.0 [facility] Comment on above: Performed By: #### C BCMAN ####[facility] [address]apuqmk[address] [place] [address]DrIsi Blood WBC 37.3 103/ul Critically high 4.0-11.0 [facility] Comment on above: Performed By: #### C BCMAN ####[facility] Fmvnmkidmf[address] [place] [address]DrIsi Blood CULTURE BLOODon 10-28-2022 Microscopic examination of blood, culture Culture Observations: NO GROWTH AT 5 DAYS. Normal [facility] Comment on above: Performed By: #### B LDCX2 ####[facility] [address]elfgbpvol[address] [place] [address]DrIsi Blood Microscopic examination of blood, culture Culture Observations: NO GROWTH AT 5 DAYS. Normal [facility] Comment on above: Performed By: #### B LDCX1 #### [facility] [address] [place] [address] [address] Martine Blood CULTURE URINEon 10-28-2022 CULTURE URINE Culture Observations : NO GROWTH. Normal [facility] Comment on above: Performed By: #### U RCX ####[facility] [address] [place] [address]Dr. Martine Blood Covid-19 PCR (CVDTBH)on SARS-CoV-2 (COVID-19) RNA JANES+probe Ql (Unsp spec) Not detected Normal NOT DETECTED [facility] Comment on above: Result Comment: When diagnostic testing is negative, the possibility of a false negative should be considered in the context of a patient's recent exposures and the presence of clinical signs and symptoms consistent with SARS-CoV-2. This test is not yet approved or cleared by the [place] FDA. When there are no FDA-approved or cleared tests available, and other criteria are met, FDA can make tests available under an emergency access mechanism called an Emergency Use Authorization (EUA). The EUA for this test is supported by the [employer] of [employer] and Human Service's declaration that circumstances exist to justify the emergency use of in vitro diagnostics for the detection and/or diagnosis of the virus that causes COVID-19. This EUA will remain in effect for the duration of the COVID-19 declaration justifying emergency of IVDs, unless it is terminated or revoked by the FDA (after which the test may no longer be used). Performed By: #### C VDCHANNING HOME #### [facility] [address] [place] [address] Dr. Martine Blood INFLUENZA A AND B AGon 10-28 [facility] SEE BELOW Normal [facility] Comment on above: Result Comment: Nega tive for Flu A protein angiten. Infection due to Flu A cannot be ruled out. Flu A angiten in the sample may be below the detection limit of the test. Performed By: #### B MP #### [facility] [address] [place] [address] Dr. Martine Blood [facility] SEE BELOW Normal [facility] Comment on above: Result Comment: Nega tive for Flu B protein antigen. Infection due to Flu B cannot be ruled out. Flu B antigen in the sample may be below the detection limit of the test. Performed By: #### B MP #### [facility] [address] [place] [address] Dr. Martine Blood INFLUENZA A AG Negative Normal NEGATIVE SEE COMMENT [facility] Comment on above: Performed By: #### B MP #### [facility] [address] [place] [address] Dr. Martine Blood INFLUENZA B AG Negative Normal NEGATIVE SEE COMMENT [facility] Comment on above: Performed By: #### B MP #### [facility] [address] [place] [address] Dr. Martine Blood LACTATE/LACTIC ACIDon 2022 Lactate [Moles/Vol] 2.0 mmol/L Critically high 0.4-1.9 [facility] Comment on above: Performed By: #### B MP #### [facility] [address] [place] [address] Dr. Martine Blood Lactate [Moles/Vol] 3.9 mmol/L Critically high 0.4-1.9 [facility] Comment on above: Performed By: #### L ACT ####[facility] [address] [place] [address]Dr. Martine Blood POINT OF CARE GLUCOSEon Glucose [Mass/Vol] 433 mg/dL Critically high 74-106 [facility] Comment on above: Performed By: #### P OCGLUC ####[facility] Ur[address]ypc[address] [place] [address]Dr. Martine Blood Glucose [Mass/Vol] 509 mg/dL Critically high 74-106 [facility] Comment on above: Result Comment: Prev iously Confirmed Performed By: #### P OCGLUC ####[facility] [address]pifcma[address] [place], [place] [address]Dr. Martine Blood PROF CHEM 8 (BAS METB)on Anion gap [Moles/Vol] 11.3 mmol/L Normal [facility] Comment on above: Performed By: #### B MP ####[facility] Etfhzqby[address] [place], [place] [address]Dr. Martine Blood Calcium [Mass/Vol] 8.7 mg/dL Normal 8.5-10.1 [facility] Comment on above: Performed By: #### B MP ####[facility] Dwuropofif[address] [place], [place] [address]Dr. Martine Blood Chloride [Moles/Vol] 92 mmol/L Critically low 98-107 [facility] Comment on above: Performed By: #### B MP ####[facility] [address]vokjsjb[address] [place], [place] [address]Dr. Martine Blood CO2 [Moles/Vol] 31.1 mmol/L Normal 21.0-32.0 [facility] Comment on above: Performed By: #### B MP ####[facility] Faacqtjwlu[address] [place], [place] [address]Dr. Martine Blood Creatinine [Mass/Vol] 0.87 mg/dL Normal 0.70-1.30 [facility] Comment on above: Performed By: #### B MP ####[facility] [address] [place], [place] [address]DrIsi Blood EGFR-AF MOZAMBICAN >60 Normal >=60 [facility] Comment on above: Performed By: #### B MP ####[facility] [address] [place] [id number]. Martine Blood EGFR-NON AF MOZAMBICAN >60 Normal >=60 [facility] Comment on above: Performed By: #### B MP ####[facility] [address] [place] [id number]. Martine Blood Glucose [Mass/Vol] 353 mg/dL Critically high 74-106 [facility] Comment on above: Performed By: #### B MP ####[facility] [address]wsvs[address] [place] [id number] Blood Potassium [Moles/Vol] 2.4 mmol/L Critically low 3.5-5.1 [facility] Comment on above: Performed By: #### B MP ####[facility] [address]zvswy[address] [place] [address]DrIsi Blood Sodium [Moles/Vol] 132 mmol/L Critically low 136-145 [facility] Comment on above: Performed By: #### B MP ####[facility] [address]uz[address] [place] [id number]. Martine Blood Urea nitrogen [Mass/Vol] 16.0 mg/dL Normal 7.0-18.0 [facility] Comment on above: Performed By: #### B MP ####[facility] [address]trqdyo[address] [place] [id number] Blood Urea nitrogen/Creatinine [Mass ratio] 18.4 mg/mg Normal [facility] Comment on above: Performed By: #### B MP ####[facility] [address]rw[address] [place] [id number] Blood Anion gap [Moles/Vol] 14.3 mmol/L Normal [facility] Comment on above: Performed By: #### B MP #### [facility] [address] [place], [place] [address] Dr. Martine Blood Calcium [Mass/Vol] 9.1 mg/dL Normal 8.5-10.1 [facility] Comment on above: Performed By: #### B MP #### [facility] [address] [address] [address] Martine Blood Chloride [Moles/Vol] 92 mmol/L Critically low 98-107 [facility] Comment on above: Performed By: #### B MP #### [facility] [address] [address] [address] Martine Blood CO2 [Moles/Vol] 29.5 mmol/L Normal 21.0-32.0 [facility] Comment on above: Performed By: #### B MP #### [facility] [address] [address] [address] Martine Blood Creatinine [Mass/Vol] 1.03 mg/dL Normal 0.70-1.30 [facility] Comment on above: Performed By: #### B MP #### [facility] [address] [address] [address] Martine Blood EGFR-AF MOZAMBICAN >60 Normal >=60 [facility] Comment on above: Performed By: #### B MP #### [facility] [address] [address] [address] Martine Blood EGFR-NON AF MOZAMBICAN >60 Normal >=60 [facility] Comment on above: Performed By: #### B MP #### [facility] [address] [place] [address] [address] Martine Blood Glucose [Mass/Vol] 395 mg/dL Critically high 74-106 [facility] Comment on above: Performed By: #### B MP #### [facility] [address] [address] [address] Martine Blood Potassium [Moles/Vol] 2.8 mmol/L Critically low 3.5-5.1 [facility] Comment on above: Performed By: #### B MP #### [facility] [address] [address] [address] Martine Blood Sodium [Moles/Vol] 133 mmol/L Critically low 136-145 [facility] Comment on above: Performed By: #### B MP #### [facility] [address] [address] [address] Martine Blood Urea nitrogen [Mass/Vol] 16.0 mg/dL Normal 7.0-18.0 [facility] Comment on above: Performed By: #### B MP #### [facility] [address] [address] [address] Martine Blood Urea nitrogen/Creatinine [Mass ratio] 15.5 mg/mg Normal [facility] Comment on above: Performed By: #### B MP #### [facility] [address] [address] [address] Martine Blood Anion gap [Moles/Vol] 19.0 mmol/L Normal [facility] Comment on above: Performed By: #### B MP #### [facility] [address] [place] [address] Dr. Martine Blood Calcium [Mass/Vol] 9.7 mg/dL Normal 8.5-10.1 [facility] Comment on above: Performed By: #### B MP #### [facility] [address] [place] [address] Dr. Martine Blood Chloride [Moles/Vol] 87 mmol/L Critically low 98-107 [facility] Comment on above: Performed By: #### B MP #### [facility] [address] [place] [address] Dr. Martine Blood CO2 [Moles/Vol] 29.2 mmol/L Normal 21.0-32.0 [facility] Comment on above: Performed By: #### B MP #### [facility] [address] [place] [address] Dr. Martine Blood Creatinine [Mass/Vol] 1.11 mg/dL Normal 0.70-1.30 [facility] Comment on above: Performed By: #### B MP #### [facility] [address] [address] [address] Martine Blood EGFR-AF MOZAMBICAN >60 Normal >=60 [facility] Comment on above: Performed By: #### B MP #### [facility] [address] [place] [address] Dr. Martine Blood EGFR-NON AF MOZAMBICAN >60 Normal >=60 [facility] Comment on above: Performed By: #### B MP #### [facility] [address] [place] [address] Dr. Martine Blood Glucose [Mass/Vol] 437 mg/dL Critically high 74-106 [facility] Comment on above: Performed By: #### B MP #### [facility] [address] [place] [address] Dr. Martine Blood Potassium [Moles/Vol] 3.2 mmol/L Critically low 3.5-5.1 [facility] Comment on above: Performed By: #### B MP #### [facility] [address] [place] [address] Dr. Martine Blood Sodium [Moles/Vol] 132 mmol/L Critically low 136-145 [facility] Comment on above: Performed By: #### B MP #### [facility] [address] [place] [address] Dr. Martine Blood Urea nitrogen [Mass/Vol] 12.0 mg/dL Normal 7.0-18.0 [facility] Comment on above: Performed By: #### B MP #### [facility] [address] [place] [address] Dr. Martine Blood Urea nitrogen/Creatinine [Mass ratio] 10.8 mg/mg [facility] Comment on above: Performed By: #### B MP #### [facility] [address] [place] [address] Dr. Martine Blood SPUTUM GRAM STAINon 10-29-19 COMMENTS Normal [facility] Comment on above: Performed By: #### B MP #### [facility] [address] [place] [address] Dr. Martine Blood DIPHTHEROIDS [facility] Comment on above: Performed By: #### B MP #### [facility] [address] [place] [address] Dr. Martine Blood EPITHELIALS <25 Normal [facility] Comment on above: Performed By: #### B MP #### [facility] [address] [place], [place] [id number] Dr. Martine Blood FUNGAL ELEMENTS FEW Normal [facility] Comment on above: Performed By: #### B MP #### [facility] [address] [place] [address] Dr. Martine Blood GRAM NEG BACILLI Normal [facility] Comment on above: Performed By: #### B MP #### [facility] [address] [place] [address] Dr. Martine Blood GRAM NEG DIPPLOCOCCI Normal [facility] Comment on above: Performed By: #### B MP #### [facility] [address] [place] [address] Dr. Martine Blood GRAM POS BACILLI [facility] Comment on above: Performed By: #### B MP #### [facility] [address] [place] [address] Dr. Martine Blood GRAM POSITIVE COCCI RARE Normal [facility] Comment on above: Performed By: #### B MP #### [facility] [address] [place] [address] Dr. Martine Blood WBC (Bld) [#/Vol] 10*3/uL Normal [facility] Comment on above: Performed By: #### B MP #### [facility] [address] [place] [address] Dr. Martine Blood UA (CLEAN/CATCH) CYBER SECURITY ADMINISTRATOR/MICRO I F IND.on 10-28-2022 Bilirubin Ql (U) Negative Normal NEGATIVE [facility] Comment on above: Performed By: #### U MICRO, UACSIND #### [facility] [address] [place] [address] Dr. Martine Blood Clarity (U) CLEAR Normal CLEAR [facility] Comment on above: Performed By: #### U MICRO, UACSIND #### [facility] [address] [place] [address] Dr. Martine Blood Color (U) YELLOW Normal YELLOW [facility] Comment on above: Performed By: #### U MICRO, UACSIND #### [facility] [address] [place] [address] Dr. Martine Blood Glucose Ql (U) >1000 Abnormal NEGATIVE [facility] Comment on above: Performed By: #### U MICRO, UACSIND #### [facility] [address] [address] [address] Martine Blood Hemoglobin Ql (U) SMALL Abnormal NEGATIVE [facility] Comment on above: Performed By: #### U MICRO, UACSIND #### [facility] [address] [address] [address] Martine Blood Ketones Ql (U) 40 mg/dl Abnormal NEGATIVE [facility] Comment on above: Performed By: #### U MICRO, UACSIND #### [facility] [address] [address] [address] Martine Blood LEUKOCYTES Negative Normal NEGATIVE [facility] Comment on above: Performed By: #### U MICRO, UACSIND #### [facility] [address] [place] [address] Dr. Martine Blood Nitrite Ql (U) Negative Normal NEGATIVE [facility] Comment on above: Performed By: #### U MICRO, UACSIND #### [facility] [address] [place] [address] Dr. Martine Blood pH (U) 5.5 [pH] Normal 5-9 [facility] Comment on above: Performed By: #### U MICRO, UACSIND #### [facility] [address] [place] [address] Dr. Martine Blood SPEC GRAVITY 1.015 Normal 1.005-<=1. 025 [facility] Comment on above: Performed By: #### U MICRO, UACSIND #### [facility] [address] [place] [address] Dr. Martine Blood UA PROTEIN 100 mg/dl Abnormal NEGATIVE/ TRACE [facility] Comment on above: Performed By: #### U MICRO, UACSIND #### [facility] [address] [place] [address] Dr. Martine Blood UR MICRO IND INDICATED Normal [facility] Comment on above: Performed By: #### U MICRO, UACSIND #### [facility] [address] [place] [address] Dr. Martine Blood Urobilinogen Qn (U) 1.0 {Rakesh'U}/dL Normal 0.2 - 1. 0 [facility] Comment on above: Performed By: #### U MICRO, UACSIND #### [facility] [address] [place] [address] Dr. Martine Blood URINE MICROSCOPIC ONLYon BACTERIA SMALL Abnormal NONE SEEN [facility] Comment on above: Performed By: #### U MICRO, UACSIND #### [facility] [address] [place] [address] Dr. Martine Blood Bacteria identified Cx Nom (U) INDICATED Normal [facility] Comment on above: Performed By: #### U MICRO, UACSIND #### [facility] [address] [place] [address] Dr. Martine Blood CAST SEEN Abnormal NONE SEEN [facility] Comment on above: Performed By: #### U MICRO, UACSIND #### [facility] [address] [place] [address] Dr. Martine Blood Crystals LM Nom (Urine sed) NONE SEEN Normal NONE SEEN [facility] Comment on above: Performed By: #### U MICRO, UACSIND #### [facility] [address] [place] [address] Dr. Martine Blood Epithelial cells LM Ql (Urine sed) FEW Abnormal NONE SEEN /RARE [facility] Comment on above: Performed By: #### U MICRO, UACSIND #### [facility] [address] [place] [address] Dr. Martine Blood HYALINE CAST RARE Normal [facility] Comment on above: Performed By: #### U MICRO, UACSIND #### [facility] [address] [address] [address] Martine Blood MUCOUS TRACE Abnormal NONE SEEN [facility] Comment on above: Performed By: #### U MICRO, UACSIND #### [facility] [address] [place] [address] Dr. Martine Blood RBC 2-5 Abnormal 0-2 [facility] Comment on above: Performed By: #### U MICRO, UACSIND #### [facility] [address] [address] [address] Martine Blood WBC 2-5 Abnormal NONE SEEN [facility] Comment on above: Performed By: #### U MICRO, UAIND #### [facility] [address] [id number] Martine Blood XR CHEST 1 Von 10-28-2022 XR CHEST 1 V EXAM: XR CHEST 1 V HISTORY: SHORTNESS OF BREATH COMPARISON: None. TECHNIQUE: Frontal view of the chest. FINDINGS: Left lower lobe consolidation and moderate to large left pleural effusion noted. Increased interstitial markings in the left upper lobe which may represent edema or infiltrates. The right lung is clear. Cardiac mediastinal silhouette is suboptimally evaluated. Visualized osseous structures are unremarkable. IMPRESSION: Moderate to large left pleural effusion with left lower lobe atelectasis/consolidation. Electronically authenticated by: KRISSY WILHELM Date: 2022-10-28 08:55 Normal [facility] Vital Signs Date Time Vital Sign Value Performing Clinician Fanta jorge 09-30-2024 09:27-0500 Body height 171.45 cm [facility] 09-30-2024 09:27-0500 Body mass index (BMI) [Ratio] 35.6 kg/m2 [facility] 09-30-2024 09:27-0500 Body weight 104.77 kg [facility] 09-30-2024 09:27-0500 Diastolic blood pressure 95 mm[Hg] [facility] 09-30-2024 09:27-0500 Heart rate 83 /min [facility] 09-30-2024 09:27-0500 Systolic blood pressure 154 mm[Hg] [facility] 08-20-2024 10:48-0500 Body height 171.45 cm [facility] 08-20-2024 10:48-0500 Body mass index (BMI) [Ratio] 36.6 kg/m2 [facility] 08-20-2024 10:48-0500 Body weight 107.5 kg [facility] 08-20-2024 10:48-0500 Diastolic blood pressure 101 mm[Hg] [facility] 08-20-2024 10:48-0500 Heart rate 81 /min [facility] 08-20-2024 10:48-0500 Systolic blood pressure 156 mm[Hg] [facility] 07-03-2024 13:19-0500 Body height 171.45 cm [facility] 07-03-2024 13:19-0500 Body mass index (BMI) [Ratio] 35.8 kg/m2 [facility] 07-03-2024 13:19-0500 Body weight 105.23 kg [facility] 07-03-2024 13:19-0500 Diastolic blood pressure 83 mm[Hg] [facility] 07-03-2024 13:19-0500 Heart rate 90 /min [facility] 07-03-2024 13:19-0500 Systolic blood pressure 142 mm[Hg] [facility] 09-20-2023 10:30-0500 Body height 171.45 cm Lolita Eugene Other [facility] 09-20-2023 10:30-0500 Body mass index (BMI) [Ratio] 35.8 kg/m2 Lolita Eugene Other [employer] Other 09-20-2023 10:30-0500 Body weight 105.24 kg Lolita Eugene Other [employer] Other 09-20-2023 10:30-0500 Body weight 105.23 kg [facility] 09-20-2023 10:30-0500 Diastolic blood pressure 76 mm[Hg] Lolita Eugene Other [facility] 09-20-2023 10:30-0500 Systolic blood pressure 130 mm[Hg] Lolita Eugene Other [facility] 06-14-2023 10:30-0400 Body height 171.45 cm Lolita Eugene Other [employer] Other 06-14-2023 10:30-0400 Body mass index (BMI) [Ratio] 33.98 kg/m2 Lolita Eugene Other [employer] Other 06-14-2023 10:30-0400 Body weight 99.88 kg Lolita Mayra Other [employer] Other 06-14-2023 10:30-0400 Diastolic blood pressure 87 mm[Hg] Lolita Mayra Other [employer] Other 06-14-2023 10:30-0400 Systolic blood pressure 146 mm[Hg] Lolita Mayra Other [employer] Other 01-08-2023 11:00-0400 Body height 171.45 cm Michael Wells Other [employer] Other 01-08-2023 11:00-0400 Body mass index (BMI) [Ratio] 35.49 kg/m2 Michael Wells Other [employer] Other 01-08-2023 11:00-0400 Body temperature 98.1 [degF] Michael Wells Other [employer] Other 01-08-2023 11:00-0400 Body weight 104.33 kg Michael Wells Other [employer] Other 01-08-2023 11:00-0400 Diastolic blood pressure 80 mm[Hg] Michael Wells Other [employer] Other 01-08-2023 11:00-0400 Respiratory rate 20 /min Michael Wells Other [employer] Other 01-08-2023 11:00-0400 SaO2% (BldA) [Mass fraction] 99 % Michael Wells Other [employer] Other 01-08-2023 11:00-0400 Systolic blood pressure 142 mm[Hg] Michael Wells Other [employer] Other 12-14-2022 12:00-0400 Body height 171.45 cm Lolita Eugene Other [employer] Other 12-14-2022 12:00-0400 Body mass index (BMI) [Ratio] 34.87 kg/m2 Lolita Eugene Other [employer] Other 12-14-2022 12:00-0400 Body weight 102.51 kg Lolita Eugene Other [employer] Other 12-14-2022 12:00-0400 Diastolic blood pressure 80 mm[Hg] Lolita Eugene Other [employer] Other 12-14-2022 12:00-0400 SaO2% (BldA) [Mass fraction] 97 % Lolita Eugene Other [employer] Other 12-14-2022 12:00-0400 Systolic blood pressure 110 mm[Hg] Lolita Eugene Other [employer] Other 11-13-2022 12:00-0400 Body height 171.45 cm Lolita Eugene Other [employer] Other 11-13-2022 12:00-0400 Body mass index (BMI) [Ratio] 34.72 kg/m2 Lolita Eugene Other [employer] Other 11-13-2022 12:00-0400 Body weight 102.06 kg Lolita Eugene Other [employer] Other 11-13-2022 12:00-0400 Diastolic blood pressure 78 mm[Hg] Lolita Eugene Other [facility] Other 11-13-2022 12:00-0400 SaO2% (BldA) [Mass fraction] 96 % Lolita Eugene Other [facility] Other 11-13-2022 12:00-0400 Systolic blood pressure 110 mm[Hg] Lolita Eugene Other [facility] Other 11-08-2022 12:00-0400 Body temperature 97.6 [degF] MD Lolita Eugene Work Phone: [facility] 11-08-2022 12:00-0400 Diastolic blood pressure 85 mm[Hg] MD Lolita Eugene Work Phone: [facility] 11-08-2022 12:00-0400 Heart rate 81 /min MD Lolita Eugene Work Phone: [facility] 11-08-2022 12:00-0400 Respiratory rate 18 /min MD Lolita Eugene Work Phone: [facility] 11-08-2022 12:00-0400 SaO2% (BldA) [Mass fraction] 94 % MD Lolita Eugene Work Phone: [facility] 11-08-2022 12:00-0400 Systolic blood pressure 132 mm[Hg] MD Lolita Eugene Work Phone: [facility] 11-08-2022 08:00-0400 Inhaled oxygen flow rate 2 L/min MD Lolita Eugene Work Phone: [facility] 11-08-2022 05:46-0400 Body weight 106.6 kg MD Lolita Eugene Work Phone: [facility] 11-06-2022 16:25-0400 Body height 175.26 cm MD Lolita Eugene Work Phone: [facility] Encounters Encounter Date Encounter Type Care Provider Facility Start: 12-23-2024 Evaluation and manag ement of inpatient [facility] Start: 12-22-2024 End: 12-24-2024 Evaluation and management of inpatient TAL LINARES [facility] Start: 12-17-2024 ambulatory TAL LINARES [facility] Start: 12-03-2024 End: 12-03-2024 ambulatory [facility] Start: 11-25-2024 End: 11-25-2024 ambulatory MEY MCCALLUM Facility:[facility] Start: 11-25-2024 End: 11-25-2024 Patient encounter procedure Mye Mccallum OD Work Phone: Optometry Comment on above: Diplopia (Primary Dx ); Visual field defects; Type 2 diabetes mellitus with both eyes affected by mild nonproliferative retinopathy without macular edema, without long-term current use of insulin (HCC); Myopia, bilateral; Regular astigmatism, bilateral; Presbyopia Start: 10-27-2024 End: 10-27-2024 ambulatory [facility] Start: 10-27-2024 End: 10-27-2024 ambulatory [facility] Start: 10-16-2024 End: 10-16-2024 ambulatory [facility] Start: 10-06-2024 End: 10-06-2024 ambulatory TAL LINARES [facility] Start: 09-30-2024 End: 09-30-2024 ambulatory [facility] Start: 09-30-2024 End: 09-30-2024 ambulatory [facility] Work Phone: Start: 09-30-2024 End: 09-30-2024 Patient encounter procedure [facility] Work Phone: Start: 09-29-2024 End: 09-29-2024 Emergency department patient visit BROCK MONGE [facility] Start: 09-23-2024 [facility] Start: 09-22-2024 End: 09-23-2024 Evaluation and management of inpatient TAL LINARES [facility] Start: 09-16-2024 ambulatory TAL LINARES [facility] Start: 09-16-2024 End: 09-16-2024 ambulatory [facility] Start: 08-20-2024 Preoperative state [facility] Start: 08-20-2024 End: 08-20-2024 Encounter for other preprocedural examination [facility] Start: 08-20-2024 End: 08-20-2024 Patient encounter procedure [facility] Work Phone: Start: 08-07-2024 Non-patient / Non-visit [facility] Work Phone: Start: 07-15-2024 End: 07-15-2024 ambulatory TAL LINARES [facility] Start: 07-03-2024 Patient encounter status [facility] Start: 07-03-2024 End: 07-03-2024 ambulatory [facility] Work Phone: Start: 07-03-2024 End: 07-03-2024 Encounter for general adult medical examination without abnormal findings [facility] Start: 07-03-2024 End: 07-03-2024 Patient encounter procedure [facility] Work Phone: Start: 11-26-2023 Telephone encounter Gonzalo zavala MD Work Phone: [facility] Start: 10-11-2023 Non-patient / Non-visit [facility] Work Phone: Start: 09-23-2023 End: 09-23-2023 ambulatory Lolita Eugene Other [employer] Other Start: 09-23-2023 Telephone encounter Lolita Mayra [facility] Start: 09-23-2023 Patient encounter procedure [facility]- Start: 09-20-2023 End: 09-20-2023 ambulatory Lolita Eugene Other [employer] Other Start: 09-20-2023 Documentation procedure Gonzalo Walker MD [facility] Start: 09-20-2023 Office outpatient vi sit 15 minutes Lolita Eugene [facility] Start: 09-20-2023 Telephone encounter Gonzalo zavala MD Work Phone: [facility] Start: 09-20-2023 End: 09-20-2023 Patient encounter procedure [facility] Start: 08-28-2023 Telephone encounter [facility]aro Chinchilla [facility] Start: 07-15-2023 End: 07-15-2023 ambulatory Lolita Eugene Other [employer] Other Start: 07-15-2023 Telephone encounter Lolita Mayra [facility] Start: 06-19-2023 End: 06-19-2023 ambulatory Lolita Mayra Other [employer] Other Start: 06-19-2023 Telephone encounter Lolita Mayra [facility] Start: 06-14-2023 End: 06-14-2023 ambulatory Lolita Eugene Other [employer] Other Start: 06-14-2023 Office outpatient vi sit 15 minutes Lolita Mayra [facility] Start: 05-06-2023 End: 05-06-2023 ambulatory Lolita Eugene Other [employer] Other Start: 05-06-2023 Telephone encounter Lolita Eugene [facility] Start: 03-28-2023 End: 03-28-2023 ambulatory Lolita Eugene Other [employer] Other Start: 03-28-2023 Telephone encounter Lolita Eugene [facility] Start: 01-08-2023 End: 01-08-2023 ambulatory Michael Wells Other [employer] Other Start: 01-08-2023 Office outpatient vi sit 15 minutes Michael Wells [facility] Start: 01-02-2023 End: 01-02-2023 ambulatory Lolita Eugene Facility:[facility] Start: 01-02-2023 End: 01-02-2023 ambulatory MD Lolita Eugene Work Phone: [facility] Work Phone: Start: 01-02-2023 End: 01-02-2023 Patient encounter procedure MD Lolita Eugene Work Phone: [facility] Work Phone: Start: 12-14-2022 End: 12-14-2022 ambulatory Lolita Eugene Other [employer] Other Start: 12-14-2022 Office outpatient vi sit 15 minutes Lolita Eugene [facility] Start: 12-07-2022 End: 12-07-2022 ambulatory Lolita Eugene Other [employer] Other Start: 12-07-2022 Telephone encounter Lolita Eugene [facility] Start: 12-03-2022 End: 12-03-2022 ambulatory Lolita Eugene Other [employer] Other Start: 12-03-2022 Telephone encounter Lolita Eugene [facility] Start: 11-19-2022 Registered Recurring MD Lolita Eugene Work Phone: [facility] Work Phone: Start: 11-19-2022 End: 11-20-2022 ambulatory Lolita Eugene [employer] Other Start: 11-19-2022 Diabetic care education Latasha Ansari [facility] Start: 11-19-2022 Telephone encounter Kevan MEJIA [facility] Start: 11-13-2022 End: 11-13-2022 ambulatory Lolita Eugene Other [employer] Other Start: 11-13-2022 Office outpatient vi sit 25 minutes Lolita [facility] Start: 11-01-[address] Lolita Eugene Facility:[facility] Start: 10-30-[address] Lolita Eugene Facility:[facility] Start: 10-30-2022 End: 11-08-2022 Evaluation and management of inpatient Lolita Eugene Facility:[facility] Start: 10-30-2022 End: 11-08-2022 Evaluation and management of inpatient MD Lolita Eugene Work Phone: [facility] Work Phone: Start: 10-28-2022 End: 10-30-2022 Evaluation and management of inpatient DR LOLITA EUGENE Facility: Start: 06-03-2020 Adult health examination Maira Eugene Other [employer] Other Procedures Date Procedure Procedure Detail Performing Clinician Start: 11-25-2024 End: 11-25-2024 Visual field xm uni/bi w/interp extended exam Mey Mccallum OD Work Phone: Start: 01-02-2023 Plain chest X-ray MD Ronni Eugene Work Phone: Start: 11-05-2022 Plain chest X-ray MD Ronni Eugene Work Phone: Start: 11-04-2022 Plain chest X-ray MD Ronni Eugene Work Phone: Start: 11-03-2022 Plain chest X-ray MD Ronni Eugene Work Phone: Start: 11-02-2022 Plain chest X-ray MD Ronni Eugene Work Phone: Start: 11-01-2022 Aerobic microbial culture MD Lolita Eugene Work Phone: Start: 11-01-2022 Investigation of transfusion reaction MD Lolita Eugene Work Phone: Start: 11-01-2022 CT of chest without contrast MD Lolita Eugene Work Phone: Start: 10-31-2022 Plain chest X-ray MD Ronni Eugene Work Phone: Start: 10-30-2022 Plain chest X-ray MD Ronni Eugene Work Phone: Start: 10-30-2022 Aerobic microbial culture MD Lolita Eugene Work Phone: Start: 10-30-2022 Anaerobic microbial culture MD Lolita Eugene Work Phone: Start: 10-30-2022 Blood culture for bacteria, including anaerobic screen MD Lolita Eugene Work Phone: Start: 10-30-2022 Investigation of transfusion reaction MD Lolita Eugene Work Phone: Plan of Treatment Date Care Activity Detail Author Start: 06-29-2028 DTaP,Tdap and Td Vaccines (2 - Td or Tdap) DTaP,Tdap and Td Vaccines (2 - Td or Tdap) [facility] Start: 06-29-2028 Urine microalbumin profile DTaP,Tdap,Td Vaccine (2 - Td or Tdap) [facility] Start: 09-29-2027 Diabetes Screening Diabetes Screenin g [facility] Start: 04-28-2025 End: 04-28-2025 Patient encounter procedure 04/28/2025 9:30 AM EDT Office Visit [facility] [address] [id number] Heriberto Parra MD [address] [place] [address] Diplopia/Quadrantanops ia, left/Primary optic atrophy, bilateral - Being referred by Dr. Mey Mccallum Ophthal[facility] Comment on above: Diplopia/Quadrantano psia, left/Primary optic atrophy, bilateral - Being referred by Dr. Mey Mccallum Start: 07-26-2024 Adult BMI Screening Adult BMI Screen ing [facility] Start: 07-26-2024 Tobacco Screening Tobacco Screening [facility] Start: 07-03-2024 Patient referral [facility] Work Phone: Start: 04-26-2024 Covid-19 Vaccine ( season) Covid-19 Vaccine () [facility] Start: 04-26-2024 Influenza vaccination P [facility] Start: 09-20-2023 End: 09-20-2023 Patient encounter procedure 09/20/2023 9:30 AM EST Office Visit [facility] [address] [place] [address] [place] [address] Gonzalo Walker Jr., MD [address] [place] [address] [facility] Start: 04-26-2023 Influenza vaccination Influenza Vacc ine [facility] Start: 11-08-2022 [facility] Start: 11-01-2022 Administration of prophylactic treatment [facility] Start: 10-30-2022 Insulin C-peptide measurement [facility] Start: 10-30-2022 Consultation [facility] Start: 10-30-2022 Hospital admission [facility] Start: 10-30-2022 Referral to Sap Architect [facility] Start: 10-30-2022 Sleep disorder assessment [facility] Start: 10-30-2022 Drainage of Left Ple ural Cavity with Drainage Device, Percutaneous Approach Drainage of Left Pleural Cavity with Drainage Device, Percutaneous Approach [facility] Start: 2022 Screening for malign ant neoplasm of colon [facility] Start: 02-02-2012 Lipid panel Lipid Screening [facility] Start: 02-02-1996 Hepatitis B Vaccine (1 of 3 - 19+ 3-dose series) Hepatitis B Vaccine (1 of 3 - 19+ 3-dose series) [facility] Start: 1995 Adult BMI Follow Up Plan Adult BMI Follow Up Plan [facility] Start: 1995 Anxiety Screening Anxiety Screening [facility] Start: 1995 Depression Screening Depression Scre ening [facility] Start: 1995 Hepatitis C screening Hepatitis C Sc marielos [facility] Start: 1995 HIV screening HIV Screening [facility] Start: 1989 Depression Screening Depression Scre ening [facility] Comprehensive metabo lic 2000 panel - Serum or Plasma [facility] Erythrocyte sedimentation rate by Photometric method [facility] Insulin Ab [Units/volume] in Serum [facility] Microalbumin [Mass/volume] in Urine [facility] Patient referral [facility] Work Phone: XR Chest 2 Views [facility] Immunizations Immunization Date Immunization Notes Care Provider Fa ronan 06-29-2018 tetanus toxoid, reduced diphtheria toxoid, and acellular pertussis vaccine, adsorbed Genaro Chinchilla INFORMATION SERVICES CONSULTANT [facility] Work Phone: Payers Date Payer Category Payer Self-pay 2014 Blue [employer] Blue Shield BLUE CARD PPO OOS Member Subscriber Plan / Payer (Effective 2014-Present) Name: Aba Ruiz Relation to Subscriber: Self Name: Aba Ruiz Payer ID: [id number] (NAIC) Type: PPO Address: [address] [place] [id number] 2014 Unknown MARY COLT OUT OF STATE PPO/TRUST [id number] 2014-Present [phone] [address] [place] [address] [id number] 1977 Unknown [id number] 1977 Unknown [id number] 1959 Unknown [id number] Unknown [id number] Unknown [id number] Unknown [id number] Social History Date Type Detail Facility Start: 10-30-2022 End: 11-25-2024 Tobacco smoking status NHIS Never smoked tobacco (finding) [facility] Start: 1975 Sex Assigned At Male F [facility] Start: 06-29-2018 End: 11-25-2024 Sex Assigned At [facility] [facility] Start: 07-03-2024 End: 09-30-2024 Sex Male (finding) [facility] Start: 07-26-2023 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 intake 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 (finding) [facility] Start: 06-29-2018 End: 11-25-2024 History of Social function [facility] Frequency of Alcohol Consumption Never [facility] Start: 1975 Sex Assigned At Not on file P [facility] Start: 11-25-2024 Tobacco use and exposure Smokeless tobacco non-user [facility] Start: 11-25-2024 Alcoholic beverage intake Ex-drinker (finding) [facility] Medical Equipment Procedure Code Equipment Code Equipment Origin al Text Equipment Identifier Dates Lancets Start: 11-08-2022 Pen Needle, Diab etic (Bd Ultra-Fine Mini Pen Needle) 31 gauge x 3/16 needle Start: 11-08-2022 Lancets Start: 11-08-2022 Pen Needle, Diab etic (Bd Ultra-Fine Mini Pen Needle) 31 gauge x 3/16 needle Start: 11-08-2022 Lancets Start: 11-08-2022 Pen Needle, Diab etic (Bd Ultra-Fine Mini Pen Needle) 31 gauge x 3/16 needle Start: 11-08-2022 Blood Sugar Diagnostic strip Start: 11-08-2022 End: 07-03-2024 Lancets misc Start: 11-08-2022 End: 07-03-2024 Pen Needle, Diab etic (Bd Ultra-Fine Mini Pen Needle) 31 gauge x 3/16 needle Start: 11-08-2022 End: 07-03-2024 Blood Sugar Diagnostic strip Start: 11-08-2022 End: 07-03-2024 Lancets misc Start: 11-08-2022 End: 07-03-2024 Pen Needle, Diab etic (Bd Ultra-Fine Mini Pen Needle) 31 gauge x 3/16 needle Start: 11-08-2022 End: 07-03-2024 Goals Date Patient Goal Desired Activity /State Functional Status Date Assessment Result Facility 11-08-2022 Functional status Patient at Baseline [facility] Work Phone: Mental Status Date Assessment Result Facility 11-08-2022 Cognitive function Cognitive Sta tus Patient at Baseline [facility] Work Phone: Clinical Notes 10-30-2022 to 12-24-2024 Patient DhirajCoMey chou OD - 11/25/2024 12:19 PM EDT Note Date & Type Note Facility 12-24-2024 Note Occupational Therapy Name: Aba Ruiz Date of : 1975 Today's Date: 12/24/24 Initial OT evaluation deferred at this time. Spoke with pt and family member explaining role of OT in acute care setting. Pt reports he has been independently ambulating within hospital room/hallway and completing all ADLs without assist. Pt denies any acute changes to strength, coordination, balance, vision, etc. s/p craniotomy on 12/22/24. Pt reports plans to return home upon discharge with supportive family. No acute OT needs at this time. OT orders will be discontinued. Check No Charge Time attempted: [id number] [facility] 12-24-2024 Note 12/24/24 1001 Admission Assessment Questions Verify insurance with patient Yes Do you understand medical disease or what brought you into the hospital? Yes Who is your current PCP? Lolita Eugene Can I schedule a follow up appointment for you at the time of discharge? Yes Do you understand why you are taking your current medications? Yes Are you taking your medications as prescribed? Yes Did patient provide teach back? No Pharmacy Bedside Delivery Status Interested Does the patient have a case work aide assigned to them through their insurance? No Living Arrangement (Current/Prior to Hospitalization) Home self care (From home with ) Does the patient have history of HHC or SNF? No Assistive Device Not applicable Patient's goal for discharge Goal is to discharge home Was patient reminded that goal for discharge is 11am? No Does the patient have transportation at discharge? Yes Type of Residence Private residence Is PT/OT appropriate? Yes Is PT/OT ordered? Yes Is SW consult appropriate? No Is SW consult ordered? No Do you understand the benefits of MyChart? Yes Were you able to send link and activate MyChart? No [facility] 12-23-2024 Note Physical Therapy Physical Therapy Evaluation Patient Name: Aba Ruiz : 1975 Today's Date: 12/23/2024 Start Time: 1006 Stop Time: 1023 Time Calculation (min): 17 min PT Evaluation Time Entry PT Evaluation (Low) Time Entry: 17 General Subjective: RN approved PT session and OOB activity. In chair upon arrival, agreeable to session. Upon completion, patient left in the chair with call light within reach, RN aware Patient Summary: Patient is a 49 y/o male with chronic SDH, presented for scheduled R craniotomy with evacuation of SDH. Currently POD #1 Independent for all mobility, no skilled PT needs. Safe for discharge to home, no needs. PT to sign off Patient Active Problem List Diagnosis Generalized headaches Other hydrocephalus (CMS/HCC) Diabetes mellitus, type 2 (CMS/HCC) Hydrocephalus (CMS/HCC) Subdural hematoma, nontraumatic (CMS/HCC) HTN (hypertension) Gastroesophageal reflux disease SDH (subdural hematoma) (CMS/HCC) Past Medical History: Diagnosis Date Diabetes mellitus (CMS/HCC) Erectile dysfunction Hydrocephalus (CMS/HCC) Hyperlipidemia Obesity Pleural effusion empyema Pneumonia Sleep apnea Subdural hematoma (CMS/HCC) Tachycardia Past Surgical History: Procedure Laterality Date CHEST TUBE INSERTION 10/2022 CRANIOTOMY 12/22/2024 Dr. Linares, craniotomy for evac of SDH SHUNT REVISION 09/22/2024 Dr. Linares. VENTRICULOPERITONEAL SHUNT Right Precautions Precautions Medical Precautions: telemetry, drain, IV Pain Pain Assessment Pain Assessment: 0-10 Pain Score: 4 Pain Type: Acute pain Pain Location: Head Cognition Cognition Overall Cognitive Status: Within Functional Limits Arousal/Alertness: Appropriate responses to stimuli Orientation Level: Oriented X4 Following Commands: Follows all commands and directions without difficulty General Assessment General Assessment Hearing: Intact Hand Dominance: Right Home Living Home Living Type of Home: House Lives With: Family, Spouse Home Adaptive Equipment: None Home Layout: Two level, Bed/bath upstairs, 1/2 bath on main level Home Access: Stairs to enter with rails Entrance Stairs-Rails: Right Entrance Stairs-Number of Steps: 3 Bathroom Shower/Tub: Tub/shower unit Bathroom Toilet: Standard Bathroom Equipment: None Prior Level of Function Prior Function Level of Celina: Independent with ADLs and functional transfers, Independent with homemaking with ambulation Prior Functional Mobility: Independent without device ADL Assistance: Independent Homemaking Assistance: Independent Vision Basic Assessment Vision - Basic Assessment Current Vision: Other (Comment) (Reports of double vision - states this has been present for ~2 months.) General Assessments Activity Tolerance Endurance: Stage IV Sensation Light Touch: No apparent deficits (Reports occasional/intermittent numbness to LUE that is not currently present.) Coordination Movements are Fluid and Coordinated: Yes Postural Control Postural Control: Within Functional Limits Static Sitting Balance Static Sitting-Balance Support: Feet supported Static Sitting-Level of Assistance: Independent Dynamic Sitting Balance Dynamic Sitting-Balance Support: Right upper extremity supported, Left upper extremity supported, Feet supported Dynamic Sitting-Balance: Lateral lean, Forward lean Dynamic Sitting Balance-Level of Assistance: Independent Static Standing Balance Static Standing-Balance Support: No upper extremity supported Static Standing-Level of Assistance: Independent Dynamic Standing Balance Dynamic Standing-Balance Support: No upper extremity supported Dynamic Standing Balance-Level of Assistance: Independent Functional Assessments Bed Mobility Bed Mobility: No Transfers Transfer: Yes Transfer 1 Technique 1: Sit to stand, Stand to sit (From bedside chair) Transfer Device 1: none Transfer Level of Assistance 1: Independent Ambulation Ambulation: Yes Ambulation 1 Surface 1: Level tile Device 1: No device Assistance 1: Independent Quality of Gait 1: No significant deviations noted, adequate gait speed with symmetrical step through gait pattern. Steady throughout Comments/Distance (ft) 1: 175 ft Extremity Assessments RUE Assessment RUE Assessment: Within Functional Limits LUE Assessment LUE Assessment: Within Functional Limits RLE Assessment RLE Assessment: Within Functional Limits LLE Assessment LLE Assessment: Within Functional Limits Therapeutic Exercise Outcome Assessments 6 Clicks (Mobility) Help from another person turning from your back to your side while in a flat bed without using bedrails: None Help from another person moving from lying on your back to sitting on the side of a flat bed without using bedrails: None Help from another person moving to and from a bed to a chair (including a (more content not included)... [facility] 12-23-2024 Note NEUROSURGERY NOTE SUBJECTIVE: Chief complaint: Subdural hematoma status post craniotomy with evacuation, POD 1. History of present illness: RN reports no acute events overnight. Patient reports some headache, which he states is expected. Had some nausea this morning, though resolved after Phenergan. He denies new weakness, numbness, tingling. He does note that for the past few weeks, he has been having some intermittent numbness by his left lip as well as into his left arm and hand. He has been out of bed since admission and has been voiding. He continues to have diplopia with far right lateral gaze. He did get new glasses. Review of systems: As in HPI. Past Medical History: Diagnosis Date Diabetes mellitus (CMS/HCC) Erectile dysfunction Hydrocephalus (CMS/HCC) Hyperlipidemia Obesity Pleural effusion empyema Pneumonia Sleep apnea Subdural hematoma (CMS/HCC) Tachycardia Past Surgical History: Procedure Laterality Date CHEST TUBE INSERTION 10/2022 CRANIOTOMY 12/22/2024 Dr. Linares, craniotomy for evac of SDH SHUNT REVISION 09/22/2024 Dr. Linares. VENTRICULOPERITONEAL SHUNT Right Social History Tobacco Use Smoking status: Never Smokeless tobacco: Never Vaping Use Vaping status: Never Used Substance Use Topics Alcohol use: Yes Comment: rarely Drug use: Never Family History Problem Relation Name Age of Onset COPD Mother Parkinsonism Father Hypertension Father Hypertension Brother Cancer Mother's Brother Cancer Maternal Grandmother Diabetes Maternal Grandmother Stroke Paternal Grandfather OBJECTIVE: Medications: @[email or web address]@ Current Facility-Administered Medications: acetaminophen (Tylenol) tablet 650 mg, 650 mg, oral, q8h, Chantale Ovitt, DRY MILL WORKER, 650 mg at 12/23/24 0448 amLODIPine (Norvasc) tablet 5 mg, 5 mg, oral, Daily, Chantale Ovitt, DRY MILL WORKER atorvastatin (Lipitor) tablet 20 mg, 20 mg, oral, Nightly, Chantale Ovitt, DRY MILL WORKER, 20 mg at 12/22/24 2132 xovpinwavb-hayyrawwxtrro-uidp 50-325-40 mg per tablet 1 tablet, 1 tablet, oral, q6h PRN, Chantale Luuitt, DRY MILL WORKER glucose chewable tablet 24 g, 24 g, oral, q15 min PRN OR dextrose 50 % in water (D50W) syringe 25 g, 25 g, intravenous, q15 min PRN, Chantale Luuitt, DRY MILL WORKER [START ON 12/24/2024] heparin (porcine) injection 5,000 Units, 5,000 Units, subcutaneous, q12h FABIAN, Chantale Luuitt, DRY MILL WORKER hydrALAZINE (Apresoline) injection 10 mg, 10 mg, intravenous, q6h PRN, Chantale Luuitt, DRY MILL WORKER insulin lispro (HumaLOG) injection 0-10 Units, 0-10 Units, subcutaneous, TID with meals, 2 Units at 12/22/24 1731 AND insulin lispro (HumaLOG) injection 0-8 Units, 0-8 Units, subcutaneous, Nightly, Chantale Bellitt, DRY MILL WORKER, 2 Units at 12/22/24 2131 losartan (Cozaar) tablet 50 mg, 50 mg, oral, Daily, Chantale Bellitt, DRY MILL WORKER metFORMIN (Glucophage) tablet 500 mg, 500 mg, oral, BID with meals, Chantale Luuitt, DRY MILL WORKER metoprolol succinate XL (Toprol-XL) 24 hr tablet 50 mg, 50 mg, oral, Daily, Chantale Luuitt, DRY MILL WORKER metoprolol tartrate (Lopressor) injection 5 mg, 5 mg, intravenous, q4h PRN, Chantale Ovitt, DRY MILL WORKER morphine injection 2 mg, 2 mg, intravenous, q4h PRN, Chantale Ovitt, DRY MILL WORKER naloxone (Narcan) injection 0.2 mg, 0.2 mg, intravenous, PRN OR naloxone (Narcan) injection 0.2 mg, 0.2 mg, intramuscular, PRN OR naloxone (Narcan) injection 0.2 mg, 0.2 mg, subcutaneous, PRN, Chantale Garcia, DRY MILL WORKER [DISCONTINUED] ondansetron ODT (Zofran-ODT) disintegrating tablet 4 mg, 4 mg, oral, q8h PRN OR ondansetron HCl (PF) (Zofran) injection 4 mg, 4 mg, intravenous, q4h PRN, Chantale Garcia, DRY MILL WORKER oxyCODONE (Roxicodone) immediate release tablet 5 mg, 5 mg, oral, q6h PRN, 5 mg at 12/23/24 0634 OR oxyCODONE (Roxicodone) immediate release tablet 10 mg, 10 mg, oral, q6h PRN, Chantale Garcia, DRY MILL WORKER pantoprazole (ProtoNix) EC tablet 40 mg, 40 mg, oral, Daily before breakfast, Chantale Ovitt, DRY MILL WORKER, 40 mg at 12/23/24 0635 polyethylene glycol (Glycolax) packet 17 g, 17 g, oral, Daily PRN, Chantale Garcia, [employer] MILL WORKER prochlorperazine (Compazine) injection 5 mg, 5 mg, intravenous, q6h PRN, Chantale Bellitt, DRY MILL WORKER, 5 mg at 12/23/24 0741 sennosides-docusate sodium (Carmel-Colace) 8.6-50 mg per tablet 2 tablet, 2 tablet, oral, Daily, Chantale Garcia, DRY MILL WORKER sodium chloride flush 3 mL, 3 mL, intravenous, q8h, Chantale Garcia, DRY MILL WORKER tiZANidine (Zanaflex) tablet 2 mg, 2 mg, oral, q8h PRN, Chantale Luuitt, DRY MILL WORKER Allergies: Allergies Allergen Reactions Dilaudid [Hydromorphone] Other When combined with fentanyl, becomes violent Exam: Exam performed and reviewed, changes as below. Vitals reviewed: Temp: [36.1 ???C (97 ???F)-36.8 ???C (98.2 ???F)] 36.8 ???C (98.2 ???F) Heart Rate: [69-83] 69 Resp: [11-24] 15 BP: (121-172)/(79-96) 138/80 I/O last 3 completed shifts: In: 3376.5 (29.7 mL/kg) [P.O.:1380; I.V.:1944.5 (17.1 mL/kg); IV Piggyback:52] Out: 2520 (22.2 mL/kg) [Urine:2100 (0.5 mL/kg/hr); Drains:320; Blood:100] Weight: 113.5 kg No intake/output data recorded. C (more content not included)... [facility] 12-23-2024 Note Attestation signed by Yared Ventura MD at 12/23/2024 4:53 PM I personally saw and examined the patient on the same date of service as resident Dr. Jiménez. I discussed the findings and therapeutic plan with the resident. Yared Ventura MD [facility] Surgical Intensive Care Unit Progress Note Chief Complaint: Critical Care Management HPI: Aba Ruiz is a 49 y.o. year old male who presented for a planned neurosurgical procedure and underwent a right side gabriela hole craniotomy for a chronic non-traumatic subdural hematoma evacuation. Post-operatively the patient was recovered in the PACU and transported to the Surgical ICU for a planned admission on 12/22/24 for further post-operative Critical Care management. Interval History: 12/23: No acute or unexpected events overnight. Remains hemodynamically and vitally stable, saturating mid-high 90's on room air. Able to void x1 without catheter overnight. Reports nausea this morning but pain is controlled and he denies chest pain, sob, or acute concerning neurological changes. Objective Vitals: BP: (121-155)/(79-93) 138/80 (12/23 699) Systolic BP Percentile: -- Diastolic BP Percentile: -- Temp: [36.1 ???C (97 ???F)-36.8 ???C (98.2 ???F)] 36.8 ???C (98.2 ???F) (12/24 399) Temp Source: Oral (12/24 399) Heart Rate: [69-83] 69 (12/23 699) Resp: [11-24] 15 (12/23 699) SpO2: [91 %-97 %] 95 % (12/23 699) Height: -- Weight: -- No data recorded I/O last 3 completed shifts: In: 3376.5 (29.7 mL/kg) [P.O.:1380; I.V.:1944.5 (17.1 mL/kg); IV Piggyback:52] Out: 2520 (22.2 mL/kg) [Urine:2100 (0.5 mL/kg/hr); Drains:320; Blood:100] Weight: 113.5 kg Physical Exam: Physical Exam Vitals reviewed. HENT: Head: Comments: Bandaged Nose: Nose normal. Mouth/Throat: Mouth: Mucous membranes are moist. Eyes: Extraocular Movements: Extraocular movements intact. Pupils: Pupils are equal, round, and reactive to light. Cardiovascular: Rate and Rhythm: Normal rate and regular rhythm. Pulses: Normal pulses. Heart sounds: Normal heart sounds. Pulmonary: Effort: Pulmonary effort is normal. No respiratory distress. Breath sounds: Normal breath sounds. Abdominal: Palpations: Abdomen is soft. Musculoskeletal: General: Normal range of motion. Cervical back: Neck supple. Skin: General: Skin is warm and dry. Capillary Refill: Capillary refill takes less than 2 seconds. Neurological: Mental Status: He is oriented to person, place, and time. Sensory: No sensory deficit. Motor: No weakness. Comments: Baseline diplopia Labs: Recent Results (from the past 12 hour(s)) Basic metabolic panel Collection Time: 12/23/24 4:55 AM Result Value Ref Range Sodium 134 (L) 136 - 145 mmol/L Potassium 3.9 3.5 - 5.1 mmol/L Chloride 101 98 - 107 mmol/L CO2 26 21 - 31 mmol/L BUN 17 7 - 25 mg/dL Creatinine 0.66 (L) 0.70 - 1.30 mg/dL Glucose 152 (H) 70 - 100 mg/dL Calcium 8.7 8.6 - 10.3 mg/dL Anion Gap 11 7 - 20 mmol/L eGFR 116.4 >60.0 mL/min/1.73m*2 BUN/Creatinine Ratio 25.8 CBC Collection Time: 12/23/24 4:55 AM Result Value Ref Range Auto WBC 14.35 (H) 4.00 - 10.60 10*3/uL RBC 4.77 4.20 - 5.70 10*6/uL Hemoglobin 13.7 13.0 - 17.0 g/dL Hematocrit 40.0 39.0 - 50.0 % MCV 83.9 82.0 - 98.0 fL MCH 28.7 27.0 - 33.0 pg MCHC 34.3 32.0 - 35.0 g/dL RDW 13.0 11.5 - 15.0 % Platelets 315 150 - 400 10*3/uL Magnesium Collection Time: 12/23/24 4:55 AM Result Value Ref Range Magnesium 1.8 (L) 1.9 - 2.7 mg/dL POCT glucose meter Collection Time: 12/23/24 8:13 AM Result Value Ref Range Glucose POC 141 (H) 70 - 105 mg/dL Radiologic studies: No X-ray results found for the past [address] head wo IV contrast Result Date: 12/23/2024 1. Right lateral convexity subdural evacuation changes with residual small volume mixed attenuation debris measuring up to 6 mm in thickness and trace pneumocephalus (no tension morphology). Minimal mass effect. No significant midline shift. 2. Asymmetric dilation of the left greater than right supratentorial ventricular system, which is similar to minimally increased in caliber from prior. Indwelling ventriculostomy catheters, in similar position. 3. Near-complete resolution of left cerebral convexity extra-axial collection. Electronically signed: Zac Diaz. No MRI results found for the past 24 hours EKG: No results found for this or any previous visit (from the past 4464 hour(s)). Assessment Aba Ruiz is a 49 y.o. male who presented for a planned surgical procedure and underwent a right side gabriela hole craniotomy for a chronic subdural hematoma. Post-operatively the patient was recovered in the PACU and transported to the Surgical ICU for planned admission on 12/22/24 for further post-operativ (more content not included)... [facility] 12-22-2024 Note Patient: Aba chase Procedure Summary Date: 12/22/24 Room / Location: [facility] OPERATING ROOM 03 / [facility] Operating Room Anesthesia Start: 1131 Anesthesia Stop: 1401 Procedure: RIGHT SIDED CRANIOTOMY FOR SUBDURAL HEMATOMA EVACUATION (Right: Head) Diagnosis: Subdural hematoma, nontraumatic (CMS/HCC) (Subdural hematoma, nontraumatic (CMS/HCC) [I62.00]) Surgeons: Tal Linares MD Responsible Provider: Ruddy Marrero MD Anesthesia Type: general ASA Status: 3 Anesthesia Type: general Vitals Value Taken Time BP 137/79 12/22/24 1359 Temp 36.1 ???C (97 ???F) 12/22/24 1359 Pulse 69 12/22/24 1411 Resp 21 12/22/24 1411 SpO2 94 % 12/22/24 1411 Vitals shown include unfiled device data. Anesthesia Post Evaluation Patient location during evaluation: PACU Patient participation: complete - patient participated Level of consciousness: awake and alert Pain score: 0 Pain management: adequate Multimodal analgesia pain management approach Airway patency: patent Two or more strategies used to mitigate risk of obstructive sleep apnea Cardiovascular status: hemodynamically stable Respiratory status: acceptable, room air, spontaneous ventilation and nonlabored ventilation Hydration status: euvolemic Patient is hemodynamically stable and is able to be discharged from PACU per anesthesia protocol. No notable events documented. [facility] 12-22-2024 Note Airway Date/Time: 12/22/2024 11:45 AM Urgency: elective Airway not difficult General Information and Staff Patient location during procedure: OR Anesthesiologist: Ruddy Marrero MD Resident/FARM LABOR CONTRACTOR/CAA: Colleen Bowser MD Performed: resident/FARM LABOR CONTRACTOR/CAA Indications and Patient Condition Indications for airway management: anesthesia Spontaneous Ventilation: absent Sedation level: deep Preoxygenated: yes Patient position: sniffing Mask difficulty assessment: 3 - difficult mask (inadequate, unstable or two providers) +/- NMBA Planned trial extubation Final Airway Details Final airway type: endotracheal airway Successful airway: ETT Cuffed: yes Successful intubation technique: video laryngoscopy Facilitating devices/methods: intubating stylet Endotracheal tube insertion site: oral Blade: Aguilar Blade size: #3 ETT size (mm): 7.5 Cormack-Lehane Classification: grade I - full view of glottis Placement verified by: chest auscultation and capnometry Measured from: lips ETT to lips (cm): 22 Number of attempts at approach: 1 Number of other approaches attempted: 0 [facility] 12-22-2024 Note Patient: Aba chase Procedure Information Date/Time: 12/22/24 1130 Procedure: CRANIAL GABRIELA HOLES FOR SUBDURAL HEMATOMA EVACUATION (Right: Head) - supine on gel donut, 1 hour Location: [facility] OPERATING ROOM 03 / [facility] Operating Room Surgeons: Tal Linares MD Relevant Problems Anesthesia (within normal limits) Cardio Good exercise tolerance (+) HTN (hypertension) Endo Fsbs 137 (+) Diabetes mellitus, type 2 (CMS/HCC) GI Controlled on meds (+) Gastroesophageal reflux disease /Renal (within normal limits) Neuro/Psych Hydrocephalus from (+) Generalized headaches Pulmonary Pneumonia 2 yrs ago Clinical information reviewed: Tobacco Allergies Meds Problems Med Hx Surg Hx Fam Hx Soc Hx Physical Exam Airway Mallampati: II TM distance: >3 FB Neck ROM: full Cardiovascular - normal exam Dental - normal exam Pulmonary - normal exam Abdominal (+) obese Anesthesia Plan ASA 3 general (Discussed GA/OETT with pt who agrees to proceed.) The patient is not a current smoker. Education provided regarding risk of obstructive sleep apnea. intravenous induction Postoperative administration of opioids is intended. Trial extubation is planned. Anesthetic plan and risks discussed with patient. Use of blood products discussed with patient who consented to blood products. Plan discussed with resident. Additional Equipment Requests [facility] 12-03-2024 Note Need to extend time off work, currently off through 12/04/24, cannot RTW yet, still with diplopia. Right eye does not adduct completely 2mm Squints left eye shunt 12/28 NEUROSURGERY NOTE SUBJECTIVE: Chief complaint: Return visit for placement of ventriculoperitoneal shunt on 09/22/[address] Linares. History of present illness: Reports has been feeling a little bit better over time. Headaches are improving, though still intermittent, mainly right side of head. Taking less Fioricet. Still with some nausea, mainly in the morning, though also improving. Occurs a few times per week. Continues to have diplopia, though the eyepatch helps. Diplopia is no better. He did see optometry at [facility] recently. States they instructed him to wear his glasses more often. He has appointment with neuro-ophthalmology on 02/10/2025 in [place]. Has been voiding and having bowel movements. Balance has been stable, though notes that he stumbles at times. Denies issues with the incision. Notes that he will not be able to go back to work in a few weeks as scheduled due to ongoing symptoms. 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 His blood pressure medications have been adjusted by his primary care provider. Had CT brain completed today. Review of systems: As in HPI. Past Medical History: Diagnosis Date Diabetes mellitus (CMS/HCC) Erectile dysfunction Hydrocephalus (CMS/HCC) Hyperlipidemia Obesity Pleural effusion empyema Pneumonia Sleep apnea Tachycardia Past Surgical History: Procedure Laterality Date CHEST TUBE INSERTION 10/2022 SHUNT REVISION 09/22/2024 Dr. Linares. VENTRICULOPERITONEAL SHUNT Right Social History Tobacco Use Smoking status: Never Smokeless tobacco: Never Vaping Use Vaping status: Never Used Substance Use Topics Alcohol use: Yes Comment: rarely Drug use: Never Family History Problem Relation Name Age of Onset COPD Mother Parkinsonism Father Hypertension Father Hypertension Brother Cancer Mother's Brother Cancer Maternal Grandmother Diabetes Maternal Grandmother Stroke Paternal Grandfather OBJECTIVE: Medications: albuterol alcohol swabs pads, medicated aspirin atorvastatin [id number] Dexcom G6 Sensor device Dexcom G6 Transmitter device losartan metFORMIN metoprolol succinate XL pantoprazole Prodigy Twist Top Lancet [facility] SELECT IF UNABLE TO FIND MEDICATION WITH +ADD semaglutide pen injector sildenafil tiZANidine UltiCare Pen Needle needle Current Outpatient Medications: albuterol 90 mcg/actuation inhaler, INHALE 1 PUFF BY MOUTH EVERY 6 HOURS NEEDED FOR SHORTNESS OF BREATH/ WHEEZING, Disp: , Rfl: alcohol swabs pads, medicated, in the morning and at bedtime. as directed, Disp: , Rfl: aspirin 325 mg EC tablet, Take 325 mg by mouth if needed., Disp: , Rfl: atorvastatin (Lipitor) 20 mg tablet, , Disp: , Rfl: Dexcom G6 Sensor device, APPLY NEW SENSOR EVERY 10 DAYS, Disp: , Rfl: Dexcom G6 Transmitter device, USE DIRECTED TO TEST BLOOD SUGAR, Disp: , Rfl: losartan (Cozaar) 50 mg tablet, Take 1 tablet by mouth in the morning., Disp: , Rfl: metFORMIN (Glucophage) 500 mg tablet, Take 500 mg by mouth with breakfast and with evening meal., Disp: , Rfl: metoprolol succinate XL (Toprol-XL) 50 mg 24 hr tablet, , Disp: , Rfl: pantoprazole (ProtoNix) 40 mg EC tablet, Take 40 mg by mouth in the morning., Disp: , Rfl: Prodigy Twist Top Lancet 28 gauge, USE DIRECTED TO TEST SUGARS TWICE DAILY, Disp: , Rfl: SELECT IF UNABLE TO FIND MEDICATION WITH +ADD, Take 1 tablet by mouth in the morning. Med Name: testosterone pill--OTC from [facility], Disp: , Rfl: semaglutide (Ozempic) 0.25 mg or 0.5 mg (2 mg/3 mL) pen injector, Inject 0.5 mg under the skin every 7 (seven) days. Saturday, Disp: , Rfl: sildenafil (Viagra) 100 mg tablet, Take 100 mg by mouth if needed for erectile dysfunction., Disp: , Rfl: tiZANidine (Zanaflex) 2 mg tablet, TAKE 1 TABLET BY MOUTH EVERY 8 HOURS NEEDED FOR MUSCLE SPASM, Disp: 270 tablet, Rfl: 1 UltiCare Pen Needle 31 gauge x 5/16 needle, USE DIRECTED TO TEST SUGARS TWICE DAILY, Disp: , Rfl: mbkqtqyugr-huqvpgo-minhwaxk (Fiorinal) 50-325-40 mg tablet, Take 1 tablet by mouth every 6 (six) hours if needed for migraine for up to 7 days., Disp: 28 tablet, Rfl: 0 Allergies: Allergies Allergen Reactions Dilaudid [Hydromorphone] Other When combined with fentanyl, becomes violent Fentanyl Other When combined with Dilaudid, becomes violent Exam: Exam performed and reviewed, changes as below. Vitals reviewed: No intake/output data recorded. No intake/output data recorded. Exam reviewed and updated. Accompanied by today. Constitutional: In no apparent distress. Chest: Chest expansion symmetrical. Respirations regular and nonlabored. Right scalp incision well-approximated without edema, erythema, drainage. Distal right scalp incision well- (more content not included)... [facility] 11-25-2024 Instructions Mey Mccallum, OD - 11/25/2024 2:04 PM EDT ASSESSMENT/PLAN: 1. Diplopia - ICD9: 368.2, ICD10: H53.2 (primary diagnosis) Began post shunt placement in August. Possibly due to surgery or vascular component with his diabetes. Also has a new onset of esotropia that switches between alternating and left esotropia. 2. Visual field defects - ICD9: 368.40, ICD10: H53.40 Referral for further evaluation 3. Type 2 diabetes mellitus with both eyes affected by mild nonproliferative retinopathy without macular edema, without long-term current use of insulin (HCC) - ICD9: 250.50, 362.04, ICD10: E11.3293 Encouraged to maintain a stable blood sugar level and continue care with his primary care physician. 4. Myopia, bilateral - ICD9: 367.1, ICD10: H52.13 5. Regular astigmatism, bilateral - ICD9: 367.21, ICD10: H52.223 6. Presbyopia - ICD9: 367.4, ICD10: H52.4 Suggested time study observer wear of his glasses that will help with the monocular diplopia in both eyes as well as enhance his visual acuities. Referral to Neuro-ophthalmology for further evaluation. documented in this encounter [facility] 11-25-2024 Note Date of Procedure 11/25/2024. Machine Tool Mechanic Information Manager Biostatistics: thang. Start time: 11:37 AM. Stop time: 11:47 AM. Reliability Right Eye Good. Left Eye Borderline. 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 Interval Change Right Eye Initial. Left Eye Initial. [facility] 11-25-2024 Note Date of Procedure 11/25/2024. Machine Tool Mechanic Information Manager Biostatistics: sk. Start time: 12:18 PM. C/D Ratio Right Eye 0.35. Left Eye 0.35. Disc Right Eye (Possible slight pallor). Left Eye (Possible slight pallor). Macula Right Eye Normal. Left Eye Normal. Periphery Right Eye (Dot-blot hemes noted). Left Eye (Dot-blot hemes noted as well as exudates). [facility] 11-25-2024 Note HNO ID: [id number] Author: MEY MCCALLUM OD Service: ? Author Type: TAX MANAGER Type: Progress Notes Filed: 11/25/2024 14:10 Note Text: ASSESSMENT/PLAN: 1. Diplopia - ICD9: 368.2, ICD10: H53.2 (primary diagnosis) Began post shunt placement in August. Possibly due to surgery or vascular component with his diabetes. Also has a new onset of esotropia that switches between alternating and left esotropia. 2. Visual field defects - ICD9: 368.40, ICD10: H53.40 Referral for further evaluation 3. Type 2 diabetes mellitus with both eyes affected by mild nonproliferative retinopathy without macular edema, without long-term current use of insulin (HCC) - ICD9: 250.50, 362.04, ICD10: E11.3293 Encouraged to maintain a stable blood sugar level and continue care with his primary care physician. 4. Myopia, bilateral - ICD9: 367.1, ICD10: H52.13 5. Regular astigmatism, bilateral - ICD9: 367.21, ICD10: H52.223 6. Presbyopia - ICD9: 367.4, ICD10: H52.4 Suggested time study observer wear of his glasses that will help with the monocular diplopia in both eyes as well as enhance his visual acuities. Referral to Neuro-ophthalmology for further evaluation. Mey Mccallum, ABY I have confirmed and edited as necessary the relevant ophthalmic history, ROS, and the neuro exam findings as obtained by others. [facility] 11-25-2024 History of Present illness Narrative ASSESSMENT/PLAN: 1. Diplopia - ICD9: 368.2, ICD10: H53.2 (primary diagnosis) Began post shunt placement in August. Possibly due to surgery or vascular component with his diabetes. Also has a new onset of esotropia that switches between alternating and left esotropia. 2. Visual field defects - ICD9: 368.40, ICD10: H53.40 Referral for further evaluation 3. Type 2 diabetes mellitus with both eyes affected by mild nonproliferative retinopathy without macular edema, without long-term current use of insulin (HCC) - ICD9: 250.50, 362.04, ICD10: E11.3293 Encouraged to maintain a stable blood sugar level and continue care with his primary care physician. 4. Myopia, bilateral - ICD9: 367.1, ICD10: H52.13 5. Regular astigmatism, bilateral - ICD9: 367.21, ICD10: H52.223 6. Presbyopia - ICD9: 367.4, ICD10: H52.4 Suggested time study observer wear of his glasses that will help with the monocular diplopia in both eyes as well as enhance his visual acuities. Referral to Neuro-ophthalmology for further evaluation. Mey Mccallum, OD I have confirmed and edited as necessary the relevant ophthalmic history, ROS, and the neuro exam findings as obtained by others. documented in this encounter [facility] 11-10-2024 Note I called and left me kenyon with Sada the laser specialist to check the status. Called and left Aba a message. [facility] 11-10-2024 Note Patient called in as about referral to an kosher inspector. Patient states he is still having issues with his vision. [facility] 10-27-2024 Note NEUROSURGERY NOTE SUBJECTIVE: Chief complaint: Postoperative visit for placement of ventriculoperitoneal shunt on 09/22/[address] Linares. History of present illness: Reports has been feeling a little bit better over time. Headaches are improving. Taking less Fioricet. Still with some nausea, mainly in the morning, though also improving. Continues to have diplopia, though the eyepatch helps. Has been voiding and having bowel movements. Balance has been stable. Denies issues with the incision. Notes that he will not be able to go back to work in a few weeks as scheduled due to ongoing symptoms. 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 Blood pressures have been marginally better with amlodipine. Planning to follow-up with primary care provider regarding blood pressure. Had CT brain completed today. Review of systems: As in HPI. Past Medical History: Diagnosis Date Diabetes mellitus (CMS/HCC) Erectile dysfunction Hydrocephalus (CMS/HCC) Hyperlipidemia Obesity Pleural effusion empyema Pneumonia Sleep apnea Tachycardia Past Surgical History: Procedure Laterality Date CHEST TUBE INSERTION 10/2022 SHUNT REVISION 09/22/2024 Dr. Linares. VENTRICULOPERITONEAL SHUNT Right Social History Tobacco Use Smoking status: Never Smokeless tobacco: Never Vaping Use Vaping status: Never Used Substance Use Topics Alcohol use: Yes Comment: rarely Drug use: Never Family History Problem Relation Name Age of Onset COPD Mother Parkinsonism Father Hypertension Father Hypertension Brother Cancer Mother's Brother Cancer Maternal Grandmother Diabetes Maternal Grandmother Stroke Paternal Grandfather OBJECTIVE: Medications: albuterol alcohol swabs pads, medicated aspirin atorvastatin Dexcom G6 Sensor device Dexcom G6 Transmitter device losartan metFORMIN metoprolol succinate XL pantoprazole Prodigy Twist Top Lancet [facility] SELECT IF UNABLE TO FIND MEDICATION WITH +ADD semaglutide pen injector sildenafil tiZANidine UltiCare Pen Needle needle Current Outpatient Medications: albuterol 90 mcg/actuation inhaler, INHALE 1 PUFF BY MOUTH EVERY 6 HOURS NEEDED FOR SHORTNESS OF BREATH/ WHEEZING, Disp: , Rfl: alcohol swabs pads, medicated, in the morning and at bedtime. as directed, Disp: , Rfl: aspirin 325 mg EC tablet, Take 325 mg by mouth if needed., Disp: , Rfl: atorvastatin (Lipitor) 20 mg tablet, , Disp: , Rfl: Dexcom G6 Sensor device, APPLY NEW SENSOR EVERY 10 DAYS, Disp: , Rfl: Dexcom G6 Transmitter device, USE DIRECTED TO TEST BLOOD SUGAR, Disp: , Rfl: losartan (Cozaar) 50 mg tablet, Take 1 tablet by mouth in the morning., Disp: , Rfl: metFORMIN (Glucophage) 500 mg tablet, Take 500 mg by mouth with breakfast and with evening meal., Disp: , Rfl: metoprolol succinate XL (Toprol-XL) 50 mg 24 hr tablet, , Disp: , Rfl: pantoprazole (ProtoNix) 40 mg EC tablet, Take 40 mg by mouth in the morning., Disp: , Rfl: Prodigy Twist Top Lancet 28 gauge, USE DIRECTED TO TEST SUGARS TWICE DAILY, Disp: , Rfl: SELECT IF UNABLE TO FIND MEDICATION WITH +ADD, Take 1 tablet by mouth in the morning. Med Name: testosterone pill--OTC from [facility], Disp: , Rfl: semaglutide (Ozempic) 0.25 mg or 0.5 mg (2 mg/3 mL) pen injector, Inject 0.5 mg under the skin every 7 (seven) days. Saturday, Disp: , Rfl: sildenafil (Viagra) 100 mg tablet, Take 100 mg by mouth if needed for erectile dysfunction., Disp: , Rfl: tiZANidine (Zanaflex) 2 mg tablet, Take 1 tablet (2 mg) by mouth every 8 (eight) hours if needed for muscle spasms., Disp: 90 tablet, Rfl: 0 UltiCare Pen Needle 31 gauge x 5/16 needle, USE DIRECTED TO TEST SUGARS TWICE DAILY, Disp: , Rfl: Allergies: Allergies Allergen Reactions Dilaudid [Hydromorphone] Other When combined with fentanyl, becomes violent Fentanyl Other When combined with Dilaudid, becomes violent Exam: Exam performed and reviewed, changes as below. Vitals reviewed: No intake/output data recorded. No intake/output data recorded. Exam reviewed and updated. Accompanied by today. Constitutional: In no apparent distress. Chest: Chest expansion symmetrical. Respirations regular and nonlabored. Right scalp incision well-approximated without edema, erythema, drainage. Small scab superior aspect of incision. Distal right scalp incision well-approximated without edema, erythema, drainage. Skin warm and dry without pallor. Neuro: GCS 15/15. Attention and memory intact. No dysarthria or aphasia. Cranial Nerves: Right eye deviates medially. PERRLA 2 mm. Facial sensation intact V1, V2, V3 bilaterally. Facial expression symmetrical. Hearing intact conversation. Uvula midline. Palate elevates symmetrically. Trapezii symmetrical. Tongue midline. Coordination: Efrtwf-qt-jvxx testing without dysmetria bilaterally. Sensation: Intact to light touch C5-T1, L2-S1 dermatomes bilaterally. Musculoskeletal: Deltoid, b (more content not included)... [facility] 10-16-2024 Note NEUROSURGERY NOTE SUBJECTIVE: Chief complaint: Postoperative visit for placement of ventriculoperitoneal shunt on 09/22/[address] Linares. History of present illness: Reports has been feeling a little bit better over time. Still with headaches and some posterior neck pain. He has been taking Fioricet twice per day and supplementing with Tylenol as well. Continues to have diplopia, though eyepatch helps. Nausea and vomiting has been occurring intermittently. Has been voiding and having bowel movements. Blood pressures have been marginally better with amlodipine. Planning to follow-up with primary care provider regarding blood pressure. Review of systems: As in HPI. Past Medical History: Diagnosis Date Diabetes mellitus (CMS/HCC) Erectile dysfunction Hydrocephalus (CMS/HCC) Hyperlipidemia Obesity Pleural effusion empyema Pneumonia Sleep apnea Tachycardia Past Surgical History: Procedure Laterality Date CHEST TUBE INSERTION 10/2022 SHUNT REVISION 09/22/2024 Dr. Linares. VENTRICULOPERITONEAL SHUNT Right Social History Tobacco Use Smoking status: Never Smokeless tobacco: Never Vaping Use Vaping status: Never Used Substance Use Topics Alcohol use: Yes Comment: rarely Drug use: Never Family History Problem Relation Name Age of Onset COPD Mother Parkinsonism Father Hypertension Father Hypertension Brother Cancer Mother's Brother Cancer Maternal Grandmother Diabetes Maternal Grandmother Stroke Paternal Grandfather OBJECTIVE: Medications: albuterol alcohol swabs pads, medicated aspirin atorvastatin Dexcom G6 Sensor device Dexcom G6 Transmitter device metFORMIN metoprolol succinate XL pantoprazole Prodigy Twist Top Lancet [facility] SELECT IF UNABLE TO FIND MEDICATION WITH +ADD semaglutide pen injector sildenafil tiZANidine UltiCare Pen Needle needle Current Outpatient Medications: albuterol 90 mcg/actuation inhaler, INHALE 1 PUFF BY MOUTH EVERY 6 HOURS NEEDED FOR SHORTNESS OF BREATH/ WHEEZING, Disp: , Rfl: alcohol swabs pads, medicated, in the morning and at bedtime. as directed, Disp: , Rfl: aspirin 325 mg EC tablet, Take 325 mg by mouth if needed., Disp: , Rfl: atorvastatin (Lipitor) 20 mg tablet, , Disp: , Rfl: Dexcom G6 Sensor device, APPLY NEW SENSOR EVERY 10 DAYS, Disp: , Rfl: Dexcom G6 Transmitter device, USE DIRECTED TO TEST BLOOD SUGAR, Disp: , Rfl: metFORMIN (Glucophage) 500 mg tablet, Take 500 mg by mouth with breakfast and with evening meal., Disp: , Rfl: metoprolol succinate XL (Toprol-XL) 50 mg 24 hr tablet, , Disp: , Rfl: pantoprazole (ProtoNix) 40 mg EC tablet, Take 40 mg by mouth in the morning., Disp: , Rfl: Prodigy Twist Top Lancet 28 gauge, USE DIRECTED TO TEST SUGARS TWICE DAILY, Disp: , Rfl: SELECT IF UNABLE TO FIND MEDICATION WITH +ADD, Take 1 tablet by mouth in the morning. Med Name: testosterone pill--OTC from [facility], Disp: , Rfl: semaglutide (Ozempic) 0.25 mg or 0.5 mg (2 mg/3 mL) pen injector, Inject 0.5 mg under the skin every 7 (seven) days. Saturday, Disp: , Rfl: sildenafil (Viagra) 100 mg tablet, Take 100 mg by mouth if needed for erectile dysfunction., Disp: , Rfl: tiZANidine (Zanaflex) 2 mg tablet, Take 1 tablet (2 mg) by mouth every 8 (eight) hours if needed for muscle spasms., Disp: 90 tablet, Rfl: 0 UltiCare Pen Needle 31 gauge x 5/16 needle, USE DIRECTED TO TEST SUGARS TWICE DAILY, Disp: , Rfl: Allergies: Allergies Allergen Reactions Dilaudid [Hydromorphone] Other When combined with fentanyl, becomes violent Fentanyl Other When combined with Dilaudid, becomes violent Exam: Exam performed and reviewed, changes as below. Vitals reviewed: Temp: [36.6 ???C (97.8 ???F)] 36.6 ???C (97.8 ???F) Heart Rate: [70] 70 BP: (154)/(92) 154/92 No intake/output data recorded. No intake/output data recorded. Exam reviewed and updated. Accompanied by today. Constitutional: In moderate distress. Chest: Chest expansion symmetrical. Respirations regular and nonlabored. Right scalp incision well-approximated without edema, erythema, drainage. Small scab superior aspect of incision. Distal right scalp incision well-approximated without edema, erythema, drainage. Skin warm and dry without pallor. Neuro: GCS 15/15. Attention and memory intact. No dysarthria or aphasia. Cranial Nerves: Right eye patch. Facial expression symmetrical bilaterally. Hearing intact to conversation. Musculoskeletal: Moving all extremities symmetrically. Muscle tone without hyper or hypotonicity. Muscle bulk appropriate for age. Independently ambulatory with steady gait. Labs: Admission on 09/29/2024, Discharged on 09/29/2024 Component Date Value Ref Range Status Sodium 09/29/2024 136 136 - 145 mmol/L Final Potassium 09/29/2024 3.5 3.5 - 5.1 mmol/L Final Chloride 09/29/2024 98 98 - 107 mmol/L Final CO2 09/29/2024 25 21 - 31 mmol/L Final BUN 09/29/2024 16 (more content not included)... [facility] 10-06-2024 Note NEUROSURGERY NOTE SUBJECTIVE: Chief complaint: Postoperative visit for placement of ventriculoperitoneal shunt on 09/22/[address] Linares. History of present illness: Reports he felt better for a few days after last visit, though started feeling worse again on 10/03/2024. He continues to have some headaches, though somewhat better. Fioricet seems to help and would like a refill. Nausea and vomiting is somewhat better, though not completely resolved. He is taking Zofran. Continues to report diplopia, better with shutting his left eye. Denies issues with the incisions. notes that she has been keeping a log of his blood pressures, which has been running 160s to 190s systolic. Metoprolol has not been helping. Tried giving increased dose without much improvement. Review of systems: As in HPI. Past Medical History: Diagnosis Date Diabetes mellitus (CMS/HCC) Erectile dysfunction Hydrocephalus (CMS/HCC) Hyperlipidemia Obesity Pleural effusion empyema Pneumonia Sleep apnea Tachycardia Past Surgical History: Procedure Laterality Date CHEST TUBE INSERTION 10/2022 SHUNT REVISION 09/22/2024 Dr. Linares. VENTRICULOPERITONEAL SHUNT Right Social History Tobacco Use Smoking status: Never Smokeless tobacco: Never Vaping Use Vaping status: Never Used Substance Use Topics Alcohol use: Yes Comment: rarely Drug use: Never Family History Problem Relation Name Age of Onset COPD Mother Parkinsonism Father Hypertension Father Hypertension Brother Cancer Mother's Brother Cancer Maternal Grandmother Diabetes Maternal Grandmother Stroke Paternal Grandfather OBJECTIVE: Medications: albuterol alcohol swabs pads, medicated aspirin atorvastatin siayeadrxi-zemqlxfmgqyla-vnds Dexcom G6 Sensor device Dexcom G6 Transmitter device metFORMIN metoprolol succinate XL pantoprazole Prodigy Twist Top Lancet misc SELECT IF UNABLE TO FIND MEDICATION WITH +ADD semaglutide pen injector sennosides-docusate sodium sildenafil tiZANidine UltiCare Pen Needle needle Current Outpatient Medications: albuterol 90 mcg/actuation inhaler, INHALE 1 PUFF BY MOUTH EVERY 6 HOURS NEEDED FOR SHORTNESS OF BREATH/ WHEEZING, Disp: , Rfl: alcohol swabs pads, medicated, in the morning and at bedtime. as directed, Disp: , Rfl: aspirin 325 mg EC tablet, Take 325 mg by mouth if needed., Disp: , Rfl: atorvastatin (Lipitor) 20 mg tablet, , Disp: , Rfl: Dexcom G6 Sensor device, APPLY NEW SENSOR EVERY 10 DAYS, Disp: , Rfl: Dexcom G6 Transmitter device, USE DIRECTED TO TEST BLOOD SUGAR, Disp: , Rfl: metFORMIN (Glucophage) 500 mg tablet, Take 500 mg by mouth with breakfast and with evening meal., Disp: , Rfl: metoprolol succinate XL (Toprol-XL) 50 mg 24 hr tablet, , Disp: , Rfl: pantoprazole (ProtoNix) 40 mg EC tablet, Take 40 mg by mouth in the morning., Disp: , Rfl: Prodigy Twist Top Lancet 28 gauge, USE DIRECTED TO TEST SUGARS TWICE DAILY, Disp: , Rfl: SELECT IF UNABLE TO FIND MEDICATION WITH +ADD, Take 1 tablet by mouth in the morning. Med Name: testosterone pill--OTC from [facility], Disp: , Rfl: semaglutide (Ozempic) 0.25 mg or 0.5 mg (2 mg/3 mL) pen injector, Inject 0.5 mg under the skin every 7 (seven) days. Saturday, Disp: , Rfl: sennosides-docusate sodium (Carmel-Colace) 8.6-50 mg tablet, Take 2 tablets by mouth in the morning for 15 days. For constipation while on pain meds. Do not take if diarrhea., Disp: 30 tablet, Rfl: 0 sildenafil (Viagra) 100 mg tablet, Take 100 mg by mouth if needed for erectile dysfunction., Disp: , Rfl: UltiCare Pen Needle 31 gauge x 5/16 needle, USE DIRECTED TO TEST SUGARS TWICE DAILY, Disp: , Rfl: wgrjvlnuqh-ylkarfhkwcotd-cwxs 50-325-40 mg tablet, Take 1 tablet by mouth every 6 (six) hours if needed for headaches for up to 7 days., Disp: 28 tablet, Rfl: 0 tiZANidine (Zanaflex) 2 mg tablet, Take 1 tablet (2 mg) by mouth every 8 (eight) hours if needed for muscle spasms for up to 15 days., Disp: 45 tablet, Rfl: 0 Allergies: Allergies Allergen Reactions Dilaudid [Hydromorphone] Other When combined with fentanyl, becomes violent Fentanyl Other When combined with Dilaudid, becomes violent Exam: Exam performed and reviewed, changes as below. Vitals reviewed: No intake/output data recorded. No intake/output data recorded. Exam reviewed and updated. Accompanied by today. Constitutional: In moderate distress. Chest: Chest expansion symmetrical. Respirations regular and nonlabored. Abdomen: Soft, nontender, nondistended. Abdominal incisions well-approximated without edema, erythema, drainage. Right scalp incision well-approximated without edema, erythema, drainage. Sutures removed by medical translator. Distal right scalp incision well-approximated without edema, erythema, drainage. Skin warm and dry without pallor. Neuro: GCS 15/15. Attention and memory intact. No dysarthria or aph (more content not included)... [facility] 09-30-2024 Note NEUROSURGERY NOTE SUBJECTIVE: Chief complaint: Postoperative visit for placement of ventriculoperitoneal shunt on 09/22/[address] Linares. History of present illness: He did initially have some headache as well as feeling of pressure behind his eyes and diplopia with lateral gaze initially after his shunt was replaced on 09/22/2024. However, over time, he has had worsening headache as well as neck pain, nausea, vomiting, diplopia. OTC medications and oxycodone have not been helping. 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 Review of systems: As in HPI. Past Medical History: Diagnosis Date Diabetes mellitus (CMS/HCC) Erectile dysfunction Hydrocephalus (CMS/HCC) Hyperlipidemia Obesity Pleural effusion empyema Pneumonia Sleep apnea Tachycardia Past Surgical History: Procedure Laterality Date CHEST TUBE INSERTION 10/2022 SHUNT REVISION 09/22/2024 Dr. Linares. VENTRICULOPERITONEAL SHUNT Right Social History Tobacco Use Smoking status: Never Smokeless tobacco: Never Vaping Use Vaping status: Never Used Substance Use Topics Alcohol use: Yes Comment: rarely Drug use: Never Family History Problem Relation Name Age of Onset COPD Mother Parkinsonism Father Hypertension Father Hypertension Brother Cancer Mother's Brother Cancer Maternal Grandmother Diabetes Maternal Grandmother Stroke Paternal Grandfather OBJECTIVE: Medications: albuterol alcohol swabs pads, medicated aspirin atorvastatin myvqsmnfxy-amyagawjbgtkw-xfzl Dexcom G6 Sensor device Dexcom G6 Transmitter device metFORMIN metoprolol succinate XL ondansetron ODT pantoprazole polyethylene glycol Prodigy Twist Top Lancet [facility] [place] SELECT IF UNABLE TO FIND MEDICATION WITH +ADD semaglutide pen injector sennosides-docusate sodium sildenafil UltiCare Pen Needle needle Current Outpatient Medications: albuterol 90 mcg/actuation inhaler, INHALE 1 PUFF BY MOUTH EVERY 6 HOURS NEEDED FOR SHORTNESS OF BREATH/ WHEEZING, Disp: , Rfl: alcohol swabs pads, medicated, in the morning and at bedtime. as directed, Disp: , Rfl: aspirin 325 mg EC tablet, Take 325 mg by mouth if needed., Disp: , Rfl: atorvastatin (Lipitor) 20 mg tablet, , Disp: , Rfl: Dexcom G6 Sensor device, APPLY NEW SENSOR EVERY 10 DAYS, Disp: , Rfl: Dexcom G6 Transmitter device, USE DIRECTED TO TEST BLOOD SUGAR, Disp: , Rfl: metFORMIN (Glucophage) 500 mg tablet, Take 500 mg by mouth with breakfast and with evening meal., Disp: , Rfl: metoprolol succinate XL (Toprol-XL) 50 mg 24 hr tablet, , Disp: , Rfl: ondansetron ODT (Zofran-ODT) 4 mg disintegrating tablet, Take 1 tablet (4 mg) by mouth every 8 (eight) hours if needed for nausea or vomiting for up to 7 days., Disp: 20 tablet, Rfl: 0 pantoprazole (ProtoNix) 40 mg EC tablet, Take 40 mg by mouth in the morning., Disp: , Rfl: polyethylene glycol (Glycolax) 17 gram packet, Take 17 g by mouth if needed each day (constipation) for up to 10 days., Disp: 10 packet, Rfl: 0 Prodigy Twist Top Lancet 28 gauge, USE DIRECTED TO TEST SUGARS TWICE DAILY, Disp: , Rfl: SELECT IF UNABLE TO FIND MEDICATION WITH +ADD, Take 1 tablet by mouth in the morning. Med Name: testosterone pill--OTC from [facility], Disp: , Rfl: semaglutide (Ozempic) 0.25 mg or 0.5 mg (2 mg/3 mL) pen injector, Inject 0.5 mg under the skin every 7 (seven) days. Saturday, Disp: , Rfl: sennosides-docusate sodium (Carmel-Colace) 8.6-50 mg tablet, Take 2 tablets by mouth in the morning for 15 days. For constipation while on pain meds. Do not take if diarrhea., Disp: 30 tablet, Rfl: 0 sildenafil (Viagra) 100 mg tablet, Take 100 mg by mouth if needed for erectile dysfunction., Disp: , Rfl: tiZANidine (Zanaflex) 2 mg tablet, Take 1 tablet (2 mg) by mouth every 8 (eight) hours if needed for muscle spasms for up to 7 days., Disp: 21 tablet, Rfl: 0 UltiCare Pen Needle 31 gauge x 5/16 needle, USE DIRECTED TO TEST SUGARS TWICE DAILY, Disp: , Rfl: stgnqpkhkl-ewmobdsjsruzm-vfpt 50-325-40 mg tablet, Take 1 tablet by mouth every 6 (six) hours if needed for headaches for up to 7 days., Disp: 28 tablet, Rfl: 0 Allergies: Allergies Allergen Reactions Dilaudid [Hydromorphone] Other When combined with fentanyl, becomes violent Fentanyl Other When combined with Dilaudid, becomes violent Exam: Exam performed and reviewed, changes as below. Vitals reviewed: No intake/output data recorded. No intake/output data recorded. Accompanied by today. Constitutional: In moderate distress. Chest: Chest expansion symmetrical. Respirations regular and nonlabored. Abdomen: Soft, nontender, nondistended. Abdominal incisions well-approximated without edema, erythema, drainage. Right scalp incision well-approximated without edema, erythema, drainage. Sutures intact. Distal right scalp incision well-approximated without edema, (more content not included)... [facility] 09-22-2024 Note Patient: Aba chase Procedure Summary Date: 09/22/24 Room / Location: [facility] OPERATING ROOM 03 / [facility] Operating Room Anesthesia Start: 733 Anesthesia Stop: 1014 Procedure: Right Occipital Laparoscopy Assisted BAK[employer] MACHINE MECHANIC SUPERVISOR Shunt Placement(Has Prior Shunt) (Right) Diagnosis: Communicating hydrocephalus (CMS/HCC) (hydrocephalus) Surgeons: Tal Linares MD Responsible Provider: Yvon Molina MD Anesthesia Type: general ASA Status: 2 Anesthesia Type: general Vitals Value Taken Time BP 159/98 09/22/24 1340 Temp 36.2 ???C (97.2 ???F) 09/22/24 1010 Pulse 0 09/22/24 1309 Resp 16 09/22/24 1240 SpO2 96 % 09/22/24 1409 Vitals shown include unfiled device data. Anesthesia Post Evaluation Patient location during evaluation: PACU Patient participation: complete - patient participated Level of consciousness: awake Pain management: adequate Airway patency: patent Cardiovascular status: acceptable Respiratory status: acceptable Hydration status: acceptable Patient is hemodynamically stable and is able to be discharged from PACU per anesthesia protocol. No notable events documented. [facility] 09-22-2024 Note Airway Date/Time: 09/22/2024 7:46 AM Urgency: elective General Information and Staff Patient location during procedure: OR Anesthesiologist: Yvon Molina MD Resident/FARM LABOR CONTRACTOR/CAA: Alonso Kaur MD Performed: resident/FARM LABOR CONTRACTOR/CAA Indications and Patient Condition Indications for airway management: anesthesia Spontaneous Ventilation: absent Sedation level: deep Preoxygenated: yes Mask difficulty assessment: 1 - vent by mask Final Airway Details Final airway type: endotracheal airway Successful airway: ETT Cuffed: yes Successful intubation technique: video laryngoscopy Facilitating devices/methods: intubating stylet Endotracheal tube insertion site: oral Blade: Aguilar Blade size: #3 ETT size (mm): 7.5 Cormack-Lehane Classification: grade I - full view of glottis Placement verified by: chest auscultation and capnometry Measured from: lips ETT to lips (cm): 22 Number of attempts at approach: 1 Number of other approaches attempted: 0 [facility] 09-22-2024 Note Patient: Aba chase Procedure Information Date/Time: 09/22/24 0730 Procedure: Right Occipital Laparoscopy Assisted BAK[employer] MACHINE MECHANIC SUPERVISOR Shunt Placement(Has Prior Shunt) (Right) - Stealth with the EM guidance, Supine with right sided shoulder roll and gel donut. D MEDINA ASSISTING Location: [facility] OPERATING ROOM 03 / [facility] Operating Room Surgeons: Tal Linares MD Relevant Problems Cardio Tolerates >4 METs without chest pain, SOB Endo (+) Diabetes mellitus, type 2 (CMS/HCC) (Takes Metformin. Did not take morning of procedure) Neuro/Psych (+) Generalized headaches Nervous (+) Other hydrocephalus (CMS/HCC) (H/o right sided BAK[employer] MACHINE MECHANIC SUPERVISOR shunt as . Last revised when 10 years old. Current symptoms: transient dizziness and double-vision, transient headaches in right parietal region. No other numbness or weakness. ) CT Head 07/03/23 Marked dilation of the lateral ventricles without dilation of the third or fourth ventricle with intraventricular shunt. The tubing for the shunt appears discontinuous just after the intracranial portion and a second discontinuity just inferior to the right mastoid. XRAY Shunt Series 05/27/23 There is a nonprogrammable posterior approach ventricular shunt. The tubing appears to be discontinuous within the neck and upper chest. Tubing is faintly visualized within the left lower quadrant of the abdomen. Results from last 7 days Lab Units 09/16/24 1111 WBC AUTO 10*3/uL 6.60 HEMOGLOBIN g/dL 15.6 HEMATOCRIT % 45.3 PLATELETS AUTO 10*3/uL 315 Results from last 7 days Lab Units 09/16/24 1111 SODIUM mmol/L 137 POTASSIUM mmol/L 4.2 CHLORIDE mmol/L 104 CO2 mmol/L 27 BUN mg/dL 23 CREATININE mg/dL 0.70 CALCIUM mg/dL 9.5 GLUCOSE mg/dL 116* Clinical information reviewed: Tobacco Allergies Meds Med Hx Surg Hx Fam Hx Soc Hx Physical Exam Airway Mallampati: II TM distance: >3 FB Neck ROM: full Cardiovascular - normal exam Dental - normal exam Pulmonary - normal exam Abdominal (+) obese Anesthesia Plan ASA 2 general (GETA with standard ASA monitors Will give fentanyl as allergy sounds like aggressive behavior rather than true allergy. D/w patient.) The patient is not a current smoker. Patient did not smoke on day of procedure. intravenous induction Trial extubation is planned. Anesthetic plan and risks discussed with patient. Use of blood products discussed with patient who consented to blood products. Plan discussed with attending and resident. Additional Equipment Requests [facility] 09-16-2024 Note NEUROSURGERY NOTE SUBJECTIVE: Chief complaint: Preoperative visit for placement of ventriculoperitoneal shunt on 09/22/[address] Linares. History of present illness: Patient reports he had a BAKERY MACHINE MECHANIC SUPERVISOR shunt placed at , last revised at about 10 years old. He does note that over the past 1.5 years, he has had progressively worsening intermittent right parietal headaches as well as episodes of dizziness and blurred vision in addition to paresthesia of the arms and hands that seem to be associated with the headaches. Sometimes when he gets these headaches, he finds himself listing to 1 side. Otherwise, he denies falls or imbalance. Denies bowel or bladder changes. Review of systems: As in HPI. Denies cough, shortness of breath, chest pain. Denies rashes, wounds, open sores. Past Medical History: Diagnosis Date Diabetes mellitus (CMS/HCC) Erectile dysfunction Hydrocephalus (CMS/HCC) Hyperlipidemia Obesity Pleural effusion empyema Pneumonia Sleep apnea Tachycardia Past Surgical History: Procedure Laterality Date CHEST TUBE INSERTION 10/2022 VENTRICULOPERITONEAL SHUNT Right Social History Tobacco Use Smoking status: Never Smokeless tobacco: Never Vaping Use Vaping status: Never Used Substance Use Topics Alcohol use: Yes Comment: rarely Drug use: Never Family History Problem Relation Name Age of Onset COPD Mother Parkinsonism Father Hypertension Father Hypertension Brother Cancer Mother's Brother Cancer Maternal Grandmother Diabetes Maternal Grandmother Stroke Paternal Grandfather OBJECTIVE: Medications: albuterol alcohol swabs pads, medicated aspirin Dexcom G6 Sensor device Dexcom G6 Transmitter device metFORMIN pantoprazole Prodigy Twist Top Lancet misc SELECT IF UNABLE TO FIND MEDICATION WITH +ADD semaglutide pen injector sildenafil UltiCare Pen Needle needle Current Outpatient Medications: albuterol 90 mcg/actuation inhaler, INHALE 1 PUFF BY MOUTH EVERY 6 HOURS NEEDED FOR SHORTNESS OF BREATH/ WHEEZING, Disp: , Rfl: alcohol swabs pads, medicated, in the morning and at bedtime. as directed, Disp: , Rfl: aspirin 325 mg EC tablet, Take 325 mg by mouth if needed., Disp: , Rfl: Dexcom G6 Sensor device, APPLY NEW SENSOR EVERY 10 DAYS, Disp: , Rfl: Dexcom G6 Transmitter device, USE DIRECTED TO TEST BLOOD SUGAR, Disp: , Rfl: metFORMIN (Glucophage) 500 mg tablet, TAKE 1 TABLET BY MOUTH TWICE A DAY WITH A MEAL FOR 90 DAYS, Disp: , Rfl: pantoprazole (ProtoNix) 40 mg EC tablet, Take 40 mg by mouth in the morning., Disp: , Rfl: Prodigy Twist Top Lancet 28 gauge, USE DIRECTED TO TEST SUGARS TWICE DAILY, Disp: , Rfl: SELECT IF UNABLE TO FIND MEDICATION WITH +ADD, Take 1 tablet by mouth in the morning. Med Name: testosterone pill--OTC from [facility], Disp: , Rfl: semaglutide (Ozempic) 0.25 mg or 0.5 mg (2 mg/3 mL) pen injector, Inject 0.5 mg under the skin every 7 (seven) days. Saturday, Disp: , Rfl: sildenafil (Viagra) 100 mg tablet, TAKE 1 TABLET BY MOUTH EVERY DAY NEEDED FOR 30 DAYS, Disp: , Rfl: UltiCare Pen Needle 31 gauge x 5/16 needle, USE DIRECTED TO TEST SUGARS TWICE DAILY, Disp: , Rfl: Allergies: Allergies Allergen Reactions Dilaudid [Hydromorphone] Other When combined with fentanyl, becomes violent Fentanyl Other When combined with Dilaudid, becomes violent Exam: Exam performed and reviewed, changes as below. Vitals reviewed: No intake/output data recorded. No intake/output data recorded. Accompanied by today. Constitutional: In no apparent distress. Cardiovascular: Heart sounds regular rate and rhythm without appreciable murmur. Chest: Lung sounds clear to auscultation bilaterally. Respirations regular and nonlabored. Abdomen: Soft, nontender, nondistended. Multiple healed abdominal incisions. Healed right parieto-occipital scalp incision. Extremities without edema. Skin warm and dry without pallor. Neuro: GCS 15/15. Attention and memory intact. No dysarthria or aphasia. Cranial Nerves: Conjugate gaze. PERRLA 2 mm. EOMI. No nystagmus. Facial sensation intact V1, V2, V3 bilaterally. Facial expression symmetrical bilaterally. Hearing intact to conversation. Uvula and palate elevates symmetrically. Trapezii symmetrical bilaterally. Tongue midline. Coordination: Finger to nose testing without dysmetria bilaterally. Sensation: Intact to light touch C5-T1 on right, decreased same dermatomes on left. Intact to light touch L2-S1 dermatomes bilaterally. Musculoskeletal: Left handed. Deltoid 5/5 bilaterally. Triceps 5/5 bilaterally. Biceps 5/5 bilaterally. Finger flexors 5/5 bilaterally. Finger extensors 5/5 bilaterally. Hip flexors 5/5 bilaterally. Knee flexors and extensors 5/5 bilaterally. Ankle dorsal flexors 5/5 bilaterally. Ankle plantar flexors 5/5 bilaterally. Muscle tone without hyper or hypotonicity. Muscle bulk appropriate for age. Independently am (more content not included)... 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 I met him about year ago. His shunt looks disconnected to me (over the right chest) He has ventriculomegaly but he felt that he was mostly functioning OK a year ago. He doesn't feel much different this year. He can get some headaches/dizziness - these come and go - typically if he takes a break it will pass. I had him get repeat CT brain to evaluate for any change in his ventricles. ROS: As above Past Medical History: Diagnosis Date Diabetes mellitus (CMS/HCC) Hydrocephalus (CMS/HCC) Pneumonia Past Surgical History: Procedure Laterality Date CHEST TUBE INSERTION 10/2022 VENTRICULOPERITONEAL SHUNT Right Current Outpatient Medications on File Prior to Visit Medication Sig Dispense Refill albuterol 90 mcg/actuation inhaler INHALE 1 PUFF BY MOUTH EVERY 6 HOURS NEEDED FOR SHORTNESS OF BREATH/ WHEEZING alcohol swabs pads, medicated in the morning and at bedtime. as directed Mariana Mitchell U-100 Insulin 100 unit/mL (3 mL) pen INJECT 20 UNITS SUBCUTANEOUSLY TWICE DAILY Dexcom G6 Sensor device APPLY NEW SENSOR EVERY 10 DAYS Dexcom G6 Transmitter device USE DIRECTED TO TEST BLOOD SUGAR metFORMIN (Glucophage) 500 mg tablet TAKE 1 TABLET BY MOUTH TWICE A DAY WITH A MEAL FOR 90 DAYS Prodigy Twist Top Lancet 28 gauge USE DIRECTED TO TEST SUGARS TWICE DAILY semaglutide (Ozempic) 0.25 mg or 0.5 mg (2 mg/3 mL) pen injector 0.5 mg. sildenafil (Viagra) 100 mg tablet TAKE 1 TABLET BY MOUTH EVERY DAY NEEDED FOR 30 DAYS UltiCare Pen Needle 31 gauge x 5/16 needle USE DIRECTED TO TEST SUGARS TWICE DAILY aspirin 325 mg EC tablet Take 325 mg by mouth in the morning. Jardiance 10 mg Take 10 mg by mouth in the morning. losartan (Cozaar) 25 mg tablet Take 25 mg by mouth in the morning. pantoprazole (ProtoNix) 40 mg EC tablet Take 40 mg by mouth in the morning. spironolactone (Aldactone) 50 mg tablet Take 50 mg by mouth in the morning. No current facility-administered medications on file prior to visit. No Known Allergies Exam; BP (!) 168/101 (BP Location: Left arm, Patient Position: Sitting, BP Cuff Size: Adult) Pulse 60 Temp 36.8 ???C (98.3 ???F) (Oral) Wt 104 kg (230 lb) BMI 33.97 kg/m??? 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 I talked with him about the options going forward - we could leave things along and only intervene if he becomes more symptomatic or we could consider putting in a new shunt (it isn't clear to me that revising his current shunt will be effective (he has an old flanged catheter (it isn't clear to me that I will be able to remove that older catheter). He and his thought about things before they left - they decided that they would like to proceed with shunt replacement. There are two options with how this could be achieved - I could explore the old shunt (valve and proximal catheter and remove the old valve and connect to the old catheter if it is draining well (or tie it off if not draining well) - and then either drill another hole next to the old catheter and place an entirely new shunt or place a new valve and distal catheter. They would like to proceed with surgery. We will work to get that scheduled for him - it likley will not be until early 2024. Tal Linares MD [facility] 07-03-2024 Evaluation note Diagnosis Onset Date Resolution Diabetes mellitus acute 2023 1:13pm Hydrocephalus acute June 1:13pm Screening for colon cancer acute July 03 1:13pm Wellness examination acute Nove mb2023 1:13pm Diabetes mellitus acute Decemb r 2023 10:27am Hydrocephalus acute August 202023 10:27am Preoperative clearance acute [facility] 10:27am Screening for colon cancer acute August 20 10:27am [facility] Work Phone: 1(867) 178-665111-08-2024 Hospital Discharge instructionsAmbulatory Orders* Referral to Gastroenterology Time Frame: 07/03/24, Location: None Selected [facility] Work Phone: 1(561) 837-542604-02-2024 Miscellaneous Notes* Telephone Encounter - Gonzalo Walker Jr., MD - 11/26/2023 5:00 PM EDT Images from the original note were not included. Yes, Gudelia, send a certified registered letter. Patient Calls (Newest Message First) View All Conversations on this Encounter VERONIKA Coker routed conversation to You6 days ago VERONIKA Coker6 days ago RT Tried calling vm is full, patient has not returned our calls. May we send a certified letter? Note KERI Coker month ago RT Left message for patient to return call regarding missed appt & labs. Note ARMANDO Kelly Jeffrey J 2 months ago JM Unable to leave message on patient's phone. Sending out letter. Outgoing call You routed conversation to Genaro Chinchilla CMA2 months ago You2 months ago Patient canceled today's appointment and requested testing not completed. Please get him rescheduled within 4 months [facility] Tele[facility] encounter Note* Telephone Encounter - Gonzalo Walker Jr., MD - 11/26/2023 5:00 PM EDT Images from the original note were not included. Yes, Gudelia, send a certified registered letter. Patient Calls (Newest Message First) View All Conversations on this Encounter VERONIKA Coker routed conversation to You6 days ago VERONIKA Coker6 days ago RT Tried calling vm is full, patient has not returned our calls. May we send a certified letter? Note Charmaine Colleen, RMA1 month ago RT Left message for patient to return call regarding missed appt & labs. Note Genaro Chinchilla CMA Aba Ruiz 2 months ago JM Unable to leave message on patient's phone. Sending out letter. Outgoing call You routed conversation to Genaro Chinchilla CMA2 months ago You2 months ago Patient canceled today's appointment and requested testing not completed. Please get him rescheduled within 4 months [facility]01-29-2024 Evaluation note* Encounter Date Diagnosis Assessment Notes Treatment Notes Treatment Clinical Notes Aug, Hyperglycemia due to type 2 diabetes mellitus (ICD-10 - E11.65) [employer] Other 01-26-2024 Evaluation note* Encounter Date Diagnosis Assessment Notes Treatment Notes Treatment Clinical Notes Aug, Hyperglycemia due to type 2 diabetes mellitus (ICD-10 - E11.65) Discussed increasing the meformin and or adding ozempic or similar med. Will check A1C today and send in rx next week accordingly. Pt sent to hospital w [facility] paper. Encouraged patient to continue to watch their diet and increase exercise regimen. [employer] Other 01-26-2024 History of Present illness Narrative* Gonzalo Walker Jr., MD - 09/20/2023 11:56 AM EST Patient canceled today's appointment and has not completed requested testing. I requested staff to reschedule him [facility] Miscellaneous Notes* Telephone Encounter - Gonzalo Walker Jr., MD - 09/20/2023 11:56 AM EST Patient canceled today's appointment and requested testing not completed. Please get him rescheduled within 4 months documented in this [facility] [id number] Telephone encounter Note* Telephone Encounter - Gonzalo Walker Jr., MD - 09/20/2023 11:56 AM EST Patient canceled today's appointment and requested testing not completed. Please get him rescheduled within 4 months [facility] Miscellaneous Notes* Telephone Encounter - Genaro Chinchilla CMA - 08/28/2023 9:45 AM EST Patient called in requesting that his rx for Cialis be sent to the [facility] pharmacy on file. Rx was sent to a mail order pharmacy with [facility] but patient no longer uses that pharmacy. documented in this [facility]Premier [facility] [employer] [id number] Telephone encounter Note* Telephone Encounter - Genaro Chinchilla CMA - 08/28/2023 9:45 AM EST Patient called in requesting that his rx for Cialis be sent to the [facility] pharmacy on file. Rx was sent to a mail order pharmacy with [facility] but patient no longer uses that pharmacy. [id number] Evaluation note* Encounter Date Diagnosis Assessment Notes Treatment Notes Treatment Clinical Notes Jun, Hyperglycemia due to type 2 diabetes mellitus (ICD-10 - E11.65) [employer] Other 10-20-2023 Evaluation note* Encounter Date Diagnosis Assessment Notes Treatment Notes Treatment Clinical Notes May, Hyperglycemia due to type 2 diabetes mellitus (ICD-10 - E11.65) Diabetes well controlled. No hypoglycemia. Home blood sugars reviewed. Patterns stable. Patient is to be careful with diet and meal timing. Understands the importance of this. Doesn't skip meals. Compliant with medications. Patient is advised to have a snack before bedtime. Patient is to pay attention to body and symptoms, with any reoccurring patterns. 20 Oct, 2023 Erectile dysfunction (ICD-10 - N52.9) Discussed urology options due to his age, diabetes, and the fact that meds are only partly helpful. Agrees to urology referral. [employer] Other 05-16-2023 Evaluation note* Encounter Date Diagnosis Assessment Notes Treatment Notes Treatment Clinical Notes December, Lung abscess (ICD-10 - J85.2) December, Pleural effusion (ICD-10 - J90) [employer] Other 04-21-2023 Evaluation note* Encounter Date Diagnosis Assessment Notes Treatment Notes Treatment Clinical Notes Nov, Hyperglycemia due to type 2 diabetes mellitus (ICD-10 - E11.65) Refilled sensor. Will check A1C in 2 months Nov, Abscess of lower lobe of left lung with pneumonia (ICD-10 - J85.1) Resolved. He feels physically able to RTW. 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 Keep appt with Dr. Wells. Use meds as prescribed. Start to take short walks and improve exercise capacity each day. Oct, Type 2 diabetes mellitus without complications (ICD-10 - E11.9) Has appt w specialist next week - continue present meds at this time. 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 [address] [place] [address] Pulmonology Progress Note Signed Patient: Aba Ruiz MR#: [id number] : 1975 Acct:[id number] Age/Sex: 47 / M Adm Date: 3 Loc: 4P Room: 0L6948-1 Type: ADM IN Attending Dr: Ángel Carter MD Copies to: ~ Date of Service: 11/08/2022 Subjective Subjective Narrative: Patient is clinically stable and overall appears much better with decreased workof breathing and decreasing oxygen requirements. He has no new complaints. Exam Physical Exam Vital Signs: Temp Pulse Resp BP Pulse Ox O2 Del Method O2 Flow Rate 97.6 F 80 18 110/70 97 Nasal Cannula 2 11/08/22 08:00 11/08/22 08:00 11/08/22 08:00 11/08/22 08:00 11/08/22 08:00 11/08/22 08:00 11/08/22 08:00 Const General: cooperative and no acute distress Nutritional Appearance: average body habitus Orientation: alert and awake HEENT Head: normal to inspection, normocephalic and atraumatic Ears: hearing grossly normal bilaterally and external ears normal Nose: external nose normal Face and sinus: normal facial exam Eyes Eyelids: eyelids normal Sclera: sclerae normal Neck Neck: normal visual inspection and no lymphadenopathy Chest Chest palpation & inspection: normal inspection of the chest and other (incisionwell opposed; no drainage; no erythema at chest tube site) Resp Auscultation: diminished lung sounds on the left in the lower lung valente, no rhonchi and no wheezes Cardio Rhythm: regular rhythm Heart Sounds: S1 normal, S2 normal, no gallops, no murmurs and no rubs GI Inspection: normal to inspection Palpation: soft and nontender Auscultation: hypoactive bowel sounds Rectal Exam: deferred General: deferred Skin General: no rashes or lesions noted Extrem General: no pedal edema Objective Intake and Output I&O - Last 24 Hours: Intake & Output 11/07/22 11/08/22 11/08/22 23:59 07:59 15:59 Intake Total 500 / 1160 460 / 460 Balance 500 / 1160 460 / 460 Weight 106.6 kg Labs 11/08/22 04:35 11/08/22 04:35 Assessment/Plan Assessment/Plan (1) Pleural effusion: (2) Pneumonia: (3) Diabetes mellitus: Plan Hospital day #11 for patient taken in transfer from the [facility] with left-sided pneumonia and presumably a left lung abscess with parapneumonic pleural effusion with concerns for developing empyema. Patient's leukocytosis and thrombocytosis appear to be improving and patient is clinically much improved. Patient can be discharged to home from a pulmonary perspective with arrangements made for oral antibiotics until evaluated as an outpatient with outpatient testing including x-ray, CBC, sed rate, and C-reactive protein. It was recommended that patient utilize yogurt with live active cultures or probiotics while on antibiotics. His sutures can be discontinued after November 10. Outpatient follow-up has been arranged. Documented By: Michael Wells MD 3 [id number] Signed By: <Electronically signed by MD Michael Wells> 11/08/22 [address] [facility] Work Phone: 1(294) 514-575303-15-2023 Progress note Author Ángel Carter [facility] November 07, 2022 7:05pm Note Date/Time November 07, 2022 7:[address] [facility] [address] [place] [address] Hospitalist Progress Note Signed with Addenda Patient: Aba Ruiz MR#: [id number] : 1975 Acct:[id number] Age/Sex: 47 / M Adm Date: 3 Loc: Room: [address] [place] [address] Type: ADM IN Attending Dr: Ángel Carter MD Copies to: ~ ADDENDUM1 Thrombocytosis-agree with aspirin initiation. Monitor platelets Addendum Documented By: Ángel Carter MD 11/07/221904 Addendum Signed By: <Electronically signed by Ángel Carter MD> 11/07/221904 Date of Service: 11/07/2022 Subjective Subjective Narrative: Patient seen and assessed at bedside and he is ambulating with his in the room. States that he is breathing comfortably on my assessment. Exam Physical Exam Vital Signs: Temp Pulse Resp BP Pulse Ox O2 Del Method O2 Flow Rate 97.9 F 85 18 118/73 98 Nasal Cannula 3.5 11/07/22 11:59 11/07/22 16:00 11/07/22 16:00 11/07/22 16:00 11/07/22 16:00 11/07/22 16:00 11/07/22 16:00 Narrative: Constitutional: Middle-aged WM, resting in bed comfortably HEENT: Moist mucous membranes, neck supple Cardiovascular: RRR, no M/R/G, normal S1 and S2, no JVD Respiratory: Crackles noted at the bases bilaterally, left more than right base GI: Soft, NTND, normoactive bowel sounds : Deferred Neuro: AAO x3, no focal deficits. CN III-XII grossly intact, Strength 5/5 throughout Extremities: No clubbing, cyanosis or edema Psych: Patient calm, cooperative and conversant Objective Lab Results 11/07/22 04:33 11/07/22 04:33 Meds Allergies and Active Meds Allergies No Known Allergies Allergy (Verified 10/30/22 17:49) Active Meds: Active Medications Generic Name Dose Route Start Last Admin Trade Name Freq PRN Reason Stop Dose Admin Acetaminophen 650 mg 10/30/22 17:52 11/06/22 00:01 Acetaminophen 325 Mg Tablet PO 10/30/23 17:51 650 mg Q6HR PRN Administration Pain Scale 1 - 3 or fever Amoxicillin/Clavulanate Potassium 1 tab 11/06/22 21:00 11/07/22 09:25 Amoxicillin/Clav 875-125 Mg Tablet PO 1 tab BID FABIAN Administration Ascorbic Acid 500 mg 10/31/22 12:00 11/07/22 12:42 Ascorbic Acid 500 Mg Tablet PO 10/31/23 11:59 500 mg BID.WITH.BFAST.LUNCH FABIAN Administration Aspirin 325 mg 11/07/22 09:00 11/07/22 09:20 Aspirin 325 Mg Tablet. PO 11/07/23 08:59 325 mg DAILY FABIAN Administration Bisacodyl 10 mg 10/30/22 17:52 11/07/22 10:58 Bisacodyl 5 Mg Tablet. PO 10/30/23 17:51 10 mg DAILY PRN Administration Constipation Dextrose 0 gm 10/30/22 17:52 Dextrose 50% In Water 25 Gm/50 Ml Syringe IV-PUSH 10/30/23 17:51 PRN PRN Hypoglycemia Diphenhydramine HCl 25 mg 11/04/22 22:09 11/05/22 00:18 Diphenhydramine 25 Mg Capsule PO 03/11/24 22:08 25 mg HS PRN Administration Sleep Enoxaparin Sodium 40 mg 11/02/22 10:00 11/07/22 09:21 Enoxaparin 40 Mg/0.4 Ml Syringe SUBCUT 11/02/23 09:59 40 mg DAILY@1000 FABIAN Administration Folic Acid 1 mg 10/31/22 09:00 11/07/22 09:20 Folic Acid 1 Mg Tablet PO 10/31/23 08:59 1 mg DAILY FAIBAN Administration Glucose 0 gm 10/30/22 17:52 Dextrose 40% Gel 15 Gm Tube PO 10/30/23 17:51 PRN PRN Hypoglycemia Guaifenesin 1,200 mg 10/30/22 21:00 11/07/22 09:21 Guaifenesin 600 Mg Tab.Er.12h PO 10/30/23 20:59 1,200 mg BID FABIAN Administration Guaifenesin/Dextromethorphan 10 ml 11/04/22 15:00 Guaif/Dextromethorphan Syrup 10 Ml Udc PO 11/04/23 14:59 Q8H PRN cough Hydroxyzine Pamoate 50 mg 10/30/22 20:51 11/02/22 21:13 Hydroxyzine Pamoate 50 Mg Capsule PO 10/30/23 20:50 50 mg Q6H PRN Administration anxiety Magnesium Sulfate 2 gm in 50 mls @ 25 mls/hr 10/30/22 17:52 Magnesium Sulf 2gm-*Swfi* IV 10/30/23 17:51 DAILY PRN Magnesium Level < 1.5 Insulin Aspart 0 units 11/01/22 22:00 11/07/22 17:29 Insulin Aspart 300 Units/3 Ml Insuln.Pen SUBCUT 11/01/23 21:59 Not Given TID.WM.HS ON LICENSE OF [facility] Protocol Insulin Glargine 25 units 11/03/22 21:00 11/07/22 09:21 Insulin Glargine 300 Units/3 Ml Insuln.Pen SUBCUT 11/03/23 20:59 25 units BID FABIAN Administration Linagliptin 5 mg 11/02/22 08:00 11/07/22 09:20 Linagliptin 5 Mg Tablet PO 11/02/23 07:59 5 mg DAILY.WITH.BKFAST FABIAN Administration Lorazepam 0.5 mg 10/30/22 20:51 Lorazepam 2 Mg/Ml Vial IV-PUSH 04/28/23 20:50 Q4H PRN anxiety Losartan Potassium 25 mg 10/31/22 09:00 11/07/22 09:20 Losartan 25 Mg Tablet PO 10/31/23 08:59 25 mg QAM FABIAN Administration Melatonin 5 mg 10/31/22 22:00 11/06/22 21:16 Melatonin 5 Mg Tablet PO 10/31/23 21:59 5 mg QHS FABIAN Administration Metformin HCl 250 mg 11/02/22 08:00 11/07/22 09:19 Metformin 500 Mg Tablet PO 11/02/23 07:59 250 mg DAILY.WITH.BKFAST FABIAN Administration Metoprolol Tartrate 5 mg 10/30/22 17:52 Metoprolol Tartrate 5 Mg/5 Ml Vial IV-PUSH 10/30/23 17:51 Q4H PRN Blood Pressure Multivitamins 1 tab 10/31/22 09:00 11/07/22 09:20 Multivitamin 1 Tab Tablet PO 10/31/23 08:59 1 tab DAILY FABIAN Administration Ondansetron HCl 4 mg 10/30/22 17:52 Ondansetron 4 Mg/2 Ml Vial IV-PUSH 10/30/23 17:51 Q8H PRN Nausea And Vomiting Pantoprazole Sodium 40 mg 10/31/22 09:00 11/07/22 09:20 Pantoprazole 40 Mg Tablet.Dr PO 10/31/23 08:59 40 mg DAILY FABIAN Administration Potassium Chloride 20 meq 10/30/22 17:52 Potassium Chloride Er 20 Meq Tab.Er.Prt PO 10/30/23 17:51 DAILY PRN Hypokalemia Potassium Chloride 40 meq 10/30/22 17:52 11/01/22 07:30 Potassium Chloride Er 20 Meq Tab.Er.Prt PO 10/30/23 17:51 40 meq DAILY PRN Administration Hypokalemia Repaglinide 1 mg 11/03/22 16:30 11/07/22 17:43 Repaglinide 1 Mg Tablet PO 11/03/23 16:29 1 mg TID.AC FABIAN Administration Saccharomyces Boulardii 250 mg 10/31/22 08:00 11/07/22 17:43 Saccharomyces Boulardii 250 Mg Capsule PO 10/31/23 07:59 250 mg BID.WITH.MEALS FABIAN Administration Sennosides 1 tab 10/30/22 17:52 Sennosides 8.6 Mg Tablet PO 10/30/23 17:51 BID PRN Constipation Sodium Chloride 0 ml 10/30/22 22:00 11/07/22 13:47 Sodium Chloride 0.9 % 10 Ml Syringe IV-PUSH 10/30/23 21:59 10 ml QSHIFT FABIAN Administration Sodium Chloride 10 ml 11/01/22 18:01 Sodium Chloride 0.9 % 10 Ml Vial.Pf IV 11/01/23 18:00 Q4H PRN LORAZEPAM DILUENT Spironolactone 50 mg 11/05/22 09:00 11/07/22 09:21 Spironolactone 50 Mg Tablet PO 11/05/23 08:59 50 mg DAILY FABIAN Administration Tramadol HCl 50 mg 11/06/22 15:57 11/06/22 16:47 Tramadol 50 Mg Tablet PO 05/05/23 15:56 50 mg Q6H PRN Administration back pain A&P - Hospitalist Assessment/Plan (1) Pleural effusion: (2) Pneumonia: (3) Diabetes mellitus: (4) Folic acid deficiency: (5) Leg edema: Plan Empyema Pleural Effusion Sepsis Lower Extremity Edema Improved respiratory status today. Patient is weaned down to 3 L nasal cannula. WBC is trending down. All the cultures have been negative. Still suspect developing empyema that was occurring with the patient's parapneumonic effusion -Continue oral Augmentin -Continue diuretic therapy with Lasix and spironolactone -Wean O2 as tolerated Uncontrolled T2DM A1c 11.9%. -Metformin 500 mg p.o. daily, started during this hospital stay -Linagliptin 5 mg p.o. daily, started during this hospital stay -Continue to titrate long-acting and short acting insulin to optimize glycemic control. -Currently on Prandin while inpatient, may switch to GLP-1 RA or SGLT2 inhibitoron discharge -Diabetic education appointment on discharge CODE STATUS: Full code Documented By: Ángel Carter MD 3 1859 Signed By: <Electronically signed by Ángel Carter MD> 11/07/22 1905 [facility] Work Phone: 1(507) 808-949703-15-2023 Progress note Author Michael Wells [facility] November 07, 2022 3:14pm Note Date/Time November 07, 2022 8:[address] [facility] [address] [place] [address] Pulmonology Progress Note Signed Patient: Aba Ruiz MR#: [id number] : 1975 Acct:[id number] Age/Sex: 47 / M Adm Date: 3 Loc: 4 Room: [address] [place] [address] Type: ADM IN Attending Dr: Ángel Carter MD Copies to: ~ Date of Service: 11/07/2022 Subjective Subjective Narrative: Patient is clinically stable and sitting in chair without significant respiratory complaints. Exam Physical Exam Vital Signs: Temp Pulse Resp BP Pulse Ox O2 Del Method O2 Flow Rate 97.9 F 82 18 116/3 L 97 Nasal Cannula 3.5 11/07/22 08:00 11/07/22 08:00 11/07/22 08:00 11/07/22 08:00 11/07/22 08:00 11/07/22 08:00 11/07/22 08:00 Const General: cooperative and no acute distress Nutritional Appearance: average body habitus Orientation: alert and awake HEENT Head: normal to inspection, normocephalic and atraumatic Ears: hearing grossly normal bilaterally and external ears normal Nose: external nose normal Face and sinus: normal facial exam Eyes Eyelids: eyelids normal Sclera: sclerae normal Neck Neck: normal visual inspection and no lymphadenopathy Chest Chest palpation & inspection: normal inspection of the chest and other (incisionwell opposed; no drainage; no erythema at chest tube site) Resp Auscultation: diminished lung sounds on the left in the lower lung valente, no rhonchi and no wheezes Cardio Rate: tachycardic Rhythm: regular rhythm Heart Sounds: S1 normal, S2 normal, no gallops, no murmurs and no rubs GI Inspection: normal to inspection Palpation: soft and nontender Auscultation: hypoactive bowel sounds Rectal Exam: deferred General: deferred Skin General: no rashes or lesions noted Extrem General: no pedal edema Objective Intake and Output I&O - Last 24 Hours: Intake & Output 11/06/22 11/07/22 11/07/22 23:59 07:59 15:59 Intake Total 600 / 1900 100 / 100 Balance 600 / 1900 100 / 100 Weight 108.3 kg Labs 11/07/22 04:33 11/07/22 04:33 Assessment/Plan Assessment/Plan (1) Pleural effusion: (2) Pneumonia: (3) Diabetes mellitus: Plan Hospital day #10 for patient taken in transfer from the [facility] with left-sided pneumonia and presumably a left lung abscess with parapneumonic pleural effusion with concerns for developing empyema. Patient continues to improve slowly with slight decrease in white blood cell count and patient tolerating oral Augmentin without difficulty. He is noted to have worsening thrombocytosis which may be expected in case of lung abscess. We will start patient on enteric-coated aspirin for his thrombocytosis which will likely worsen before it improves. We will also wean oxygen as tolerated. Patient continues to do well on Augmentin and if patient is stable tomorrow we can likely discharge patient tomorrow with plan for 8-week follow-up in the office with chest x-ray, CBC, C-reactive protein, and sed rate prior to his office visit. At that time we can determine if thrombocytosis has resolved and if aspirin can be discontinued. We can also determine if Augmentin needs to be discontinued at that time as well. This was discussed at length with patient and who was in room. All questions were answered. They are in agreement with this plan. Documented By: Michael Wells MD 3 18 Signed By: <Electronically signed by MD Michael Wells> 11/07/22 [facility] Work Phone: 1(450) 169-900803-14-2023 Progress note Author Ángel Carter [facility] November 06, 2022 8:17pm Note Date/Time November 06, 2022 8:[address] [facility] [address] [place] [address] Hospitalist Progress Note Signed Patient: Aba Ruiz MR#: [id number] : 1975 Acct:[id number] Age/Sex: 47 / M Adm Date: 3 Loc: Room: [address] [place] [address] Type: ADM IN Attending Dr: Ángel Carter MD Copies to: ~ Date of Service: 11/06/2022 Subjective Subjective Narrative: Mild improvement in respiratory status today. Patient is breathing comfortably on 3 L nasal cannula oxygen. Patient has been transitioned to oral Augmentin from Unasyn today. Exam Physical Exam Vital Signs: Temp Pulse Resp BP Pulse Ox O2 Del Method O2 Flow Rate 98 F 85 18 113/68 97 Nasal Cannula 3 11/06/22 16:30 11/06/22 16:30 11/06/22 16:30 11/06/22 16:30 11/06/22 16:30 11/06/22 16:45 11/06/22 16:45 Narrative: Constitutional: Middle-aged WM, resting in bed comfortably HEENT: Moist mucous membranes, neck supple Cardiovascular: RRR, no M/R/G, normal S1 and S2, no JVD Respiratory: Crackles noted at the bases bilaterally GI: Soft, NTND, normoactive bowel sounds : Deferred Neuro: AAO x3, no focal deficits. CN III-XII grossly intact, Strength 5/5 throughout Extremities: No clubbing, cyanosis or edema Psych: Patient calm, cooperative and conversant Objective Lab Results 11/06/22 04:27 11/06/22 04:27 Meds Allergies and Active Meds Allergies No Known Allergies Allergy (Verified 10/30/22 17:49) Active Meds: Active Medications Generic Name Dose Route Start Last Admin Trade Name Freq PRN Reason Stop Dose Admin Acetaminophen 650 mg 10/30/22 17:52 11/06/22 00:01 Acetaminophen 325 Mg Tablet PO 10/30/23 17:51 650 mg Q6HR PRN Administration Pain Scale 1 - 3 or fever Amoxicillin/Clavulanate Potassium 1 tab 11/06/22 21:00 Amoxicillin/Clav 875-125 Mg Tablet PO BID FABIAN Ascorbic Acid 500 mg 10/31/22 12:00 11/06/22 12:19 Ascorbic Acid 500 Mg Tablet PO 10/31/23 11:59 500 mg BID.WITH.BFAST.LUNCH FABIAN Administration Bisacodyl 10 mg 10/30/22 17:52 Bisacodyl 5 Mg Tablet. PO 10/30/23 17:51 DAILY PRN Constipation Dextrose 0 gm 10/30/22 17:52 Dextrose 50% In Water 25 Gm/50 Ml Syringe IV-PUSH 10/30/23 17:51 PRN PRN Hypoglycemia Diphenhydramine HCl 25 mg 11/04/22 22:09 11/05/22 00:18 Diphenhydramine 25 Mg Capsule PO 11/04/23 22:08 25 mg HS PRN Administration Sleep Enoxaparin Sodium 40 mg 11/02/22 10:00 11/06/22 09:01 Enoxaparin 40 Mg/0.4 Ml Syringe SUBCUT 11/02/23 09:59 40 mg DAILY@1000 FABIAN Administration Folic Acid 1 mg 10/31/22 09:00 11/06/22 09:00 Folic Acid 1 Mg Tablet PO 10/31/23 08:59 1 mg DAILY FABIAN Administration Furosemide 40 mg 11/05/22 08:00 11/06/22 09:00 Furosemide 40 Mg/4 Ml Vial IV-PUSH 11/05/23 07:59 40 mg DAILY.8A FABIAN Administration Glucose 0 gm 10/30/22 17:52 Dextrose 40% Gel 15 Gm Tube PO 10/30/23 17:51 PRN PRN Hypoglycemia Guaifenesin 1,200 mg 10/30/22 21:00 11/06/22 09:00 Guaifenesin 600 Mg Tab.Er.12h PO 10/30/23 20:59 1,200 mg BID FABIAN Administration Guaifenesin/Dextromethorphan 10 ml 11/04/22 15:00 Guaif/Dextromethorphan Syrup 10 Ml Udc PO 11/04/23 14:59 Q8H PRN cough Hydroxyzine Pamoate 50 mg 10/30/22 20:51 11/02/22 21:13 Hydroxyzine Pamoate 50 Mg Capsule PO 10/30/23 20:50 50 mg Q6H PRN Administration anxiety Magnesium Sulfate 2 gm in 50 mls @ 25 mls/hr 10/30/22 17:52 Magnesium Sulf 2gm-*Swfi* IV 10/30/23 17:51 DAILY PRN Magnesium Level < 1.5 Insulin Aspart 0 units 11/01/22 22:00 11/06/22 16:40 Insulin Aspart 300 Units/3 Ml Insuln.Pen SUBCUT 11/01/23 21:59 Not Given TID.WM.HS ON LICENSE OF [facility] Protocol Insulin Glargine 25 units 11/03/22 21:00 11/06/22 09:01 Insulin Glargine 300 Units/3 Ml Insuln.Pen SUBCUT 11/03/23 20:59 25 units BID FABIAN Administration Linagliptin 5 mg 11/02/22 08:00 11/06/22 09:00 Linagliptin 5 Mg Tablet PO 11/02/23 07:59 5 mg DAILY.WITH.BKFAST FABIAN Administration Lorazepam 0.5 mg 10/30/22 20:51 Lorazepam 2 Mg/Ml Vial IV-PUSH 04/28/23 20:50 Q4H PRN anxiety Losartan Potassium 25 mg 10/31/22 09:00 11/06/22 09:00 Losartan 25 Mg Tablet PO 10/31/23 08:59 25 mg QAM FABIAN Administration Melatonin 5 mg 10/31/22 22:00 11/05/22 21:16 Melatonin 5 Mg Tablet PO 10/31/23 21:59 5 mg QHS FABIAN Administration Metformin HCl 250 mg 11/02/22 08:00 11/06/22 09:00 Metformin 500 Mg Tablet PO 11/02/23 07:59 250 mg DAILY.WITH.BKFAST FABIAN Administration Metoprolol Tartrate 5 mg 10/30/22 17:52 Metoprolol Tartrate 5 Mg/5 Ml Vial IV-PUSH 10/30/23 17:51 Q4H PRN Blood Pressure Multivitamins 1 tab 10/31/22 09:00 11/06/22 09:00 Multivitamin 1 Tab Tablet PO 10/31/23 08:59 1 tab DAILY FABIAN Administration Ondansetron HCl 4 mg 10/30/22 17:52 Ondansetron 4 Mg/2 Ml Vial IV-PUSH 10/30/23 17:51 Q8H PRN Nausea And Vomiting Pantoprazole Sodium 40 mg 10/31/22 09:00 11/06/22 09:00 Pantoprazole 40 Mg Tablet. PO 10/31/23 08:59 40 mg DAILY FABIAN Administration Potassium Chloride 20 meq 10/30/22 17:52 Potassium Chloride Er 20 Meq Tab.Er.Prt PO 10/30/23 17:51 DAILY PRN Hypokalemia Potassium Chloride 40 meq 10/30/22 17:52 11/01/22 07:30 Potassium Chloride Er 20 Meq Tab.Er.Prt PO 10/30/23 17:51 40 meq DAILY PRN Administration Hypokalemia Repaglinide 1 mg 11/03/22 16:30 11/06/22 17:40 Repaglinide 1 Mg Tablet PO 11/03/23 16:29 1 mg TID.AC FABIAN Administration Saccharomyces Boulardii 250 mg 10/31/22 08:00 11/06/22 16:48 Saccharomyces Boulardii 250 Mg Capsule PO 10/31/23 07:59 250 mg BID.WITH.MEALS FABIAN Administration Sennosides 1 tab 10/30/22 17:52 Sennosides 8.6 Mg Tablet PO 10/30/23 17:51 BID PRN Constipation Sodium Chloride 0 ml 10/30/22 22:00 11/06/22 13:49 Sodium Chloride 0.9 % 10 Ml Syringe IV-PUSH 10/30/23 21:59 10 ml QSHIFT FABIAN Administration Sodium Chloride 10 ml 11/01/22 18:01 Sodium Chloride 0.9 % 10 Ml Vial.Pf IV 11/01/23 18:00 Q4H PRN LORAZEPAM DILUENT Spironolactone 50 mg 11/05/22 09:00 11/06/22 09:00 Spironolactone 50 Mg Tablet PO 11/05/23 08:59 50 mg DAILY FABIAN Administration Tramadol HCl 50 mg 11/06/22 15:57 11/06/22 16:47 Tramadol 50 Mg Tablet PO 05/05/23 15:56 50 mg Q6H PRN Administration back pain A&P - Hospitalist Assessment/Plan (1) Pleural effusion: (2) Pneumonia: (3) Diabetes mellitus: (4) Folic acid deficiency: (5) Leg edema: Plan Empyema Pleural Effusion Sepsis Lower Extremity Edema Improved respiratory status today. Patient is weaned down to 3 L nasal cannula. WBC is trending down. All the cultures have been negative. Still suspect infectious effusion -Transition to oral Augmentin from IV Unasyn today -Continue diuretic therapy with Lasix and spironolactone -Wean O2 as tolerated Uncontrolled T2DM A1c 11.9% -Metformin 250 mg p.o. daily, started during this hospital stay. May need to discontinue this if he continues to have loose stools -Linagliptin 5 mg p.o. daily, started during this hospital stay. -Continue to titrate long-acting and short acting insulin to optimize glycemic control. -Currently on Prandin while inpatient, may switch to GLP-1 RA or SGLT2 inhibitoron discharge CODE STATUS: Full code Documented By: Ángel Carter MD 3 2006 Signed By: <Electronically signed by Ángel Carter MD> 11/06/222016 [facility] Work Phone: [phone] Progress note Author Ángel Carter [facility] November 06, 2022 8:07pm Note Date/Time November 05, 2022 7:[address] [facility] [address] [place] [address] Hospitalist Progress Note Signed Patient: Aba Ruiz MR#: [id number] : 1975 Acct:[id number] Age/Sex: 47 / M Adm Date: 3 Loc: Room: [address] [place] [address] Type: ADM IN Attending Dr: Ángel Carter MD Copies to: ~ Date of Service: 11/05/2022 Subjective Subjective Narrative: Patient seen and assessed this afternoon and notes overall improvement in his respiratory status. He is breathing comfortably on nasal cannula oxygen. This has been weaned down throughout the past 2 days. Currently on 3.5 L nasal cannula oxygen on my assessment. Exam Physical Exam Vital Signs: Temp Pulse Resp BP Pulse Ox O2 Del Method O2 Flow Rate 98.1 F 74 18 112/68 95 Nasal Cannula 3.5 11/05/22 16:00 11/05/22 16:00 11/05/22 16:00 11/05/22 16:00 11/05/22 16:00 11/05/22 16:00 11/05/22 16:00 Narrative: Constitutional: Middle-aged WM, resting in bed comfortably HEENT: Moist mucous membranes, neck supple Cardiovascular: RRR, no M/R/G, normal S1 and S2, no JVD Respiratory: Crackles noted at the bases bilaterally GI: Soft, NTND, normoactive bowel sounds : Deferred Neuro: AAO x3, no focal deficits. CN III-XII grossly intact, Strength 5/5 throughout Extremities: No clubbing, cyanosis or edema Psych: Patient calm, cooperative and conversant Objective Lab Results 11/05/22 03:58 11/05/22 03:58 Microbiology Results Microbiology 10/30/22 18:22 Blood - Right Hand Blood Culture - Final NO GROWTH 5 DAYS 10/30/22 18:14 Blood - Left Antecubital Blood Culture - Final NO GROWTH 5 DAYS Meds Allergies and Active Meds Allergies No Known Allergies Allergy (Verified 10/30/22 17:49) Active Meds: Active Medications Generic Name Dose Route Start Last Admin Trade Name Arnaldo PRN Reason Stop Dose Admin Acetaminophen 650 mg 10/30/22 17:52 11/02/22 21:13 Acetaminophen 325 Mg Tablet PO 10/30/23 17:51 650 mg Q6HR PRN Administration Pain Scale 1 - 3 or fever Ascorbic Acid 500 mg 10/31/22 12:00 11/05/22 12:37 Ascorbic Acid 500 Mg Tablet PO 10/31/23 11:59 500 mg BID.WITH.BFAST.LUNCH FABIAN Administration Bisacodyl 10 mg 10/30/22 17:52 Bisacodyl 5 Mg Tablet. PO 10/30/23 17:51 DAILY PRN Constipation Dextrose 0 gm 10/30/22 17:52 Dextrose 50% In Water 25 Gm/50 Ml Syringe IV-PUSH 10/30/23 17:51 PRN PRN Hypoglycemia Diphenhydramine HCl 25 mg 11/04/22 22:09 11/05/22 00:18 Diphenhydramine 25 Mg Capsule PO 11/04/23 22:08 25 mg HS PRN Administration Sleep Enoxaparin Sodium 40 mg 11/02/22 10:00 11/05/22 09:01 Enoxaparin 40 Mg/0.4 Ml Syringe SUBCUT 11/02/23 09:59 40 mg DAILY@1000 FABIAN Administration Fentanyl Citrate 50 mcg 10/30/22 20:14 Fentanyl/Pf 100 Mcg/2 Ml Vial IV-PUSH Q2H PRN Severe Pain Fentanyl Citrate 25 mcg 10/30/22 20:14 Fentanyl/Pf 100 Mcg/2 Ml Vial IV-PUSH Q2H PRN moderate pain Folic Acid 1 mg 10/31/22 09:00 11/05/22 08:59 Folic Acid 1 Mg Tablet PO 10/31/23 08:59 1 mg DAILY FABIAN Administration Furosemide 40 mg 11/05/22 08:00 11/05/22 09:01 Furosemide 40 Mg/4 Ml Vial IV-PUSH 11/05/23 07:59 40 mg DAILY.8A FABIAN Administration Glucose 0 gm 10/30/22 17:52 Dextrose 40% Gel 15 Gm Tube PO 10/30/23 17:51 PRN PRN Hypoglycemia Guaifenesin 1,200 mg 10/30/22 21:00 11/05/22 09:00 Guaifenesin 600 Mg Tab.Er.12h PO 10/30/23 20:59 1,200 mg BID FABIAN Administration Guaifenesin/Dextromethorphan 10 ml 11/04/22 15:00 Guaif/Dextromethorphan Syrup 10 Ml Udc PO 11/04/23 14:59 Q8H PRN cough Hydroxyzine Pamoate 50 mg 10/30/22 20:51 11/02/22 21:13 Hydroxyzine Pamoate 50 Mg Capsule PO 10/30/23 20:50 50 mg Q6H PRN Administration anxiety Magnesium Sulfate 2 gm in 50 mls @ 25 mls/hr 10/30/22 17:52 Magnesium Sulf 2gm-*Swfi* IV 10/30/23 17:51 DAILY PRN Magnesium Level < 1.5 Ampicillin Sodium/Sulbactam Sodium 3 gm in 100 mls @ 200 mls/hr 11/05/22 12:00 11/05/22 18:13 Unasyn IV Infused Q6H FABIAN Infusion Insulin Aspart 0 units 11/01/22 22:00 11/05/22 16:58 Insulin Aspart 300 Units/3 Ml Insuln.Pen SUBCUT 11/01/23 21:59 3 units TID.WM.HS FABIAN Administration Protocol Insulin Glargine 25 units 11/03/22 21:00 11/05/22 09:00 Insulin Glargine 300 Units/3 Ml Insuln.Pen SUBCUT 11/03/23 20:59 25 units BID FABIAN Administration Linagliptin 5 mg 11/02/22 08:00 11/05/22 09:00 Linagliptin 5 Mg Tablet PO 11/02/23 07:59 5 mg DAILY.WITH.BKFAST FABIAN Administration Lorazepam 0.5 mg 10/30/22 20:51 Lorazepam 2 Mg/Ml Vial IV-PUSH 04/28/23 20:50 Q4H PRN anxiety Losartan Potassium 25 mg 10/31/22 09:00 11/05/22 09:00 Losartan 25 Mg Tablet PO 10/31/23 08:59 25 mg QAM FABIAN Administration Melatonin 5 mg 10/31/22 22:00 11/04/22 21:32 Melatonin 5 Mg Tablet PO 10/31/23 21:59 5 mg QHS FABIAN Administration Metformin HCl 250 mg 11/02/22 08:00 11/05/22 09:00 Metformin 500 Mg Tablet PO 11/02/23 07:59 250 mg DAILY.WITH.BKFAST FABIAN Administration Metoprolol Tartrate 5 mg 10/30/22 17:52 Metoprolol Tartrate 5 Mg/5 Ml Vial IV-PUSH 10/30/23 17:51 Q4H PRN Blood Pressure Multivitamins 1 tab 10/31/22 09:00 11/05/22 09:00 Multivitamin 1 Tab Tablet PO 10/31/23 08:59 1 tab DAILY FABIAN Administration Ondansetron HCl 4 mg 10/30/22 17:52 Ondansetron 4 Mg/2 Ml Vial IV-PUSH 10/30/23 17:51 Q8H PRN Nausea And Vomiting Pantoprazole Sodium 40 mg 10/31/22 09:00 11/05/22 09:00 Pantoprazole 40 Mg Tablet.Dr PO 10/31/23 08:59 40 mg DAILY FABIAN Administration Potassium Chloride 20 meq 10/30/22 17:52 Potassium Chloride Er 20 Meq Tab.Er.Prt PO 10/30/23 17:51 DAILY PRN Hypokalemia Potassium Chloride 40 meq 10/30/22 17:52 11/01/22 07:30 Potassium Chloride Er 20 Meq Tab.Er.Prt PO 10/30/23 17:51 40 meq DAILY PRN Administration Hypokalemia Repaglinide 1 mg 11/03/22 16:30 11/05/22 16:58 Repaglinide 1 Mg Tablet PO 11/03/23 16:29 1 mg TID.AC FABIAN Administration Saccharomyces Boulardii 250 mg 10/31/22 08:00 11/05/22 16:58 Saccharomyces Boulardii 250 Mg Capsule PO 10/31/23 07:59 250 mg BID.WITH.MEALS FABIAN Administration Sennosides 1 tab 10/30/22 17:52 Sennosides 8.6 Mg Tablet PO 10/30/23 17:51 BID PRN Constipation Sodium Chloride 0 ml 10/30/22 22:00 11/05/22 13:35 Sodium Chloride 0.9 % 10 Ml Syringe IV-PUSH 10/30/23 21:59 10 ml QSHIFT FABIAN Administration Sodium Chloride 10 ml 11/01/22 18:01 Sodium Chloride 0.9 % 10 Ml Vial.Pf IV 11/01/23 18:00 Q4H PRN LORAZEPAM DILUENT Spironolactone 50 mg 11/05/22 09:00 11/05/22 09:00 Spironolactone 50 Mg Tablet PO 11/05/23 08:59 50 mg DAILY FABIAN Administration A&P - Hospitalist Assessment/Plan (1) Pleural effusion: (2) Pneumonia: (3) Diabetes mellitus: (4) Folic acid deficiency: (5) Leg edema: Plan Empyema Pleural effusion Lower extremity edema All the cultures have been negative. Still suspect infectious effusion -IV Unasyn per pulmonary -Continue diuretic therapy with Lasix and spironolactone -Wean O2 as tolerated Uncontrolled T2DM A1c 11.9% -Metformin 250 mg p.o. daily, started during this hospital stay. May need to discontinue this if he continues to have loose stools -Linagliptin 5 mg p.o. daily, started during this hospital stay. -Continue to titrate long-acting and short acting insulin to optimize glycemic control. -Currently on Prandin while inpatient, may switch to GLP-1 RA or SGLT2 inhibitoron discharge CODE STATUS: Full code Documented By: Ángel Carter MD 1930 Signed By: <Electronically signed by Ángel Carter MD> 11/06/[address] [place] [address] Ctr Work Phone: [phone] Progress note Author Michael Wells [facility] November 06, 2022 4:43pm Note Date/Time November 06, 2022 9:[address] [facility] [address] [place] [address] Pulmonology Progress Note Signed Patient: Aba Ruiz MR#: [id number] : 1975 Acct:[id number] Age/Sex: 47 / M Adm Date: 3 Loc: Room: [address] [place] [address] Type: ADM IN Attending Dr: Ángel Carter MD Copies to: ~ Date of Service: 11/06/2022 Subjective Subjective Narrative: Patient continues to improve clinically with decrease in oxygen requirements andslight decrease in white blood cell count. Patient does look better and is feeling somewhat improved. Exam Physical Exam Vital Signs: Temp Pulse Resp BP Pulse Ox O2 Del Method O2 Flow Rate 98 F 84 18 120/59 L 97 Nasal Cannula 3.5 11/06/22 08:00 11/06/22 08:00 11/06/22 08:00 11/06/22 08:00 11/06/22 08:00 11/06/22 08:00 11/06/22 08:00 Const General: cooperative and no acute distress Nutritional Appearance: average body habitus Orientation: alert and awake HEENT Head: normal to inspection, normocephalic and atraumatic Ears: hearing grossly normal bilaterally and external ears normal Nose: external nose normal Face and sinus: normal facial exam Eyes Eyelids: eyelids normal Sclera: sclerae normal Neck Neck: normal visual inspection and no lymphadenopathy Chest Chest palpation & inspection: normal inspection of the chest and other (No air leak with minimal additional drainage from tube) Resp Effort & Inspection: paradoxical thoraco-abdominal movements and uses accessory muscles Auscultation: diminished lung sounds on the left in the lower lung valente, no rhonchi and no wheezes Cardio Rate: tachycardic Rhythm: regular rhythm Heart Sounds: S1 normal, S2 normal, no gallops, no murmurs and no rubs GI Inspection: normal to inspection Palpation: soft and nontender Auscultation: hypoactive bowel sounds Rectal Exam: deferred General: deferred Skin General: no rashes or lesions noted Extrem General: no pedal edema Objective Intake and Output I&O - Last 24 Hours: Intake & Output 11/05/22 11/06/22 11/06/22 23:59 07:59 15:59 Intake Total 550 / 1510 800 / 800 Balance 550 / 1510 800 / 800 Weight 109.1 kg Labs 11/06/22 04:27 11/06/22 04:27 Assessment/Plan Assessment/Plan (1) Pleural effusion: (2) Pneumonia: (3) Diabetes mellitus: Plan Hospital day #9 for patient taken in transfer from the [facility] with left-sided pneumonia and presumably a left lung abscess with parapneumonic pleural effusion with concerns for developing empyema. Patient is improving clinically with continued decrease in white blood cell count though note worsening thrombocytosis which tends to occur in the context of lung abscesses. We will change Unasyn to oral Augmentin and observe tomorrow. If the patient continues to improve clinically patient could potentially be discharged on Augmentin with plan for at least 6 to 8 weeks of therapy with follow-up chest x-ray and follow-up of inflammatory markers as an outpatient in our office. This was discussed at length with patient as well as spouse who is at bedside. They are in agreement with this plan. Patient was given some tramadol to facilitate sleep with some discomfort from chest tube site. Documented By: Michael Wells MD [id number] Signed By: <Electronically signed by MD Michael Wells> 11/06/22 1643 [facility] Work Phone: 1([phone]) [phone] Progress note Author Michael Wells [facility] November 05, 2022 1:12pm Note Date/Time November 05, 2022 9:[address] [facility] [address] [place] [address] Pulmonology Progress Note Signed Patient: Aba Ruzi MR#: [id number] : 1975 Acct:[id number] Age/Sex: 47 / M Adm Date: 3 Loc: Room: [address] [place] [address] Type: ADM IN Attending Dr: Ángel Carter MD Copies to: ~ Date of Service: 11/05/2022 Subjective Subjective Narrative: Patient is overall clinically improved but little change from yesterday. Oxygenrequirements appear to be gradually decreasing. Exam Physical Exam Vital Signs: Temp Pulse Resp BP Pulse Ox O2 Del Method O2 Flow Rate 98.2 F 82 18 112/72 95 Nasal Cannula 3.5 11/05/22 08:00 11/05/22 08:00 11/05/22 08:00 11/05/22 08:00 11/05/22 08:00 11/05/22 08:00 11/05/22 08:00 Const General: cooperative and no acute distress Nutritional Appearance: average body habitus Orientation: alert and awake HEENT Head: normal to inspection, normocephalic and atraumatic Ears: hearing grossly normal bilaterally and external ears normal Nose: external nose normal Face and sinus: normal facial exam Eyes Eyelids: eyelids normal Sclera: sclerae normal Neck Neck: normal visual inspection and no lymphadenopathy Chest Chest palpation & inspection: normal inspection of the chest and other (No air leak with minimal additional drainage from tube) Resp Effort & Inspection: paradoxical thoraco-abdominal movements and uses accessory muscles Auscultation: diminished lung sounds on the left in the lower lung valente, no rhonchi and no wheezes Cardio Rate: tachycardic Rhythm: regular rhythm Heart Sounds: S1 normal, S2 normal, no gallops, no murmurs and no rubs GI Inspection: normal to inspection Palpation: soft and nontender Auscultation: hypoactive bowel sounds Rectal Exam: deferred General: deferred Skin General: no rashes or lesions noted Extrem General: no pedal edema Objective Intake and Output I&O - Last 24 Hours: Intake & Output 11/04/22 11/05/22 11/05/22 23:59 07:59 15:59 Intake Total 550 / 2140 300 / 300 Balance 550 / 2140 300 / 300 Weight 110.5 kg Labs 11/05/22 03:58 11/05/22 03:58 Microbiology Micro: Microbiology 10/30/22 18:22 Blood Culture - Final Blood - Right Hand NO GROWTH 5 DAYS 10/30/22 18:14 Blood Culture - Final Blood - Left Antecubital NO GROWTH 5 DAYS Imaging and Cardiology Chest x-ray: Status: image reviewed by me Additional comments: Date of Service: 11/05/22 XR/XR chest 1V portable: chest tube; necrotizing pneumonia Plain film chestsingle view HISTORY:Necrotizing pneumonia follow-up assessment COMPARISON:11/04/2022 FINDINGS: SUPPORT DEVICES: None POSTSURGICAL CHANGES:None HEART: Within normal limits PULMONARY DIANNE:Within normal limits MEDIASTINUM:Unremarkable LUNGS AND PLEURA: Continued left pleural-parenchymal changes. Continued right basilar linear scarring. BONY STRUCTURES: Intact ADDITIONAL FINDINGS None XR/XR chest 1V portable IMPRESSION: Stable findings Assessment/Plan Assessment/Plan (1) Pleural effusion: (2) Pneumonia: (3) Diabetes mellitus: Plan Hospital day #8 for patient taken in transfer from the [facility] with left-sided pneumonia and presumably a left lung abscess with parapneumonic pleural effusion with concerns for developing empyema. Patient's white blood cell count has decreased to below 20,000 and inflammatory markers including erythrocyte sedimentation rate as well as C-reactive protein are decreased. Clinically, appears the patient is moving in the appropriate direction though will likely have a very long, slow recovery. We will change Zosyn to Unasyn which ultimately can be converted to oral Augmentin when patient is stable. We will continue to trend white blood cell count and occasionally obtain inflammatory markers but will discontinue daily chest x-rays. Case was discussed at length with the patient and his who is at bedside. Documented By: Michael Wells MD [id number] Signed By: <Electronically signed by MD Michael Wells> 11/05/22 [facility] Work Phone: [phone] Progress note Author Chung Garcia [facility] November 04, 2022 3:45pm Note Date/Time November 04, 2022 3:[address] [facility] [address] [place] [address] Hospitalist Progress Note Signed Patient: Aba Ruiz MR#: [id number] : 1975 Acct:[id number] Age/Sex: 47 / M Adm Date: 3 Loc: Room: [address] [place] [address] Type: ADM IN Attending Dr: Chung Garcia DO Copies to: ~ Date of Service: 11/04/2022 Subjective Subjective Narrative: Patient states that he is not really coughing up any mucus. The nurse is getting provided with Mucinex. His cough is mostly dry. He does get pain at the former chest tube insertion site when he coughs. He does have much less pain now that the tube is out. No fevers or chills. No headache. No chest pain or palpitations. He does haveloose stools. Not really diarrhea but somewhere between. I did point out this could be due to antibiotics or it also could be due to metformin. He still has a lot of leg edema. He has been wearing OPAL hose. He did not notice much urine output from Lasix 20 mg p.o. given this morning with spironolactone. However, he has been sleeping in the chair this entire time in the hospital at nighttime and never slept in bed with his legs elevated. When he had the chest tube and he was worried that he might pull the chest tube out if he got out of bed at nighttime and had to use the bathroom. I did encourage him to sleep in bed tonight and elevate his legs. With increased physical activity and leg elevation and stronger diuretics I think we can reduce his leg edema. Exam Physical Exam Vital Signs: Temp Pulse Resp BP Pulse Ox O2 Del Method O2 Flow Rate 97.7 F 97 H 18 105/66 96 Nasal Cannula 4 11/04/22 14:59 11/04/22 14:59 11/04/22 14:59 11/04/22 14:59 11/04/22 14:59 11/04/22 14:59 11/04/22 14:59 Narrative: GEN: Awake, alert, oriented x 3. Seated upright in a chair. Looks very fatigued. Pulmonary: Breath sounds are fairly clear today. No wheezing. Cardiac: Regular rate rhythm. No rubs gallops auscultation. Extremities: Moderate diffuse 2+ edema the ankles which is equal bilaterally. No swelling or knots in the calves bilaterally. GI: Abdomen soft, bowel sounds are normal throughout. No rigidity or pain to palpation throughout on the abdomen. Objective Lab Results 11/04/22 04:30 11/04/22 04:30 Microbiology Results Microbiology 10/30/22 18:22 Blood - Right Hand Blood Culture - Preliminary No Growth 4 Days 10/30/22 18:14 Blood - Left Antecubital Blood Culture - Preliminary No Growth 4 Days 11/01/22 06:00 Sputum - Expectorated Aerobic Culture - Final Diann albicans 11/01/22 06:00 Sputum - Expectorated Gram Stain - Final 10/30/22 20:35 Pleural Fluid - Lung Aerobic Culture - Final 10/30/22 20:35 Pleural Fluid - Lung Anaerobic Culture - Final 10/30/22 20:35 Pleural Fluid - Lung Gram Stain - Final Meds Allergies and Active Meds Allergies No Known Allergies Allergy (Verified 10/30/22 17:49) Active Meds: Active Medications Generic Name Dose Route Start Last Admin Trade Name Freq PRN Reason Stop Dose Admin Acetaminophen 650 mg 10/30/22 17:52 11/02/22 21:13 Acetaminophen 325 Mg Tablet PO 10/30/23 17:51 650 mg Q6HR PRN Administration Pain Scale 1 - 3 or fever Ascorbic Acid 500 mg 10/31/22 12:00 11/04/22 12:30 Ascorbic Acid 500 Mg Tablet PO 10/31/23 11:59 500 mg BID.WITH.BFAST.LUNCH FABIAN Administration Bisacodyl 10 mg 10/30/22 17:52 Bisacodyl 5 Mg Tablet.Dr PO 10/30/23 17:51 DAILY PRN Constipation Dextrose 0 gm 10/30/22 17:52 Dextrose 50% In Water 25 Gm/50 Ml Syringe IV-PUSH 10/30/23 17:51 PRN PRN Hypoglycemia Enoxaparin Sodium 40 mg 11/02/22 10:00 11/04/22 09:42 Enoxaparin 40 Mg/0.4 Ml Syringe SUBCUT 11/02/23 09:59 40 mg DAILY@1000 FABIAN Administration Fentanyl Citrate 50 mcg 10/30/22 20:14 Fentanyl/Pf 100 Mcg/2 Ml Vial IV-PUSH Q2H PRN Severe Pain Fentanyl Citrate 25 mcg 10/30/22 20:14 Fentanyl/Pf 100 Mcg/2 Ml Vial IV-PUSH Q2H PRN moderate pain Folic Acid 1 mg 10/31/22 09:00 11/04/22 08:01 Folic Acid 1 Mg Tablet PO 10/31/23 08:59 1 mg DAILY FABIAN Administration Glucose 0 gm 10/30/22 17:52 Dextrose 40% Gel 15 Gm Tube PO 10/30/23 17:51 PRN PRN Hypoglycemia Guaifenesin 1,200 mg 10/30/22 21:00 11/04/22 08:01 Guaifenesin 600 Mg Tab.Er.12h PO 10/30/23 20:59 1,200 mg BID FABIAN Administration Guaifenesin/Dextromethorphan 10 ml 11/04/22 15:00 Guaif/Dextromethorphan Syrup 10 Ml Udc PO 11/04/23 14:59 Q8H PRN cough Hydroxyzine Pamoate 50 mg 10/30/22 20:51 11/02/22 21:13 Hydroxyzine Pamoate 50 Mg Capsule PO 10/30/23 20:50 50 mg Q6H PRN Administration anxiety Magnesium Sulfate 2 gm in 50 mls @ 25 mls/hr 10/30/22 17:52 Magnesium Sulf 2gm-*Swfi* IV 10/30/23 17:51 DAILY PRN Magnesium Level < 1.5 Piperacillin Sod/Tazobactam Sod 4.5 gm in 100 mls @ 200 mls/hr 11/02/22 12:00 11/04/22 12:39 Zosyn IV 200 mls/hr Q6H FABIAN Administration Insulin Aspart 0 units 11/01/22 22:00 11/04/22 12:31 Insulin Aspart 300 Units/3 Ml Insuln.Pen SUBCUT 11/01/23 21:59 3 units TID.WM.HS FABIAN Administration Protocol Insulin Glargine 25 units 11/03/22 21:00 11/04/22 08:01 Insulin Glargine 300 Units/3 Ml Insuln.Pen SUBCUT 11/03/23 20:59 25 units BID FABIAN Administration Ketorolac Tromethamine 30 mg 10/30/22 17:52 Ketorolac Tromethamine 30 Mg/Ml Vial IV-PUSH 11/04/22 17:51 Q6H PRN Pain Scale 4 - 7 Linagliptin 5 mg 11/02/22 08:00 11/04/22 08:00 Linagliptin 5 Mg Tablet PO 11/02/23 07:59 5 mg DAILY.WITH.BKFAST FABIAN Administration Lorazepam 0.5 mg 10/30/22 20:51 Lorazepam 2 Mg/Ml Vial IV-PUSH 04/28/23 20:50 Q4H PRN anxiety Losartan Potassium 25 mg 10/31/22 09:00 11/04/22 08:01 Losartan 25 Mg Tablet PO 10/31/23 08:59 25 mg QAM FABIAN Administration Melatonin 5 mg 10/31/22 22:00 11/03/22 21:18 Melatonin 5 Mg Tablet PO 10/31/23 21:59 5 mg QHS FABIAN Administration Metformin HCl 250 mg 11/02/22 08:00 11/04/22 08:00 Metformin 500 Mg Tablet PO 11/02/23 07:59 250 mg DAILY.WITH.BKFAST FABIAN Administration Metoprolol Tartrate 5 mg 10/30/22 17:52 Metoprolol Tartrate 5 Mg/5 Ml Vial IV-PUSH 10/30/23 17:51 Q4H PRN Blood Pressure Multivitamins 1 tab 10/31/22 09:00 11/04/22 08:01 Multivitamin 1 Tab Tablet PO 10/31/23 08:59 1 tab DAILY FABIAN Administration Ondansetron HCl 4 mg 10/30/22 17:52 Ondansetron 4 Mg/2 Ml Vial IV-PUSH 10/30/23 17:51 Q8H PRN Nausea And Vomiting Pantoprazole Sodium 40 mg 10/31/22 09:00 11/04/22 08:02 Pantoprazole 40 Mg Tablet.Dr PO 10/31/23 08:59 40 mg DAILY FABIAN Administration Potassium Chloride 20 meq 10/30/22 17:52 Potassium Chloride Er 20 Meq Tab.Er.Prt PO 10/30/23 17:51 DAILY PRN Hypokalemia Potassium Chloride 40 meq 10/30/22 17:52 11/01/22 07:30 Potassium Chloride Er 20 Meq Tab.Er.Prt PO 10/30/23 17:51 40 meq DAILY PRN Administration Hypokalemia Potassium Chloride 10 meq 11/03/22 13:20 11/04/22 12:30 Potassium Chloride Er 10 Meq Tablet.Er PO 11/04/22 16:31 10 meq ACHS FABIAN Administration Repaglinide 1 mg 11/03/22 16:30 11/04/22 12:31 Repaglinide 1 Mg Tablet PO 11/03/23 16:29 1 mg TID.AC FABIAN Administration Saccharomyces Boulardii 250 mg 10/31/22 08:00 11/04/22 08:01 Saccharomyces Boulardii 250 Mg Capsule PO 10/31/23 07:59 250 mg BID.WITH.MEALS FABIAN Administration Sennosides 1 tab 10/30/22 17:52 Sennosides 8.6 Mg Tablet PO 10/30/23 17:51 BID PRN Constipation Sodium Chloride 0 ml 10/30/22 22:00 11/04/22 13:11 Sodium Chloride 0.9 % 10 Ml Syringe IV-PUSH 10/30/23 21:59 10 ml QSHIFT FABIAN Administration Sodium Chloride 10 ml 11/01/22 18:01 Sodium Chloride 0.9 % 10 Ml Vial.Pf IV 11/01/23 18:00 Q4H PRN LORAZEPAM DILUENT A&P - Hospitalist Assessment/Plan (1) Pleural effusion: (2) Pneumonia: (3) Diabetes mellitus: (4) Folic acid deficiency: (5) Leg edema: Plan All the cultures have been negative. The Diann albicans from sputum is felt to be a contaminant and not an infectious organism. Continue Zosyn, but consider de-escalating to Unasyn. Metformin 250 mg p.o. daily, started during this hospital stay. May need to discontinue this if he continues to have loose stools Linagliptin 5 mg p.o. daily, started during this hospital stay. Continue to titrate long-acting and short acting insulin to optimize glycemic control. Added Prandin with meals for better glycemic control. We will intensify diuresis with IV Lasix 40 mg daily Continues to need oxygen by nasal cannula at 4 L Nursing staff to teach patient how to administer short acting and long-acting insulin. He does have a bri continuous glucose system that was provided to him by the outside hospital that he should also begin using. Documented By: Chung Garcia DO [id number] Signed By: <Electronically signed by Chung Garcia DO> 11/04/22 1547 [facility] Work Phone: [phone]) 855-230603-12-2023 Progress note Author Michael Wells [facility] November 04, 2022 1:12pm Note Date/Time November 04, 2022 9:[address] [facility] [address] [place] [address] Pulmonology Progress Note Signed Patient: Aba Ruiz MR#: [id number] : 1975 Acct:[id number] Age/Sex: 47 / M Adm Date: 3 Loc: Room: [address] [place] [address] Type: ADM IN Attending Dr: Chung Garcia DO Copies to: ~ Date of Service: 11/04/2022 Subjective Subjective Narrative: Patient has much less pain after removal of chest tube. Heart rate is graduallydecreasing but leukocytosis is stable and remains. Exam Physical Exam Vital Signs: Temp Pulse Resp BP Pulse Ox O2 Del Method O2 Flow Rate 97.6 F 85 16 114/73 94 L Nasal Cannula 4.5 11/04/22 07:56 11/04/22 07:56 11/04/22 07:56 11/04/22 07:56 11/04/22 07:56 11/04/22 09:00 11/04/22 09:00 Const General: cooperative and no acute distress Nutritional Appearance: average body habitus Orientation: alert and awake HEENT Head: normal to inspection, normocephalic and atraumatic Ears: hearing grossly normal bilaterally and external ears normal Nose: external nose normal Face and sinus: normal facial exam Eyes Eyelids: eyelids normal Sclera: sclerae normal Neck Neck: normal visual inspection and no lymphadenopathy Chest Chest palpation & inspection: normal inspection of the chest and other (No air leak with minimal additional drainage from tube) Resp Effort & Inspection: paradoxical thoraco-abdominal movements and uses accessory muscles Auscultation: diminished lung sounds on the left in the lower lung valente, no rhonchi and no wheezes Cardio Rate: tachycardic Rhythm: regular rhythm Heart Sounds: S1 normal, S2 normal, no gallops, no murmurs and no rubs GI Inspection: normal to inspection Palpation: soft and nontender Auscultation: hypoactive bowel sounds Rectal Exam: deferred General: deferred Skin General: no rashes or lesions noted Extrem General: no pedal edema Objective Intake and Output I&O - Last 24 Hours: Intake & Output 11/03/22 11/04/22 11/04/22 22:59 07:59 15:59 Intake Total Balance Weight Labs 11/04/22 04:30 11/04/22 04:30 Microbiology Micro: Microbiology 10/30/22 18:22 Blood Culture - Preliminary Blood - Right Hand No Growth 4 Days 10/30/22 18:14 Blood Culture - Preliminary Blood - Left Antecubital No Growth 4 Days 11/01/22 06:00 Aerobic Culture - Final Sputum - Expectorated Diann albicans Gram Stain - Final 10/30/22 20:35 Aerobic Culture - Final Pleural Fluid - Lung Anaerobic Culture - Final Gram Stain - Final Imaging and Cardiology Chest x-ray: Status: image reviewed by me Additional comments: Date of Service: 11/04/22 XR/XR chest 1V portable: chest tube; necrotizing pneumonia ? Plain film chestsingle view HISTORY:Necrotizing pneumonia COMPARISON:11/03/2022 FINDINGS: SUPPORT DEVICES: Left chest tube removed. POSTSURGICAL CHANGES:None HEART: Obscured PULMONARY DIANNE:Obscured MEDIASTINUM:Unremarkable LUNGS AND PLEURA: Continued left pleural-parenchymal changes are stable.? Right basilar linear atelectasis/scarring.? No pneumothorax. ? BONY STRUCTURES: Intact ADDITIONAL FINDINGS None XR/XR chest 1V portable IMPRESSION: Stable left lung findings.? No pneumothorax. ? Assessment/Plan Assessment/Plan (1) Pleural effusion: (2) Pneumonia: (3) Diabetes mellitus: Plan Hospital day #7 for patient taken in transfer from the [facility] with left-sided pneumonia and presumably a left lung abscess with parapneumonic pleural effusion with concerns for developing empyema. Leukocytosis remains essentially stable. Cultures remain negative to date. We will start guaifenesin to facilitate expectorating mucous. We will continue to trend leukocytosis. We may need to repeat CT scan and may need to decide on intrapulmonary abscess drainage versus bronchoscopy for tissue culture and to ensure there is no evidence of endobronchial lesion which may impede clearance of pneumonia/lung abscess. Case was discussed with patient and who was at bedside. Documented By: Michael Wells MD 3 [id number] Signed By: <Electronically signed by MD Michael Wells> 11/04/[address] [place] [address] Ctr Work Phone: 1([phone]) [phone] Progress note Author Michael Wells [facility] November 03, 2022 1:27pm Note Date/Time November 03, 2022 8:[address] [facility] [address] [place] [address] Pulmonology Progress Note Signed Patient: Aba Ruiz MR#: [id number] : 1975 Acct:[id number] Age/Sex: 47 / M Adm Date: 3 Loc: Room: [address] [place] [address] Type: ADM IN Attending Dr: Chung Garcia DO Copies to: ~ Date of Service: 11/03/2022 Subjective Subjective Narrative: Patient complains primarily of pain at the chest tube site. He also does note some nasal congestion. Exam Physical Exam Vital Signs: Temp Pulse Resp BP Pulse Ox O2 Del Method O2 Flow Rate 98.0 F 95 H 20 124/79 93 L Nasal Cannula 6 11/03/22 07:44 11/03/22 07:44 11/03/22 07:44 11/03/22 07:44 11/03/22 07:44 11/03/22 07:44 11/03/22 07:44 Const General: cooperative and no acute distress Nutritional Appearance: average body habitus Orientation: alert and awake HEENT Head: normal to inspection, normocephalic and atraumatic Ears: hearing grossly normal bilaterally and external ears normal Nose: external nose normal Face and sinus: normal facial exam Eyes Eyelids: eyelids normal Sclera: sclerae normal Neck Neck: normal visual inspection and no lymphadenopathy Chest Chest palpation & inspection: normal inspection of the chest and other (No air leak with minimal additional drainage from tube) Resp Effort & Inspection: paradoxical thoraco-abdominal movements and uses accessory muscles Auscultation: diminished lung sounds on the left in the lower lung valente, no rhonchi and no wheezes Cardio Rate: tachycardic Rhythm: regular rhythm Heart Sounds: S1 normal, S2 normal, no gallops, no murmurs and no rubs GI Inspection: normal to inspection Palpation: soft and nontender Auscultation: hypoactive bowel sounds Rectal Exam: deferred General: deferred Skin General: no rashes or lesions noted Extrem General: no pedal edema Objective Intake and Output I&O - Last 24 Hours: Intake & Output 11/02/22 11/03/22 11/03/22 23:59 07:59 15:59 Intake Total 600 / 1850 500 / 500 Output Total 500 / 520 1250 / 1250 Balance 100 / 1330 -750 / -750 Labs 11/03/22 04:34 11/03/22 04:34 Microbiology Micro: Microbiology 10/30/22 18:22 Blood Culture - Preliminary Blood - Right Hand No Growth 3 Days 10/30/22 18:14 Blood Culture - Preliminary Blood - Left Antecubital No Growth 3 Days 11/01/22 06:00 Aerobic Culture - Preliminary Sputum - Expectorated Diann albicans Gram Stain - Final 10/30/22 20:35 Aerobic Culture - Preliminary Pleural Fluid - Lung Anaerobic Culture - Preliminary Gram Stain - Final Imaging and Cardiology Chest x-ray: Status: image reviewed by me Additional comments: Date of Service: 11/03/22 XR/XR chest 1V portable: chest tube; necrotizing pneumonia Plain film chestsingle view HISTORY:Necrotizing pneumonia. COMPARISON:11/02/2022 FINDINGS: SUPPORT DEVICES: Left chest tube unchanged POSTSURGICAL CHANGES:None HEART: Stable PULMONARY DIANNE:Stable MEDIASTINUM:Unremarkable LUNGS AND PLEURA: Slightly improved left basilar pleural-parenchymal changes. Continued right basilar atelectasis/scarring. No pneumothorax. BONY STRUCTURES: Intact ADDITIONAL FINDINGS None XR/XR chest 1V portable IMPRESSION: Slight improvement of left basilar pleural-parenchymal changes. Assessment/Plan Assessment/Plan (1) Pleural effusion: (2) Pneumonia: (3) Diabetes mellitus: Plan Hospital day #6 for patient taken in transfer from the [facility] with left-sided pneumonia and presumably a left lung abscess with parapneumonic pleural effusion with concerns for developing empyema. Leukocytosis remains essentially stable. However, there is minimal drainage from chest tube. Chest tube was removed without difficulty. We will then need to monitor WBC, inflammatory markers and CXR. If patient has deterioration with new fevers, chest pain and/or worsening respiratory status, may need to consider lung resection. Continue supportive care. I do not believe that Diann in sputum constitutes a pathologic organism and is most likely contamination. I do not feel therapy is warranted. If patient deteriorates from clinical perspective, could consider bronchosocpy with transbronchial biopsies. Documented By: Michael Wells MD 3 [id number] Signed By: <Electronically signed by MD Michael Wells> 11/03/[address] [place] [address] Work Phone: [phone] Progress note Author Chung Garcia [facility] November 03, 2022 1:18pm Note Date/Time November 03, 2022 1:[address] [facility] [address] [place] [address] Hospitalist Progress Note Signed Patient: Aba Ruiz MR#: [id number] : 1975 Acct:[id number] Age/Sex: 47 / M Adm Date: 3 Loc: 4 Room: [address] [place] [address] Type: ADM IN Attending Dr: Chung Garcia DO Copies to: ~ Date of Service: 11/03/2022 Subjective Subjective Narrative: Clinical update: Chest tube was removed today by Dr. Wells. I was in attendance. Patient tolerated this well. Patient states that he continues to feel little bit better each day. Still has leg edema. Appetite is good. No diarrhea constipation. No anginal type chest discomfort. Exam Physical Exam Vital Signs: Temp Pulse Resp BP Pulse Ox O2 Del Method O2 Flow Rate 98.0 F 90 20 125/81 92 L Nasal Cannula 5 11/03/22 07:44 11/03/22 12:00 11/03/22 12:00 11/03/22 12:00 11/03/22 12:00 11/03/22 12:00 11/03/22 12:00 Narrative: GEN: Awake, alert, oriented x 3. Seated upright in a chair. Looks very fatigued. Pulmonary: Breath sounds are fairly clear today. No wheezing. Cardiac: Regular rate rhythm. No rubs gallops auscultation. Extremities: Moderate diffuse 2+ edema the ankles which is equal bilaterally. No swelling or knots in the calves bilaterally. GI: Abdomen soft, bowel sounds are normal throughout. No rigidity or pain to palpation throughout on the abdomen. Objective Lab Results 11/03/22 04:34 11/03/22 04:34 Microbiology Results Microbiology 11/01/22 06:00 Sputum - Expectorated Aerobic Culture - Final Diann albicans 11/01/22 06:00 Sputum - Expectorated Gram Stain - Final 10/30/22 20:35 Pleural Fluid - Lung Aerobic Culture - Final 10/30/22 20:35 Pleural Fluid - Lung Anaerobic Culture - Final 10/30/22 20:35 Pleural Fluid - Lung Gram Stain - Final 10/30/22 18:22 Blood - Right Hand Blood Culture - Preliminary No Growth 3 Days 10/30/22 18:14 Blood - Left Antecubital Blood Culture - Preliminary No Growth 3 Days Meds Allergies and Active Meds Allergies No Known Allergies Allergy (Verified 10/30/22 17:49) Active Meds: Active Medications Generic Name Dose Route Start Last Admin Trade Name Freq PRN Reason Stop Dose Admin Acetaminophen 650 mg 10/30/22 17:52 11/02/22 21:13 Acetaminophen 325 Mg Tablet PO 10/30/23 17:51 650 mg Q6HR PRN Administration Pain Scale 1 - 3 or fever Ascorbic Acid 500 mg 10/31/22 12:00 11/03/22 11:29 Ascorbic Acid 500 Mg Tablet PO 10/31/23 11:59 500 mg BID.WITH.BFAST.LUNCH FABIAN Administration Bisacodyl 10 mg 10/30/22 17:52 Bisacodyl 5 Mg Tablet.Dr PO 10/30/23 17:51 DAILY PRN Constipation Dextrose 0 gm 10/30/22 17:52 Dextrose 50% In Water 25 Gm/50 Ml Syringe IV-PUSH 10/30/23 17:51 PRN PRN Hypoglycemia Docusate Sodium 100 mg 10/30/22 21:00 11/03/22 08:34 Docusate 100 Mg Capsule PO 10/30/23 20:59 100 mg BID FABIAN Administration Enoxaparin Sodium 40 mg 11/02/22 10:00 11/03/22 09:54 Enoxaparin 40 Mg/0.4 Ml Syringe SUBCUT 11/02/23 09:59 40 mg DAILY@1000 FABIAN Administration Fentanyl Citrate 50 mcg 10/30/22 20:14 Fentanyl/Pf 100 Mcg/2 Ml Vial IV-PUSH Q2H PRN Severe Pain Fentanyl Citrate 25 mcg 10/30/22 20:14 Fentanyl/Pf 100 Mcg/2 Ml Vial IV-PUSH Q2H PRN moderate pain Folic Acid 1 mg 10/31/22 09:00 11/03/22 08:35 Folic Acid 1 Mg Tablet PO 10/31/23 08:59 1 mg DAILY FABIAN Administration Glucose 0 gm 10/30/22 17:52 Dextrose 40% Gel 15 Gm Tube PO 10/30/23 17:51 PRN PRN Hypoglycemia Guaifenesin 1,200 mg 10/30/22 21:00 11/03/22 08:35 Guaifenesin 600 Mg Tab.Er.12h PO 10/30/23 20:59 1,200 mg BID FABIAN Administration Hydrochlorothiazide 25 mg 11/02/22 11:30 11/03/22 08:34 Hydrochlorothiazide 25 Mg Tablet PO 11/02/23 11:29 25 mg DAILY FABIAN Administration Hydroxyzine Pamoate 50 mg 10/30/22 20:51 11/02/22 21:13 Hydroxyzine Pamoate 50 Mg Capsule PO 10/30/23 20:50 50 mg Q6H PRN Administration anxiety Magnesium Sulfate 2 gm in 50 mls @ 25 mls/hr 10/30/22 17:52 Magnesium Sulf 2gm-*Swfi* IV 10/30/23 17:51 DAILY PRN Magnesium Level < 1.5 Piperacillin Sod/Tazobactam Sod 4.5 gm in 100 mls @ 200 mls/hr 11/02/22 12:00 11/03/22 11:29 Zosyn IV 200 mls/hr Q6H FABIAN Administration Insulin Aspart 0 units 11/01/22 22:00 11/03/22 13:02 Insulin Aspart 300 Units/3 Ml Insuln.Pen SUBCUT 11/01/23 21:59 4 units TID.WM.HS FABIAN Administration Protocol Insulin Glargine 20 units 10/31/22 09:00 11/03/22 08:35 Insulin Glargine 300 Units/3 Ml Insuln.Pen SUBCUT 10/31/23 08:59 20 units BID FABIAN Administration Ketorolac Tromethamine 30 mg 10/30/22 17:52 Ketorolac Tromethamine 30 Mg/Ml Vial IV-PUSH 11/04/22 17:51 Q6H PRN Pain Scale 4 - 7 Linagliptin 5 mg 11/02/22 08:00 11/03/22 08:34 Linagliptin 5 Mg Tablet PO 11/02/23 07:59 5 mg DAILY.WITH.BKFAST FABIAN Administration Lorazepam 0.5 mg 10/30/22 20:51 Lorazepam 2 Mg/Ml Vial IV-PUSH 04/28/23 20:50 Q4H PRN anxiety Losartan Potassium 25 mg 10/31/22 09:00 11/03/22 08:35 Losartan 25 Mg Tablet PO 10/31/23 08:59 25 mg QAM FABIAN Administration Melatonin 5 mg 10/31/22 22:00 11/02/22 21:13 Melatonin 5 Mg Tablet PO 10/31/23 21:59 5 mg QHS FABIAN Administration Metformin HCl 250 mg 11/02/22 08:00 11/03/22 08:34 Metformin 500 Mg Tablet PO 11/02/23 07:59 250 mg DAILY.WITH.BKFAST FABIAN Administration Metoprolol Tartrate 5 mg 10/30/22 17:52 Metoprolol Tartrate 5 Mg/5 Ml Vial IV-PUSH 10/30/23 17:51 Q4H PRN Blood Pressure Multivitamins 1 tab 10/31/22 09:00 11/03/22 08:34 Multivitamin 1 Tab Tablet PO 10/31/23 08:59 1 tab DAILY FABIAN Administration Ondansetron HCl 4 mg 10/30/22 17:52 Ondansetron 4 Mg/2 Ml Vial IV-PUSH 10/30/23 17:51 Q8H PRN Nausea And Vomiting Pantoprazole Sodium 40 mg 10/31/22 09:00 11/03/22 08:35 Pantoprazole 40 Mg Tablet. PO 10/31/23 08:59 40 mg DAILY FABIAN Administration Potassium Chloride 20 meq 10/30/22 17:52 Potassium Chloride Er 20 Meq Tab.Er.Prt PO 10/30/23 17:51 DAILY PRN Hypokalemia Potassium Chloride 40 meq 10/30/22 17:52 11/01/22 07:30 Potassium Chloride Er 20 Meq Tab.Er.Prt PO 10/30/23 17:51 40 meq DAILY PRN Administration Hypokalemia Saccharomyces Boulardii 250 mg 10/31/22 08:00 11/03/22 08:35 Saccharomyces Boulardii 250 Mg Capsule PO 10/31/23 07:59 250 mg BID.WITH.MEALS FABIAN Administration Sennosides 1 tab 10/30/22 17:52 Sennosides 8.6 Mg Tablet PO 10/30/23 17:51 BID PRN Constipation Sodium Chloride 0 ml 10/30/22 22:00 11/03/22 13:02 Sodium Chloride 0.9 % 10 Ml Syringe IV-PUSH 10/30/23 21:59 10 ml QSHIFT FABIAN Administration Sodium Chloride 10 ml 11/01/22 18:01 Sodium Chloride 0.9 % 10 Ml Vial.Pf IV 11/01/23 18:00 Q4H PRN LORAZEPAM DILUENT A&P - Hospitalist Assessment/Plan (1) Pleural effusion: (2) Pneumonia: (3) Diabetes mellitus: (4) Folic acid deficiency: (5) Leg edema: Plan Metformin 250 mg p.o. daily, started during this hospital stay. Monitor for anyloose stools or diarrhea. Linagliptin 5 mg p.o. daily, started during this hospital stay. Continue to titrate long-acting and short acting insulin to optimize glycemic control. We will intensify diuresis with Lasix starting tomorrow. Continues to need oxygen by nasal cannula at 6 L. Continue to titrate this downas tolerated. Nursing staff to teach patient how to administer short acting and long-acting insulin. He does have a bri continuous glucose system that was provided to him by the outside hospital that he should also begin using. Documented By: Chung Garcia DO [id number] Signed By: <Electronically signed by Chung Garcia DO> 11/03/22 1318 [facility] Work Phone: [phone]) [phone] Progress note Author Michael Wells [facility] November 02, 2022 12:59pm Note Date/Time November 02, 2022 11: 19am [facility] [address] [place] [address] Pulmonology Progress Note Signed Patient: Aba Ruiz MR#: [id number] : 1975 Acct:[id number] Age/Sex: 47 / M Adm Date: 3 Loc: Room: [address] [place] [address] Type: ADM IN Attending Dr: Chung Garcia DO Copies to: ~ Date of Service: 11/02/2022 Subjective Subjective Narrative: Patient continues to complain of pain primarily from chest tube site. Respiratory status is otherwise been stable. Exam Physical Exam Vital Signs: Temp Pulse Resp BP Pulse Ox O2 Del Method O2 Flow Rate 98.2 F 91 H 22 129/80 94 L Nasal Cannula 6 11/02/22 08:00 11/02/22 08:00 11/02/22 08:00 11/02/22 08:00 11/02/22 08:00 11/02/22 08:00 11/02/22 08:00 Const General: cooperative and no acute distress Nutritional Appearance: average body habitus Orientation: alert and awake HEENT Head: normal to inspection, normocephalic and atraumatic Ears: hearing grossly normal bilaterally and external ears normal Nose: external nose normal Face and sinus: normal facial exam Eyes Eyelids: eyelids normal Sclera: sclerae normal Neck Neck: normal visual inspection and no lymphadenopathy Chest Chest palpation & inspection: normal inspection of the chest and other (No air leak with minimal additional drainage from tube) Resp Effort & Inspection: paradoxical thoraco-abdominal movements and uses accessory muscles Auscultation: diminished lung sounds on the left in the lower lung valente, no rhonchi and no wheezes Cardio Rate: tachycardic Rhythm: regular rhythm Heart Sounds: S1 normal, S2 normal, no gallops, no murmurs and no rubs GI Inspection: normal to inspection Palpation: soft and nontender Auscultation: hypoactive bowel sounds Rectal Exam: deferred General: deferred Skin General: no rashes or lesions noted Extrem General: no pedal edema Objective Intake and Output I&O - Last 24 Hours: Intake & Output 11/01/22 11/02/22 11/02/22 23:59 07:59 15:59 Intake Total 550 / 1670 400 / 400 Output Total 20 / 740 Balance 530 / 930 390 / 380 -10 / 380 Labs 11/02/22 04:25 11/02/22 04:25 Microbiology Micro: Microbiology 10/30/22 18:22 Blood Culture - Preliminary Blood - Right Hand No Growth 2 Days 10/30/22 18:14 Blood Culture - Preliminary Blood - Left Antecubital No Growth 2 Days 10/30/22 20:35 Aerobic Culture - Preliminary Pleural Fluid - Lung No Growth 1 Day Anaerobic Culture - Preliminary No Anaerobes Isolated 1 Day Gram Stain - Final 11/01/22 06:00 Gram Stain - Final Sputum - Expectorated Imaging and Cardiology Chest x-ray: Status: image reviewed by me Additional comments: Radiologist interpretation was not available for review at the time my evaluation. To my review, chest tube remains in position without evidence of pneumothorax. Multiple cavities are again noted in the lung. There does appearto be an elevated left hemidiaphragm with a large gastric bubble. There is no clear evidence of pneumothorax and there is minimal effusion appreciated. Assessment/Plan Assessment/Plan (1) Pleural effusion: (2) Pneumonia: (3) Diabetes mellitus: Plan Hospital day #5 for patient taken in transfer from the [facility] with left-sided pneumonia and presumably a left lung abscess with parapneumonic pleural effusion with concerns for developing empyema. There has been minimal drainage from the chest tube though I note that patient's leukocytosis remained stable. Right- sided infiltrate is also noted. We will continue IV Zosyn and supportive care given minimal drainage from chest tube (about 100 mL since chesttube was placed on evening of October 30, 2022; we will hopefully be able to discontinue the chest tube tomorrow. However, the patient will continue to needprolonged antibiotics for presumed lung abscesses and will need to continue to trend white count as if this does not continue to improve; we may need to consider resection of necrotic lung. There will be no CT surgery coverage next week. We will continue to follow with you and provide assistance as able. Documented By: Michael Wells MD 3 [id number] Signed By: <Electronically signed by MD Michael Wells> 11/02/22 7020 [facility] Work Phone: [phone]) [phone] Progress note Author Chung Garcia [facility] November 02, 2022 11:37am Note Date/Time November 02, 2022 11: 17am [facility] [address] [place] [address] Hospitalist Progress Note Signed Patient: Aba Ruiz MR#: [id number] : 1975 Acct:[id number] Age/Sex: 47 / M Adm Date: 3 Loc: Room: [address] [place] [address] Type: ADM IN Attending Dr: Chung Garcia DO Copies to: ~ Date of Service: 11/02/2022 Subjective Subjective Narrative: The patient seems to be in a status quo situation regarding symptomatology. He notes pain on the left rib cage chest tube insertion site when he coughs or has bodily movements. When he is at rest it does not bother him. He feels a burning throughout the left lung valente that had been present even at the outside hospital. He does have a mild cough but it seems like it is getting a tinylittle bit better every day. No new symptoms. No headache. No lightheadednessor dizziness. No fevers chills. No chest pain or anginal type discomfort. No heartburn or acid reflux. He is moving his bowels. He describes a lower urine output than he would expect. He does have some leg edema. He gets intermittentsleep at nighttime and has been taking melatonin as needed. His is at the bedside. She brought in [facility] paperwork. I took that to my nursing coordinators to for completion of that documentation. She wonders if rayll need a shower chair when he goes home and I thought that that would be a good idea. I did tell them that when it is time for him to be discharged in thehospital he may be able to go home on supplemental oxygen but I expect his oxygenation condition to slowly improve. I discussed with the patient and his that his C-peptide level is good so heis not a type I diabetic and oral medications like metformin should work. Given his hemoglobin A1c is 11.9, told him that he will need at least 2 or 3 agents to get his blood sugars under control in the long run. I would advise him to get comfortable using insulin as that would be the best way to get his blood sugars under better control here rapidly in the short-term. Exam Physical Exam Vital Signs: Temp Pulse Resp BP Pulse Ox O2 Del Method O2 Flow Rate 98.2 F 91 H 22 129/80 94 L Nasal Cannula 6 11/02/22 08:00 11/02/22 08:00 11/02/22 08:00 11/02/22 08:00 11/02/22 08:00 11/02/22 08:00 11/02/22 08:00 Narrative: GEN: Awake, alert, oriented x 3. Seated upright in a chair. Looks very fatigued. Pulmonary: Reduced lung sounds throughout on the left side. No active wheezing. Right side of the lungs are clear with no wheezing and no rhonchi and no crackles. Left-sided chest tube site is intact with plenty of tape covering the dressing. Cardiac: Regular rate rhythm. No rubs gallops auscultation. Extremities: Moderate diffuse 2+ edema the ankles which is equal bilaterally. No swelling or knots in the calves bilaterally. GI: Abdomen soft, bowel sounds are normal throughout. No rigidity or pain to palpation throughout on the abdomen. Objective Lab Results 11/02/22 04:25 11/02/22 04:25 Microbiology Results Microbiology 10/30/22 18:22 Blood - Right Hand Blood Culture - Preliminary No Growth 2 Days 10/30/22 18:14 Blood - Left Antecubital Blood Culture - Preliminary No Growth 2 Days 10/30/22 20:35 Pleural Fluid - Lung Aerobic Culture - Preliminary No Growth 1 Day 10/30/22 20:35 Pleural Fluid - Lung Anaerobic Culture - Preliminary No Anaerobes Isolated 1 Day 10/30/22 20:35 Pleural Fluid - Lung Gram Stain - Final 11/01/22 06:00 Sputum - Expectorated Gram Stain - Final Meds Allergies and Active Meds Allergies No Known Allergies Allergy (Verified 10/30/22 17:49) Active Meds: Active Medications Generic Name Dose Route Start Last Admin Trade Name Arnaldo PRN Reason Stop Dose Admin Acetaminophen 650 mg 10/30/22 17:52 Acetaminophen 325 Mg Tablet PO 10/30/23 17:51 Q6HR PRN Pain Scale 1 - 3 or fever Ascorbic Acid 500 mg 10/31/22 12:00 11/02/22 10:07 Ascorbic Acid 500 Mg Tablet PO 10/31/23 11:59 500 mg BID.WITH.BFAST.LUNCH FABIAN Administration Bisacodyl 10 mg 10/30/22 17:52 Bisacodyl 5 Mg Tablet.Dr PO 10/30/23 17:51 DAILY PRN Constipation Dextrose 0 gm 10/30/22 17:52 Dextrose 50% In Water 25 Gm/50 Ml Syringe IV-PUSH 10/30/23 17:51 PRN PRN Hypoglycemia Docusate Sodium 100 mg 10/30/22 21:00 11/02/22 10:07 Docusate 100 Mg Capsule PO 10/30/23 20:59 Not Given BID FABIAN Enoxaparin Sodium 40 mg 11/02/22 10:00 11/02/22 10:06 Enoxaparin 40 Mg/0.4 Ml Syringe SUBCUT 11/02/23 09:59 40 mg DAILY@1000 FABIAN Administration Fentanyl Citrate 50 mcg 10/30/22 20:14 Fentanyl/Pf 100 Mcg/2 Ml Vial IV-PUSH Q2H PRN Severe Pain Fentanyl Citrate 25 mcg 10/30/22 20:14 Fentanyl/Pf 100 Mcg/2 Ml Vial IV-PUSH Q2H PRN moderate pain Folic Acid 1 mg 10/31/22 09:00 11/02/22 10:06 Folic Acid 1 Mg Tablet PO 10/31/23 08:59 1 mg DAILY FABIAN Administration Glucose 0 gm 10/30/22 17:52 Dextrose 40% Gel 15 Gm Tube PO 10/30/23 17:51 PRN PRN Hypoglycemia Guaifenesin 1,200 mg 10/30/22 21:00 11/02/22 10:07 Guaifenesin 600 Mg Tab.Er.12h PO 10/30/23 20:59 1,200 mg BID FABIAN Administration Hydroxyzine Pamoate 50 mg 10/30/22 20:51 Hydroxyzine Pamoate 50 Mg Capsule PO 10/30/23 20:50 Q6H PRN anxiety Magnesium Sulfate 2 gm in 50 mls @ 25 mls/hr 10/30/22 17:52 Magnesium Sulf 2gm-*Swfi* IV 10/30/23 17:51 DAILY PRN Magnesium Level < 1.5 Piperacillin Sod/Tazobactam Sod 3.375 gm in 100 mls @ 200 mls/hr 10/30/22 18:30 11/02/22 08:22 Zosyn IV Not Given Q6H FABIAN Insulin Aspart 0 units 11/01/22 22:00 11/02/22 08:24 Insulin Aspart 300 Units/3 Ml Insuln.Pen SUBCUT 11/01/23 21:59 4 units TID.WM.HS FABIAN Administration Protocol Insulin Glargine 20 units 10/31/22 09:00 11/02/22 08:24 Insulin Glargine 300 Units/3 Ml Insuln.Pen SUBCUT 10/31/23 08:59 20 units BID FABIAN Administration Ketorolac Tromethamine 30 mg 10/30/22 17:52 Ketorolac Tromethamine 30 Mg/Ml Vial IV-PUSH 11/04/22 17:51 Q6H PRN Pain Scale 4 - 7 Linagliptin 5 mg 11/02/22 08:00 11/02/22 10:07 Linagliptin 5 Mg Tablet PO 11/02/23 07:59 5 mg DAILY.WITH.BKFAST FABIAN Administration Lorazepam 0.5 mg 10/30/22 20:51 Lorazepam 2 Mg/Ml Vial IV-PUSH 04/28/23 20:50 Q4H PRN anxiety Losartan Potassium 25 mg 10/31/22 09:00 11/02/22 10:07 Losartan 25 Mg Tablet PO 10/31/23 08:59 25 mg QAM FABIAN Administration Melatonin 5 mg 10/31/22 22:00 11/01/22 21:15 Melatonin 5 Mg Tablet PO 10/31/23 21:59 5 mg QHS FABIAN Administration Metformin HCl 250 mg 11/02/22 08:00 11/02/22 10:06 Metformin 500 Mg Tablet PO 11/02/23 07:59 250 mg DAILY.WITH.BKFAST FABIAN Administration Metoprolol Tartrate 5 mg 10/30/22 17:52 Metoprolol Tartrate 5 Mg/5 Ml Vial IV-PUSH 10/30/23 17:51 Q4H PRN Blood Pressure Multivitamins 1 tab 10/31/22 09:00 11/02/22 10:07 Multivitamin 1 Tab Tablet PO 10/31/23 08:59 1 tab DAILY FABIAN Administration Ondansetron HCl 4 mg 10/30/22 17:52 Ondansetron 4 Mg/2 Ml Vial IV-PUSH 10/30/23 17:51 Q8H PRN Nausea And Vomiting Pantoprazole Sodium 40 mg 10/31/22 09:00 11/02/22 10:07 Pantoprazole 40 Mg Tablet.Dr PO 10/31/23 08:59 40 mg DAILY FABIAN Administration Potassium Chloride 20 meq 10/30/22 17:52 Potassium Chloride Er 20 Meq Tab.Er.Prt PO 10/30/23 17:51 DAILY PRN Hypokalemia Potassium Chloride 40 meq 10/30/22 17:52 11/01/22 07:30 Potassium Chloride Er 20 Meq Tab.Er.Prt PO 10/30/23 17:51 40 meq DAILY PRN Administration Hypokalemia Saccharomyces Boulardii 250 mg 10/31/22 08:00 11/02/22 10:07 Saccharomyces Boulardii 250 Mg Capsule PO 10/31/23 07:59 250 mg BID.WITH.MEALS FABIAN Administration Sennosides 1 tab 10/30/22 17:52 Sennosides 8.6 Mg Tablet PO 10/30/23 17:51 BID PRN Constipation Sodium Chloride 0 ml 10/30/22 22:00 11/02/22 08:23 Sodium Chloride 0.9 % 10 Ml Syringe IV-PUSH 10/30/23 21:59 Not Given QSHIFT FABIAN Sodium Chloride 10 ml 11/01/22 18:01 Sodium Chloride 0.9 % 10 Ml Vial.Pf IV 11/01/23 18:00 Q4H PRN LORAZEPAM DILUENT A&P - Hospitalist Assessment/Plan (1) Pleural effusion: (2) Pneumonia: (3) Diabetes mellitus: (4) Folic acid deficiency: (5) Leg edema: Plan Metformin 250 mg p.o. daily, starting today. Monitor for any loose stools or diarrhea. Linagliptin 5 mg p.o. daily starting today. Continue to titrate long-acting and short acting insulin to optimize glycemic control. Start hydrochlorothiazide 25 mg p.o. daily today and hopefully leg edema will improve within the next 2 or 3 days. Continues to need oxygen by nasal cannula at 6 L. Continue to titrate this downas tolerated. Documented By: Chung Garcia DO [id number] Signed By: <Electronically signed by Chung Garcia DO> 11/02/22 1133 [facility] Work Phone: [phone] 376-912603-09-2023 Progress note Author Chung Garcia [facility] November 01, 2022 5:54pm Note Date/Time November 01, 2022 5:[address] [facility] [address] [place] [address] Hospitalist Progress Note Signed Patient: Aba Ruiz MR#: [id number] : 1975 Acct:[id number] Age/Sex: 47 / M Adm Date: 3 Loc: Room: [address] [place] [address] Type: ADM IN Attending Dr: Chung Garcia DO Copies to: ~ Date of Service: 11/01/2022 Subjective Subjective Narrative: Patient describes that the last time he saw any doctor as a few years ago. He was told at that time that he did not have diabetes but was going in that direction. He was prescribed metformin, and something else that starts with an A. He says that he got diarrhea from the metformin at first but then that improved. He ran out of the metformin sometime ago. He said that because he wakes up at 3 in the morning to go to work it was often difficult for him to remember to take medications. He is getting a fair amount of pain from the left-sided chest tube site when he coughs. He was concerned that it might fall out if he coughs hard. He does not have any headache. No mouth sores or pain with swallowing. No heartburn. No abdominal pain. Appetite is poor but gradually improving. No diarrhea or constipation. Exam Physical Exam Vital Signs: Temp Pulse Resp BP Pulse Ox O2 Del Method O2 Flow Rate 98.0 F 96 H 22 127/78 95 Nasal Cannula 6 11/01/22 16:00 11/01/22 16:00 11/01/22 16:00 11/01/22 16:00 11/01/22 16:00 11/01/22 16:00 11/01/22 16:00 Narrative: GEN: Awake, alert, oriented x 3. Seated upright in a chair. Looks very fatigued. Pulmonary: Reduced lung sounds throughout on the left side. No active wheezing. Right side of the lungs are clear with no wheezing and no rhonchi and no crackles. Cardiac: Regular rate rhythm. No rubs gallops auscultation. Extremities: No edema the ankles. No swelling or knots in the calves bilaterally. GI: Abdomen soft, bowel sounds are normal throughout. No rigidity or pain to palpation throughout on the abdomen. Objective Lab Results 11/01/22 04:41 11/01/22 04:41 Microbiology Results Microbiology 10/30/22 20:35 Pleural Fluid - Lung Aerobic Culture - Preliminary No Growth 1 Day 10/30/22 20:35 Pleural Fluid - Lung Anaerobic Culture - Preliminary No Anaerobes Isolated 1 Day 10/30/22 20:35 Pleural Fluid - Lung Gram Stain - Final 11/01/22 06:00 Sputum - Expectorated Gram Stain - Final 10/30/22 18:22 Blood - Right Hand Blood Culture - Preliminary No Growth 1 Day 10/30/22 18:14 Blood - Left Antecubital Blood Culture - Preliminary No Growth 1 Day Meds Allergies and Active Meds Allergies No Known Allergies Allergy (Verified 10/30/22 17:49) Active Meds: Active Medications Generic Name Dose Route Start Last Admin Trade Name Hammadq PRN Reason Stop Dose Admin Acetaminophen 650 mg 10/30/22 17:52 Acetaminophen 325 Mg Tablet PO 10/30/23 17:51 Q6HR PRN Pain Scale 1 - 3 or fever Ascorbic Acid 500 mg 10/31/22 12:00 11/01/22 11:41 Ascorbic Acid 500 Mg Tablet PO 10/31/23 11:59 500 mg BID.WITH.BFAST.LUNCH FABIAN Administration Bisacodyl 10 mg 10/30/22 17:52 Bisacodyl 5 Mg Tablet. PO 10/30/23 17:51 DAILY PRN Constipation Dextrose 0 gm 10/30/22 17:52 Dextrose 50% In Water 25 Gm/50 Ml Syringe IV-PUSH 10/30/23 17:51 PRN PRN Hypoglycemia Docusate Sodium 100 mg 10/30/22 21:00 11/01/22 08:35 Docusate 100 Mg Capsule PO 10/30/23 20:59 100 mg BID FABIAN Administration Fentanyl Citrate 50 mcg 10/30/22 20:14 Fentanyl/Pf 100 Mcg/2 Ml Vial IV-PUSH Q2H PRN Severe Pain Fentanyl Citrate 25 mcg 10/30/22 20:14 Fentanyl/Pf 100 Mcg/2 Ml Vial IV-PUSH Q2H PRN moderate pain Folic Acid 1 mg 10/31/22 09:00 11/01/22 08:35 Folic Acid 1 Mg Tablet PO 10/31/23 08:59 1 mg DAILY FABIAN Administration Glucose 0 gm 10/30/22 17:52 Dextrose 40% Gel 15 Gm Tube PO 10/30/23 17:51 PRN PRN Hypoglycemia Guaifenesin 1,200 mg 10/30/22 21:00 11/01/22 08:36 Guaifenesin 600 Mg Tab.Er.12h PO 10/30/23 20:59 1,200 mg BID FABIAN Administration Hydroxyzine Pamoate 50 mg 10/30/22 20:51 Hydroxyzine Pamoate 50 Mg Capsule PO 10/30/23 20:50 Q6H PRN anxiety Magnesium Sulfate 2 gm in 50 mls @ 25 mls/hr 10/30/22 17:52 Magnesium Sulf 2gm-*Swfi* IV 10/30/23 17:51 DAILY PRN Magnesium Level < 1.5 Piperacillin Sod/Tazobactam Sod 3.375 gm in 100 mls @ 200 mls/hr 10/30/22 18:30 11/01/22 11:41 Zosyn IV 200 mls/hr Q6H FABIAN Administration Insulin Aspart 0 units 11/01/22 22:00 Insulin Aspart 300 Units/3 Ml Insuln.Pen SUBCUT 11/01/23 21:59 TID.WM.HS ON LICENSE OF [facility] Protocol Insulin Glargine 20 units 10/31/22 09:00 11/01/22 08:38 Insulin Glargine 300 Units/3 Ml Insuln.Pen SUBCUT 10/31/23 08:59 20 units BID FABIAN Administration Ketorolac Tromethamine 30 mg 10/30/22 17:52 Ketorolac Tromethamine 30 Mg/Ml Vial IV-PUSH 11/04/22 17:51 Q6H PRN Pain Scale 4 - 7 Lorazepam 0.5 mg 10/30/22 20:51 Lorazepam 2 Mg/Ml Vial IV-PUSH 04/28/23 20:50 Q4H PRN anxiety Losartan Potassium 25 mg 10/31/22 09:00 11/01/22 08:35 Losartan 25 Mg Tablet PO 10/31/23 08:59 25 mg QAM FABIAN Administration Melatonin 5 mg 10/31/22 22:00 10/31/22 21:08 Melatonin 5 Mg Tablet PO 10/31/23 21:59 5 mg QHS FABIAN Administration Metoprolol Tartrate 5 mg 10/30/22 17:52 Metoprolol Tartrate 5 Mg/5 Ml Vial IV-PUSH 10/30/23 17:51 Q4H PRN Blood Pressure Multivitamins 1 tab 10/31/22 09:00 11/01/22 08:35 Multivitamin 1 Tab Tablet PO 10/31/23 08:59 1 tab DAILY FABIAN Administration Ondansetron HCl 4 mg 10/30/22 17:52 Ondansetron 4 Mg/2 Ml Vial IV-PUSH 10/30/23 17:51 Q8H PRN Nausea And Vomiting Pantoprazole Sodium 40 mg 10/31/22 09:00 11/01/22 08:35 Pantoprazole 40 Mg Tablet.Dr PO 10/31/23 08:59 40 mg DAILY FABIAN Administration Potassium Chloride 20 meq 10/30/22 17:52 Potassium Chloride Er 20 Meq Tab.Er.Prt PO 10/30/23 17:51 DAILY PRN Hypokalemia Potassium Chloride 40 meq 10/30/22 17:52 11/01/22 07:30 Potassium Chloride Er 20 Meq Tab.Er.Prt PO 10/30/23 17:51 40 meq DAILY PRN Administration Hypokalemia Saccharomyces Boulardii 250 mg 10/31/22 08:00 11/01/22 08:35 Saccharomyces Boulardii 250 Mg Capsule PO 10/31/23 07:59 250 mg BID.WITH.MEALS FABIAN Administration Sennosides 1 tab 10/30/22 17:52 Sennosides 8.6 Mg Tablet PO 10/30/23 17:51 BID PRN Constipation Sodium Chloride 0 ml 10/30/22 22:00 11/01/22 13:14 Sodium Chloride 0.9 % 10 Ml Syringe IV-PUSH 10/30/23 21:59 10 ml QSHIFT FABIAN Administration A&P - Hospitalist Assessment/Plan (1) Pleural effusion: (2) Pneumonia: (3) Diabetes mellitus: (4) Folic acid deficiency: Plan Patient underwent left chest tube placement with removal of 1500ml fluid concerning for empyema. Pulmonary service has been consulted regarding management of pleural effusion. Patient currently on Zosyn with pending blood andpleural fluid cultures. WBC count has improved a little bit to 22.3, with pulseox 96% on 6 L oxygen. Dose of basal insulin has been increased for better diabetic control along with sliding scale coverage. A1c level of 11.9. Losartan has been added for better blood pressure control. SCDs for DVT prophylaxis. Will add lovenox for DVT prophylaxis. Documented By: Chung Garcia DO [id number] Signed By: <Electronically signed by Chung Garcia DO> 11/01/221753 [facility] Work Phone: [phone]) [phone] Progress note Author Michael Wells [facility] November 01, 2022 4:24pm Note Date/Time November 01, 2022 9:[address] [facility] [address] [place] [address] Pulmonology Progress Note Signed Patient: Aba Ruiz MR#: [id number] : 1975 Acct:[id number] Age/Sex: 47 / M Adm Date: 3 Loc: 4 Room: [address] [place] [address] Type: ADM IN Attending Dr: Chung Garcia DO Copies to: ~ Date of Service: 11/01/2022 Exam Physical Exam Vital Signs: Temp Pulse Resp BP Pulse Ox O2 Del Method O2 Flow Rate 98.1 F 87 24 139/90 94 L Nasal Cannula 6 11/01/22 07:46 11/01/22 07:46 11/01/22 07:46 11/01/22 07:46 11/01/22 07:46 11/01/22 07:54 11/01/22 07:54 Const General: cooperative and no acute distress Nutritional Appearance: average body habitus Orientation: alert and awake HEENT Head: normal to inspection, normocephalic and atraumatic Ears: hearing grossly normal bilaterally and external ears normal Nose: external nose normal Face and sinus: normal facial exam Eyes Eyelids: eyelids normal Sclera: sclerae normal Neck Neck: normal visual inspection and no lymphadenopathy Chest Chest palpation & inspection: normal inspection of the chest and other (No air leak with minimal additional drainage from tube) Resp Effort & Inspection: paradoxical thoraco-abdominal movements and uses accessory muscles Auscultation: diminished lung sounds on the left in the lower lung valente, no rhonchi and no wheezes Cardio Rate: tachycardic Rhythm: regular rhythm Heart Sounds: S1 normal, S2 normal, no gallops, no murmurs and no rubs GI Inspection: normal to inspection Palpation: soft and nontender Auscultation: hypoactive bowel sounds Rectal Exam: deferred General: deferred Skin General: no rashes or lesions noted Extrem General: no pedal edema Objective Intake and Output I&O - Last 24 Hours: Intake & Output 10/31/22 11/01/22 11/01/22 23:59 07:59 15:59 Intake Total 200 / 1540 300 / 300 Output Total 10 / 1090 720 / 720 Balance 190 / 450 -420 / -420 Weight 107.5 kg Labs 11/01/22 04:41 11/01/22 04:41 Microbiology Micro: Microbiology 11/01/22 06:00 Gram Stain - Final Sputum - Expectorated 10/30/22 18:22 Blood Culture - Preliminary Blood - Right Hand No Growth 1 Day 10/30/22 18:14 Blood Culture - Preliminary Blood - Left Antecubital No Growth 1 Day 10/30/22 20:35 Gram Stain - Final Pleural Fluid - Lung Imaging and Cardiology CT scan - chest: Status: image reviewed by me Additional comments: Date of Service: 11/01/22 CT/CT chest wo con: reevaluate parapneumonic effusion; lung abscess ? CT CHEST WITHOUT IV CONTRAST:? CLINICAL HISTORY: Pleural effusion, pneumonia, possible left lung abscess. COMPARISON: Chest x-ray 10/31/2022 TECHNIQUE:? Spiral images were obtained through the chest without IV contrast.? This CT exam was performed using one or more following dose reduction techniques: Automated exposure control, adjustment of the mA and/or kV accordingto patient size, or use of iterative reconstruction technique. FINDINGS:? Mediastinum:Thoracic aorta appears normal in caliber.? Pulmonary trunk appears nondilated.? No pleural effusion.? Cardiomegaly.? Multiple prominent mediastinallymph nodes.? The esophagus is grossly unremarkable. Lungs:Left-sided chest tube is in place.? There is near complete consolidation involving the left lung with relative sparing involving the left lung apex with what appears to be necrotic components.? A somewhat masslike consolidation is seen in the expected region of the left major fissure on series 4 image 20 measuring approximately 6.8 x 4.4 cm in greatest axial dimensions.? Right lung demonstrates ill-defined areas of groundglass predominantly seen within the right lower lobe.? No pneumothorax is seen.? Trace left-sided pleural effusion. Abd:No acute findings. Soft tissues/Bones: Visualized soft tissue surrounding the chest wall demonstrate no acute findings.? Implanted linear device is seen involving the right chest wall.? Osseous structures demonstrate degenerative change. CT/CT chest wo con IMPRESSION: ? Left-sided chest tube is in place.? There is near complete consolidation involving the left lung with relative sparing involving the left lung apex with what appears to be necrotic components.? A somewhat masslike consolidation is seen inthe expected region of the left major fissure on series 4 image 20 measuring 6.8x 4.4 cm in greatest axial dimensions.? An infectious process is suspected.? Repeat CT after therapy is recommended to ensure resolution/response to therapy. ? Ill-defined areas of groundglass are seen within the right lung, predominantly within the right lower lobe.? Findings also likely infectious in etiology.? Thiscan also be followed by CT. ? Trace left-sided pleural effusion. Assessment/Plan Assessment/Plan (1) Pleural effusion: (2) Pneumonia: (3) Diabetes mellitus: Plan Hospital day #4 for patient taken in transfer from the [facility] with left-sided pneumonia and presumably a left lung abscess with parapneumonic pleural effusion with concerns for developing empyema. The patient's blood cultures as well as pleural fluid cultures are negative to date. No decrease inleukocytosis though still greater than 20,000. Repeat CT scan shows evacuation of just about all the pleural effusion with reexpansion of the lung though with presumption of dense consolidation and likely multiple lung abscesses in the left lower lobe. Is difficult to determine if the patient has a pseudotumor on the left with fluid in the fissure versus a large fluid-filled cavity on the left. Nonspecific patchy infiltrates are noted on the right. There is no indication for thrombolytics and it does not appear that the patient will clearly require decortication. We will continue antibiotics and trend leukocytosis. I would like to keep the chest tube in for a couple more days to try and facilitate drainage of fluid but have no intention of administering thrombolytics. The patient will clearly need prolonged antibiotics and will have to determine if the patient continues to manifest evidence of improvement in inflammation and infection or may need to consider surgical resection. We will follow with you and provide assistance as able. Documented By: Michael Wells MD [id number] Signed By: <Electronically signed by MD Michael Wells> 11/01/22 1624 [facility] Work Phone: [phone] Progress note Author Bigg Vee [facility] October 31, 2022 3:19pm Note Date/Time October 31, 2022 3:[address] [facility] [address] [place] [address] Hospitalist Progress Note Signed Patient: Aba Ruiz MR#: [id number] : 1975 Acct:[id number] Age/Sex: 47 / M Adm Date: 3 Loc: Room: [address] [place] [address] Type: ADM IN Attending Dr: Bigg Vee MD Copies to: ~ Date of Service: 10/31/2022 Subjective Subjective Narrative: Patient examined at bedside and currently on 6 L oxygen. He mentioned feeling slightly better but still not having much appetite. He does get pain at site ofchest tube. He was not able to sleep last night and remembers being agitated pulling his mask off. He thinks it could be from the medication and does not remember much. Appreciate pulmonary consultation yesterday underwent left chesttube placement with removal of 1500mll fluid due to concern for developing empyema. Exam Physical Exam Vital Signs: Temp Pulse Resp BP Pulse Ox O2 Del Method O2 Flow Rate 98.4 F 109 H 26 H 156/88 H 91 L Nasal Cannula 6 10/31/22 07:52 10/31/22 11:52 10/31/22 11:52 10/31/22 11:52 10/31/22 11:52 10/31/22 08:00 10/31/22 08:00 Const Orientation: alert, awake and oriented x3 Chest Other: Left chest tube in place. Resp Effort & Inspection: tachypneic Auscultation: diminished lung sounds on the left in the lower lung valente, no rales, no rhonchi and no wheezes Cardio Rate: tachycardic Rhythm: regular rhythm Heart Sounds: S1 normal and S2 normal GI Palpation: soft, not firm, no guarding and nontender Neuro General: patient alert, patient awake, patient oriented x3, moves all extremities and no focal motor deficits Extrem General: no clubbing, cyanosis or edema and no calf tenderness Objective Lab Results 10/31/22 04:44 10/31/22 04:44 Microbiology Results Microbiology 10/30/22 20:35 Pleural Fluid - Lung Gram Stain - Final Meds Allergies and Active Meds Allergies No Known Allergies Allergy (Verified 10/30/22 17:49) Active Meds: Active Medications Generic Name Dose Route Start Last Admin Trade Name Freq PRN Reason Stop Dose Admin Acetaminophen 650 mg 10/30/22 17:52 Acetaminophen 325 Mg Tablet PO 10/30/23 17:51 Q6HR PRN Pain Scale 1 - 3 or fever Ascorbic Acid 500 mg 10/31/22 12:00 10/31/22 13:14 Ascorbic Acid 500 Mg Tablet PO 10/31/23 11:59 500 mg BID.WITH.BFAST.LUNCH FABIAN Administration Bisacodyl 10 mg 10/30/22 17:52 Bisacodyl 5 Mg Tablet.Dr PO 10/30/23 17:51 DAILY PRN Constipation Dextrose 0 gm 10/30/22 17:52 Dextrose 50% In Water 25 Gm/50 Ml Syringe IV-PUSH 10/30/23 17:51 PRN PRN Hypoglycemia Docusate Sodium 100 mg 10/30/22 21:00 10/31/22 08:08 Docusate 100 Mg Capsule PO 10/30/23 20:59 100 mg BID FABIAN Administration Fentanyl Citrate 50 mcg 10/30/22 20:14 Fentanyl/Pf 100 Mcg/2 Ml Vial IV-PUSH Q2H PRN Severe Pain Fentanyl Citrate 25 mcg 10/30/22 20:14 Fentanyl/Pf 100 Mcg/2 Ml Vial IV-PUSH Q2H PRN moderate pain Folic Acid 1 mg 10/31/22 09:00 10/31/22 08:44 Folic Acid 1 Mg Tablet PO 10/31/23 08:59 1 mg DAILY FABIAN Administration Glucose 0 gm 10/30/22 17:52 Dextrose 40% Gel 15 Gm Tube PO 10/30/23 17:51 PRN PRN Hypoglycemia Guaifenesin 1,200 mg 10/30/22 21:00 10/31/22 08:08 Guaifenesin 600 Mg Tab.Er.12h PO 10/30/23 20:59 1,200 mg BID FABIAN Administration Hydroxyzine Pamoate 50 mg 10/30/22 20:51 Hydroxyzine Pamoate 50 Mg Capsule PO 10/30/23 20:50 Q6H PRN anxiety Magnesium Sulfate 2 gm in 50 mls @ 25 mls/hr 10/30/22 17:52 Magnesium Sulf 2gm-*Swfi* IV 10/30/23 17:51 DAILY PRN Magnesium Level < 1.5 Piperacillin Sod/Tazobactam Sod 3.375 gm in 100 mls @ 200 mls/hr 10/30/22 18:30 10/31/22 13:15 Zosyn IV 200 mls/hr Q6H FABIAN Administration Insulin Aspart 0 units 10/31/22 12:00 10/31/22 13:15 Insulin Aspart 300 Units/3 Ml Insuln.Pen SUBCUT 10/31/23 11:59 7 units TID.WM.HS FABIAN Administration Protocol Insulin Glargine 20 units 10/31/22 09:00 10/31/22 08:39 Insulin Glargine 300 Units/3 Ml Insuln.Pen SUBCUT 10/31/23 08:59 Not Given BID FABIAN Ketorolac Tromethamine 30 mg 10/30/22 17:52 Ketorolac Tromethamine 30 Mg/Ml Vial IV-PUSH 11/04/22 17:51 Q6H PRN Pain Scale 4 - 7 Lorazepam 0.5 mg 10/30/22 20:51 Lorazepam 2 Mg/Ml Vial IV-PUSH 04/28/23 20:50 Q4H PRN anxiety Losartan Potassium 25 mg 10/31/22 09:00 10/31/22 08:44 Losartan 25 Mg Tablet PO 10/31/23 08:59 25 mg QAM FABIAN Administration Metoprolol Tartrate 5 mg 10/30/22 17:52 Metoprolol Tartrate 5 Mg/5 Ml Vial IV-PUSH 10/30/23 17:51 Q4H PRN Blood Pressure Multivitamins 1 tab 10/31/22 09:00 10/31/22 08:45 Multivitamin 1 Tab Tablet PO 10/31/23 08:59 1 tab DAILY FABIAN Administration Ondansetron HCl 4 mg 10/30/22 17:52 Ondansetron 4 Mg/2 Ml Vial IV-PUSH 10/30/23 17:51 Q8H PRN Nausea And Vomiting Pantoprazole Sodium 40 mg 10/31/22 09:00 10/31/22 08:08 Pantoprazole 40 Mg Tablet.Dr PO 10/31/23 08:59 40 mg DAILY FABIAN Administration Potassium Chloride 20 meq 10/30/22 17:52 Potassium Chloride Er 20 Meq Tab.Er.Prt PO 10/30/23 17:51 DAILY PRN Hypokalemia Potassium Chloride 40 meq 10/30/22 17:52 Potassium Chloride Er 20 Meq Tab.Er.Prt PO 10/30/23 17:51 DAILY PRN Hypokalemia Saccharomyces Boulardii 250 mg 10/31/22 08:00 10/31/22 08:08 Saccharomyces Boulardii 250 Mg Capsule PO 10/31/23 07:59 250 mg BID.WITH.MEALS FABIAN Administration Sennosides 1 tab 10/30/22 17:52 Sennosides 8.6 Mg Tablet PO 10/30/23 17:51 BID PRN Constipation Sodium Chloride 0 ml 10/30/22 22:00 10/31/22 13:18 Sodium Chloride 0.9 % 10 Ml Syringe IV-PUSH 10/30/23 21:59 10 ml QSHIFT FABIAN Administration A&P - Hospitalist Assessment/Plan (1) Pleural effusion: (2) Pneumonia: (3) Diabetes mellitus: (4) Folic acid deficiency: Plan Patient underwent left chest tube placement with removal of 1500ml fluid concerning for empyema. Pulmonary service has been consulted regarding management of pleural effusion. Patient currently on Zosyn with pending blood and pleural fluid cultures. WBC count has increased to 29.6 with pulse ox 91% on 6 L oxygen. Plan to repeat CT scan as per pulmonary to assess if intrapulmonary abscess need to be drained by IR. Is also consideration of bronchoscopy if he does not respond. Dose of basal insulin has been increased for better diabetic control along with sliding scale coverage. A1c level of 11.9. Losartan has been added for better blood pressure control. SCDs for DVT prophylaxis. Documented By: Bigg Vee MD 10/31/22 151 Signed By: <Electronically signed by Bigg Vee MD> 10/31/22 9[address] [facility] Work Phone: 1([phone]) 840-688203-08-2023 Progress note Author Michael Wells [facility] October 31, 2022 11:53am Note Date/Time October 31, 2022 9:[address] [facility] [address] [place] [address] Pulmonology Progress Note Signed Patient: Aba Ruiz MR#: [id number] : 1975 Acct:[id number] Age/Sex: 47 / M Adm Date: 3 Loc: Room: [address] [place] [address] Type: ADM IN Attending Dr: Chung Garcia DO Copies to: ~ Date of Service: 10/31/2022 Subjective Subjective Narrative: Patient is less tachypneic and diaphoretic. There were no reported issues overnight per nursing staff. He does appear and does feel better. Exam Physical Exam Vital Signs: Temp Pulse Resp BP Pulse Ox O2 Del Method O2 Flow Rate 98.4 F 111 H 16 148/86 H 93 L Nasal Cannula 6 10/31/22 07:52 10/31/22 07:52 10/31/22 07:52 10/31/22 07:52 10/31/22 07:52 10/31/22 08:00 10/31/22 08:00 Const General: cooperative and no acute distress Nutritional Appearance: average body habitus Orientation: alert and awake HEENT Head: normal to inspection, normocephalic and atraumatic Ears: hearing grossly normal bilaterally and external ears normal Nose: external nose normal Face and sinus: normal facial exam Eyes Eyelids: eyelids normal Sclera: sclerae normal Neck Neck: normal visual inspection and no lymphadenopathy Chest Chest palpation & inspection: normal inspection of the chest and other (No air leak with minimal additional drainage from tube) Resp Effort & Inspection: paradoxical thoraco-abdominal movements and uses accessory muscles Auscultation: diminished lung sounds on the left in the lower lung valente, no rhonchi and no wheezes Cardio Rate: tachycardic Rhythm: regular rhythm Heart Sounds: S1 normal, S2 normal, no gallops, no murmurs and no rubs GI Inspection: normal to inspection Palpation: soft and nontender Auscultation: hypoactive bowel sounds Rectal Exam: deferred General: deferred Skin General: no rashes or lesions noted Extrem General: no pedal edema Objective Intake and Output I&O - Last 24 Hours: Intake & Output 10/30/22 10/31/22 10/31/22 23:59 07:59 15:59 Intake Total 1000 / 1000 620 / 620 Output Total 2260 / 2260 50 / 50 0 / 50 Balance -1260 / -1260 570 / 570 0 / 570 Weight 106.8 kg 106.8 kg Labs 10/31/22 04:44 10/31/22 04:44 Imaging and Cardiology Chest x-ray: Status: image reviewed by me Additional comments: Date of Service: 10/31/22 XR/XR chest 1V portable: dyspnea PORTABLE AP ERECT CHEST 0539 hours CLINICAL HISTORY: Follow-up left chest tube COMPARISON: 10/30/2022 A left-sided chest tube is again visualized. There is shallow inspiration. Thereis mild developing patchy atelectatic and/or infiltrative change on the right. There is continued diffuse opacity on the left with relative sparing at the apex. This is probably a combination of pleural effusion and parenchymal disease. No pneumothorax is visualized. The left heart border is partially obscured however cardiomegaly is still suspected. XR/XR chest 1V portable IMPRESSION: CONTINUED PLEURAL PARENCHYMAL CHANGES ON THE LEFT. MILD DEVELOPING PARENCHYMAL CHANGES ON THE RIGHT. SUSPECTED CARDIOMEGALY. Assessment/Plan Assessment/Plan (1) Pleural effusion: (2) Pneumonia: (3) Diabetes mellitus: Plan Hospital day #3 for patient taken in transfer from the [facility] with left-sided pneumonia and presumably a left lung abscess with parapneumonic pleural effusion with concerns for developing empyema. Patient continues with marked leukocytosis with markedly increased inflammatory mediators but patient does look better overall with decreased tachypnea and diaphoresis though still somewhat hypertensive and tachycardic. Case was discussed with patient and family at bedside. We will continue having the chest tube drained for an additional day and then repeat CT scan. We can then determine if intrapulmonaryabscess needs to be drained perhaps by interventional radiology. We also may need to consider bronchoscopy if the patient does not respond to obtain further culture data. Continue Zosyn and supportive care. We will follow with you and provide assistance as able. Documented By: Michael Wells MD 3 [id number] Signed By: <Electronically signed by MD Michael Wells> 10/31/22 115[address] [facility] Work Phone: [phone]) 637-291403-07-2023 Consult note Author Michael Wells [facility] October 30, 2022 8:45pm Note Date/Time October 30, 2022 6:[address] [facility] [address] [place] [address] Pulmonology Consult Note Signed Patient: Aba Ruiz MR#: [id number] : 1975 Acct:[id number] Age/Sex: 47 / M Adm Date: 3 Loc: Room: [address] [place] [address] Type: ADM IN Attending Dr: Chung Garcia DO Copies to: MD Chung Russell DO Marcia E Braun, MD~ HPI Date/Time of Consultation: Date of Service: 10/30/2022 Time of Service: 18:29 Consulting Provider: Michael Wells Requesting Provider: Chung Garcia History of Present Illness History of present illness: Mr. Ruiz is a 47 year old male seen at the request of the hospitalist service for a pleural effusion. Patient was excepted in transfer from the [facility]. Patient has a longstanding history of diabetes mellitus treated with metformin as an outpatient and presented to the emergency department at the [facility] on October 28, 2022 with a weeklong history of illness including cough with fever. Patient was afebrile on presentation but was tachycardic and tachypneic with finding of diabetic ketoacidosis with a leukocytosis of 37,000 as well as a significant left shift. Chest x-ray revealed left lower lobe consolidation and left pleural effusion with an anion gap of 16 noted and with normal renal function. Patient was reportedly started on vancomycin and Zosyn in addition to insulin drip. Follow-up laboratory values reveal slight decrease in leukocytosis no stable at about 28,000. Diabetic ketoacidosis did improve but subsequent chest x-ray revealed worsening left- sided effusion/consolidation. A CT scan of the thorax was obtained which Idid review which reveals a left-sided pleural effusion with dense consolidation of the left lower lobe with possible cavities and an air-fluid level with an additional fluid collection within what is suspected to be the left upper lobe which might be concerning for a lung abscess. Cultures have been reportedly negative today. Patient was transferred to [facility] for further management. Patient reported fever as high as 102 ?F with chills and sweats. Again he had a nonproductive cough with only occasional yellow and green mucus. Patient denies wheezing. He does admit to left-sided chest pain. Patient denies palpitations. He denies lower extremity edema other than when fluid resuscitated at the [facility]. Patient denies poor dentition or pain in his mouth. [facility] was diagnosed as diabetic during that ER evaluation with the patient previously noted to be prediabetic. Review of Systems Review of Systems All other systems reviewed & are negative unless noted below or in HPI PMFSH Vaccinated for COVID-19?: No Medical History (Updated 10/30/22 @ 18:38 by Michael Wells MD) Elevated cholesterol Hydrocephalus Shunt placed Hypokalemia Obesity Prediabetes Sleep apnea Mild - reported by patient. No CPAP or BiPAP use Family History Father Parkinson's disease Mother COPD (chronic obstructive pulmonary disease) Grandparent Cancer Maternal grandmother Diabetes mellitus, type 2 Maternal grandmother Grandparent Stroke Paternal grandpa Family/Other Cancer Maternal uncle Social History Smoking Status: Never smoker Substance Use Type: None Meds Medications and Allergies Allergies No Known Allergies Allergy (Verified 10/30/22 17:49) Home Medications metformin 500 mg tablet 500 mg PO BID 10/30/22 [History Confirmed 10/30/22] Exam Physical Exam Vital Signs: Temp Pulse Resp BP Pulse Ox O2 Del Method O2 Flow Rate 98 F 124 H 24 158/102 H 96 Nasal Cannula 4 10/30/22 17:55 10/30/22 17:55 10/30/22 17:55 10/30/22 17:55 10/30/22 17:55 10/30/22 17:55 10/30/22 17:55 Const General: cooperative and no acute distress Nutritional Appearance: average body habitus Orientation: alert and awake HEENT Head: normal to inspection, normocephalic and atraumatic Ears: hearing grossly normal bilaterally and external ears normal Nose: external nose normal Face and sinus: normal facial exam Eyes Eyelids: eyelids normal Sclera: sclerae normal Neck Neck: normal visual inspection and no lymphadenopathy Chest Chest palpation & inspection: normal inspection of the chest Resp Effort & Inspection: paradoxical thoraco-abdominal movements and uses accessory muscles Auscultation: diminished lung sounds on the left in the lower lung valente, no rhonchi and no wheezes Cardio Rate: tachycardic Rhythm: regular rhythm Heart Sounds: S1 normal, S2 normal, no gallops, no murmurs and no rubs GI Inspection: normal to inspection Palpation: soft and nontender Auscultation: hypoactive bowel sounds Rectal Exam: deferred General: deferred Skin General: no rashes or lesions noted Extrem General: no pedal edema Results Intake and Output I&O - Last 24 Hours: Intake & Output 10/30/22 10/30/22 10/30/22 07:59 15:59 23:59 Weight 106.8 kg Labs 10/30/22 18:14 10/30/22 18:14 Assessment/Plan (1) Pleural effusion: (2) Pneumonia: (3) Diabetes mellitus: Plan Hospital day #2 for patient taken in transfer from the [facility] with left-sided pneumonia and presumably a left lung abscess with parapneumonic pleural effusion with concerns for developing empyema. Patient has been on antibiotics including vancomycin and Zosyn with decrease in leukocytosis but still at 30,000 with left-sided chest pain and with patient having some respiratory distress. I discussed with patient and spouse possible CT-guided pigtail catheter placement and potential instillation of thrombolytics. Howeverthe patient clinically is short of breath and dyspneic with tachycardia and tachypnea. Concerns for developing empyema would suggest that the patient wouldbe better served with a large bore chest tube. Patient did agree to this and wewill proceed with chest tube thoracostomy with drainage and will send pleural fluid for culture. Agree with antibiotics with prior particular coverage for strep, staph, and anaerobes. The patient will likely need prolonged antibioticsfor 6 weeks. We will try to send fluid for pleural fluid analysis as well. Continue supportive care. Case was discussed with the hospitalist service. Documented By: Michael Wells MD 3 [id number] Signed By: <Electronically signed by MD Michael Wells> 10/30/222044 [facility] Work Phone: [phone]) 152-676703-07-2023 History and physical note Author Chung Garcia [facility] October 30, 2022 8:36pm Note Date/Time October 30, 2022 8:[address] [facility] [address] [place] [address] Hospitalist H&P Signed Patient: Aba Ruiz MR#: [id number] : 1975 Acct:[id number] Age/Sex: 47 / M Adm Date: 3 Loc: Room: [address] [place] [address] Type: ADM IN Attending Dr: Chung Garcia DO Copies to: DO Lolita Connor MD~ HPI DATE OF EXAMINATION: 10/30/22 CHIEF COMPLAINT: pleural effusion HISTORY OF PRESENT ILLNESS: This is a 47-year-old man who presented to the [facility] emergency room on October 28 with illness. They suspected pneumonia. He was hypoxic with oxygen saturations only 85% on room air. He was found to have an elevated lactic acid level and to be in diabetic ketoacidosis. His white count was 37,000. In the ER they treated him with Rocephin and Zithromax. He was admitted to the ICU in [place] for diabetic ketoacidosis and IV fluids. After admission his antibiotics were broadened to IV vancomycin and Zosyn. Earlier today, on October 30, Dr. Plummer called me from [facility] asking for transfer to [facility] because of the finding of a pleural effusion on CT scanning. Shortly after arrival to this hospital the patient had a left-sided chest tube placed at the bedside by pulmonology with Dr. Wells. I arrived his he was beginning to procedure and stayed until the completion. My approximation is that about a liter of brownish cloudy fluid was released once access into the pleural cavity had been made. Afterwards the chest tube was placed to suction. Review of Systems Review of Systems Review of systems: 10 point review of systems is not possible to be obtained as the patient has been given fentanyl and Versed for the chest tube procedure placement. Review of systems will be reevaluated tomorrow when history-taking should be more reliable. PMFSH Vaccinated for COVID-19?: No Medical History (Updated 10/30/22 @ 18:38 by Michael Wells MD) Elevated cholesterol Hydrocephalus Shunt placed Hypokalemia Obesity Prediabetes Sleep apnea Mild - reported by patient. No CPAP or BiPAP use Family History Father Parkinson's disease Mother COPD (chronic obstructive pulmonary disease) Grandparent Cancer Maternal grandmother Diabetes mellitus, type 2 Maternal grandmother Grandparent Stroke Paternal grandpa Family/Other Cancer Maternal uncle Social History Smoking Status: Never smoker Substance Use Type: None Meds Medications and Allergies Allergies No Known Allergies Allergy (Verified 10/30/22 17:49) Home Medications metformin 500 mg tablet 500 mg PO BID 10/30/22 [History Confirmed 10/30/22] Exam Physical Exam Vital Signs: Temp Pulse Resp BP Pulse Ox O2 Del Method O2 Flow Rate 98 F 124 H 24 158/102 H 96 Nasal Cannula 4 10/30/22 17:55 10/30/22 17:55 10/30/22 17:55 10/30/22 17:55 10/30/22 17:55 10/30/22 17:55 10/30/22 17:55 Narrative: GEN: Awake, alert, oriented x 3. Head: Normal Cephalic, Atraumatic. Eyes: Conjunctiva and sclera clear bilaterally. No scleral icterus or injection. Nose: External nose and nares normal bilaterally. Mouth: Visible portions of the lips and tongue normal. Neck: No visible JVD. Lungs: Brownish cloudy fluid was released, and a very large volume, when the chest tube was placed by Dr. Wells. Examination the lungs with auscultation anteriorly and posteriorly after the chest tube was placed reveals fair breath sounds throughout without any wheezingor rhonchi or crackles. Heart: Sinus tachycardia on the monito., no murmurs, rubs, or gallops. Abdomen: Has some scars on the abdomen that look like previous abdominal surgeryand perhaps a reverse colostomy in the right lower quadrant soft, normal bowel sounds, no rigidity, guarding, or acute peritoneal signs. Extremities: No swelling or cords in the calves bilaterally, mild 2+ edema throughout both lower extremities and equal bilaterally Skin: No systemic rashes or lesions. Neuro: Moves all 4 extremities well with no focal deficit. Results Lab Results Labs: Laboratory Last Values Corrected WBC 26.8 X10E3/uL (4.1-10.5) H 10/30/22 18:14 Uncorrected WBC Count 26.8 x10E3/uL (4.1-10.5) H 10/30/22 18:14 RBC 4.74 X10E6/uL (3.90-5.60) 10/30/22 18:14 Hgb 12.6 g/dL (13.0-17.0) L 10/30/22 18:14 Hct 39.5 % (38.8-50.0) 10/30/22 18:14 MCV 83.4 fl (83.5-101) L 10/30/22 18:14 MCH 26.6 pg (27.5-35.2) L 10/30/22 18:14 MCHC 31.9 g/dL (32.5-35.6) L 10/30/22 18:14 RDW 13.6 % (12.0-14.8) 10/30/22 18:14 Plt Count 412 x10E3/uL (150-450) 10/30/22 18:14 MPV 7.7 fl (6.6-10.1) 10/30/22 18:14 Neut % (Auto) N/A 10/30/22 18:14 Lymph % (Auto) N/A 10/30/22 18:14 Morrill % (Auto) N/A 10/30/22 18:14 Eos % (Auto) N/A 10/30/22 18:14 Baso % (Auto) N/A 10/30/22 18:14 Nucleat RBC Rel Count N/A 10/30/22 18:14 Neut # (Auto) N/A 10/30/22 18:14 Lymph # (Auto) N/A 10/30/22 18:14 Morrill # (Auto) N/A 10/30/22 18:14 Eos # (Auto) N/A 10/30/22 18:14 Baso # (Auto) N/A 10/30/22 18:14 Lymphocytes % 8 % (18-42) L 10/30/22 18:14 Monocytes % 7 % (2-11) 10/30/22 18:14 Eosinophils % 0 % (1-3) L 10/30/22 18:14 Basophils % 0 % (0-2) 10/30/22 18:14 Segmented Neutrophils 85 % (50-70) H 10/30/22 18:14 Platelet Estimate Normal (Normal) 10/30/22 18:14 Plt Morphology Comment Normal (Normal) 10/30/22 18:14 RBC Morphology N/A 10/30/22 18:14 Hypochromasia Slight 10/30/22 18:14 Anisocytosis Slight 10/30/22 18:14 Microcytosis Slight 10/30/22 18:14 ESR > 130 mm/hr (0-14) H 10/30/22 18:14 PT 13.8 Seconds (9.0-12.9) H 10/30/22 18:14 INR 1.2 10/30/22 18:14 APTT 31.0 Seconds (25.1-36.5) 10/30/22 18:14 PHA Creatinine Clear 184.16 10/30/22 18:14 Sodium 132 mmol/L (136-145) L 10/30/22 18:14 Potassium 3.2 mmol/L (3.5-5.1) L 10/30/22 18:14 Chloride 93 mmol/L (98-107) L 10/30/22 18:14 Carbon Dioxide 22.6 mmol/L (21.0-31.0) 10/30/22 18:14 Anion Gap 19.6 mEq/L (6.0-15.0) H 10/30/22 18:14 BUN 15 mg/dL (7-25) 10/30/22 18:14 Creatinine 0.61 mg/dL (0.70-1.30) L 10/30/22 18:14 Est GFR (CKD-EPI) > 60.0 10/30/22 18:14 Glucose 238 mg/dL (74-109) H 10/30/22 18:14 POC Glucose 252 mg/dl 10/30/22 18:13 POC Glucose Comment Glu2: cleaned meter 10/30/22 18:13 Calcium 9.2 mg/dL (8.6-10.3) 10/30/22 18:14 A&P - Hospitalist Assessment/Plan (1) Pleural effusion: (2) Pneumonia: (3) Diabetes mellitus: Plan Assessment: This is a 47-year-old man who presented to an outside hospital with diabetic ketoacidosis and elevated white blood count as well as elevated lactic acid. Hewas treated for sepsis with IV vancomycin and Zosyn. Per my discussion with Dr.Kim Plummer the patient had blood cultures and a sputum culture that were growinganything. He has been transferred here for management of a large left-sided pleural effusion. He appears to have a history of either prediabetes or regulartype 2 diabetes treated with metformin. He presented with tachypnea, tachycardia, and hypoxia due to the severity of the left-sided pleural effusion. Plan: Continue broad-spectrum antibiotics with vancomycin at this time. I think he is at relatively lower risk for MRSA so IV vancomycin will not be used at this time. Continue chest tube management as per pulmonology. Sliding scale insulin level 2 and long-acting insulin with Levemir 10 units twice a day twice daily to start. Checking hemoglobin A1c and C-peptide to help differentiate between type I and type 2 diabetes. Would consider diuresis tomorrow depending on clinical stability. Replace the low potassium intravenously overnight. Pleural fluid accessed during the chest tube procedure will be sent to lab for culture. DVT prophylaxis at first with sleeve compression devices. Heparin can be added later depending on how the clinical course progresses. Check echocardiogram to investigate perhaps additional issues related to his tachycardia. Documented By: Chung Garcia DO 2020 Signed By: <Electronically signed by Chung Garcia DO> 10/30/222035 [facility] Work Phone: [phone]) 257-529703-07-2023 Procedure noteFirUniversity Hospitals Ahuja Medical CenterDischarge summary Author Ángel Carter [facility] November 08, 2022 1:26pm Note Date/Time November 08, 2022 1:[address] [facility] [address] [place] [address] Discharge Summary Signed Patient: Aba Ruiz MR#: [id number] : 1975 Acct:[id number] Age/Sex: 47 / M Adm Date: 3 Loc: Room: [address] [place] [address]: Ángel Carter MD Copies to: MD Lolita Santoro MD~ Providers Date of Discharge: 11/08/22 Discharging Provider: Ángel Carter Primary Care Provider: Lolita Eugene Consults: 10/30/22 17:48 Consult to Case Management Routine Consult to Dietitian Routine Consult to Sleep Lab Routine 10/30/22 17:52 Consult to Pulmonology Routine Discharge Diagnosis (1) Abscess of lung with pneumonia: (2) Pleural effusion: (3) Acute respiratory failure with hypoxia: (4) Pneumonia: (5) Leg edema: (6) Uncontrolled diabetes mellitus: Final Diagnosis Final Discharge Diagnosis: As above Summary Hospital Course Hospital course: Mr. Ruiz is a 47yo M who presented to [facility] initially with diabetic ketoacidosis and elevated WBC of 37,000. Patient was also hypoxic and found to have large left-sided pleural effusion. Upon arrival here at [facility], patient did require left-sided chest tube placement per pulmonology. Approximately 1 L of cloudy brownish fluid was released from the pleural cavity. Chest tube was placed and remain to suction. Significant concern for empyema with patient's parapneumonic effusion. Pleural fluid culture was ultimately negative, but given clinical picture of likely developing empyema, patient will continue on Augmentin x8 weeks. Patient was maintained on metformin 500 mg twice daily at home and thus he will continue this medication on discharge. He was also started on linagliptin and twice daily dosing of Lantus 20 units. He will follow-up with diabetic education clinic for further management. Losartan and spironolactone were added to patient's home medication list as well. He didrequire supplemental O2 up until the day of discharge. He underwent an O2 walk study and did not qualify for supplemental O2. Hospital course was also complicated by patient with thrombocytosis up into the 700s. He was placed on aspirin daily as thrombosis protection. I suspect this can be taken off his home list when his infection improves. He was ultimately discharged home in stable condition. 35 minutes spent coordinating the discharge of this patient Time Spent with Patient Time spent providing/coordinating discharge services (# min): 35 Diagnostic Studies Completed and Pending Studies Pending studies at discharge: 10/30/22 18:14 C-Peptide Routine Insulin Antibodies Routine 11/09/22 05:00 Basic Metabolic Panel [CHEM] IN AM Complete Blood Count Auto Diff IN AM Labs on day of discharge: 11/08/22 11:25: POC Glucose 148 11/08/22 07:36: POC Glucose 112 11/08/22 04:52: POC Glucose 83 11/08/22 04:35: PHA Creatinine Clear 178.15, Sodium 135 L, Potassium 4.2, Chloride 97 L, Carbon Dioxide 32.1 H, Anion Gap 10.1, BUN 14, Creatinine 0.63 L, Est GFR (CKD-EPI) > 60.0, Glucose 74, Calcium 8.9 11/08/22 04:35: Corrected WBC 12.6 H, Uncorrected WBC Count 12.6 H, RBC 3.58 L, Hgb 10.0 L, Hct 30.1 L, MCV 84.0, MCH 27.9, MCHC 33.2, RDW 13.3, Plt Count 756 H, MPV 6.8, Neut % (Auto) 76.0, Lymph % (Auto) 13.5, Morrill % (Auto) 8.8, Eos % (Auto) 1.4, Baso % (Auto) 0.3, Nucleat RBC Rel Count 0.1, Neut # (Auto) 9.6 H, Lymph # (Auto) 1.7, Morrill # (Auto) 1.1 H, Eos # (Auto) 0.2, Baso # (Auto) 0.0 11/07/22 21:10: POC Glucose 159, POC Glucose Comment Glu2: cleaned meter 11/07/22 16:55: POC Glucose 115 Exam Physical Exam Vital Signs: Temp Pulse Resp BP Pulse Ox O2 Del Method O2 Flow Rate 97.6 F 81 18 132/85 94 L Room Air 2 11/08/22 12:00 11/08/22 12:00 11/08/22 12:00 11/08/22 12:00 11/08/22 12:00 11/08/22 12:00 11/08/22 08:00 Narrative: Constitutional: Middle-aged WM, resting in bed comfortably. She is breathing comfortably on room air HEENT: Moist mucous membranes, neck supple Cardiovascular: RRR, no M/R/G, normal S1 and S2, no JVD Respiratory: Minimal crackles noted at the left base GI: Soft, NTND, normoactive bowel sounds : Deferred Neuro: AAO x3, no focal deficits. CN III-XII grossly intact, Strength 5/5 throughout Extremities: No clubbing, cyanosis or edema Psych: Patient calm, cooperative and conversant Discharge Plan Discharge Plan Patient Disposition: Home Activity: Ambulate as Tolerated Diet: Diabetic Additional Instructions: Continue to monitor glucose levels as before. Continue oxygen at ___ L [place] Dietitian recommendations: *Boost plus, 1 container, twice daily with meals Take 1 baby aspirin daily until seen by Dr. Wells Remove sutures from chest tube site any day from Saturday11/10/22 to Saturday11/13/22 Stand Alone Forms: Work/School Release Form Prescriptions: New amoxicillin-pot clavulanate 875-125 mg tablet 1 tab PO BID Qty: 112 0RF Rx Instructions: recommend taking probiotic or eating yogurt with live cultures while on antibiotic to help prevent diarrhea. Saccharomyces boulardii 250 mg Capsule 250 mg PO BID.WITH.MEALS 30 Days Qty: 0 1RF losartan 25 mg Tablet 25 mg PO QAM 30 Days Qty: 30 3RF spironolactone 50 mg Tablet 50 mg PO DAILY 30 Days Qty: 30 3RF insulin glargine [Lantus Solostar U-100 Insulin] 100 unit/mL (3 mL) Insulin Pen 20 units subcut BID 30 Days Qty: 12 3RF Tradjenta 5 mg Tablet 5 mg PO DAILY.WITH.BKFAST 30 Days Qty: 30 3RF aspirin 325 mg Tablet,Delayed Release (Dr/Ec) 325 mg PO DAILY 30 Days Qty: 30 1RF pantoprazole 40 mg Tablet,Delayed Release (Dr/Ec) 40 mg PO DAILY 30 Days Qty: 30 1RF albuterol sulfate 90 mcg/actuation HFA aerosol inhaler 1 inh inhalation Q6H PRN (Reason: shortness of breath or wheezing) Qty: 8.5 1RF Continued metformin 500 mg Tablet 500 mg PO BID Patient Comments: The patient states that he stopped taking this medication at home on his own. Other Ambulatory Orders: Complete Blood Count Auto Diff (Routine) Timeframe: 8 Weeks Facility: [facility] - Location: Lab Main [place] Ordered By: Anh Sepulveda C-Reactive Protein (Routine) Timeframe: 8 Weeks Facility: [facility] - Location: Lab Main [place] Ordered By: Anh Sepulveda XR chest 2V* (Routine) Timeframe: 8 Weeks Facility: [facility] - Location: XRay Main [place] Ordered By: Anh Sepulveda Erythrocyte Sedimentation Rate (Routine) Timeframe: 8 Weeks Facility: [facility] - Location: Lab Main [place] Ordered By: Anh Sepulveda Follow Up: [facility] [Outside] - 11/19/22 8:00 am (You have been scheduled for a follow up appointment for the following date and time, please call to reschedule if needed.) Michael Wells MD [Active Staff] - 01/07/23 10:00 am (Please arrive 15- 30 minutes early to complete paperwork. CXR and bloodwork need to be completed 3-5 days prior to appointment. Call office if you have any questions.) Lolita Eugene MD [Primary Care Provider] - 11/13/22 11:00 am (You have been scheduled for a follow up appointment for the following date and time, please call to reschedule if needed.) Documented By: Ángel Carter MD 3 [id number] Signed By: <Electronically signed by Ángel Carter MD> 11/08/22 1326 [facility] Work Phone: Evaluation note* Diagnosis Onset Date Resolution Status Diabetes mellitus acute Folic acid deficiency acute Leg edema acute Pleural effusion acute Pneumonia acute [facility] Work Phone: Evaluation noteNo InformationNort [email or web address] Other Evaluation noteNo assessment information available [facility] Work Phone: Evaluation note* Diagnosis Onset Date Resolution Status Admit Date Diabetes mellitus acute Novembe r 2023 1:13pm Screening for colon cancer acute July 03, 2024 1:13pm Wellness examination acute [place] castorenaer 2023 1:13pm [facility] Work Phone: Evaluation note* Diagnosis Diplopia- Primary Visual field defects Visual field defect, unspecified Type 2 diabetes mellitus with both eyes affected by mild nonproliferative retinopathy without macular edema, without long-term current use of insulin (HCC) Myopia, bilateral Myopia Regular astigmatism, bilateral Presbyopia documented in this encounter [facility] general Narrative - Reported* Type Description Date Medical History Cellulitis of neck Medical History Hyperglycemia due to type 2 diab etes mellitus Medical History Erectile dysfunction Medical History Obstructive sleep apnea Medical History BMI 38.0-38.9,adult Medical History Hyperlipemia Medical History Pneumonia Surgical History H/O HYDROCEPHALUS 2007 Hospitalization History SEE SURGICAL HX [facility] Other History general Narrative - Reported* Type Description Date Medical History Cellulitis of neck Medical History Hyperglycemia due to type 2 diab etes mellitus Medical History Erectile dysfunction Medical History Obstructive sleep apnea Medical History BMI 38.0-38.9,adult Medical History Hyperlipemia Medical History Pneumonia Medical History pleural effusion 10/2022 Medical History diabetes mallitus Medical History lung abcess Surgical History H/O HYDROCEPHALUS 2007 Surgical History Lt. sided chest tube 10/2022 Hospitalization History SEE SURGICAL HX Hospital[place] [facility] [place] effusion 10/30/22 [facility] Other Hospital Discharge instructions Additional Instructions Monitor glucose levels twice daily. Record these numbers and take it to your follow-up appointments. Dietitian recommendations: *Boost plus, 1 container, twice daily with meals Take 1 baby aspirin daily until seen by Dr. Wells Remove sutures from chest tube site any day from Saturday11/10/22 to Saturday11/13/22[facility] Work Phone: InstructionsNot on filedocumented in this encounter [facility] Purpose Family History No Family History Records Found Relationship Condition Age at Onset Recorded Date/T hui father Parkinson's disease Unknown Not Specified Chronic obstructive pulmonary disease Un known grandparent Malignant neoplasm Unknown Type 2 diabetes mellitus Unknown grandparent Cerebrovascular accident (CVA) 58 family member Malignant neoplasm Unknown Relationship Condition Age at Onset Recorded Date/T hui father Parkinson's disease Unknown Not Specified Chronic obstructive pulmonary disease Un known grandparent Malignant neoplasm Unknown Type 2 diabetes mellitus Unknown grandparent Cerebrovascular accident (CVA) 58 family member Malignant neoplasm Unknown brother Hypertension Unknown father Hypertension Unknown Parkinson's disease Unknown Relationship Condition Age at Onset Recorded Date/T hui father Parkinson's disease Unknown mother Chronic obstructive pulmonary disease Unk nown grandparent Malignant neoplasm Unknown Type 2 diabetes mellitus Unknown grandparent Cerebrovascular accident (CVA) 58 family member Malignant neoplasm Unknown brother Hypertension Unknown father Hypertension Unknown Parkinson's disease Unknown Advance Directives No Advanced Directives Records Found Advance Directive Response Recorded Date/ Time Advance Directives No October 30 3:26pm Advance Directive Response Recorded Date/ Time Advance Directives No October 30 2:26pm Advance Directive Response Recorded Date/ Time Advance Directives No July 11:22am Chief Complaint and Reason for Visit Chief Complaint Plural Effusion Reason for Visit Diabetes mellitus Folic acid deficiency Leg edema Pleural effusion Pneumonia Chief Complaint Plural Effusion DM lung abcess, 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 Reason for Visit Diabetes mellitus Folic acid deficiency Leg edema Pleural effusion Pneumonia Chief Complaint 3 Month Follow Up Amb Documentation Chief Complaint Admit Date wellness/refill July 03, 2024 1 :13pm Reason for Visit Admit Date Diabetes mellitus July 03, 2024 1 :13pm Screening for colon cancer July 03, 2024 1:13pm Wellness examination July 03, 2024 1:13pm Chief Complaint Admit Date wellness/refill July 03, 2024 1 :13pm Pre-surgical Clearance August 20 10:27am High BP September 30, 2024 9 :23am Reason for Visit Admit Date Diabetes mellitus July 03, 2024 1 :13pm Hydrocephalus July 03, 2024 1 :13pm Screening for colon cancer July 03, 2024 1:13pm Wellness examination July 03, 2024 1:13pm Diabetes mellitus August 20, 2024 10:27am Hydrocephalus August 20, 2024 10:27am Preoperative clearance August 20 10:27am Screening for colon cancer July 10:27am Reason for Referral Reason Genitourinary S urgeons ([facility]) [place]. 3 yrs of ED. Viagra not helping Diagnosis 1 Erectile dysfunction (N52.9) Referral Organization [facility] jeremiah Referring Provider First Name Lolita Referring Provider Last Name Mayra Referring Provider Specialty Family [facility] cine Referred Organization [facility] Referred Address [address],[place], [place],[address] Referred Provider Specialty Urology Referral Priority Routine General Notes Shanti Benton 08:55:24 AM >received today, attachments made, waiting for notes to be locked. Clinical Notes p: [phone] f: [id number] [address] [facility] [address] Additional Source Comments (unrecognized sect ion and content) No Status Records FoundNo Status Records FoundNo Status Records FoundNo Status Records FoundNo Status Records Found INFORMATION SOURCE (unrecogn ized section and content) DATE CREATED AUTHOR 11/06/2022 [facility] DATE CREATED AUTHOR AUTHOR'S ORGANIZ ATION 11/14/2022 [facility] DATE CREATED AUTHOR AUTHOR'S ORGANIZ ATION 10/16/2023 [facility] DATE CREATED AUTHOR AUTHOR'S ORGANIZ ATION 11/28/2024 [facility] DATE CREATED AUTHOR AUTHOR'S ORGANIZ ATION 01/04/2025 [facility] Care Teams (unrecognized sec tion and content) Team Status: Active Member Role Status Dates Lolita Eugene MD Primary Care Provider Active Team Status: Inactive Member Role Status Dates Lolita Eugene MD Primary Care Provider Active Chung Garcia , DO Admit Provider Active Anh Sepulveda APRN ACNP- Other Provider Active Meenakshi Novak MD Other Provider Active Michael Wells MD Other Provider Active Chetan Rosado MD Other Provider Active Santhosh Talavera , Other Provider Active Anjali Elizabeth MD Other Provider Active Chaz Aragon MD Other Provider Active Alonso Hilario MD Other Provider Active Jaspal Espinoza , DO Other Provider Active Ángel Carter MD Attending Provider Active Team Status: Inactive Member Role Status Dates Lolita Eugene MD Primary Care Provider Active Anh Sepulveda APRN [facility] Attending Provider Active Team Status: Active Member Role Status Dates Lolita Eugene MD Primary Care Provider Active Ángel Carter MD Attending Provider Active Team Status: Inactive Member Role Status Dates Lolita Eugene MD Attending Provider Active St art: September 20, 2023 End: September 20, 2023 Team Status: Active Member Role Status Dates Provider Conversion Attending Provider Active St art: September 23, 2023 Team Status: Active Member Role Status Dates Lolita Eugene MD Primary Care Provider Active Start: October 11, 2023 VERONIKA Alston Attending Provider Active Start : October 11, 2023 Team Status: Inactive Member Role Status Dates Lolita Eugene MD Primary Care Provide r, Attending Provider Active Start: July 03, 2024 End: July 03, 2024 Team Status: Active Member Role Status Dates Lolita Eugene MD Primary Care Provide r, Attending Provider Active Start: August 07, 2024 Team Status: Inactive Member Role Status Dates Lolita Eugene MD Primary Care Provide r, Attending Provider Active Start: August 20, 2024 End: August 20, 2024 Team Status: Inactive Member Role Status Dates Lolita Eugene MD Primary Care Provide r, Attending Provider Active Start: September 30, 2024 End: September 30, 2024 Material Liaison Relationship Specialty Start Date End Date Lolita Eugene MD [address] [place] [address] PCP - General Family Medicine 07/25/23 Material Liaison Relationship Specialty Start Date End Date Lolita Eugene MD [address] [place] [address] PCP - General Family Medicine 07/25/23 Material Liaison Relationship Specialty Start Date End Date Chantale Garcia CNP [address] [place] [id number] PCP - General Family Medicine 11/25/24 REASON FOR VISIT (unrecogniz ed section and content) Reason Comments Diplopia Evaluation Goals (unrecognized section and content) Goals may be documented in a n alternate section Source Comments (unrecognize d section and content) In the event this informatio n is protected by the Federal Confidentiality of Alcohol and Drug Abuse Patient Records regulations: The Federal rules restrict any use of the information to criminally investigate or prosecute any alcohol or drug abuse patient.[facility] FOR RECORDS PERTAINING TO PATIENTS WHO ARE OR HAVE BEEN ENROLLED IN A CHEMICAL DEPENDENCY/SUBSTANCEABUSE PROGRAM, SOME INFORMATION MAY BE OMITTED. This clinical summary was aggregated from multiple sources. Caution should be exercised in using it in the provision of clinical care. This summary normalizes information from multiple sources, and as a consequence, information in this document may materially change the coding, format and clinical context of patient data. In addition, data may be omitted in some cases. CLINICAL DECISIONS SHOULD BE BASED ON THE PRIMARY CLINICAL RECORDS. [employer] [facility]. provides no warranty or guarantee of the accuracy or completeness of information in this document.
--- NOTE | 2025-01-04 18:41 | ECG_ITS ---
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 Measurements Intervals [place] Rate: 70 P: 47 AK: 210 QRS: 4 QRSD: 88 T: 16 QT: 384 QTc: 404 Interpretive Statements 1100 Sinus rhythm 2231 First degree AV block 3114 Cannot rule out anterior myocardial infarction, age undetermined 8102 Low QRS voltage in chest leads 9150 abnormal ECG Compared to ECG 10/28/2022 08:02:50 First degree AV block now present Low QRS voltage now present Electronically Signed On 01-05-2025 17:52:26 EDT by ARTHUR LOWRY M.D.
[2025-01-04 18:47] LABS: Glucometer 95 mg/dL (74-106)
--- NOTE | 2025-01-04 18:50 | ED_ITS ---
HPI HPI - General Adult General Chief complaint: Neuro Symptoms/Deficit Stated complaint: left side of body numb Time Seen by Provider: 01/04/25 18:38 Source: patient Mode of arrival: walk-in Limitations: no limitations History of Present Illness HPI narrative: The patient is a 49 yo male who presents to the emergency department today for evaluation concerns for paresthesias to his left upper extremity. Patient with a complex medical history of hydrocephalus as a child that subsequently required shunt revision in August 2024. He states he was having complications following the shunt revision and had a craniotomy on 12/22 due to fluid buildup and clot evacuation. Close over the past 3 weeks he has had paresthesias to his left upper extremity that he describes as numbness left forearm with some associated weakness. He reports the symptoms have been worse today. He denies any pain. Patient's states his neurosurgeon Dr. Mack at [facility] is aware of this however they were seen by the nurse practitioner who thought these may be more seizure related symptoms and was subsequently started on keppra last week. Denies any headache no dizziness or subsequent syncope. He has had some intermittent slurred speech neurosurgeon is aware of this. Related Data Home Medications ?Medication ?Instructions ?Recorded ?Confirmed amlodipine 5 mg tablet mg 01/04/25 atorvastatin 20 mg tablet mg 01/04/25 blood-glucose transmitter (Dexcom 01/04/25 01/04/25 G6 Transmitter device) levetiracetam 500 mg tablet mg PO 01/04/25 losartan 50 mg tablet mg 01/04/25 metformin 500 mg tablet mg 01/04/25 metoprolol succinate 100 mg mg PO 01/04/25 tablet,extended release 24 hr oxycodone 5 mg tablet mg 01/04/25 semaglutide 0.25 mg or 0.5 mg (2 mg subcut 01/04/25 mg/3 mL) subcutaneous pen injector (Ozempic) tizanidine 2 mg tablet mg 01/04/25 Allergies Allergy/AdvReac Type Severity Reaction Status Date / Time No Known Drug Allergies Allergy Verified 01/04/25 18:38 Review of Systems ROS Status of ROS 10 or more systems reviewed and unremark able except as noted in history and below PFSH PFSH Social History Little interest or pleasure in doing things: not at all Feeling down, depressed, or hopeless: not at all Exam Narrative Exam Narrative: Constituational: Awake/ alert, no apparent distress, well hydrated HENMT: +intact montse horizontally across the lateral R head, otherwise normocephalic, external ears normal, moist oral mucous membranes and oropharynx normal Eyes: EOMs intact bilaterally, PERRL, and conjunctivae normal Neck: ROM intact Chest: inspection of chest normal Respiratory: Normal respiratory effort, clear to auscultation bilaterally Cardio: regular rate and regular rhythm GI: soft to palpation and non-tender Back: nontender MSK: full ROM and normal capillary refill Skin: no rashes or petichea Neuro: +paresthesia to L forearm, slightly reduced internal controls specialist to L hand, otherwise equal strengh, normal speech, Psych: mental status grossly normal Constitutional Vital Signs, click to edit/add: Last Vital Signs Temp 98.7 F 01/04/25 18:32 Pulse 68 01/04/25 19:50 Resp 18 01/04/25 19:50 BP 123/78 01/04/25 19:31 Pulse Ox 95 01/04/25 19:50 O2 Del Method Room Air 01/04/25 18:32 Course Vital Signs Vital signs: Vital Signs Temperature 98.7 F 01/04/25 18:32 Pulse Rate 86 01/04/25 18:32 Respiratory Rate 18 01/04/25 18:32 Blood Pressure 153/77 H 01/04/25 18:32 Pulse Oximetry 98 01/04/25 18:32 Oxygen Delivery Method Room Air 01/04/25 18:32 Temperature 98.7 F 01/04/25 18:32 Pulse Rate 68 01/04/25 19:50 Respiratory Rate 18 01/04/25 19:50 Blood Pressure 123/78 01/04/25 19:31 Pulse Oximetry 95 01/04/25 19:50 Oxygen Delivery Method Room Air 01/04/25 18:[address] [facility] Narrative Medical decision making narrative: Well-appearing 49-year-old male who presented to the emergency department today for evaluation of concerns for lesions/numbness to his left upper extremity and of an episode of slurred speech yesterday. Patient vital signs overall stable. Patient with mild reduced sensation to the left forearm and slightly reduced strength in internal controls specialist to the left hand however this is overall subtle and patient feels this is stable per his baseline. Otherwise no concerning neurologic or strokelike findings on exam. CT head does show stable postoperative craniotomy changes and did discuss this with Dr. French (surgery [facility]) 1957p -> ideations for outpatient follow-up. Stable with exception to mild leukocytosis with WBCs 11. No acute changes. These findings with the patient and his who was present at the bedside including recommendations for supportive care. Patient does have an appointment with neurosurgery scheduled for 01/07. Reiterated close follow-up with his neurosurgeon. Patient given return to ER precautions/when to consider reevaluation. Patient and his verbalized an understanding of this and are agreeable with the plan to be discharged home. Medical Records Medical records reviewed: Yes I reviewed the patient's medical records Lab Data Lab results reviewed: Yes I reviewed the patient's lab results Labs: Lab Results 01/04/25 01/04/25 Range/Units 18:46 18:48 WBC 11.6 H (4.0-11.0) 10^3/uL RBC 4.37 L (4.70-6.10) 10^6/uL Hgb 12.7 L (14.0-18.0) g/dL Hct 36.9 L (42.0-54.0) % MCV 84.4 (80.0-94.0) fL MCH 29.1 (25.9-34.0) pg MCHC 34.4 (29.9-35.2) g/dL RDW 12.6 (11.0-15.0) % Plt Count 354 (150-450) 10^3/uL MPV 8.7 L (9.5-13.5) fL Neut % (Auto) 65.5 (43.0-75.0) % Lymph % (Auto) 19.3 L (20.5-60.0) % Hand % (Auto) 9.1 (1.7-12.0) % Eos % (Auto) 5.4 (0.9-7.0) % Baso % (Auto) 0.4 (0.2-2.0) % Neut # (Auto) 7.6 H (1.4-6.5) 10^3/uL Lymph # (Auto) 2.2 (1.2-3.8) 10^3/uL Hand # (Auto) 1.1 H (0.3-0.8) 10^3/uL Eos # (Auto) 0.6 (0.0-0.7) 10^3/uL Baso # (Auto) 0.1 (0.0-0.1) 10^3/uL Abs Immat Gran (auto) 0.03 (0.00-0.03) 10^3/uL Imm/Tot Granulo (auto) 0.3 (0.0-0.5) % Sodium 138 (136-145) mmol/L Potassium 3.7 (3.5-5.1) mmol/L Chloride 102 (98-107) mmol/L Carbon Dioxide 29.6 (21.0-32.0) mmol/L Anion Gap 10.1 BUN 25.0 H (7.0-18.0) mg/dL Creatinine 0.89 (0.70-1.30) mg/dL Est GFR ( Amer) >60 (>=60 mL/min/1.73m^2) Est GFR (Non-Af Amer) >60 (>=60 mL/min/1.73m^2) BUN/Creatinine Ratio 28.1 Glucose 95 (74-106) mg/dL Calcium 9.5 (8.5-10.1) mg/dL Total Bilirubin 0.4 (0.2-1.0) mg/dL AST 12 L (15-37) U/L ALT 29 (16-63) U/L Alkaline Phosphatase 121 H (46-116) U/L Troponin I High Sens 9.7 (4.0-76.1) pg/mL Total Protein 7.6 (6.4-8.2) g/dL Albumin 3.4 (3.4-5.0) g/dL Globulin 4.2 g/dL Albumin/Globulin Ratio 0.8 POC Glucose 95 (74-106) mg/dL Imaging Data CT scan - head: Attestation: I have reviewed the pertinent imaging results. Radiologist's impression: Mild to moderate hydrocephalus. Subacute read subdural hematoma ECG Data Attestation: I personally reviewed and interpreted this ECG as follows: (EKG shows SR with HR 70, no acute/ischemic changes) Discharge Plan Discharge Chief Complaint: Neuro Symptoms/Deficit Clinical Impression: Paresthesia of left arm Patient Disposition: Home, Self-Care Prescriptions / Home Meds: No Action losartan 50 mg tablet metformin 500 mg tablet atorvastatin 20 mg tablet tizanidine 2 mg tablet levetiracetam 500 mg tablet PO metoprolol succinate 100 mg tablet extended release 24 hr PO amlodipine 5 mg tablet oxycodone 5 mg tablet (DME) Dexcom G6 Transmitter Device MISCELLANEOUS Ozempic 0.25 mg or 0.5 mg (2 mg/3 mL) pen injector SUBCUT Print Language: Spanish Instructions: Paresthesia (ED) Additional Instructions: Follow-up with your neurosurgeon for reevaluation as discussed. Continue your current medications. May return to the ER with any new or worsening symptoms/concerns. Referrals: Danica Nunez MD [Primary Care Provider, Family Practice] - 1 week
[2025-01-04 19:21] LABS: Basophils Absolute Auto 0.1 10^3/uL (0.0-0.1); Basophils Percent Auto 0.4 % (0.2-2.0); Eosinophils Absolute Auto 0.6 10^3/uL (0.0-0.7); Eosinophils Percent Auto 5.4 % (0.9-7.0); Hematocrit 36.9 % (42.0-54.0); Hemoglobin 12.7 g/dL (14.0-18.0); Immature Granulocytes Abs Auto 0.03 10^3/uL (0.00-0.03); Immature Granulocytes Pct Auto 0.3 % (0.0-0.5); Lymphocytes Absolute Auto 2.2 10^3/uL (1.2-3.8); Lymphocytes Percent Auto 19.3 % (20.5-60.0); Mean Corpuscular HGB Conc 34.4 g/dL (29.9-35.2); Mean Corpuscular Hemoglobin 29.1 pg (25.9-34.0); Mean Corpuscular Volume 84.4 fL (80.0-94.0); Mean Platelet Volume 8.7 fL (9.5-13.5); Monocytes Absolute Auto 1.1 10^3/uL (0.3-0.8); Monocytes Percent Auto 9.1 % (1.7-12.0); Neutrophils Absolute Auto 7.6 10^3/uL (1.4-6.5); Neutrophils Percent Auto 65.5 % (43.0-75.0); Platelet Count 354 10^3/uL (150-450); Red Blood Count 4.37 10^6/uL (4.70-6.10); Red Cell Distribution Width 12.6 % (11.0-15.0); White Blood Count 11.6 10^3/uL (4.0-11.0)
[2025-01-04 19:39] LABS: Alanine Aminotransferase 29 U/L (16-63); Albumin Globulin Ratio 0.8; Albumin Level 3.4 g/dL (3.4-5.0); Alkaline Phosphatase 121 U/L (46-116); Anion Gap 10.1; Aspartate Amino Transferase 12 U/L (15-37); BUN Creatinine Ratio 28.1; Bilirubin Total 0.4 mg/dL (0.2-1.0); Calcium 9.5 mg/dL (8.5-10.1); Carbon Dioxide 29.6 mmol/L (21.0-32.0); Chloride 102 mmol/L (98-107); Estimated GFR (African America >60 (>=60 mL/min/1.73m^2); Estimated GFR (Non-African Ame >60 (>=60 mL/min/1.73m^2); Globulin 4.2 g/dL; Glucose 95 mg/dL (74-106); Potassium 3.7 mmol/L (3.5-5.1); Sodium 138 mmol/L (136-145); Total Protein 7.6 g/dL (6.4-8.2); Troponin I High Sensitivity 9.7 pg/mL (4.0-76.1)
== END 2025-01-04 20:25 | disposition home or self-care (01) ==
PROVIDERS: Nurse Practitioner; Emergency Provider Emergency Medicine; PCP Family Medicine
DX: R20.2 Paresthesia of skin (principal); R53.1 Weakness; R47.81 Slurred speech; G91.9 Hydrocephalus, unspecified; Z98.2 Presence of cerebrospinal fluid drainage device
CPT/HCPCS: 36415; 70450; 80053; 84484; 85025; 93005; 99285

== ENCOUNTER 2025-01-29 12:34 | Outpatient (OUT) | payer BC, SELFPAY ==
--- OUTSIDE RECORDS SUMMARY | 2025-01-29 12:37 | XMS_ITS | Clinical Summary ---
Author Organization [facility] Address [address] [place] [address] Care Team Providers Care Garment Manufacturing Supervisor Name Role Phone Chantale Haley CNP Primary Care Provider [phone] Allergies Active Allergy Reactions Criticality Noted Date Comments Fentanyl Other: See Comments Medium 09/16/2024 When combined with Dilaudid, becomes violent Hydromorphone Other: See Comments Medium 09/16/2024 When combined with fentanyl, becomes violent Medications tiZANidine (ZANAFLEX) 2 mg tablet Take 1 tablet by mouth every 8 hours as needed. 5 Active losartan (COZAAR) 50 mg tablet Take 50 mg by mouth once daily. Active metoprolol succinate ER (TOPROL XL) 100 mg Take 1 tablet by mouth once daily. 5 Active atorvastatin (LIPITOR) 20 mg tablet 5 Active OZEMPIC 0.25 mg or 0.5 mg (2 mg/3 mL) pen INJECT 0.5MG SUBCUTANEOUSLY ONCE EVERY WEEK Active sildenafil (VIAGRA) 100 mg tablet Take 100 mg by mouth. 3 Active albuterol HFA (PROVENTIL HFA, VENTOLIN HFA) 90 mcg/actuation inhaler INHALE 1 PUFF BY MOUTH EVERY 6 HOURS NEEDED FOR SHORTNESS OF BREATH/ WHEEZING 3 Active aspirin, enteric coated (ASPIRIN, ENTERIC COATED) 325 mg EC tablet Take 325 mg by mouth. 3 Active DEXCOM G6 SENSOR lizette APPLY NEW SENSOR EVERY 10 DAYS 5 Active metFORMIN (GLUCOPHAGE) 500 mg tablet Take 500 mg by mouth. [address] (PROTONIX) 40 mg tablet Take 40 mg by mouth. 3 Active Active Problems No known active problems Encounters Date Type Department Care Team Description 11/25/2024 11:00 AM EDT Office Visit [facility] [address] [place] [address] Meghan Bates T, OD Diplopia (Primary Dx); Visual field defects; Type 2 diabetes mellitus with both eyes affected by mild nonproliferative retinopathy without macular edema, without long-term current use of insulin (HCC); Myopia, bilateral; Regular astigmatism, bilateral; Presbyopia 11/25/2024 Travel from Last 3 Months Social History Tobacco Use Types Packs/Day Years Used Date Smoking Tobacco: Never Smokeless Tobacco: Never Tobacco Cessation:Counseling Given: Not Answered Alcohol Use Standard Drinks/Week Comments Not Currently 0 (1 standard drink = 0.6 oz pur e alcohol) Area Deprivation Index Answer Date Raymond rded National Score (1-100), lower number is lower ri sk 93 11/25/2024 State Score (1-10), lower number is lower risk 9 11/25/2024 Data from: https://www.neighborhoodatlas.medicine.[facility].edu/. Last address used for calculation [address] [facility] 11/25/2024 Sex and Gender Information Value Date Recorded Sex Assigned at Not on file Legal Sex Male 8:48 AM EST Gender Identity Not on file Sexual Orientation Not on file Plan of Treatment Health Maintenance Due Date Last Done Comments Anxiety Screening 1995 Depression Screening 1995 HIV Screening 1995 Hepatitis C Screening 1995 Hepatitis B Vaccine (1 of 3 - 19+ 3-dose series) 02/02/1996 Lipid Screening 02/02/2012 CT Colonography 2022 Cologuard (FIT-DNA) 2022 Colonoscopy 2022 Colorectal Cancer Screening 2022 Fecal Occult Blood 2022 Sigmoidoscopy 2022 Covid-19 Vaccine ( season) 2024 Influenza Vaccine (Season Ended) 2025 Diabetes Screening 09/29/2027 09/29/2024, 09/16/2024 DTaP,Tdap,Td Vaccine (2 - Td or Tdap) 06/29/202811/2017 Procedures Procedure Name Priority Date/Time Associated Diagnosis Comments FUNDUS PHOTOS OU (BOTH EYES) Routine 11/25/2024 12:18 PM EDT Type 2 diabetes mellitus with both eyes affected by mild nonproliferative retinopathy without macular edema, without long-term current use of insulin (HCC) VISUAL FIELD 24-2 OU (BOTH EYES) Routine 11/25/2024 11:47 AM EDT Diplopia from Last 3 Months Results * FUNDUS PHOTOS OU (BOTH EYES) (11/25/2024 12:18 PM EDT) Anatomical Region Laterality Modality Other Narrative 11/25/2024 1:57 PM EDT Date of Procedure 11/25/2024. Product Communications Manager Information Sales Service Assistant: thang. Start time: 12:18 PM. C/D Ratio Right Eye 0.35. Left Eye 0.35. Disc Right Eye (Possible slight pallor). Left Eye (Possible slight pallor). Macula Right Eye Normal. Left Eye Normal. Periphery Right Eye (Dot-blot hemes noted). Left Eye (Dot-blot hemes noted as well as exudates). Meghan Bates OD OPHTHALMOLOGY Final Re sult * VISUAL FIELD 24-2 OU (BOTH EYES) (11/25/2024 11:47 AM EDT) Anatomical Region Laterality Modality Other Narrative 11/25/2024 1:59 PM EDT Date of Procedure 11/25/2024. Product Communications Manager Information Sales Service Assistant: thang. Start time: 11:37 AM. Stop time: 11:47 AM. Reliability Right Eye Good. Left Eye Borderline. 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 Interval Change Right Eye Initial. Left Eye Initial. Meghan Bates OD OPHTHALMOLOGY Final Re sult from Last 3 Months Insurance BLUE CARD PPO OOS Care Teams Garment Manufacturing Supervisor Relationship Specialty Start Date End Date Chantale Haley, HARPOON ENGAGEMENT PLANNING OPERATOR [address] [phone] PCP - General Family Medicine 11/25/24
--- OUTSIDE RECORDS SUMMARY | 2025-01-29 12:37 | XMS_ITS | Clinical Summary ---
Author Organization [facility] Address [address] [place] [address] Phone Care Team Providers Care Associate Account Manager Name Role Phone Danica Nunez MD Primary Care Provider [phone] Social History Tobacco Use Types Packs/Day Years Used Date Smoking Tobacco: Never Assessed Sex and Gender Information Value Date Recorded Sex Assigned at Not on file Legal Sex Male 8:36 AM EST Gender Identity Not on file Sexual Orientation Not on file Plan of Treatment Health Maintenance Due Date Last Done Comments CT Colonography 1977 Colonoscopy 1977 Colorectal Cancer Screening 1977 FIT-DNA (Cologuard) 1977 FIT 1977 HIV Screening 1977 Lipid Panel 1977 Sigmoidoscopy 1977 Yearly Adult Physical 1977 MMR Vaccines (1 of 1 - Stand karen series) 1978 Hepatitis C Screening 1995 Hepatitis B Vaccines (1 of 3 - 19+ 3-dose series) 02/02/1996 DTaP/Tdap/Td Vaccines (1 - Tdap) 1999 COVID-19 Vaccine (2023-2 5 season) 2024 Influenza Vaccine (Season Ended) 2025 Zoster Vaccines (1 of 2) 2027 HIB Vaccines Aged Out No longer eligi ble based on patient's age to complete this topic HPV Vaccines Aged Out No longer eligi ble based on patient's age to complete this topic Hepatitis A Vaccines Aged Out No long er eligible based on patient's age to complete this topic IPV Vaccines Aged Out No longer eligi ble based on patient's age to complete this topic Meningococcal Vaccine Aged Out No teodoro jairo eligible based on patient's age to complete this topic Pneumococcal Vaccine: Pediat rics and At-Risk Adult Patients Aged Out No longer cherise gible based on patient's age to complete this topic Rotavirus Vaccines Aged Out No longer eligible based on patient's age to complete this topic Care Teams Associate Account Manager Relationship Specialty Start Date End Date Danica Nunez MD [address] [place], [place] [id number] PCP - General 11/01/22
--- NOTE | 2025-01-29 13:00 | CA_ITS ---
Patient Name: SHAGUFTA RUIZ MR#: [id number] : 1975 Exam Date: 01/29/2025 Ordering Doctor: DR LOLITA EUGENE M.D. ECHOCARDIOGRAM REPORT PROCEDURE: CA ECHO DOPPLER COMPLETE INDICATIONS: Heart murmur, hypertension COMPARISON: None. DESCRIPTION: COMPLETE ECHOCARDIOGRAM Real-time transthoracic echocardiography with 2D, M-mode, spectral and color flow Doppler performed. QUALITY: Technical quality was good. LEFT VENTRICLE: Normal chamber size. Mild concentric left ventricular hypertrophy. Systolic function is normal. LV EF: Normal left ventricular ejection fraction, (>55%). DIASTOLIC: Normal diastolic function. ATRIAL SEPTUM: Visually appears intact. LEFT ATRIUM: Normal chamber size. RIGHT ATRIUM: Normal chamber size. RIGHT VENTRICLE: Normal chamber size. Normal right ventricular systolic function. TRICUSPID VALVE: Normal mobility and thickness. No stenosis with no regurgitation. Unable to assess right-sided pressures due to lack of measurable tricuspid regurgitation. MITRAL VALVE: Normal mobility and thickness. No evidence of mitral valve stenosis. There is no mitral annular calcification. No mitral regurgitation. AORTIC VALVE: Normal trileaflet appearance. No visible sclerosis. Normal leaflet mobility. No evidence of aortic valve stenosis. No aortic regurgitation. AORTIC ROOT: Normal diameter and appearance, measuring 3.4 cm. The ascending aorta is normal in size measuring 3.6 cm. PULMONIC VALVE: Normal thickness and mobility. No stenosis. No regurgitation. PERICARDIUM: No evidence of pericardial effusion. IVC: Collapses with inspiration. IVC is dilated (2.4 cm) PLEURA: CONCLUSION: 1. Mild concentric left ventricular hypertrophy with normal systolic function. Estimated LVEF is 55 to 60%. 2. Normal right ventricular size and systolic function. 3. Normal diastolic function. 4. No significant valvular dysfunction. 5. Unable to assess right-sided pressures due to lack of measurable tricuspid regurgitation. 6. No pericardial effusion. Adult Echocardiography Procedure Report Left Ventricle LVEDD (3.7 - 5.6 cm): 4.55 cm LVESD (2.2 - 4.0 cm): 3.74 cm LVIVS thickness (0.6 - 1.2 cm): 1.14 cm LVPW thickness (0.5 - 1.0 cm): 1.40 cm E - e': 8.49 LVOT Diameter 2.69 cm Left Atrium LA Volume Index (2D A2C): 36.70 ml/m2 Left Atrium Systolic Dimension: 4.53 cm Mitral Valve MV E to A Ratio: 1.07 Mitral Valve A-Wave Peak Velocity: 0.78 m/s Mitral Valve E-Wave Peak Velocity: 0.83 m/s Right Ventricle Aorta AO Root Diam: 3.44 cm Ascending Ao Diam: 3.20 cm Aortic Valve Peak Velocity(Antegrade Flow): 1.08 m/s Peak Gradient(Antegrade Flow): 4.68 mm[Hg] Tricuspid Valve Pulmonic Valve Mean Gradient: 1.93 mm[Hg] Mean Velocity: 0.63 m/s Peak Velocity: 1.05 m/s Peak Gradient: 3.53 mm[Hg], 4.44 mm[Hg] Right Atrium Right Atrium Systolic Pressure: 42.93 ml, 42.93 ml Dictated by: William Thompson M.D. on 01/29/2025 at 17:51 Approved by: William Thompson M.D. on 01/29/2025 at 17:56
== END 2025-01-29 12:35 | disposition home or self-care (01) ==
LOC: CARD 12:35
PROVIDERS: PCP Family Medicine; Visit Provider Family Medicine
DX: R01.1 Cardiac murmur, unspecified (principal)
CPT/HCPCS: 93306